=== PATIENT | female | born 1980 | race Caucasian/White ===

== ENCOUNTER 2021-08-31 15:25 | Emergency (ER) | payer OTHER, SELFPAY ==
[2021-08-31 15:31] VITALS: BP 161/98; PULSE 92; RESP 18; TEMP 36.7; O2SAT 99
--- NOTE | 2021-08-31 15:31 | ED.URI ---
HPI - URI/Sore Throat General Chief Complaint: Upper Respiratory Infection Stated Complaint: cough fever Time Seen by Provider: 08/31/21 15:32 Source: patient and RN notes reviewed History of Present Illness HPI Narrative: Patient is a 41-year-old female who presents the urgent care with complaints of chest congestion and harsh coughing. Patient states that started 3 weeks ago and she has been using DayQuil, NyQuil, Mucinex and Benadryl without much relief. Patient denies of any fevers. States that she has had some chills and sweats which is since resolved since Monday. Denies of any chest pain. No other acute complaints. No acute distress noted. Patient aware of the plan of care. Some parts of this dictation were generated by voice recognition software and may contain typographical and/or grammatical inaccuracies. Related Data Allergies Allergy/AdvReac Type Severity Reaction Status Date / Time amoxicillin Allergy Hives Verified 08/31/21 15:38 Review of Systems Review of Systems: CONSTITUTIONAL: Denies fever, chills, or sweats. EYES: Denies visual changes, redness, or discharge. ENT: Denies rhinorrhea, congestion, sore throat, or otalgia. CARDIOVASCULAR: Denies chest pain, palpitations, or edema. RESPIRATORY: Reports of chest congestion and cough GASTROINTESTINAL: Denies abdominal pain, nausea, vomiting, or diarrhea. GENITOURINARY: Denies dysuria or hematuria. SKIN: Denies rash or itching. MUSCULOSKELETAL: Denies back pain, joint pain, or myalgia. NEUROLOGIC: Denies headache, numbness, or weakness. All other systems reviewed are negative, except as documented in HPI. PMFSH Comments At the time of my signature, I reviewed and agree with the nursing past medical, surgical, social, and family history. There is no relevant family history pertinent to the patient complaint. Exam Narrative: GENERAL: This is a well-nourished, well-developed patient, in no apparent distress. HEAD: normocephalic, atraumatic. EYES: PERRL. Sclera clear/white. Vision is grossly intact. EARS: External ears normal, auditory canals clear and without drainage, TMs normal without perforation. Hearing grossly intact. NOSE: External nose normal with no obvious nasal discharge, nares without redness, no rhinorrhea. THROAT: Mucous membranes moist, posterior pharynx clear. Moderate postnasal drainage NECK: Neck supple CARDIOVASCULAR: Regular rate and rhythm without murmurs, gallops, or rubs. RESPIRATORY: Scant bibasilar wheezing, cleared with cough. SKIN: warm, intact with no suspicious lesions or rash, good texture and turgor. NEURO: awake, alert, and oriented to person, place and time. There were no obvious focal neurologic abnormalities. EXTREMITIES: No clubbing, cyanosis, or edema. Course Course Level of Care: Express Care Visit Vital Signs Vital signs: Vital Signs Temperature 98.1 F 08/31/21 15:31 Pulse Rate 92 08/31/21 15:31 Respiratory Rate 18 08/31/21 15:31 Blood Pressure 161/98 H 08/31/21 15:31 Pulse Oximetry 99 08/31/21 15:31 Temperature 98.1 F 08/31/21 15:31 Pulse Rate 92 08/31/21 15:31 Respiratory Rate 18 08/31/21 15:31 Blood Pressure 161/98 H 08/31/21 15:31 Pulse Oximetry 99 08/31/21 15:31 Reviewed-patient is informed that they may have pre-hypertension or hypertension based on a blood pressure reading in the department. I recommend the patient call the primary care provider listed on their discharge instructions or a physician of their choice this week to arrange follow-up for further evaluation of possible pre-hypertension or hypertension. MDM - URI/Sore Throat MDM Narrative Medical decision making narrative: Advised patient to continue Benadryl prior to bedtime. Complete the steroid regimen as prescribed. Use the inhaler as needed for wheezing, coughing fits or shortness of breath. Be sure to eat and drink with your medications. Use a humidifier at night and do not sleep with a fan or the windows open.
== END 2021-08-31 15:49 | disposition home or self-care (01) ==
PROVIDERS: Emergency Provider Nurse Practitioner Family
DX: J40 Bronchitis, not specified as acute or chronic (principal); I10 Essential (primary) hypertension
CPT/HCPCS: 99203; G0463

== ENCOUNTER 2021-10-01 16:04 | Emergency (ER) | payer OTHER, SELFPAY ==
--- NOTE | ~2021-10-01 | XR_ITS ---
EXAMINATION: XR chest 2V DATE: 10/01/2021 17:05 INDICATION: Left sided chest pain. TECHNIQUE: PA and lateral views of the chest were obtained. COMPARISON: None FINDINGS: The lungs are clear with no focal airspace opacities, pulmonary edema, pleural effusion or pneumothor ax. Cardiomegaly. Moderate thoracic spondylosis. IMPRESSION: 1. Cardiomegaly. No other acute cardiopulmonary disease. Reviewed, dictated and finalized at location A.
[2021-10-01 16:31] VITALS: BP 186/99; PULSE 90; RESP 18; TEMP 36.2; O2SAT 100
--- NOTE | 2021-10-01 16:42 | ECG_ITS ---
Measurements Intervals [place] Rate: 74 P: 68 CO: 178 QRS: 44 QRSD: 96 T: 68 QT: 384 QTc: 426 Interpretive Statements SINUS RHYTHM BORDERLINE R WAVE PROGRESSION, ANTERIOR LEADS ABNORMAL ECG CONSIDER INFERIOR INFARCT, AGE INDETERMINATE Electronically Signed On 10-01-2021 21:32:09 CDT by Yossi Boyle D.O.
--- NOTE | 2021-10-01 18:26 | ED.GENADULT ---
HPI - General Adult General Chief complaint: Unspecified Stated complaint: chest pain Time Seen by Provider: 10/01/21 18:16 Source: RN notes reviewed History of Present Illness HPI narrative: Patient presents emergency department from home for chest pain. Patient states she is had pain in her left superior chest that goes into her left shoulder and down her left arm to her elbow that began last night states the patient has been constant and was mild last night and this morning then got worse when she was at work today. 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 States she not taking medication for the pain at home Related Data Allergies Allergy/AdvReac Type Severity Reaction Status Date / Time amoxicillin Allergy Hives Verified 08/31/21 15:38 Review of Systems Review of Systems: Gen.: Denies fevers or chills ENT: Denies congestion Respiratory: Denies shortness of breath or cough CV: See HPI GI: Denies abdominal pain nausea, emesis or diarrhea Musculoskeletal: Denies back pain or muscle pain Neuro: Denies numbness, tingling, weakness or focal weakness Skin: Denies rash Except as documented, all other systems reviewed and negative [facility] Past Medical History Medical History (Updated 10/01/21 @ 21:16 by Rajesh Chu DO) Patient denies significant medical history Social History Social History (Updated 10/01/21 @ 18:27 by Rajesh Chu DO) Smoking status: Never smoker Exam Narrative: APPEARANCE: No acute distress, nontoxic, resting in bed EYES: EOMI HEENT: Normocephalic, atraumatic, OMM RESPIRATORY: No respiratory distress Clear to auscultation bilaterally with no rhonchi wheezing or rales. CARDIOVASCULAR: Regular rate and rhythm without murmurs rubs or gallops. Chest: Tender palpation of left anterior superior chest wall as well as over the anterior shoulder pain increased with flexion abduction of the left shoulder greater than 90 degrees bilaterally her pulse 2+ ABDOMINAL: Soft, nontender, nondistended, no rebound or guarding MUSCULOSKELETAl: Moves all extremities. No clubbing, cyanosis or edema. No tenderness of the left elbow or wrist no overlying erythema NEURO: Awake and alert. Following commands, speech normal, no focal deficits SKIN:: Warm, dry. No rashes lesions or abrasions PSYCHIATRIC: Normal affect/mood, Course Course Emergency Course: Patient states chest pain is improved at this time Discussed with patient results of workup and diagnosis. Discussed need for follow-up with primary care, proper use of medication, and reasons to return to the emergency department. Patient understands and agrees to current treatment plan. Discussed with patient her anemia she states she did have to be on iron tablets when she had been with her son does have a current PCP discussed the need for follow-up with her PCP for further outpatient evaluation Vital Signs Vital signs: Vital Signs Temperature 97.1 F L 10/01/21 16:31 Pulse Rate 90 10/01/21 16:31 Respiratory Rate 18 10/01/21 16:31 Blood Pressure 186/99 H 10/01/21 16:31 Pulse Oximetry 100 10/01/21 16:31 Temperature 97.1 F L 10/01/21 16:31 Pulse Rate 90 10/01/21 16:31 Respiratory Rate 18 10/01/21 16:31 Blood Pressure 186/99 H 10/01/21 16:31 Pulse Oximetry 100 10/01/21 16:31 Medical Decision Making MDM Narrative Medical decision making narrative: Patient's EKGs and labs are without significant high risk changes. Cardiac risk factors reviewed. Patient is felt likely low risk for ACS and reasonable for further risk stratification testing as an outpatient. Pain was not sudden or maximal in onset without tearing or ripping quality.
[2021-10-01 18:45] LABS: Basophils Absolute Auto 0.1 K/mm3 (0.0-0.1); Basophils Percent Auto 0.5 % (0.2-1.2); Eosinophils Absolute Auto 0.5 K/mm3 (0-0.3); Eosinophils Percent Auto 4.3 % (0-4.4); Hematocrit 29.6 % (37.0-47.0); Hemoglobin 8.3 g/dL (12.0-15.0); Immature Granulocyte Absolute 0.05 K/mm3 (0.00-0.031); Immature Granulocyte Percent A 0.4 % (0-0.5); Lymphocytes Absolute Auto 2.57 K/mm3 (0.9-3.2); Lymphocytes Percent Auto 21.6 % (18.3-44.2); Mean Corpuscular Hemoglobin 20.5 pg (26-34); Mean Corpuscular Volume 73.3 fl (80-100); Mean Platelet Volume 9.3 fl (7.4-10.4); Monocytes Absolute Auto 0.7 K/mm3 (0.1-0.6); Monocytes Percent Auto 5.8 % (2.6-8.5); Neutrophils Percent Auto 67.4 % (45.5-73.1); Platelet Count Result 468 k/mm3 (150-375); Red Blood Count 4.04 M/mm3 (4.2-5.4); Red Cell Distribution Width 16.5 % (11.5-14.5); White Blood Count 11.9 K/mm3 (4.5-10.0)
[2021-10-01 18:53] LABS: Alanine Aminotransferase 18 U/L (6-35); Alkaline Phosphatase 88 U/L (38-126); Anion Gap 5 mmol/L (8-16); Aspartate Amino Transferase 32 U/L (14-36); Bilirubin,Total 0.1 mg/dL (0.2-1.3); Blood Urea Nitrogen 15 mg/dL (7-17); Calcium 8.7 mg/dL (8.4-10.2); Carbon Dioxide 28 mmol/L (22-30); Chloride 108 mmol/L (98-107); Estimated CRCL calculation 211 ml/min; Estimated Glomerular Filt Rate > 60; Glucose 98 mg/dL (65-110); Lipase 168 U/L (23-300); Potassium 4.2 mmol/L (3.4-5.0); Sodium 141 mmol/L (137-145)
[2021-10-01 19:00] LABS: INR 1.1; Partial Thromboplastin Time 32.2 SECONDS (22.3-36.8)
[2021-10-01 19:01] LABS: D Dimer 0.48 ug/mL (<0.48)
[2021-10-01 19:04] LABS: Troponin I < 0.012 ng/mL (0.000-0.034)
[2021-10-01] MEDS: KETOROLAC 30 MG/ML VIAL (*BKC) IV PUSH (19:17)
--- NOTE | 2021-10-01 19:24 | PC.NURSE ---
Patient report received by RAY Maldonado, this nurse assumed care of patient at this time.
[2021-10-01 20:56] LABS: Troponin I < 0.012 ng/mL (0.000-0.034)
[2021-10-01 21:37] VITALS: BP 157/75; PULSE 73; RESP 17; O2SAT 99
== END 2021-10-01 21:39 | disposition home or self-care (01) ==
PROVIDERS: Emergency Medicine; Emergency Provider Emergency Medicine
DX: R07.89 Other chest pain (principal); S46.912A Strain of unspecified muscle, fascia and tendon at shoulder and upper arm level, left arm, initial encounter; I51.7 Cardiomegaly; X50.0XXA Overexertion from strenuous movement or load, initial encounter
CPT/HCPCS: 36415; 71046; 80053; 83690; 84484; 85025; 85380; 85610; 85730; 93005; 96374; 99284; J1885

== ENCOUNTER 2022-06-21 10:59 | Emergency (ER) | payer OTHER, SELFPAY ==
[2022-06-21 11:14] VITALS: PULSE 85; RESP 18; TEMP 36.4; O2SAT 98
[2022-06-21 11:18] VITALS: BP 196/92
--- NOTE | 2022-06-21 11:25 | ED.GENADULT ---
HPI - General Adult General Chief complaint: Upper Respiratory Infection Stated complaint: Congestion/Chest Congestion Source: patient Mode of arrival: ambulatory Limitations: no limitations History of Present Illness HPI narrative: Patient presents for evaluation of sick symptoms for last 10 days. Symptoms include sinus congestion, mucopurulent discharge from her nares and chest congestion. She reports some hot flashes but denies any fever, chills, nausea, vomiting, diarrhea, otalgia, sore throat. Her brother's girlfriend currently has similar symptoms. Patient has had COVID in the past. She took a COVID test earlier today which was negative. She has been taking DayQuil and NyQuil for symptoms. She smokes a quarter pack per day. Related Data Allergies Allergy/AdvReac Type Severity Reaction Status Date / Time amoxicillin Allergy Hives Verified 08/31/21 15:38 Review of Systems Review of Systems: CONSTITUTIONAL: Denies fever, chills, or sweats. EYES: Denies visual changes, redness, or discharge. ENT: Reports sinus congestion and green mucopurulent drainage. Denies sore throat, or otalgia. CARDIOVASCULAR: Denies chest pain, palpitations, or edema. RESPIRATORY: Denies cough or dyspnea. GASTROINTESTINAL: Denies abdominal pain, nausea, vomiting, or diarrhea. GENITOURINARY: Denies dysuria or hematuria. SKIN: Denies rash or itching. MUSCULOSKELETAL: Denies back pain, joint pain, or myalgia. NEUROLOGIC: Denies headache, numbness, dizziness, or weakness. PSYCHIATRIC: Denies anxiety or depression. [facility] Past Medical History Medical History (Updated 06/21/22 @ 11:46 by ESTHER Hoffmann, ) Hypertension Surgical History Surgical History No pertinent past surgical history Family History Family History (Updated 06/21/22 @ 11:46 by ESTHER Hoffmann, ) Mother Family history non-contributory Social History Social History Smoking packs per day: 0.25 Smoking cigarettes per day: 5.0 Smoking status: Current every day smoker Substance use: never Living arrangements: with family Gender identity (if verbalized by the patient): Female Sexual Orientation (if Verbalized by the Patient): Straight or Heterosexual Spiritual care concerns: No Exam Narrative: GENERAL: Well-appearing, well-nourished, and in no acute distress. HEAD: Normocephalic, atraumatic. EYES: PERRLA and EOMI. ENT: There is green mucopurulent discharge in nares bilaterally. There is maxillary and frontal sinus tenderness. Mucous membranes moist. Oropharynx without tonsillar hypertrophy exudate or other lesions. Bilateral TMs pearly funk nonbulging NECK: Supple. No adenopathy or masses. No carotid bruits or JVD CHEST: Clear to auscultation. No respiratory distress. No wheezes rales or rhonchi HEART: Regular rate and rhythm. No murmur heard. Normal peripheral pulses. ABDOMEN: Soft, nontender, nondistended, normal active bowel sounds. EXTREMITIES: Normal range of motion. No edema. SKIN: Warm, dry, no rash. NEURO: No focal deficits. Alert and oriented x3. PSYCH: Normal mood and affect. Course Course Emergency Course: This is a 41-year-old female who presented for evaluation of sinus symptoms. She meets criteria for ABRS based on duration of her symptoms and characteristic of her discharge. She has an allergy to amoxicillin. Will treat with doxycycline. Advised not to smoke. In terms of her blood pressure, she was advised to monitor this at home and follow up with her primary provider. She ran out of her BP medication. She should call for appt this week. Denies chest pain or SOB. She should go to ER in the event that she experiences either. Pt in agreement with plan of care. Level of Care: Express Care Visit Vital Signs Vital signs: Vital Signs Temperature 36.4 C L 06/21/22 11:14 Pulse Rate 85
== END 2022-06-21 11:31 | disposition home or self-care (01) ==
PROVIDERS: Emergency Provider Nurse Practitioner; PCP Emergency Medicine
DX: J32.9 Chronic sinusitis, unspecified (principal); F17.210 Nicotine dependence, cigarettes, uncomplicated; I10 Essential (primary) hypertension; Z86.16 Personal history of COVID-19
CPT/HCPCS: 99213; G0463

== ENCOUNTER → 2022-06-28 09:27 | Outpatient (CLI) | payer OTHER, SELFPAY ==
--- NOTE | ~2022-06-28 | XR_ITS ---
Lumbosacral Spine: AP and lateral views Clinical History: Pain Findings: The normal lordotic curve is maintained. No fracture or subluxation seen. There is advanced degenerative disc narrowing at L5-S1. There is facet arthropathy at L4-L5 and L5-S1. The sacroiliac joints are normally outlined. Impression: Mild degenerative spondylosis, as above. Reviewed, dictated and finalized at location . [employer] Impression: Mild degenerative spondylosis, as above.
--- NOTE | ~2022-06-28 | XR_ITS ---
Clinical Indication: Smoking history PA and lateral views of the chest: Comparison: 10/01/2021 Findings: The lungs are clear, without evidence of focal consolidation or pleural effusion. Cardiome diastinal silhouette is within normal limits. Bones and soft tissues are unremarkable. Impression: Normal chest. Reviewed, dictated and finalized at [facility]. SH[facility]ER Impression: Normal chest.
== END ==
PROVIDERS: PCP Emergency Medicine; Visit Provider Emergency Medicine
DX: F17.210 Nicotine dependence, cigarettes, uncomplicated (principal); M47.896 Other spondylosis, lumbar region
CPT/HCPCS: 71046; 72100

== ENCOUNTER 2023-04-07 10:27 | Emergency (ER) | payer OTHER, SELFPAY ==
--- NOTE | 2023-04-07 10:29 | ED.SKABFB ---
HPI - Skin/Abscess/Foreign Bdy General Stated complaint: blisters from heating pad on back Time Seen by Provider: 04/07/23 10:28 Source: patient Mode of arrival: ambulatory Limitations: no limitations History of Present Illness HPI narrative: Dilia is a 42-year-old female patient presenting to the clinic today with complaints of a burn to her left buttocks. She reports that 3 days ago she applied a heating pad to her back to help alleviate pain. She reports that she did not put a barrier between her and the heating pad and this caused a burn to her buttocks. Related Data Home Medications Medication Instructions Recorded Confirmed carvedilol 04/07/23 Allergies Allergy/AdvReac Type Severity Reaction Status Date / Time amoxicillin Allergy Hives Verified 04/07/23 10:42 Review of Systems Review of Systems: Pertinent positives per HPI. Patient denies any fever, chills, rash, headache, visual changes, dizziness, cough, runny nose, sore throat, shortness of breath, chest pain, palpitations, nausea, vomiting, diarrhea, constipation, abdominal pain, or any urinary issues. [facility] Past Medical History Medical History (Updated 04/07/23 @ 10:43 by Kwabena Lowe APRN) Hypertension Surgical History Surgical History No pertinent past surgical history Family History Family History Mother Family history non-contributory Social History Social History Smoking packs per day: 0.25 Smoking cigarettes per day: 5.0 Smoking status: Current every day smoker Substance use: never Living arrangements: with family Gender identity (if verbalized by the patient): Female Sexual Orientation (if Verbalized by the Patient): Straight or Heterosexual Spiritual care concerns: No Comments At the time of my signature, I reviewed and agree with the nursing past medical, surgical, social, and family history. There is no relevant family history pertinent to the patient complaint. Exam Narrative: General: Well-developed, morbidly obese, in no apparent distress Head: Normocephalic, atraumatic. Cardio: Regular rate and rhythm, s1 and s2 normal, no murmur appreciated. Resp: Clear to auscultation bilaterally, no rhonchi, rales, wheezing or rubs. Integumentary: [place], warm, and dry, intact without lesion, 3 open blistered areas to the left buttocks that appear to be from a 2nd degree burn. Mild redness without erythema, drainage, or induration Course Course Emergency Course: Portions of this record may have been created with voice recognition software. Level of Care: Express Care Visit Vital Signs Vital signs: Vital signs reviewed MDM - Skin/Abscess/Foreign Bdy MDM Narrative Medical decision making narrative: At the time of visit patient is resting comfortably on the exam table. Blisters were cleansed and Silvadene dressing was applied in the clinic today. Recommend Silvadene dressing changes daily x7 days. Watch for signs and symptoms of infection. Discharge Plan Discharge Clinical Impression: Burn of second degree of buttock, initial encounter Patient Disposition: Home, Self-Care Condition: Stable Instructions: Antibiotic Form, Second-Degree Burn (ED) Additional Instructions: Tetanus shot was given in the clinic today Keep wound clean and dry Apply Silvadene dressing to the wound daily-if the dressing becomes soiled recommend removing the dressing and cleaning the area and applying a new dressing. May take Tylenol/Motrin as needed for pain Watch for signs and symptoms of infection-fever not controlled by Tylenol or Motrin, increase redness, purulent drainage, increase in pain, increase in swelling, increase in warmth, or or streaking. Follow-up with your PCP in 1 week if symptoms persist or sooner if they wo
[2023-04-07 10:31] VITALS: BP 155/70; PULSE 85; RESP 18; TEMP 36.2; O2SAT 100
[2023-04-07] MEDS: TETANUS,DIPHTHERIA,AC PERTUSSIS ADULT (0.5 ML) BOOSTRIX IM (10:54)
== END 2023-04-07 11:26 | disposition home or self-care (01) ==
PROVIDERS: Emergency Provider Nurse Practitioner Family; PCP Emergency Medicine
DX: T21.25XA Burn of second degree of buttock, initial encounter (principal); X15.8XXA Contact with other hot household appliances, initial encounter; Z23 Encounter for immunization; F17.210 Nicotine dependence, cigarettes, uncomplicated; I10 Essential (primary) hypertension
CPT/HCPCS: 16020; 90471; 90715; 99213; A9270; G0463

== ENCOUNTER 2023-12-31 16:16 | Emergency (ER) | payer SELFPAY ==
[2023-12-31 16:17] VITALS: BP 153/83; PULSE 112; RESP 18; TEMP 36.6; O2SAT 100
--- NOTE | 2023-12-31 17:52 | PC.NURSE ---
Called pt's name 3 times in triage so that I could get updated vitals on her, but no responses from any patients to my call for Dilia.
== END 2023-12-31 21:46 | disposition left against medical advice (07) ==
LOC: ANHED 21:38
PROVIDERS: PCP Emergency Medicine
DX: R06.02 Shortness of breath (principal)
CPT/HCPCS: 99199

== ENCOUNTER 2024-01-01 15:49 | Emergency (ER) | payer MEDICAID, SELFPAY ==
[2024-01-01 15:54] VITALS: BP 146/72; PULSE 96; RESP 20; TEMP 36.7; O2SAT 100
--- NOTE | 2024-01-01 15:58 | ED.GENADULT ---
HPI - General Adult General Chief complaint: Dizziness Stated complaint: Dizziness/Nausea/Numbness in Hands Source: patient, RN notes reviewed and old records reviewed Mode of arrival: ambulatory Limitations: no limitations History of Present Illness HPI narrative: 43-year-old female to Express Care for complaint of dizziness and near syncopal episodes that has been ongoing for last several weeks. Patient reports losing approximately 100 lb over the past year with 60 lb weight loss for the past 3 months without known cause. Patient states that she lost her insurance in June and has not had her hypertension medications since August. Patient states that she tracks her blood pressure at and typically runs 160s over 90s. Yesterday during a dizzy spell patient reports her blood pressure being 95/65. Patient endorses cramping discomfort to generalized abdomen. Patient reports that she has not had contraceptives for over 1 month due to insurance. Patient denies possibly , reports LMP within last week. Patient endorsing urinary frequency, burning with urination, malodorous, thick vaginal discharge that is white to brown in color. Patient states she believes that she has a urinary tract infection and has been attempting to treat at home with topical creams. Patient states that she went to [facility] yesterday and sat in the waiting for 4 hours then decided to leave. Patient tolerating fluids by mouth. Patient appears fatigued, acute on chronically ill, pale. Respirations even and nonlabored. Patient in no acute distress. Related Data Home Medications Medication Instructions Recorded Confirmed No Home Medications 01/02/24 01/02/24 Allergies Allergy/AdvReac Type Severity Reaction Status Date / Time amoxicillin Allergy Hives Verified 01/01/24 17:00 Review of Systems Review of Systems: All systems reviewed & are unremarkable except as noted in HPI and below Constitutional: Constitutional: Reports as per HPI and Reports poor appetite Eyes: Eyes: Reports no additional eye complaints ENT: Reports system reviewed and no additional complaints, except as documented Cardiovascular: Cardiovascular: Reports no additional cardiovascular complaints, Denies chest pain, Reports lightheadedness and Denies dyspnea Respiratory: Respiratory: Reports no additional respiratory complaints, Denies cough and Denies dyspnea Gastrointestinal: Gastrointestinal: Reports as per HPI and Reports GI cramping Musculoskeletal: Musculoskeletal: Reports no additional musculoskeletal complaints Neurologic: Reports as per HPI, Reports dizziness and Reports other ( near syncopal episodes) Psychiatric: Psychiatric: Reports no additional psychiatric complaints PMFSH Past Medical History Medical History Hypertension Surgical History Surgical History No pertinent past surgical history Family History Family History Mother Family history non-contributory Social History Social History Smoking packs per day: 0.25 Smoking cigarettes per day: 5.0 Smoking status: Former smoker Alcohol intake: never Substance use: never Do You Feel Safe in your Home?: Yes Lack of Transportation: No Lack of Food: Never True Current Housing: I Have Housing Concerned About Future Housing: No Difficulty Paying Gas/Electric Bills: No Difficulty Paying for Meds: No Currently Unemployed: No Education: High School Diploma/GED Difficulty w/ Childcare or Family Care: No Living arrangements: with family Gender identity (if verbalized by the patient): Female Sexual Orientation (if Verbalized by the Patient): Straight or Heterosexual Spiritual care concerns: No Comments
== END 2024-01-01 16:30 | disposition short-term general hospital (02) ==
LOC: EXPBETH 15:52
PROVIDERS: Emergency Provider Nurse Practitioner Family; PCP Emergency Medicine
DX: R63.4 Abnormal weight loss (principal); R42 Dizziness and giddiness; Z87.891 Personal history of nicotine dependence; I10 Essential (primary) hypertension
CPT/HCPCS: 99213; G0463

== ENCOUNTER 2024-01-01 16:59 | Inpatient (IN) | payer MEDICAID, SELFPAY ==
[2024-01-01] VITALS (12 sets, daily range): BP systolic 119–172; BP diastolic 68–100; PULSE 90–102; RESP 9–22; TEMP 36.3–36.5; O2SAT 98–100
--- NOTE | ~2024-01-01 | CT_ITS ---
EXAMINATION: CT abdomen pelvis w con DATE: 01/02/2024 03:02 INDICATION: Gastrointestinal hemorrhage. TECHNIQUE: Computed tomography (CT) of the abdomen and pelvis was performed with 100 mL Omnipaque 350 intravenous contrast. Automated exposure control and iterative reconstruction technique were employe d. The dose-length product was 1619.88 mGy-cm. COMPARISON: None. FINDINGS: The visualized portions of the lung bases demonstrate minimal atelectasis. No pleural effus ion. The heart size is normal. No pericardial effusion. There is a small sliding hiatal hernia. The l iver and spleen are normal. There are changes of cholecystectomy. The pancreas, adrenal glands, and r ight kidney are normal. There is an 8 mm cyst in left kidney. There is wall thickening of the sigmoid colon. The appendix is normal. There are no pathologically enlarged lymph nodes. There is no free in traperitoneal fluid. There is mild thoracic spondylosis and severe lower lumbar spondylosis. IMPRESSION: 1. Wall thickening of the sigmoid colon, consistent with colitis versus malignancy. 2. Small sliding hiatal hernia. Reviewed, dictated and finalized at location A. IMPRESSION: 1. Wall thickening of the sigmoid colon, consistent with colitis versus maligna ncy. 2. Small sliding hiatal hernia.
--- NOTE | ~2024-01-01 | XR_ITS ---
EXAMINATION: XR chest 2V Exam Date/Time: 01/01/2024 19:28 CDT HISTORY: near syncope Comparison: 06/28/2022. RESULT: Lines, tubes, and devices: Cholecystectomy clips. Lungs and pleura: Clear. Cardiomediastinal silhouette: Stable. Other: No acute osseous or upper abdominal finding. IMPRESSION: No acute cardiopulmonary process. Reviewed, dictated and finalized at location K.
--- NOTE | ~2024-01-01 | CT_ITS ---
EXAMINATION: CT chest abdomen pelvis w con DATE: 01/05/2024 09:09 INDICATION: Colon cancer. TECHNIQUE: Computed tomography (CT) of the chest, abdomen, and pelvis was performed with 100 mL Omnip aque 350 intravenous contrast. Automated exposure control and iterative reconstruction technique were employed. The dose-length product was 1885.71 mGy-cm. COMPARISON: CT abdomen and pelvis 01/02/2024 FINDINGS: CHEST CT: There is no pneumonia or pleural effusion. The heart size is normal. No pericardial effusion. There i s an 11 x 17 mm right paratracheal lymph node. There is a small sliding hiatal hernia. There is mild chronic anterior wedging of T6-T8 vertebral bodies. There is moderate thoracic spondylosis. ABDOMEN/PELVIS CT: The liver is normal. There are changes of cholecystectomy. The spleen, pancreas, adrenal glands, and kidneys are normal. There is focal wall thickening of the rectum. There is focal wall thickening of t he sigmoid colon. The appendix is normal. There are no dilated loops of bowel. There are no pathologi philip enlarged lymph nodes. There is a 10 x 12 mm left common iliac node. There is severe lower lumba r spondylosis. IMPRESSION: 1. Focal wall thickening of the sigmoid colon, consistent with primary malignancy. 2. Focal wall thickening of the rectum, consistent with primary malignancy. 3. Mildly enlarged left common iliac lymph node suspicious for metastatic disease. 4. Mildly enlarged right paratracheal lymph node, probably benign. Reviewed, dictated and finalized at location A. IMPRESSION: 1. Focal wall thickening of the sigmoid colon, consistent with primary malignan cy. 2. Focal wall thickening of the rectum, consistent with primary malignancy. 3. Mildly enlarged left common iliac lymph node suspicious for metastatic disea se. 4. Mildly enlarged right paratracheal lymph node, probably benign.
--- NOTE | 2024-01-01 19:24 | ECG_ITS ---
Test Date: 2024-01-01 20:26:20 Measurements Intervals [place] Rate: 91 P: 45 NV: 132 QRS: 27 QRSD: 102 T: 49 QT: 354 QTc: 437 Interpretive Statements SINUS RHYTHM WITH OCCASIONAL VENTRICULAR PREMATURE COMPLEXES NONSPECIFIC ST & T-WAVE ABNORMALITY No previous ECG available for comparison Electronically Signed On 01-02-2024 08:53:26 CDT by Servando Henson M.D.
[2024-01-01 20:44] LABS: Basophils Absolute Auto 0.1 K/mm3 (0.0-0.1); Basophils Percent Auto 0.7 % (0.2-1.2); Eosinophils Absolute Auto 0.2 K/mm3 (0-0.3); Eosinophils Percent Auto 1.8 % (0-4.4); Hematocrit 22.8 % (37.0-47.0); Immature Granulocyte Absolute 0.04 K/mm3 (0.00-0.031); Immature Granulocyte Percent A 0.4 % (0-0.5); Lymphocytes Absolute Auto 1.94 K/mm3 (0.9-3.2); Lymphocytes Percent Auto 19.5 % (18.3-44.2); Mean Corpuscular HGB Conc 25.9 g/dl (32-36); Mean Corpuscular Hemoglobin 17.2 pg (26-34); Mean Corpuscular Volume 66.3 fl (80-100); Mean Platelet Volume 8.8 fl (7.4-10.4); Monocytes Absolute Auto 0.6 K/mm3 (0.1-0.6); Neutrophils Absolute Auto 7.1 K/mm3 (1.3-6.7); Neutrophils Percent Auto 71.6 % (45.5-73.1); Nucleated Red Blood Cells Perc 0.4 % (0.0-0.2); Platelet Count Result 620 k/mm3 (150-375); Red Blood Count 3.44 M/mm3 (4.2-5.4); Red Cell Distribution Width 17.6 % (11.5-14.5)
[2024-01-01 20:55] LABS: Alanine Aminotransferase 14 U/L (6-35); Albumin Level 3.9 g/dL (3.5-5.1); Alkaline Phosphatase 70 U/L (38-126); Anion Gap 11 mmol/L (4-12); Aspartate Amino Transferase 29 U/L (14-36); Bilirubin,Total 0.4 mg/dL (0.2-1.3); Blood Urea Nitrogen 8 mg/dL (7-17); Calcium 9.1 mg/dL (8.4-10.2); Carbon Dioxide 24 mmol/L (22-30); Chloride 104 mmol/L (98-107); Estimated CRCL calculation 182 ml/min; Estimated Glomerular Filt Rate > 60; Glucose 94 mg/dL (65-110); Potassium 4.1 mmol/L (3.4-5.0); Sodium 139 mmol/L (137-145)
[2024-01-01 21:01] LABS: Hemoglobin 5.9 g/dL (12.0-15.0)
[2024-01-01 21:02] LABS: Platelet Estimate Increased (Adequate)
[2024-01-01 21:03] LABS: Anisocytosis 2+; Hypochromasia 1+; Schistocytes None Seen
[2024-01-01 21:04] LABS: Microcytosis 1+ (NORMAL)
--- NOTE | 2024-01-01 21:27 | ED.DIZZY ---
HPI - Dizziness General Chief Complaint: Dizziness <DAYANA Zhu Last Filed: 01/02/24 18:40> Stated Complaint: dizziness <DAYANA Zhu Last Filed: 01/02/24 18:40> Time Seen by Provider: 01/01/24 21:12 <DAYANA Zhu Last Filed: 01/02/24 18:40> Source: patient <DAYANA Zhu Last Filed: 01/02/24 18:40> Mode of arrival: wheelchair <DAYANA Zhu Last Filed: 01/02/24 18:40> Limitations: no limitations <DAYANA Zhu Last Filed: 01/02/24 18:40> History of Present Illness HPI Narrative: This is a 43-year-old female that presents to the emergency department for lightheadedness. Reporting presyncopal episodes. Reports this is been ongoing for several weeks. Worsening over the last couple of days. Reports she usually does not have menstrual cycles. She ran out of her control. She has had 2 menstrual cycles recently. She did experience pretty heavy bleeding yesterday, but is not bleeding currently. She also reports history of trouble with polyps in her colon for which she has had to have removed. Does have known history of anemia. She did not tolerate Iron pills. Denies chest pain, shortness of breath. <DAYANA Zhu Last Filed: 01/02/24 18:40> Related Data Home Medications: Home Medications Medication Instructions Recorded Confirmed No Home Medications 01/02/24 01/02/24 <DAYANA Zhu Last Filed: 01/02/24 18:40> Allergies/Adverse Reactions: Allergies Allergy/AdvReac Type Severity Reaction Status Date / Time amoxicillin Allergy Hives Verified 01/01/24 17:00 <DAYANA Zhu Last Filed: 01/02/24 18:40> Review of Systems Review of Systems: CONSTITUTIONAL: Denies fever CARDIOVASCULAR: Denies chest pain, or edema. RESPIRATORY: Denies dyspnea. NEUROLOGIC: Reports generalized weakness. <DAYANA Zhu Last Filed: 01/02/24 18:40> All systems reviewed & are unremarkable except as noted in HPI and below <Amalia Bower PA-C - Last Filed: 01/02/24 18:40> PMFSH Past Medical History Medical History: Medical History Hypertension <Amalia Bower PA-C - Last Filed: 01/02/24 18:40> Surgical History Surgical History: Surgical History No pertinent past surgical history <Amalia Bower PA-C - Last Filed: 01/02/24 18:40> Family History Family History: Family History Mother Family history non-contributory <Amalia Bower PA-C - Last Filed: 01/02/24 18:40> Social History Social History: Social History Smoking packs per day: 0.25 Smoking cigarettes per day: 5.0 Smoking status: Former smoker Alcohol intake: never Substance use: never Do You Feel Safe in your Home?: Yes Lack of Transportation: No Lack of Food: Never True Current Housing: I Have Housing Concerned About Future Housing: No Difficulty Paying Gas/Electric Bills: No Difficulty Paying for Meds: No Currently Unemployed: No Education: High School Diploma/GED Difficulty w/ Childcare or Family Care: No Living arrangements: with family Gender identity (if verbalized by the patient): Female Sexual Orientation (if Verbalized by the Patient): Straight or Heterosexual Spiritual care concerns: No <Amalia Bower PA-C - Last Filed: 01/02/24 18:40> Exam Narrative: GENERAL: Pale, well-nourished, and in no acute distress. HEAD: Normocephalic, atraumatic. EYES: EOMI. ENT: Nares clear, no rhinorrhea or epistaxis. Mucous membranes moist. CHEST: Clear to auscultation. No respiratory distress. No wheezes rales or rhonchi HEART: Regular rate and rhythm. No murmur heard. Normal peripheral pulses. EXTREMITIES
[2024-01-01 22:31] LABS: Iron 19 ug/dL (37-170)
[2024-01-01 22:40] LABS: Percent Iron Saturation 4 % (20-50)
[2024-01-01] MEDS: SODIUM CHLORIDE 0.9% IV 250 ML 30 ML IV CONT (22:52)
[2024-01-01] MEDS: TUBING, BLOOD PLUM PUMP TUBING 1 EACH XX (23:06)
--- NOTE | 2024-01-01 23:29 | PC.NURSE ---
care and report given to RAY Killian. all questions answered.
[2024-01-02] VITALS (23 sets, daily range): BP systolic 125–191; BP diastolic 63–105; PULSE 89–113; RESP 12–26; TEMP 36.3–36.7; O2SAT 98–100; BMI 50.4
[2024-01-02 01:23] LABS: Add Urine Microscopic? YES; Appearance Urine Turbid (Clear); Bacteria Urine 4+ /hpf; Bilirubin Urine Negative (Negative); Blood Urine 3+ (Negative); Color Urine Dark Yellow (Yellow); Glucose Urine UA Negative (Negative); Ketones Urine 3+ mg/dL (Negative); Leukocyte Esterase Ur 3+ LEU/UL (Negative); Need Manual Microscopic Reviewed; Nitrate Urine Negative (Negative); Protein Urine 1+ mg/dL (Negative); RBC Urine 21-50 /hpf (0-2); Specific Grav Ur 1.027 (1.001-1.035); Squamous Epithelial Cell Urine Many /hpf (Few); WBC Urine 51-100 /hpf (0-3)
[2024-01-02] MEDS: SODIUM CHLORIDE 0.9% IV 250 ML 30 ML (01:32)
[2024-01-02] MEDS: TUBING, BLOOD PLUM PUMP TUBING 1 EACH XX (01:33)
[2024-01-02 02:04] LABS: Pregnancy On Board Control Positive; Urine Pregnancy Test Negative
--- NOTE | 2024-01-02 05:37 | ADMGEN ---
This patient, Dilia Loomis, was admitted to Medical Room 348-01. Patient/family oriented to hospital policies and general routines including ID bracelet, bed and alarms, visiting hours, pain management, procedures, bathroom and other care routines, personal items, smoking policy, room service/diet, and visiting hours. Information on how to activate the Rapid Response Team has been discussed. Patient/Family are encouraged to report perceived risks to care and to ask questions if they do not understand what they are told or what they should do.
[2024-01-02 06:14] LABS: Basophils Absolute Auto 0.1 K/mm3 (0.0-0.1); Basophils Percent Auto 1.1 % (0.2-1.2); Eosinophils Absolute Auto 0.2 K/mm3 (0-0.3); Eosinophils Percent Auto 2.1 % (0-4.4); Hematocrit 27.5 % (37.0-47.0); Hemoglobin 7.9 g/dL (12.0-15.0); Immature Granulocyte Absolute 0.02 K/mm3 (0.00-0.031); Immature Granulocyte Percent A 0.3 % (0-0.5); Lymphocytes Absolute Auto 1.48 K/mm3 (0.9-3.2); Lymphocytes Percent Auto 18.6 % (18.3-44.2); Mean Corpuscular HGB Conc 28.7 g/dl (32-36); Mean Corpuscular Hemoglobin 20.6 pg (26-34); Mean Corpuscular Volume 71.8 fl (80-100); Mean Platelet Volume 8.7 fl (7.4-10.4); Monocytes Absolute Auto 0.7 K/mm3 (0.1-0.6); Monocytes Percent Auto 8.9 % (2.6-8.5); Neutrophils Absolute Auto 5.5 K/mm3 (1.3-6.7); Nucleated Red Blood Cells Perc 0.4 % (0.0-0.2); Platelet Count Result 539 k/mm3 (150-375); Red Blood Count 3.83 M/mm3 (4.2-5.4); Red Cell Distribution Width 23.5 % (11.5-14.5)
[2024-01-02 06:24] LABS: Alanine Aminotransferase 12 U/L (6-35); Albumin Level 3.6 g/dL (3.5-5.1); Alkaline Phosphatase 64 U/L (38-126); Anion Gap 10 mmol/L (4-12); Aspartate Amino Transferase 21 U/L (14-36); Bilirubin,Total 0.4 mg/dL (0.2-1.3); Blood Urea Nitrogen 7 mg/dL (7-17); Calcium 8.4 mg/dL (8.4-10.2); Carbon Dioxide 24 mmol/L (22-30); Chloride 105 mmol/L (98-107); Estimated CRCL calculation 158 ml/min; Estimated Glomerular Filt Rate > 60; Glucose 88 mg/dL (65-110); Potassium 3.7 mmol/L (3.4-5.0); Sodium 139 mmol/L (137-145)
[2024-01-02 06:41] LABS: Anisocytosis 2+; Hypochromasia 1+; Platelet Estimate Slightly Increased (Adequate)
[2024-01-02 06:42] LABS: Polychromasia 1+; Schistocytes None Seen
--- NOTE | 2024-01-02 08:33 | P.CONGI_ITS ---
I, Marquis Sanford MD, have provided a substantive portion of the care of this patient and discussed the patient with my Nurse Practitioner. I have reviewed any new relevant radiographic and laboratory results including medications. I agree with her documentation as noted below.?I personally performed the medical decision making and much of the history and exam for this encounter. briefly, she is here with near syncope and fatigue, hgb 6 (09/2023 8.5), denies overt gib, also dysphagia. Blood work consistent with RA, better after blood transfusion. CT scan showed small hiatal hernia and possible thickening of sigmoid (last colonoscopy about 8 years ago after large polyp removed). Plan is EGD and colonoscopy tomorrow, if no major findings then will need to see hematology +/- rn gyn Assessment and Plan Assessment and plan (1) Proctocolitis: Code(s): K52.9 - Noninfective gastroenteritis and colitis, unspecified Status: Acute (2) Anemia: Qualifiers: Anemia type: iron deficiency Iron deficiency anemia type: other iron deficiency Qualified Code(s): D50.8 - Other iron deficiency anemias Code(s): D64.9 - Anemia, unspecified Status: Acute (3) Nausea and vomiting: Qualifiers: Vomiting type: bilious vomiting Qualified Code(s): R11.14 - Bilious vomiting Code(s): R11.2 - Nausea with vomiting, unspecified Status: Acute (4) Dysphagia: Qualifiers: Dysphagia type: esophageal phase Qualified Code(s): R13.19 - Other dysphagia Code(s): R13.10 - Dysphagia, unspecified Status: Acute (5) Iron deficiency: Code(s): E61.1 - Iron deficiency Status: Acute (6) Weight loss: Code(s): R63.4 - Abnormal weight loss Status: Acute Plan 1) Abnormal imaging digestive-proctocolitis /personal history of colon polyps: Per patient's last colonoscopy performed in [place] 8 years ago at which time she had polyps removed, endoscopy reports and pathology not available. Family history negative for CRC or IBD. CT on admission showed wall thickening of the sigmoid colon consistent with colitis versus malignancy. Patient states she is having daily bowel movements that are formed and not urgent. She denies any diarrhea, constipation, hematochezia, or melena. * Clear liquid diet * bowel prep to start this evening * NPO after midnight * Colonoscopy tomorrow 2) Nausea/vomiting / dysphagia / weight loss: Patient has never had an EGD. CT showed small sliding hiatal hernia. Admits to intermittent episodes of nausea and vomiting over the past few weeks. Last episode of vomiting 4 days ago. She admits to occasional reflux that responds well to OTC antacids. Patient admits to intermittent dysphagia to solids and liquids but denies any difficulty swallowing pills. The swallowing difficulty has been occurring for a few weeks. Per patient she has lost 60 lb over the past 3 months. Patient uses Midol and Aleve as needed. * EGD with dilation tomorrow * Continue supportive care with antiemetics as needed 3) Acute blood loss anemia / iron deficiency: On admission HGB 6. Patient received 2 units of PRBCs and today HGB 8, HCT 28, platelets 539. B12 and folate normal. Iron 19, TIBC 490, iron saturation 4%. patient denies any signs of active GI bleeding to include hematemesis, hematochezia, or melena since admission. * IV iron already ordered by primary care team * primary care team to continue monitoring H&H and transfuse as needed to keep HGB > 7 * Further recommendations to follow endoscopy
--- NOTE | 2024-01-02 08:33 | WPDGICN ---
Assessment and Plan Assessment and plan (1) Proctocolitis: Code(s): K52.9 - Noninfective gastroenteritis and colitis, unspecified Status: Acute (2) Anemia: Qualifiers: Anemia type: iron deficiency Iron deficiency anemia type: other iron deficiency Qualified Code(s): D50.8 - Other iron deficiency anemias Code(s): D64.9 - Anemia, unspecified Status: Acute (3) Nausea and vomiting: Qualifiers: Vomiting type: bilious vomiting Qualified Code(s): R11.14 - Bilious vomiting Code(s): R11.2 - Nausea with vomiting, unspecified Status: Acute (4) Dysphagia: Qualifiers: Dysphagia type: esophageal phase Qualified Code(s): R13.19 - Other dysphagia Code(s): R13.10 - Dysphagia, unspecified Status: Acute (5) Iron deficiency: Code(s): E61.1 - Iron deficiency Status: Acute (6) Weight loss: Code(s): R63.4 - Abnormal weight loss Status: Acute Plan 1) Abnormal imaging digestive-proctocolitis /personal history of colon polyps: Per patient's last colonoscopy performed in [place] 8 years ago at which time she had polyps removed, endoscopy reports and pathology not available. Family history negative for CRC or IBD. CT on admission showed wall thickening of the sigmoid colon consistent with colitis versus malignancy. Patient states she is having daily bowel movements that are formed and not urgent. She denies any diarrhea, constipation, hematochezia, or melena. Clear liquid diet bowel prep to start this evening NPO after midnight Colonoscopy tomorrow 2) Nausea/vomiting / dysphagia / weight loss: Patient has never had an EGD. CT showed small sliding hiatal hernia. Admits to intermittent episodes of nausea and vomiting over the past few weeks. Last episode of vomiting 4 days ago. She admits to occasional reflux that responds well to OTC antacids. Patient admits to intermittent dysphagia to solids and liquids but denies any difficulty swallowing pills. The swallowing difficulty has been occurring for a few weeks. Per patient she has lost 60 lb over the past 3 months. Patient uses Midol and Aleve as needed. EGD with dilation tomorrow Continue supportive care with antiemetics as needed 3) Acute blood loss anemia / iron deficiency: On admission HGB 6. Patient received 2 units of PRBCs and today HGB 8, HCT 28, platelets 539. B12 and folate normal. Iron 19, TIBC 490, iron saturation 4%. patient denies any signs of active GI bleeding to include hematemesis, hematochezia, or melena since admission. IV iron already ordered by primary care team primary care team to continue monitoring H&H and transfuse as needed to keep HGB > 7 Further recommendations to follow endoscopy Thank you very much for allowing me to share in the care of this very nice patient. This report may have been done utilizing a voice recognition system. Attempts have been made to correct errors. However, there may be uncorrected grammatical, spelling, and recognition errors present. GI Consult Note Consult date/time: 01/02/24 08:33 Reason for consult: PROCTOCOLITIS AND ACUTE BLOOD LOSS ANEMIA HPI: This is a pleasant 43 year old female with a past medical surgical history of hypertension, migraines, personal history of colon polyps and cholecystectomy she presented to the ER room 01/01/2024 with complaints of presyncopal episodes. GI consulted for proctocolitis and acute blood loss anemia. Patient states that she has been having dizzy spells and panic attacks for a couple weeks which got worse on Monday and when she checked her blood pressure which was 95/65. She has also been having nausea and vomiting that comes and goes for a couple weeks, last episode of emesis was 4 days ago. She has been on a bland diet of rice, toast, and chicken noodle soup for a couple weeks. She made homemade potato soup one day and was fine af
--- NOTE | 2024-01-02 09:13 | PM.IMHP ---
H&P: HPI History of Present Illness Date/Time: 01/02/24 09:13 Chief Complaint: Lightheadedness, near syncope Narrative: This very pleasant 43-year-old female patient with past medical history of migraines, hypertension, colon polyps, iron deficiency anemia, and morbid obesity presents to the emergency room last evening with complaints of having lightheadedness and presyncopal episodes for the past few days that had been worsening. Patient denied any acute illnesses that had noted that she had a period that lasted 4 days without heavy bleeding and noted she had been without her OCPs for 1 month secondary to loss of insurance. She denies any abdominal pain, cramping, nausea, vomiting, diarrhea, chest pain or dyspnea. In the emergency room it was found that her hemoglobin was 5.9. She had heme positive occult blood. Iron studies were low with iron of 19, versus saturations of for. Chest x-ray was negative for any acute findings. Urinalysis appeared contaminated the patient did receive a dose of Rocephin in the ER. CT abdomen pelvis demonstrating thick wall of the sigmoid colon consistent with colitis versus malignancy. Patient also had additional small sliding hiatal hernia. Patient has not had any acute diarrhea and she denies any visible mellitus stools or hematochezia. She denies any abdominal pain. She states she does have a history of colon polyps and has had to have them removed previously and all biopsies have been normal. Her last colonoscopy was 8 years ago. Patient has a history of iron deficiency anemia but states she has been unable to tolerate oral iron as it caused a rash. Currently this morning she has a migraine with light sensitivity but no vomiting. Patient is a former smoker. [facility] Past Medical History Medical History Hypertension Surgical History Surgical History No pertinent past surgical history Family History Family History Mother Family history non-contributory Social History Social History Smoking packs per day: 0.25 Smoking cigarettes per day: 5.0 Smoking status: Former smoker Alcohol intake: never Substance use: never Do You Feel Safe in your Home?: Yes Lack of Transportation: No Lack of Food: Never True Current Housing: I Have Housing Concerned About Future Housing: No Difficulty Paying Gas/Electric Bills: No Difficulty Paying for Meds: No Currently Unemployed: No Education: High School Diploma/GED Difficulty w/ Childcare or Family Care: No Living arrangements: with family Gender identity (if verbalized by the patient): Female Sexual Orientation (if Verbalized by the Patient): Straight or Heterosexual Spiritual care concerns: No Meds Home Medications and Allergies Home Medications Medication Instructions Recorded Confirmed Type No Home Medications 01/02/24 01/02/24 History Allergies Allergy/AdvReac Type Severity Reaction Status Date / Time amoxicillin Allergy Hives Verified 01/01/24 17:00 Vital Signs Vital Signs - 24 hr 01/01/24 17:17 01/01/24 21:22 01/01/24 23:01 Temperature 97.4 F L 97.4 F L Pulse Rate 99 102 H 91 Respiratory Rate 15 14 9 L Blood Pressure 144/75 H 119/95 H 155/68 H Pulse Oximetry 100 100 100 Oxygen Delivery Room Air 01/01/24 21:45 01/01/24 22:15 01/01/24 22:31 Temperature Pulse Rate 92 97 93 Respiratory Rate 19 22 H 17 Blood Pressure 138/90 152/74 H 154/69 H Pulse Oximetry 100 100 100 Oxygen Delivery 01/01/24 23:00 01/01/24 23:12 01/01/24 23:17 Temperature 97.7 F 97.6 F Pulse Rate 90 91 92 Respiratory Rate 16 18 15 Blood Pressure 155/68 H 170/100 H 169/78 H Pulse Oximetry 100 100 100 Oxygen Delivery 01/01/24 23:32 01/01/24 23:45 01/01/24 2
[2024-01-02] MEDS: levoFLOXacin 750 MG/D5W 150 ML 750 MG/150 ML BAG 100 MG IVPB (09:45)
[2024-01-02] MEDS: lisinopriL 5 MG TABLET PO (09:45)
[2024-01-02] MEDS: PANTOPRAZOLE SODIUM IV 40 MG VIAL IV PUSH ×2 (09:45→21:20)
[2024-01-02] MEDS: SUMAtriptan SUCCINATE 6 MG/0.5 ML VIAL SUB-Q (09:48)
[2024-01-02] MEDS: IRON SUCROSE COMPLEX 100 MG in SODIUM CHLORIDE 0.9% IV 50 ML 220 MG IVPB (11:29)
[2024-01-02] MEDS: BISACODYL 5 MG TABLET EC 20 MG PO (16:37)
[2024-01-02] MEDS: polyethylene glycoL 3350 238 GM BOTTLE PO (16:37)
[2024-01-02] MEDS: ONDANSETRON INJ 4 MG/2 ML VIAL IV PUSH (17:36)
[2024-01-02] MEDS: traMADol HCL (*CRX) 50 MG TABLET PO (21:20)
[2024-01-03] VITALS (7 sets, daily range): BP systolic 124–146; BP diastolic 53–69; PULSE 79–98; RESP 18–22; TEMP 35.8–36.4; O2SAT 99–100
[2024-01-03] MEDS: MAGNESIUM CITRATE 300 ML BTL PO (02:40)
[2024-01-03 05:53] LABS: Basophils Absolute Auto 0.1 K/mm3 (0.0-0.1); Basophils Percent Auto 1.1 % (0.2-1.2); Eosinophils Absolute Auto 0.2 K/mm3 (0-0.3); Eosinophils Percent Auto 2.5 % (0-4.4); Hematocrit 28.2 % (37.0-47.0); Immature Granulocyte Absolute 0.03 K/mm3 (0.00-0.031); Immature Granulocyte Percent A 0.4 % (0-0.5); Lymphocytes Absolute Auto 1.81 K/mm3 (0.9-3.2); Lymphocytes Percent Auto 21.4 % (18.3-44.2); Mean Corpuscular HGB Conc 28.4 g/dl (32-36); Mean Corpuscular Hemoglobin 20.7 pg (26-34); Mean Corpuscular Volume 72.9 fl (80-100); Mean Platelet Volume 8.7 fl (7.4-10.4); Monocytes Absolute Auto 0.8 K/mm3 (0.1-0.6); Monocytes Percent Auto 9.2 % (2.6-8.5); Neutrophils Absolute Auto 5.5 K/mm3 (1.3-6.7); Neutrophils Percent Auto 65.4 % (45.5-73.1); Nucleated Red Blood Cells Perc 0.4 % (0.0-0.2); Platelet Count Result 508 k/mm3 (150-375); Red Blood Count 3.87 M/mm3 (4.2-5.4); Red Cell Distribution Width 23.5 % (11.5-14.5); White Blood Count 8.4 K/mm3 (4.5-10.0)
[2024-01-03 06:05] LABS: Alanine Aminotransferase 13 U/L (6-35); Albumin Level 3.7 g/dL (3.5-5.1); Alkaline Phosphatase 63 U/L (38-126); Anion Gap 10 mmol/L (4-12); Aspartate Amino Transferase 26 U/L (14-36); Bilirubin,Total 0.4 mg/dL (0.2-1.3); Blood Urea Nitrogen 3 mg/dL (7-17); Calcium 9.1 mg/dL (8.4-10.2); Carbon Dioxide 25 mmol/L (22-30); Chloride 102 mmol/L (98-107); Estimated CRCL calculation 158 ml/min; Estimated Glomerular Filt Rate > 60; Glucose 103 mg/dL (65-110); Potassium 3.3 mmol/L (3.4-5.0); Sodium 137 mmol/L (137-145)
[2024-01-03 07:36] LABS: Anisocytosis 2+; Hypochromasia 2+; Macrocytosis 1+ (NORMAL); Platelet Estimate Increased (Adequate); Polychromasia 1+; Schistocytes None Seen; Target Cells 1+
[2024-01-03] MEDS: levoFLOXacin 750 MG/D5W 150 ML 750 MG/150 ML BAG 100 MG IVPB (09:11)
[2024-01-03] MEDS: PANTOPRAZOLE SODIUM IV 40 MG VIAL IV PUSH (09:12)
[2024-01-03 09:28] LABS: BEDSIDEPREGUCG Negative
[2024-01-03] MEDS: LACTATED RINGERS 1,000 ML 150 ML IV CONT (14:00)
--- NOTE | 2024-01-03 14:37 | WPDANESEPPF ---
Anes - Initial Pre Proc Eval Procedure: Operation Date: 01/03/24 16:30 Proposed Procedures p Esophagogastroduodenoscopy & Colonoscopy - Marquis Sanford MD Date/Time: 01/03/24 14:37 Surgeon: JENNIE Manrique Pre Op Diagnosis: Anemia; Proctocolitis Patient Data Age: 43 Gender: F Height: 1.7 m Weight: 146.1 kg Last Vital Signs Temp 96.5 F L 01/03/24 13:47 Pulse 84 01/03/24 13:47 Resp 18 01/03/24 13:47 BP 146/69 H 01/03/24 13:47 Pulse Ox 99 01/03/24 13:47 O2 Del Method Room Air 01/03/24 13:47 Allergies Allergy/AdvReac Type Severity Reaction Status Date / Time amoxicillin Allergy Hives Verified 01/01/24 17:00 Home Medications Medication Instructions Recorded Confirmed Type No Home Medications 01/02/24 01/02/24 History Laboratory Tests 01/03/24 01/03/24 05:35 09:26 WBC 8.4 K/mm3 (4.5-10.0) RBC 3.87 L M/mm3 (4.2-5.4) Hgb 8.0 L g/dL (12.0-15.0) Hct 28.2 L % (37.0-47.0) MCV 72.9 L fl (80-100) MCH 20.7 L pg (26-34) MCHC 28.4 L g/dl (32-36) RDW 23.5 H % (11.5-14.5) Plt Count 508 H k/mm3 (150-375) MPV 8.7 fl (7.4-10.4) Immature Gran % (Auto) 0.4 % (0-0.5) Neut % (Auto) 65.4 % (45.5-73.1) Lymph % (Auto) 21.4 % (18.3-44.2) [place] % (Auto) 9.2 H % (2.6-8.5) Eos % (Auto) 2.5 % (0-4.4) Baso % (Auto) 1.1 % (0.2-1.2) Lymph # (Auto) 1.81 K/mm3 (0.9-3.2) [place] # (Auto) 0.8 H K/mm3 (0.1-0.6) Eos # (Auto) 0.2 K/mm3 (0-0.3) Baso # (Auto) 0.1 K/mm3 (0.0-0.1) Abs Immat Gran (auto) 0.03 K/mm3 (0.00-0.031) Absolute Neuts (auto) 5.5 K/mm3 (1.3-6.7) Absolute Nucleated RBC 0.030 H K/mm3 (0.0-0.012) Nucleated RBC % 0.4 H % (0.0-0.2) Platelet Estimate Increased (Adequate) Polychromasia 1+ Hypochromasia 2+ Anisocytosis 2+ Macrocytosis 1+ (NORMAL) Target Cells 1+ Schistocytes None seen Sodium 137 mmol/L (137-145) Potassium 3.3 L mmol/L (3.4-5.0) Chloride 102 mmol/L (98-107) Carbon Dioxide 25 mmol/L (22-30) Anion Gap 10 mmol/L (4-12) BUN 3 L mg/dL (7-17) Creatinine 0.60 L mg/dL (0.7-1.0) Estim Creat Clear Calc 158 ml/min Estimated GFR > 60 (59 - ) Glucose 103 mg/dL (65-110) Calcium 9.1 mg/dL (8.4-10.2) Total Bilirubin 0.4 mg/dL (0.2-1.3) AST 26 U/L (14-36) ALT 13 U/L (6-35) Alkaline Phosphatase 63 U/L (38-126) Total Protein 7.0 g/dL (6.3-8.2) Albumin 3.7 g/dL (3.5-5.1) POC Urine HCG, Qual Negative POC Ur Preg QC Yes Patient hx anesthesia problems: none Family hx anesthesia problems: none Results Review: All pre-operative results and documents have been reviewed as part of the pre-operative evaluation. [facility] Past Medical History Medical History Hypertension Surgical History Surgical History No pertinent past surgical history Family History Family History Mother Family history non-contributory Social History Social History Smoking packs per day: 0.25 Smoking cigarettes per day: 5.0 Smoking status: Former smoker Alcohol intake: never Substance use: never Do You Feel Safe in your Home?: Yes Lack of Transportation: No Lack of Food: Never True Current Housing: I Have Housing Concerned About Future Housing: No Difficulty Paying Gas/Electric Bills: No Difficulty Paying for Meds: No Currently Unemployed: No Education: High School Diploma/GED Difficulty w/ C
[2024-01-03] MEDS: BENZOCAINE (*SP) 60 ML SPRAY CAN (HURRICAINE) 1 SPRAY MUCOUS MEM (14:40)
--- NOTE | 2024-01-03 14:48 | SUR.OPER ---
EGD start time 1441, EGD end time 1447. Colonoscopy start time 1453.
--- NOTE | 2024-01-03 15:13 | SUR.OPER ---
Report given to RAY Nuñez on ed at 1514.
--- NOTE | 2024-01-03 18:40 | WPDCN ---
Assessment and Plan Assessment and plan (1) Colonic mass: Code(s): K63.89 - Other specified diseases of intestine Status: Acute Assessment and Plan: Patient has anemia and colonoscopy today showed a large friable non obstructing sigmoid colon mass which clinically looks like a malignancy. Biopsies were taken and pathology is pending. (2) Rectal mass: Code(s): K62.89 - Other specified diseases of anus and rectum Status: Acute Assessment and Plan: Large friable distal rectal mass on colonoscopy today suggestive of malignancy. Pathology readings on biopsy of the mass is pending. The patient has multiple other polyps throughout the colon. She is only 43 years old and actually had a polyp removed 8 years ago. She certainly has findings suggestive of possible familial adenomatous polyposis ( FAP) I would benefit from being evaluated and managed by a colorectal surgeon. Since she also has component of rectal cancer her management could include upfront chemoradiation therapy before any surgery. She would likely need to have a total colectomy with placement of an end ileostomy or a possible creation of a J-pouch and the rectal anastomosis. Colorectal specialist is not available here at [facility]. She will need to have evaluation either in [place] or somewhere else in the [facility] at a facility that has a colorectal specialist. She currently does not have medical coverage which will be a barrier for easy referral to a colorectal specialist in [place] as an outpatient. Will need to try to coordinate with case management to see if she can qualify for medical coverage under 1 of the [facility] managed Medicaid plans . She undoubtedly needs to be evaluated and managed by a colorectal surgeon as well as needs to have genetic testing and counseling for FAP. HPI Data of Consult Date/Time: 01/03/24 18:40 Requesting Physician: JENNIE Manrique Primary Care Provider: Olman Schofield MD Consult Narrative Reason for consult: Sigmoid colon mass and rectal mass Narrative: Dilia Loomis is a 43 year old female who was admitted to [facility] due to profound anemia. Her hemoglobin was about 5.8. She had a prior history of having polyps removed with a colonoscopy in [place] about 8 years ago. She states that the pathology was benign at that time. She states that she was never given any recommendations again for a follow-up colonoscopy. she was found to be in in about 3 years ago and was started on iron supplementation. It is unclear to me whether it was recommended that she should get a colonoscopy performed at that time but indication did not. She was seen and a colonoscopy and EGD was performed by Dr. Chakraborty today. She has multiple polyps throughout the ascending and descending and sigmoid colon as well as the rectum. Unfortunate she has and large malignant-appearing mass in the sigmoid colon as well as a large malignant mass appearing in the distal rectum. Biopsies of these masses were both obtained and pathology is pending. She states in the past when she had the 1st polyp removed that surgery was not considered at that time due to her weight which was in excess of 400lb. She states she started losing weight after stopping soda and exercising. showed up losing about 50lb during that time but over the past 3 months she has lost a significant amount of lb weight rapidly. CT scan done in emergency room last evening showed thickening of the sigmoid colon suggestive of possible mass effect but no obvious evidence of distant metastatic disease. Review of Systems Review of Systems: The remainder of the review of systems to include constitutional, HEENT, cardiovascular, respiratory, GI, , integumentary, musculoskeletal, endocrine, immunologic, hematologic, psychiatric, and neurologic are all negative except for which is mentioned abo
--- NOTE | 2024-01-03 20:43 | P.PNIM_ITS ---
Progress Note: A&P Assessment and Plan (1) Anemia: Qualifiers: Anemia type: iron deficiency Iron deficiency anemia type: other iron deficiency Qualified Code(s): D50.8 - Other iron deficiency anemias Code(s): D64.9 - Anemia, unspecified Status: Acute Assessment and Plan: * Acute on chronic as there is no history of iron deficiency anemia. * No jamel blood loss * Stool occult positive * 100 mg iron sucrose ordered IV * Iron level of 19,% saturation of 4, TIBC of 490 * Patient is status post receiving 2 units of PRBCs. Post transfusion hemoglobin is 7.9 * Continue to monitor and trend hemoglobin, transfuse if less than 7. * Suspect patient's overall lightheadedness and near-syncope is due to patient's anemia. * GI consulted and we appreciate their recommendations and input. * Protonix 40 mg IV push b.i.d. * Scheduled for colonoscopy later today. (2) Lightheadedness: Code(s): R42 - Dizziness and giddiness Status: Acute Assessment and Plan: * Likely secondary to problem 1. * Continue all treatment and plan for problem 1. (3) Proctocolitis: Code(s): K52.9 - Noninfective gastroenteritis and colitis, unspecified Status: Acute Assessment and Plan: * Levaquin 750 mg IV piggyback daily * P.r.n. antiemetics * GI following, we appreciate their recommendations. * Monitor labs and vitals. * Transfuse as needed for hemoglobin less than 7. (4) Hypertension: Code(s): I10 - Essential (primary) hypertension Status: Chronic Assessment and Plan: * Patient is not currently receiving any medications for her hypertension as she lost her insurance. * Fairly well controlled. * Continue lisinopril. (5) Migraine: Code(s): G43.909 - Migraine, unspecified, not intractable, without status migrainosus Status: Acute Assessment and Plan: * Appears resolved. Subjective Date/time seen: 01/03/24 10:43 Interval history: Patient calm on bedrest, states awaiting colonoscopy and EGD, denying any distressful symptoms. Review of Systems Review of Systems: All systems reviewed & are unremarkable except as noted in HPI and below Exam Narrative: Constitutional: Very pleasant, morbidly obese, female calm on bedrest. HEENT: Head is atraumatic and normocephalic. Moist mucous membranes are present. The posterior oropharynx is patent without any erythema, edema or exudate. Eyes: PERRLA, no conjunctivitis or drainage Neck: Moves neck fully in all directions in a simple manner, no lymphadenopathy Chest: Nontender Respiratory: Clear to auscultation bilaterally in all almeida posteriorly. No adventitious breath sounds. Cardiac: Regular rate rhythm, S1 and S2 present. GI: Soft, nontender, bowel sounds present x4 quadrants without any rebound or guarding. : Deferred Back/spine/pelvis: No acute complaints and no visible abnormalities on exam. Skin: Clear without lesions, bruising or other abnormalities Neuro: No focal deficits. Psych: Alert and oriented x4. Normal affect Objective Data Vital Signs Vital Signs: Vital Signs - 24 hr 01/02/24 22:00 01/03/24 06:12 01/03/24 13:47 Temperature 97.5 F L 97.5 F L 96.5 F L Pulse Rate 89 79 84 Respiratory Rate 20 20 18 Blood Pressure 135/65 134/67 146/69 H Pulse Oximetry 100 99 99 Oxygen Delivery Room Air 01/03/24 15:13 01/03/24
--- NOTE | 2024-01-03 20:43 | PM.IMPN ---
Progress Note: A&P Assessment and Plan (1) Anemia: Qualifiers: Anemia type: iron deficiency Iron deficiency anemia type: other iron deficiency Qualified Code(s): D50.8 - Other iron deficiency anemias Code(s): D64.9 - Anemia, unspecified Status: Acute Assessment and Plan: Acute on chronic as there is no history of iron deficiency anemia. No jamel blood loss Stool occult positive 100 mg iron sucrose ordered IV Iron level of 19,% saturation of 4, TIBC of 490 Patient is status post receiving 2 units of PRBCs. Post transfusion hemoglobin is 7.9 Continue to monitor and trend hemoglobin, transfuse if less than 7. Suspect patient's overall lightheadedness and near-syncope is due to patient's anemia. GI consulted and we appreciate their recommendations and input. Protonix 40 mg IV push b.i.d. Scheduled for colonoscopy later today. (2) Lightheadedness: Code(s): R42 - Dizziness and giddiness Status: Acute Assessment and Plan: Likely secondary to problem 1. Continue all treatment and plan for problem 1. (3) Proctocolitis: Code(s): K52.9 - Noninfective gastroenteritis and colitis, unspecified Status: Acute Assessment and Plan: Levaquin 750 mg IV piggyback daily P.r.n. antiemetics GI following, we appreciate their recommendations. Monitor labs and vitals. Transfuse as needed for hemoglobin less than 7. (4) Hypertension: Code(s): I10 - Essential (primary) hypertension Status: Chronic Assessment and Plan: Patient is not currently receiving any medications for her hypertension as she lost her insurance. Fairly well controlled. Continue lisinopril. (5) Migraine: Code(s): G43.909 - Migraine, unspecified, not intractable, without status migrainosus Status: Acute Assessment and Plan: Appears resolved. Subjective Date/time seen: 01/03/24 10:43 Interval history: Patient calm on bedrest, states awaiting colonoscopy and EGD, denying any distressful symptoms. Review of Systems Review of Systems: All systems reviewed & are unremarkable except as noted in HPI and below Exam Narrative: Constitutional: Very pleasant, morbidly obese, female calm on bedrest. HEENT: Head is atraumatic and normocephalic. Moist mucous membranes are present. The posterior oropharynx is patent without any erythema, edema or exudate. Eyes: PERRLA, no conjunctivitis or drainage Neck: Moves neck fully in all directions in a simple manner, no lymphadenopathy Chest: Nontender Respiratory: Clear to auscultation bilaterally in all almeida posteriorly. No adventitious breath sounds. Cardiac: Regular rate rhythm, S1 and S2 present. GI: Soft, nontender, bowel sounds present x4 quadrants without any rebound or guarding. : Deferred Back/spine/pelvis: No acute complaints and no visible abnormalities on exam. Skin: Clear without lesions, bruising or other abnormalities Neuro: No focal deficits. Psych: Alert and oriented x4. Normal affect Objective Data Vital Signs Vital Signs: Vital Signs - 24 hr 01/02/24 22:00 01/03/24 06:12 01/03/24 13:47 Temperature 97.5 F L 97.5 F L 96.5 F L Pulse Rate 89 79 84 Respiratory Rate 20 20 18 Blood Pressure 135/65 134/67 146/69 H Pulse Oximetry 100 99 99 Oxygen Delivery Room Air 01/03/24 15:13 01/03/24 15:23 01/03/24 15:33 Temperature Pulse Rate 88 90 87 Respiratory Rate 22 H 18 18 Blood Pressure 130/53 L 132/57 L 130/66 Pulse Oximetry 100 100 100 Oxygen Delivery Room Air Room Air Room Air 01/03/24 09:10 Temperature Pulse Rate Respiratory Rate Blood Pressure Pulse Oximetry 100 Oxygen Delivery Room Air Intake/Output Intake/Output: Intake & Output 12/31/23 01/01/24 01/02/24 01/03/24 23:59 23:59 23:59 23:59 Intake Total 0 3233 440 Balance 0 3233 440 Meds/Results Medications: Active Medications Generic Name Dose Route Start Last Admin
[2024-01-03] MEDS: POTASSIUM CHLORIDE 20 MEQ PACKET (FOR LIQUID) 40 MEQ PO (22:26)
[2024-01-04] MEDS: ACETAMINOPHEN 500 MG TABLET 1000 MG PO ×2 (01:12→21:29)
[2024-01-04 05:47] LABS: Hematocrit 27.2 % (37.0-47.0); Hemoglobin 7.3 g/dL (12.0-15.0); Mean Corpuscular HGB Conc 26.8 g/dl (32-36); Mean Corpuscular Volume 78.2 fl (80-100); Red Blood Count 3.48 M/mm3 (4.2-5.4); Red Cell Distribution Width 24.4 % (11.5-14.5); White Blood Count 8.1 K/mm3 (4.5-10.0)
[2024-01-04 05:48] LABS: Basophils Absolute Auto 0.1 K/mm3 (0.0-0.1); Basophils Percent Auto 1.1 % (0.2-1.2); Eosinophils Absolute Auto 0.4 K/mm3 (0-0.3); Eosinophils Percent Auto 5.1 % (0-4.4); Immature Granulocyte Absolute 0.03 K/mm3 (0.00-0.031); Immature Granulocyte Percent A 0.4 % (0-0.5); Lymphocytes Absolute Auto 2.25 K/mm3 (0.9-3.2); Lymphocytes Percent Auto 27.9 % (18.3-44.2); Mean Platelet Volume 9.6 fl (7.4-10.4); Monocytes Absolute Auto 0.8 K/mm3 (0.1-0.6); Monocytes Percent Auto 9.3 % (2.6-8.5); Neutrophils Absolute Auto 4.5 K/mm3 (1.3-6.7); Neutrophils Percent Auto 56.2 % (45.5-73.1); Platelet Count Result 390 k/mm3 (150-375)
[2024-01-04 06:00] VITALS: BP 129/56; PULSE 83; RESP 20; TEMP 36.9; O2SAT 98
[2024-01-04 06:07] LABS: Alanine Aminotransferase 14 U/L (6-35); Alkaline Phosphatase 51 U/L (38-126); Anion Gap 8 mmol/L (4-12); Aspartate Amino Transferase 33 U/L (14-36); Bilirubin,Total 0.4 mg/dL (0.2-1.3); Blood Urea Nitrogen 5 mg/dL (7-17); Calcium 8.8 mg/dL (8.4-10.2); Carbon Dioxide 23 mmol/L (22-30); Chloride 106 mmol/L (98-107); Estimated CRCL calculation 158 ml/min; Estimated Glomerular Filt Rate > 60; Glucose 80 mg/dL (65-110); Potassium 4.1 mmol/L (3.4-5.0); Sodium 137 mmol/L (137-145)
[2024-01-04 07:10] LABS: Anisocytosis 2+; Microcytosis 2+ (NORMAL); Platelet Estimate Slightly Increased (Adequate)
[2024-01-04 07:11] LABS: Hypochromasia 2+; Schistocytes None Seen
[2024-01-04] MEDS: levoFLOXacin 750 MG/D5W 150 ML 750 MG/150 ML BAG 100 MG IVPB (08:23)
[2024-01-04] MEDS: PANTOPRAZOLE 40 MG TABLET PO (08:23)
[2024-01-04] MEDS: lisinopriL 5 MG TABLET PO (08:23)
[2024-01-04] MEDS: FLUCONAZOLE 50 MG TABLET PO (12:18)
[2024-01-04 14:00] VITALS: BP 106/54; PULSE 84; RESP 18; TEMP 36.9; O2SAT 97
--- NOTE | 2024-01-04 14:15 | WPDGIPROGNO ---
Progress Note: A&P Assessment and Plan (1) Colonic mass: Code(s): K63.89 - Other specified diseases of intestine Status: Acute Assessment and Plan: highly suspicious of malignancy- two different sites in sigmoid and rectum, also noted several polyps - ? AFP, will need genetic evaluation given findings and possible AFP she will also need colorectal surgery pending final path report (2) Weight loss: Code(s): R63.4 - Abnormal weight loss Status: Acute (3) Lightheadedness: Code(s): R42 - Dizziness and giddiness Status: Acute (4) Acute blood loss anemia: Code(s): D62 - Acute posthemorrhagic anemia Status: Acute Assessment and Plan: this can be explained by colonoscopy findings monitor Subjective Date/time seen: 01/04/24 14:15 Interval history: colonoscopy yesterday with 2 large lesions in rectum and sigmoid c/w malignancy, also several polyps in colon no new events today. Review of Systems Review of Systems: All systems reviewed & are unremarkable except as noted in HPI and below Exam Const: General: comfortable and no acute distress Other: obese HENMT: Ears: TM's normal bilaterally Face/Nose/Sinus: Normal nares present Mouth: Yes moist mucous membranes Eyes: General: appearance normal, both eyes and all related structures Sclera: sclerae normal Neck: Neck: supple Resp: Effort & Inspection: normal respiratory effort Auscultation: clear to auscultation bilaterally Cardio: Rate: regular rate Rhythm: regular rhythm GI: GI Palp: Yes Soft to palpation and No Tenderness to palpation present (GI) Auscultation: normal bowel sounds Skin: General skin exam: normal color and no rashes or lesions noted Neuro: Speech: normal speech Motor exam (neuro): 5/5 motor strength present throughout Extrem: General: normal to inspection Psych: Mental Status: mental status grossly normal Affect: normal affect Objective Data Vital Signs Vital Signs: Vital Signs - 24 hr 01/03/24 15:13 01/03/24 15:23 01/03/24 15:33 Temperature Pulse Rate 88 90 87 Respiratory Rate 22 H 18 18 Blood Pressure 130/53 L 132/57 L 130/66 Pulse Oximetry 100 100 100 Oxygen Delivery Room Air Room Air Room Air 01/03/24 22:00 01/04/24 06:00 01/04/24 08:10 Temperature 97.5 F L 98.5 F Pulse Rate 98 83 Respiratory Rate 20 20 Blood Pressure 124/64 129/56 L Pulse Oximetry 100 98 Oxygen Delivery Room Air Intake/Output Intake/Output: Intake & Output 01/01/24 01/02/24 01/03/24 01/04/24 23:59 23:59 23:59 23:59 Intake Total 0 3233 590 868 Balance 0 3233 590 868 Meds/Results Medications: Active Medications Generic Name Dose Route Start Last Admin Trade Name Freq PRN Reason Stop Dose Admin Acetaminophen 1,000 mg 01/02/24 09:11 01/04/24 01:12 Acetaminophen 500 Mg Tablet PO 1,000 mg Q6H PRN Administration Mild Pain (1-3) or Fever Hydrocodone Bitart/Acetaminophen 1 tab 01/02/24 09:11 Hydrocodone/Acetaminophen (*Crx) 5-325 Mg Tablet PO Q6H PRN Pain Rated 7-10 Lisinopril 5 mg 01/02/24 09:00 01/04/24 08:23 Lisinopril 5 Mg Tablet PO 5 mg QAM NIKOLE Administration Ondansetron HCl 4 mg 01/02/24 09:11 01/02/24 17:36 Ondansetron Inj 4 Mg/2 Ml Vial IV PUSH 4 mg Q6H PRN Administration Nausea And Vomiting Pantoprazole Sodium 40 mg 01/04/24 09:00 01/04/24 08:23 Pantoprazole 40 Mg Tablet PO 40 mg QAM NIKOLE Administration Sumatriptan Succinate 6 mg 01/02/24 09:11 01/02/24 09:48 Sumatriptan Succinate 6 Mg/0.5 Ml Vial SUB-Q 6 mg ONCE PRN Administration Headache Tramadol HCl 50 mg 01/02/24 09:11 01/02/24 21:20 Tramadol Hcl (*Crx) 50 Mg Tablet PO 50 mg Q6H PRN Administration Pain Rated 4-6 Radiology Results: ITS Impressions Chest X-Ray 01/01/24 19:45 IMPRESSION: No acute cardiopulmonary process. Abdomen/Pelvis CT 01/02/24 06:28 IMPRESSION:
--- NOTE | 2024-01-04 14:36 | WPDANESPN ---
Anes - Prog Note Post-Op Date/Time: 01/04/24 14:36 Cardiovascular status: normal Respiratory status: normal Airway patency: baseline Mental status: baseline Post-Op hydration status: normal Vital Signs: Last Vital Signs Temp 36.9 C 01/04/24 06:00 Pulse 83 01/04/24 06:00 Resp 20 01/04/24 06:00 BP 129/56 L 01/04/24 06:00 Pulse Ox 98 01/04/24 06:00 O2 Del Method Room Air 01/04/24 08:10 Pain Score (VAS): 05/31 I/O: Intake & Output 01/03/24 01/04/24 01/04/24 23:59 07:59 15:59 Intake Total 240 550 318 Balance 240 550 318 Laboratory Tests 01/04/24 05:25 01/04/24 05:25 01/04/24 05:25 WBC 8.1 RBC 3.48 L Hgb 7.3 L Hct 27.2 L MCV 78.2 L D MCH 21.0 L MCHC 26.8 L RDW 24.4 H Plt Count 390 H MPV 9.6 Immature Gran % (Auto) 0.4 Neut % (Auto) 56.2 Lymph % (Auto) 27.9 [place] % (Auto) 9.3 H Eos % (Auto) 5.1 H Baso % (Auto) 1.1 Lymph # (Auto) 2.25 [place] # (Auto) 0.8 H Eos # (Auto) 0.4 H Baso # (Auto) 0.1 Abs Immat Gran (auto) 0.03 Absolute Neuts (auto) 4.5 Absolute Nucleated RBC 0.000 Nucleated RBC % 0.0 Platelet Estimate Slightly increased Hypochromasia 2+ Anisocytosis 2+ Microcytosis 2+ Schistocytes None seen Sodium 137 Potassium 4.1 Chloride 106 Carbon Dioxide 23 Anion Gap 8 BUN 5 L Creatinine 0.60 L Estim Creat Clear Calc 158 Estimated GFR > 60 Glucose 80 Calcium 8.8 Total Bilirubin 0.4 AST 33 ALT 14 Alkaline Phosphatase 51 Total Protein 6.0 L Albumin 3.0 L Microbiology 01/02/24 00:39 Unspecified Urine Culture - Final Post-procedural complaints: none Patient Feedback: Patient satisfied with anesthetic care.
[2024-01-04 15:28] LABS: Hematocrit 27.6 % (37.0-47.0); Hemoglobin 7.7 g/dL (12.0-15.0)
--- NOTE | 2024-01-04 16:17 | P.PNIM_ITS ---
Progress Note: A&P Assessment and Plan (1) Anemia: Qualifiers: Anemia type: iron deficiency Iron deficiency anemia type: other iron deficiency Qualified Code(s): D50.8 - Other iron deficiency anemias Code(s): D64.9 - Anemia, unspecified Status: Acute Assessment and Plan: * Patient is status post receiving 2 units of PRBCs. Post transfusion hemoglobin is 7.9 * Acute on chronic as there is no history of iron deficiency anemia. * No jamel blood loss * Stool occult positive * 100 mg iron sucrose ordered IV * Iron level of 19,% saturation of 4, TIBC of 490 * Continue to monitor and trend hemoglobin, transfuse if less than 7. * Suspect patient's overall lightheadedness and near-syncope is due to patient's anemia. * GI consulted and we appreciate their recommendations and input. * Protonix 40 mg IV push b.i.d. (2) Lightheadedness: Code(s): R42 - Dizziness and giddiness Status: Acute Assessment and Plan: * Likely secondary to # 1. * Mgt per 1. * Symptoms currently resolved. (3) Proctocolitis: Code(s): K52.9 - Noninfective gastroenteritis and colitis, unspecified Status: Acute Assessment and Plan: * Symptoms possibly related to malignancy. * WBC's wnl and no fevers or clinical signs of infection noted. * Hold Levaquin for now per pharmacy recommendations. * P.r.n. antiemetics * GI following, we appreciate their recommendations. * Continue to monitor labs and vitals. * Transfuse as needed for hemoglobin less than 7. (4) Hypertension: Code(s): I10 - Essential (primary) hypertension Status: Chronic Assessment and Plan: * Patient is not currently receiving any medications for her hypertension as she lost her insurance. * Fairly well controlled. * Continue lisinopril. (5) Migraine: Code(s): G43.909 - Migraine, unspecified, not intractable, without status migrainosus Status: Acute Assessment and Plan: * Appears resolved. Subjective Date/time seen: 01/04/24 10:17 Interval history: Patient had colonoscopy yesterday with 2 large lesions in rectum and sigmoid c/w malignancy, also several polyps in colon. Patient advised to f/u with colorectal surgeon for further interventions. Review of Systems Review of Systems: All systems reviewed & are unremarkable except as noted in HPI and below Exam Narrative: Constitutional: Very pleasant, morbidly obese, female calm on bedrest. HEENT: Head is atraumatic and normocephalic. Moist mucous membranes are present. The posterior oropharynx is patent without any erythema, edema or exudate. Eyes: PERRLA, no conjunctivitis or drainage Neck: Moves neck fully in all directions in a simple manner, no lymphadenopathy Chest: Nontender Respiratory: Clear to auscultation bilaterally in all almeida posteriorly. No adventitious breath sounds. Cardiac: Regular rate rhythm, S1 and S2 present. GI: Soft, nontender, bowel sounds present x4 quadrants without any rebound or guarding. : Deferred Back/spine/pelvis: No acute complaints and no visible abnormalities on exam. Skin: Clear without lesions, bruising or other abnormalities Neuro: No focal deficits. Psych: Alert and oriented x4. Normal affect Objective Data Vital Signs Vital Signs: Vital Signs - 24 hr 01/03/24 22:00 01/04/24 06:00 01/04/24 08:10 Temperature 97.5 F L 98.5 F Pulse Rate 98 83 Respiratory Rate 2
--- NOTE | 2024-01-04 16:17 | PM.IMPN ---
Progress Note: A&P Assessment and Plan (1) Anemia: Qualifiers: Anemia type: iron deficiency Iron deficiency anemia type: other iron deficiency Qualified Code(s): D50.8 - Other iron deficiency anemias Code(s): D64.9 - Anemia, unspecified Status: Acute Assessment and Plan: Patient is status post receiving 2 units of PRBCs. Post transfusion hemoglobin is 7.9 Acute on chronic as there is no history of iron deficiency anemia. No jamel blood loss Stool occult positive 100 mg iron sucrose ordered IV Iron level of 19,% saturation of 4, TIBC of 490 Continue to monitor and trend hemoglobin, transfuse if less than 7. Suspect patient's overall lightheadedness and near-syncope is due to patient's anemia. GI consulted and we appreciate their recommendations and input. Protonix 40 mg IV push b.i.d. (2) Lightheadedness: Code(s): R42 - Dizziness and giddiness Status: Acute Assessment and Plan: Likely secondary to # 1. Mgt per 1. Symptoms currently resolved. (3) Proctocolitis: Code(s): K52.9 - Noninfective gastroenteritis and colitis, unspecified Status: Acute Assessment and Plan: Symptoms possibly related to malignancy. WBC's wnl and no fevers or clinical signs of infection noted. Hold Levaquin for now per pharmacy recommendations. P.r.n. antiemetics GI following, we appreciate their recommendations. Continue to monitor labs and vitals. Transfuse as needed for hemoglobin less than 7. (4) Hypertension: Code(s): I10 - Essential (primary) hypertension Status: Chronic Assessment and Plan: Patient is not currently receiving any medications for her hypertension as she lost her insurance. Fairly well controlled. Continue lisinopril. (5) Migraine: Code(s): G43.909 - Migraine, unspecified, not intractable, without status migrainosus Status: Acute Assessment and Plan: Appears resolved. Subjective Date/time seen: 01/04/24 10:17 Interval history: Patient had colonoscopy yesterday with 2 large lesions in rectum and sigmoid c/w malignancy, also several polyps in colon. Patient advised to f/u with colorectal surgeon for further interventions. Review of Systems Review of Systems: All systems reviewed & are unremarkable except as noted in HPI and below Exam Narrative: Constitutional: Very pleasant, morbidly obese, female calm on bedrest. HEENT: Head is atraumatic and normocephalic. Moist mucous membranes are present. The posterior oropharynx is patent without any erythema, edema or exudate. Eyes: PERRLA, no conjunctivitis or drainage Neck: Moves neck fully in all directions in a simple manner, no lymphadenopathy Chest: Nontender Respiratory: Clear to auscultation bilaterally in all almeida posteriorly. No adventitious breath sounds. Cardiac: Regular rate rhythm, S1 and S2 present. GI: Soft, nontender, bowel sounds present x4 quadrants without any rebound or guarding. : Deferred Back/spine/pelvis: No acute complaints and no visible abnormalities on exam. Skin: Clear without lesions, bruising or other abnormalities Neuro: No focal deficits. Psych: Alert and oriented x4. Normal affect Objective Data Vital Signs Vital Signs: Vital Signs - 24 hr 01/03/24 22:00 01/04/24 06:00 01/04/24 08:10 Temperature 97.5 F L 98.5 F Pulse Rate 98 83 Respiratory Rate 20 20 Blood Pressure 124/64 129/56 L Pulse Oximetry 100 98 Oxygen Delivery Room Air 01/04/24 14:00 Temperature 98.4 F Pulse Rate 84 Respiratory Rate 18 Blood Pressure 106/54 L Pulse Oximetry 97 Oxygen Delivery Intake/Output Intake/Output: Intake & Output 01/01/24 01/02/24 01/03/24 01/04/24 23:59 23:59 23:59 23:59 Intake Total 0 3233 590 1088 Balance 0 3233 590 1088 Meds/Results Medications: Active Medications Generic Name Dose Route Start Last Admin Trade Name Freq PRN Reason Stop Dose Admin Ac
[2024-01-04] MEDS: IRON SUCROSE COMPLEX 400 MG, IRON SUCROSE COMPLEX 100 MG in SODIUM CHLORIDE 0.9% IV 250 ML 78.57 MG IVPB (16:29)
--- NOTE | 2024-01-04 17:33 | WPDPN ---
Progress Note: A&P Assessment and Plan (1) Rectal mass: Code(s): K62.89 - Other specified diseases of anus and rectum Status: Acute Assessment and Plan: The masses in the sigmoid colon and rectum most likely malignant. Awaiting pathology confirmation from the biopsies. The patient will need further evaluation from a colorectal surgeon. I have been in contact with colorectal surgeon at [facility] and she is willing to see and evaluate the patient as an outpatient when she is discharged. She has recommended that we get a staging CT scan of the chest, abdomen, and pelvis with IV contrast. We will order that to be done tomorrow. We will see make sure we have a CEA level done. (2) Colonic mass: Code(s): K63.89 - Other specified diseases of intestine Status: Acute Assessment and Plan: See above. Subjective Date/time seen: 01/04/24 17:33 Interval history: Patient without any acute clinical changes. She is not having any abdominal pain or any pelvic pain. She is continent of her stools. Tolerating regular diet. She is to getting iron infusions. Exam GI: Other: Abdomen is obese but soft. Is benign. No masses or hernias are palpable. Digital rectal exam was performed. On initial inspection there is no protruding mass coming out of the anal opening. She does have good sphincter tone. She does have a mass anteriorly about 2cm proximal to the anal verge extending from approximately the 3 o'clock to the 9 o'clock position with the patient prone. The tumor extends at least 4 to 5 cm proximal. Objective Data Vital Signs Vital Signs: Vital Signs - 24 hr 01/03/24 22:00 01/04/24 06:00 01/04/24 08:10 Temperature 36.4 C L 36.9 C Pulse Rate 98 83 Respiratory Rate 20 20 Blood Pressure 124/64 129/56 L Pulse Oximetry 100 98 Oxygen Delivery Room Air 01/04/24 14:00 Temperature 36.9 C Pulse Rate 84 Respiratory Rate 18 Blood Pressure 106/54 L Pulse Oximetry 97 Oxygen Delivery Intake/Output Intake/Output: Intake & Output 01/01/24 01/02/24 01/03/24 01/04/24 23:59 23:59 23:59 23:59 Intake Total 0 3233 590 1088 Balance 0 3233 590 1088 Meds/Results Medications: Active Medications Generic Name Dose Route Start Last Admin Trade Name Freq PRN Reason Stop Dose Admin Acetaminophen 1,000 mg 01/02/24 09:11 01/04/24 01:12 Acetaminophen 500 Mg Tablet PO 1,000 mg Q6H PRN Administration Mild Pain (1-3) or Fever Hydrocodone Bitart/Acetaminophen 1 tab 01/02/24 09:11 Hydrocodone/Acetaminophen (*Crx) 5-325 Mg Tablet PO Q6H PRN Pain Rated 7-10 Iron Sucrose 400 mg/ Iron 275 mls @ 78.571 mls/hr 01/04/24 16:00 01/04/24 16:29 Sucrose 100 mg/ Sodium IVPB 01/04/24 19:29 78.57 mls/hr Chloride ONCE ONE Administration Lisinopril 5 mg 01/02/24 09:00 01/04/24 08:23 Lisinopril 5 Mg Tablet PO 5 mg QAM NIKOLE Administration Ondansetron HCl 4 mg 01/02/24 09:11 01/02/24 17:36 Ondansetron Inj 4 Mg/2 Ml Vial IV PUSH 4 mg Q6H PRN Administration Nausea And Vomiting Pantoprazole Sodium 40 mg 01/04/24 09:00 01/04/24 08:23 Pantoprazole 40 Mg Tablet PO 40 mg QAM NIKOLE Administration Sumatriptan Succinate 6 mg 01/02/24 09:11 01/02/24 09:48 Sumatriptan Succinate 6 Mg/0.5 Ml Vial SUB-Q 6 mg ONCE PRN Administration Headache Tramadol HCl 50 mg 01/02/24 09:11 01/02/24 21:20 Tramadol Hcl (*Crx) 50 Mg Tablet PO 50 mg Q6H PRN Administration Pain Rated 4-6 Radiology Results: ITS Impressions Chest X-Ray 01/01/24 19:45 IMPRESSION: No acute cardiopulmonary process. Abdomen/Pelvis CT 01/02/24 06:28 IMPRESSION: 1. Wall thickening of the sigmoid colon, consistent with colitis versus malignancy. 2. Small sliding hiatal hernia. Labs Labs: Laboratory Results - last 24 hr 01/04/24 01/04/24 05:25 15:01 WBC 8.1 RBC 3.48 L Hgb 7.3 L 7.7 L Hct 27.2 L 27.
[2024-01-04 20:00] VITALS: PULSE 84; RESP 18; O2SAT 97
[2024-01-04 22:00] VITALS: BP 137/54; PULSE 83; RESP 16; TEMP 36.3; O2SAT 97
[2024-01-05 05:33] LABS: Basophils Absolute Auto 0.1 K/mm3 (0.0-0.1); Eosinophils Absolute Auto 0.4 K/mm3 (0-0.3); Eosinophils Percent Auto 5.4 % (0-4.4); Hematocrit 27.6 % (37.0-47.0); Hemoglobin 7.5 g/dL (12.0-15.0); Immature Granulocyte Absolute 0.04 K/mm3 (0.00-0.031); Immature Granulocyte Percent A 0.5 % (0-0.5); Lymphocytes Absolute Auto 1.84 K/mm3 (0.9-3.2); Lymphocytes Percent Auto 23.5 % (18.3-44.2); Mean Corpuscular HGB Conc 27.2 g/dl (32-36); Mean Corpuscular Hemoglobin 20.2 pg (26-34); Mean Corpuscular Volume 74.4 fl (80-100); Mean Platelet Volume 8.5 fl (7.4-10.4); Monocytes Absolute Auto 0.8 K/mm3 (0.1-0.6); Monocytes Percent Auto 10.4 % (2.6-8.5); Neutrophils Absolute Auto 4.6 K/mm3 (1.3-6.7); Neutrophils Percent Auto 59.2 % (45.5-73.1); Platelet Count Result 427 k/mm3 (150-375); Red Blood Count 3.71 M/mm3 (4.2-5.4); White Blood Count 7.8 K/mm3 (4.5-10.0)
[2024-01-05 05:43] LABS: Alanine Aminotransferase 14 U/L (6-35); Albumin Level 3.4 g/dL (3.5-5.1); Alkaline Phosphatase 58 U/L (38-126); Anion Gap 7 mmol/L (4-12); Aspartate Amino Transferase 23 U/L (14-36); Bilirubin,Total 0.2 mg/dL (0.2-1.3); Blood Urea Nitrogen 6 mg/dL (7-17); Calcium 8.6 mg/dL (8.4-10.2); Carbon Dioxide 28 mmol/L (22-30); Chloride 104 mmol/L (98-107); Estimated CRCL calculation 158 ml/min; Estimated Glomerular Filt Rate > 60; Glucose 88 mg/dL (65-110); Potassium 4.2 mmol/L (3.4-5.0); Sodium 139 mmol/L (137-145)
[2024-01-05 06:00] VITALS: BP 123/53; PULSE 70; RESP 18; TEMP 36.6; O2SAT 97
[2024-01-05 06:13] LABS: Carcinoembryonic Antigen 46.9 ng/mL (0.0-3.0)
[2024-01-05 07:25] LABS: Anisocytosis 2+; Hypochromasia 2+; Platelet Estimate Increased (Adequate)
[2024-01-05 07:26] LABS: Microcytosis 2+ (NORMAL); Schistocytes None Seen
[2024-01-05] MEDS: lisinopriL 5 MG TABLET PO (08:36)
[2024-01-05] MEDS: PANTOPRAZOLE 40 MG TABLET PO (08:36)
[2024-01-05] MEDS: traMADol HCL (*CRX) 50 MG TABLET PO (08:38)
[2024-01-05] MEDS: IRON SUCROSE COMPLEX 400 MG, IRON SUCROSE COMPLEX 100 MG in SODIUM CHLORIDE 0.9% IV 250 ML 78.57 MG IVPB (09:18)
--- NOTE | 2024-01-05 11:58 | WPDGIPROGNO ---
Progress Note: A&P Assessment and Plan (1) Colonic mass: Code(s): K63.89 - Other specified diseases of intestine Status: Acute Assessment and Plan: bx + malignancy in two different sites in sigmoid and rectum, also noted several polyps - ? AFP, will need genetic evaluation given findings and possible AFP plan is for the patient to see colorectal surgery at [facility] (Dr Olivarez helping out with referral) will also consult oncology (2) Weight loss: Code(s): R63.4 - Abnormal weight loss Status: Acute Assessment and Plan: from malignancy (3) Lightheadedness: Code(s): R42 - Dizziness and giddiness Status: Acute Assessment and Plan: resolved (4) Acute blood loss anemia: Code(s): D62 - Acute posthemorrhagic anemia Status: Acute Assessment and Plan: this can be explained by colonoscopy findings on iv iron Subjective Date/time seen: 01/05/24 11:58 Interval history: no changes she is eating getting iv iron Review of Systems Review of Systems: All systems reviewed & are unremarkable except as noted in HPI and below Exam Const: General: comfortable and no acute distress Other: obese HENMT: Ears: TM's normal bilaterally Face/Nose/Sinus: Normal nares present Mouth: Yes moist mucous membranes Eyes: General: appearance normal, both eyes and all related structures Sclera: sclerae normal Neck: Neck: supple Resp: Effort & Inspection: normal respiratory effort Auscultation: clear to auscultation bilaterally Cardio: Rate: regular rate Rhythm: regular rhythm GI: GI Palp: Yes Soft to palpation and No Tenderness to palpation present (GI) Auscultation: normal bowel sounds Skin: General skin exam: normal color and no rashes or lesions noted Neuro: Speech: normal speech Motor exam (neuro): 5/5 motor strength present throughout Extrem: General: normal to inspection Psych: Mental Status: mental status grossly normal Affect: normal affect Objective Data Vital Signs Vital Signs: Vital Signs - 24 hr 01/04/24 14:00 01/04/24 20:00 01/04/24 22:00 Temperature 98.4 F 97.3 F L Pulse Rate 84 84 83 Respiratory Rate 18 18 16 Blood Pressure 106/54 L 137/54 L Pulse Oximetry 97 97 97 Oxygen Delivery Room Air 01/05/24 06:00 01/05/24 08:00 Temperature 97.8 F Pulse Rate 70 Respiratory Rate 18 Blood Pressure 123/53 L Pulse Oximetry 97 Oxygen Delivery Room Air Intake/Output Intake/Output: Intake & Output 01/02/24 01/03/24 01/04/24 01/05/24 23:59 23:59 23:59 23:59 Intake Total 3233 590 1858 1280 Balance 3233 590 1858 1280 Meds/Results Medications: Active Medications Generic Name Dose Route Start Last Admin Trade Name Freq PRN Reason Stop Dose Admin Acetaminophen 1,000 mg 01/02/24 09:11 01/04/24 21:29 Acetaminophen 500 Mg Tablet PO 1,000 mg Q6H PRN Administration Mild Pain (1-3) or Fever Hydrocodone Bitart/Acetaminophen 1 tab 01/02/24 09:11 Hydrocodone/Acetaminophen (*Crx) 5-325 Mg Tablet PO Q6H PRN Pain Rated 7-10 Iron Sucrose 400 mg/ Iron 275 mls @ 78.571 mls/hr 01/05/24 09:00 01/05/24 09:18 Sucrose 100 mg/ Sodium IVPB 01/05/24 12:29 78.57 mls/hr Chloride ONCE ONE Administration Lisinopril 5 mg 01/02/24 09:00 01/05/24 08:36 Lisinopril 5 Mg Tablet PO 5 mg QAM NIKOLE Administration Ondansetron HCl 4 mg 01/02/24 09:11 01/02/24 17:36 Ondansetron Inj 4 Mg/2 Ml Vial IV PUSH 4 mg Q6H PRN Administration Nausea And Vomiting Pantoprazole Sodium 40 mg 01/04/24 09:00 01/05/24 08:36 Pantoprazole 40 Mg Tablet PO 40 mg QAM NIKOLE Administration Sumatriptan Succinate 6 mg 01/02/24 09:11 01/02/24 09:48 Sumatriptan Succinate 6 Mg/0.5 Ml Vial SUB-Q 6 mg ONCE PRN Administration Headache Tramadol HCl 50 mg 01/02/24 09:11 01/05/24 08:38 Tramadol Hcl (*Crx) 50 Mg Tablet PO 50 mg Q6H PRN Administration Pain Rated 4-6 R
[2024-01-05 14:00] VITALS: BP 146/53; PULSE 87; RESP 16; TEMP 36.4; O2SAT 100
--- NOTE | 2024-01-05 14:21 | PDONCCN ---
HPI - Date of Consult Date/Time: 01/05/24 14:21 Requesting Physician: JENNIE Manrique Primary Care Provider: Olman Schofield MD - Consult Narrative Reason for consult: Sigmoid colon mass and rectal mass Narrative: Dilia Loomis is a 43 year old obese female with history of migraines, hypertension and colon polyps along with iron deficiency got admitted to the hospital with lightheadedness and dizziness for the past few days duration. She denies any diarrhea and constipation. Denies any melena hematochezia. She has no previous history of malignancy. On arrival to the hospital her hemoglobin was found to be 5.9. Hemoccult stool was positive. Iron studies were consistent for iron deficiency anemia. CT scan abdomen and pelvis was performed that showed thickening of the sigmoid colon consistent with malignancy versus colitis. Colonoscopy done on January 02 showed malignant appearing sigmoid colon and rectal mass. There were multiple polyps of the in the left colon and the right colon. This was highly suspicious for familial adenomatous polyposis syndrome. EGD came back unremarkable. CEA came back elevated at 46.9. CT chest abdomen and pelvis was performed that showed focal wall thickening of sigmoid colon and rectum consistent with primary malignancy along with mildly enlarged left common iliac lymph node suspicious for metastatic disease and mildly enlarged right paratracheal lymph node probably benign. With a family history of colon cancer in the father. Review of Systems - Review of Systems All systems reviewed & are unremarkable except as noted in [facility] and [facility] Medical History: Medical History (Last Updated 01/04/24 @ 14:17 by Marquis Sanford MD) Acute blood loss anemia Hypertension Surgical History: Surgical History (Last Reviewed 01/03/24 @ 18:45 by Abelardo Olivarez MD) No pertinent past surgical history Family History: Family History (Last Reviewed 01/03/24 @ 18:45 by Abelardo Olivarez MD) Mother Family history non-contributory - Social History Social History: Social History (Last Reviewed 01/03/24 @ 18:45 by Abelardo Olivarez MD) Gender Identity: Gender identity (if verbalized by the patient): Female Sexual Orientation: Sexual Orientation (if Verbalized by the Patient): Straight or Heterosexual Alcohol Use: Alcohol intake: never Substance Use: Substance use: never Others: Spiritual care concerns: No Living Arrangements: Living arrangements: with family Smoking Status: Smoking status: Former smoker Approximate Smoking End Date: 2018 Smoking Pack-years: Smoking packs per day: 0.25 Smoking cigarettes per day: 5.0 Social Determinants of Health: Do You Feel Safe in your Home?: Yes Has the Lack of Transportation Kept You From Medical Appointments or From Getting Medications?: No Within the Past 12 Months, Were You Worried Whether Your Food Would Run Out Before You Got Money to Buy More?: Never True What is Your Housing Situation Today?: I Have Housing Are You Worried That in the Next 2 Months, You May Not Have Your Own Housing to Live In?: No Do You Have Trouble Paying Your Heating Or Electricity Bill?: No Do You Have Trouble Paying For Medicines?: No Are You Currently Unemployed and Looking for Work?: No Highest Level of Education Completed: High School Diploma/GED Do You Have Trouble With Childcare or the Care of a Family Member?: No Exam - Vital Signs Vital Signs - 24 hr 01/04/24 20:00 01/04/24 22:00 01/05/24 06:00 Temperature 36.3 C L 36.6 C Pulse Rate 84 83 70 Respiratory Rate 18 16 18 Blood Pressure 137/54 L 123/53 L Pulse Oximetry 97 97 97 Oxygen Delivery Room Air 01/05/24 08:00 Temperature Pulse Rate Respiratory Rate Blood Pressure Pulse Oximetry Oxygen Delivery Room Air - Exam HEENT: EOMI, PERRLA, mucous membranes moist
--- NOTE | 2024-01-05 16:08 | PM.DS ---
DS: Admitting Diagnosis Discharge Date 01/05/24 Admitting Diagnosis Dizziness DS: Discharge Diagnosis Discharge Diagnosis (1) Adenocarcinoma, colon: Code(s): C18.9 - Malignant neoplasm of colon, unspecified Status: Acute (2) Acute blood loss anemia: Code(s): D62 - Acute posthemorrhagic anemia Status: Acute (3) Colonic mass: Code(s): K63.89 - Other specified diseases of intestine Status: Acute (4) Rectal mass: Code(s): K62.89 - Other specified diseases of anus and rectum Status: Acute (5) Weight loss: Code(s): R63.4 - Abnormal weight loss Status: Acute (6) Iron deficiency: Code(s): E61.1 - Iron deficiency Status: Acute (7) Lightheadedness: Code(s): R42 - Dizziness and giddiness Status: Acute (8) Hypertension: Code(s): I10 - Essential (primary) hypertension Status: Chronic (9) Migraine: Code(s): G43.909 - Migraine, unspecified, not intractable, without status migrainosus Status: Acute DS: Summary Hospital Course Reason for hospitalization: 43yo female with HTN, iron deficiency anemia and colon polyps here for weakness. Please see H&P for details. Hospital Course: In the emergency room patient was found that her hemoglobin was 5.9. She had heme positive occult blood. Iron studies were consistent with iron deficiency with TSat 4%. CXR was clear. UA appeared contaminated and UCx negative. She did receive a dose of Rocephin in the ER. CT abdomen pelvis demonstrating wall thickening of the sigmoid colon consistent with colitis versus malignancy. Patient also had additional small sliding hiatal hernia. Patient has not had any acute diarrhea and she denies any visible melanotic stools or hematochezia. Patient has a history of iron deficiency anemia but states she has been unable to tolerate oral iron as it causes a rash. Patient was typed and crossed and transfused 2 units of packed red blood cells. She was seen by GI and had EGD which appeared normal. Biopsies taken. Colonoscopy showing multiple polyps observed in the left colon and in the right colon. Multiple cold snare polypectomies were performed of did least 5 polyps. The polyps were completely excised. This is highly consistent with familial adenomatous polyposis. She also had a protruding large circumferential, fungating, friable, infiltrative malignant-appearing ulcerated mass in the sigmoid colon. There was a similar appearing mass in the rectum. Multiple biopsies obtained. General surgery was consulted. GI recommended total colectomy with ileal rectal anastomosis. CT of the chest, abdomen and pelvis again showed the focal wall thickening of the sigmoid colon, focal wall thickening of the rectum, mildly enlarged left common iliac lymph node suspicious for metastatic disease and mildly enlarged right paratracheal lymph nodes probably benign. Patient's hemoglobin climbed the 7 range and there it remained stable. She was treated with IV iron which she tolerated this well. She declines to take oral iron at this time. CEA was 47. B12 and folate levels normal. LFTs normal. Electrolytes remained normal. General surgery felt patient needed to see a colorectal surgeon. They helped arrange for patient to be seen by colorectal surgeon at [facility] who was willing to see the patient and evaluate patient as an outpatient. Pathology showing the gastric mucosa with mild reactive changes but negative for H pylori. Duodenal mucosa was negative for celiac sprue. Ascending colon polyps with dysplasia. See report for details. Sigmoid and rectal mass biopsies both showed invasive adenocarcinoma with ulceration. See report for details. Patient was seen by Oncology here. Patient overall did well was able be discharged home with close follow-up. Status at Discharge Cognitive/behavioral status at discharge: stable Time Spent with Patient Time attestation: To
== END 2024-01-05 17:29 | disposition home or self-care (01) | DRG 240 ==
LOC: ANHED 01-02 04:35 → ANH3MED 01-02 04:55
PROVIDERS: Anesthesiology; Internal Medicine Gastroenterology; Nurse Practitioner Adult Health; Physician Assistant; Surgery; Admitting Provider Internal Medicine; Emergency Provider Emergency Medicine; PCP Emergency Medicine; Visit Provider Internal Medicine
PROC: 0DJ08ZZ Inspection of Upper Intestinal Tract, Via Natural or Artificial Opening Endoscopic (ICD-10-PCS; CPT 43235; principal; 2024-01-03 16:30)
DX: C18.7 Malignant neoplasm of sigmoid colon (principal); C20 Malignant neoplasm of rectum; D62 Acute posthemorrhagic anemia; I10 Essential (primary) hypertension; Z68.43 Body mass index [BMI] 50.0-59.9, adult; E66.01 Morbid (severe) obesity due to excess calories; D13.91 Familial adenomatous polyposis; K63.5 Polyp of colon; R63.4 Abnormal weight loss; G43.909 Migraine, unspecified, not intractable, without status migrainosus; Z87.891 Personal history of nicotine dependence; Z86.010 Personal history of colon polyps
CPT/HCPCS: 36415; 36430; 71046; 71260; 74177; 80053; 81001; 81025; 82378; 82607; 82746; 83540; 83550; 85014; 85018; 85025; 86850; 86900; 86901; 86923; 87086; 87088; 88305; 88342; 93005; 96360; 96361; 96374; 99285; A9270; J0696; J1756; J1956; J2001; J2405; J2470; J2704; J3030; J7050; J7120; P9016; Q9967

== ENCOUNTER 2024-01-08 11:23 | Emergency (ER) | payer MEDICAID, SELFPAY ==
[2024-01-08 11:28] VITALS: BP 123/64; PULSE 88; RESP 20; TEMP 36.2; O2SAT 100
--- NOTE | 2024-01-08 11:37 | ED.SKABFB ---
HPI - Skin/Abscess/Foreign Bdy General Chief complaint: Skin/Abscess/Foreign Body Stated complaint: Skin Sore/Right Arm Time Seen by Provider: 01/08/24 11:37 Source: patient Mode of arrival: ambulatory Limitations: no limitations History of Present Illness HPI narrative: 43 yo F presents with c/o tenderness, warmth and redness to R forearm. Pt seen in ER approx. 1 wk ago and have IV placed to R forearm by ultrasound guidance. Bruising immediately after IV removed. Redness and pain started sevearl days later. Warmth since yesterday. Afebrile. Pt recently diagnosed with colon CA. All systems reviewed and negative except as noted above. Related Data Allergies Allergy/AdvReac Type Severity Reaction Status Date / Time amoxicillin Allergy Hives Verified 01/01/24 17:00 iron AdvReac Rash Verified 01/05/24 16:57 Review of Systems Review of Systems: CONSTITUTIONAL: Denies fever, chills, or sweats. EYES: Denies visual changes, redness, or discharge. ENT: Denies rhinorrhea, congestion, sore throat, or otalgia. CARDIOVASCULAR: Denies chest pain, palpitations, or edema. RESPIRATORY: Denies cough or dyspnea. GASTROINTESTINAL: Denies abdominal pain, nausea, vomiting, or diarrhea. GENITOURINARY: Denies dysuria or hematuria. SKIN: Denies rash or itching. Reports tenderness, redness and warmth to right forearm. MUSCULOSKELETAL: Denies back pain, joint pain, or myalgia. NEUROLOGIC: Denies headache, numbness, or weakness. PSYCHIATRIC: Denies anxiety or depression. All other systems reviewed are negative, except as documented in HPI. [facility] Past Medical History Medical History (Updated 01/08/24 @ 11:44 by Heidy Cedeño NP) Acute blood loss anemia Hypertension Surgical History Surgical History (Updated 01/05/24 @ 14:26 by Bhavik Rios MD) No pertinent past surgical history Family History Family History Mother Family history non-contributory Social History Social History Smoking packs per day: 0.25 Smoking cigarettes per day: 5.0 Smoking status: Former smoker Alcohol intake: never Substance use: never Do You Feel Safe in your Home?: Yes Lack of Transportation: No Lack of Food: Never True Current Housing: I Have Housing Concerned About Future Housing: No Difficulty Paying Gas/Electric Bills: No Difficulty Paying for Meds: No Currently Unemployed: No Education: High School Diploma/GED Difficulty w/ Childcare or Family Care: No Living arrangements: with family Gender identity (if verbalized by the patient): Female Sexual Orientation (if Verbalized by the Patient): Straight or Heterosexual Spiritual care concerns: No Comments At time of signature, agree with nursing past medical, surgical, social and family history. There is no relevant family history pertinent to the presenting complaint. GENERAL: This is a well-nourished, well-developed patient, in no apparent distress. Exam Narrative: GENERAL: This is a well-nourished, well-developed patient, in no apparent distress. HEAD: normocephalic, atraumatic. EYES: PERRL. Sclera clear/white. Vision is grossly intact. EARS: External ears normal NOSE: External nose normal NECK: Neck supple, non-tender without lymphadenopathy, masses or thyromegaly. CARDIOVASCULAR: Regular rate and rhythm without murmurs, gallops, or rubs. RESPIRATORY: Clear to auscultation. Breath sounds equal bilaterally. No wheezes, rales, or rhonchi. SKIN: warm, Dry, intact with no suspicious lesions or rash, good texture and turgor. Mild erythema with warmth and swelling to anterior aspect of right forearm surrounding IV placement site. No fluctuance concerning for abscess. NEURO: awake, alert, and oriented to person, place and time. There were no obvious focal neurologic abnormalities. EXTREMITIES: No joint tenderness, effusion, or edema noted.
== END 2024-01-08 11:53 | disposition home or self-care (01) ==
PROVIDERS: Emergency Provider Nurse Practitioner Family
DX: I80.8 Phlebitis and thrombophlebitis of other sites (principal); C18.9 Malignant neoplasm of colon, unspecified; I10 Essential (primary) hypertension; Z87.891 Personal history of nicotine dependence
CPT/HCPCS: 99213; G0463

== ENCOUNTER 2024-01-11 15:27 | Outpatient (CLI) | payer MEDICAID, SELFPAY ==
[2024-01-11 15:38] LABS: Kit Draw Collected
== END 2024-01-11 15:28 | disposition home or self-care (01) ==
LOC: ANHLAB 15:28
PROVIDERS: Visit Provider Internal Medicine Hematology & Oncology
DX: C18.9 Malignant neoplasm of colon, unspecified (principal)
CPT/HCPCS: 36415

== ENCOUNTER 2024-01-23 08:56 | Outpatient (CLI) | payer MEDICAID, SELFPAY ==
--- NOTE | ~2024-01-23 | PE_ITS ---
EXAMINATION: PET skull to mid thigh DATE: 01/23/2024 11:08 INDICATION: Lung neoplasm of colon. TECHNIQUE: Blood glucose level was 103 mg/dL. 11.822 mCi of 18-fluorodeoxyglucose (18-FDG) was admini stered i.v. Low dose computed tomography (CT) images were acquired from the base of the brain to the proximal thighs for attenuation correction and anatomic localization. Automated exposure control was employed. Dose-length product (DLP) was 1421 mGy-cm. Positron emission tomography (PET) images were a cquired in the same distribution. COMPARISON: CT chest, abdomen, and pelvis 01/05/2024 FINDINGS: Head/neck: There are no pathologically enlarged lymph nodes. Chest: There is no pneumonia or pleural effusion. Cardiomegaly is noted. No pericardial effusion. The re is a small sliding hiatal hernia. There is a borderline enlarged right paratracheal lymph node wit hout increased activity, likely reactive. Abdomen/pelvis/proximal thighs: The liver and spleen are normal. There are changes of cholecystectomy . The pancreas, adrenal glands, and kidneys are normal. There is focal wall thickening of the rectum with maximum SUV of 19.5. There is focal wall thickening of the sigmoid colon with maximum SUV of 27. 2. There is 11 x 14 mm left common iliac node without increased activity, likely reactive. There is n o free intraperitoneal fluid. There is no osseous malignancy. IMPRESSION: 1. Focal wall thickening in the sigmoid colon with increased activity, consistent with primary malign gary. 2. Focal wall thickening of the rectum with increased activity, consistent with primary malignancy. 3. No evidence of metastatic disease. Reviewed, dictated and finalized at location A. IMPRESSION: 1. Focal wall thickening in the sigmoid colon with increased activity, consiste nt with primary malignancy. 2. Focal wall thickening of the rectum with increased activity, consistent with primary malignancy. 3. No evidence of metastatic disease.
[2024-01-23 09:13] LABS: Glucose Point of Care 103 mg/dl (65-105)
== END 2024-01-23 08:57 | disposition home or self-care (01) ==
LOC: ANHIMG 09:01
PROVIDERS: PCP Nurse Practitioner Family; Visit Provider Internal Medicine Hematology & Oncology
DX: C18.9 Malignant neoplasm of colon, unspecified (principal)
CPT/HCPCS: 78815; A9552

== ENCOUNTER 2024-02-06 11:30 | Outpatient (CLI) | payer MEDICAID, SELFPAY ==
[2024-02-06 11:50] LABS: Basophils Absolute Auto 0.1 K/mm3 (0.0-0.1); Basophils Percent Auto 0.5 % (0.2-1.2); Eosinophils Absolute Auto 0.2 K/mm3 (0-0.3); Hematocrit 35.5 % (37.0-47.0); Hemoglobin 11.1 g/dL (12.0-15.0); Immature Granulocyte Absolute 0.04 K/mm3 (0.00-0.031); Immature Granulocyte Percent A 0.4 % (0-0.5); Lymphocytes Absolute Auto 1.35 K/mm3 (0.9-3.2); Lymphocytes Percent Auto 14.1 % (18.3-44.2); Mean Corpuscular HGB Conc 31.3 g/dl (32-36); Mean Corpuscular Hemoglobin 26.1 pg (26-34); Mean Corpuscular Volume 83.5 fl (80-100); Monocytes Absolute Auto 0.4 K/mm3 (0.1-0.6); Monocytes Percent Auto 4.5 % (2.6-8.5); Neutrophils Absolute Auto 7.5 K/mm3 (1.3-6.7); Neutrophils Percent Auto 78.5 % (45.5-73.1); Platelet Count Result 397 k/mm3 (150-375); Red Blood Count 4.25 M/mm3 (4.2-5.4); White Blood Count 9.6 K/mm3 (4.5-10.0)
[2024-02-06 12:35] LABS: Anisocytosis 1+; Microcytosis 1+ (NORMAL); Platelet Estimate Adequate (Adequate); Schistocytes None Seen
[2024-02-06 13:08] LABS: Iron 120 ug/dL (37-170)
[2024-02-06 13:12] LABS: Alanine Aminotransferase 12 U/L (6-35); Albumin Level 4.3 g/dL (3.5-5.1); Alkaline Phosphatase 69 U/L (38-126); Anion Gap 9 mmol/L (4-12); Aspartate Amino Transferase 22 U/L (14-36); Bilirubin,Total 0.4 mg/dL (0.2-1.3); Blood Urea Nitrogen 8 mg/dL (7-17); Calcium 9.4 mg/dL (8.4-10.2); Carbon Dioxide 26 mmol/L (22-30); Chloride 101 mmol/L (98-107); Estimated Glomerular Filt Rate > 60; Glucose 113 mg/dL (65-110); Sodium 136 mmol/L (137-145)
[2024-02-06 13:21] LABS: Percent Iron Saturation 36 % (20-50)
[2024-02-19 13:09] LABS: Soluble Transferrin Receptor 2.22 mg/L (0.76-1.76)
== END 2024-02-06 11:31 | disposition home or self-care (01) ==
LOC: ANHLAB 11:30
PROVIDERS: PCP Nurse Practitioner Family; Visit Provider Internal Medicine Hematology & Oncology
DX: D64.9 Anemia, unspecified (principal)
CPT/HCPCS: 36415; 80053; 82607; 82728; 83540; 83550; 84238; 85025

== ENCOUNTER 2024-02-27 08:47 | Observation (INO) | payer OTHER, SELFPAY ==
--- NOTE | ~2024-02-27 | US_ITS ---
BILATERAL LOWER EXTREMITY VENOUS ULTRASOUND Ordering provider: Karuna Uriostegui APRN History: . chest pain for 3 days . Comparison: None. FINDINGS: RIGHT LOWER EXTREMITY VEINS: --COMMON FEMORAL: Patent and free of thrombus. Normal compressibility, phasic flow and augmentation. --PROXIMAL SUPERFICIAL FEMORAL: Patent and free of thrombus. Normal compressibility, phasic flow and augmentation. --DISTAL SUPERFICIAL FEMORAL: Patent and free of thrombus. Normal compressibility, phasic flow and au gmentation. --POPLITEAL: Patent and free of thrombus. Normal compressibility, phasic flow and augmentation. --POSTERIOR TIBIAL: Patent and free of thrombus. Normal compressibility, phasic flow and augmentation . LEFT LOWER EXTREMITY VEINS: --COMMON FEMORAL: Patent and free of thrombus. Normal compressibility, phasic flow and augmentation. --PROXIMAL SUPERFICIAL FEMORAL: Patent and free of thrombus. Normal compressibility, phasic flow and augmentation. --DISTAL SUPERFICIAL FEMORAL: Patent and free of thrombus. Normal compressibility, phasic flow and au gmentation. --POPLITEAL: Patent and free of thrombus. Normal compressibility, phasic flow and augmentation. --POSTERIOR TIBIAL: Patent and free of thrombus. Normal compressibility, phasic flow and augmentation . IMPRESSION: Negative bilateral lower extremity venous US. No deep vein thrombosis. Reviewed, dictated and finalized at location A.
--- NOTE | ~2024-02-27 | CT_ITS ---
CT of the Abdomen and Pelvis: Indication: Abdominal pain Technique: 2.5 mm axial scans were obtained through the abdomen and pelvis following intravenous adm inistration of 100 cc of Omnipaque 350. Dose reduction technique was used on this scan by utilizing a utomated exposure control and iterative reconstruction technique. The dose-length product (DLP) was 1 683.79 mGy-cm. COMPARISON: 01/05/2024 Findings: Scans through the lung bases are unremarkable. The liver, spleen, pancreas, adrenals and kidneys are within normal limits. Cholecystectomy clips are present. No evidence of aortic aneurysm. No lymphadenopathy. There is wall thickening of the distal sigmoid colon (axial image 140 for example), compatible with h istory of colonic adenocarcinoma. There is suspected perirectal/perianal abscess versus wall thickeni ng (axial image 197), with apparent fluid collection measuring 3 cm in maximum diameter. Images through the pelvis were performed. Urinary bladder unremarkable. No adnexal mass seen. No asci brijesh. Impression: Wall thickening of the distal sigmoid colon is consistent with colonic adenocarcinoma. Possible perirectal/perianal abscess versus additional area of wall thickening at the distal rectum, as detailed above. Reviewed, dictated and finalized at [facility]. Impression: Wall thickening of the distal sigmoid colon is consistent with colonic adenocar cinoma. Possible perirectal/perianal abscess versus additional area of wall thickening at the distal rectum, as detailed above.
[2024-02-27 08:51] VITALS: BP 138/97; PULSE 139; RESP 20; TEMP 36.6; O2SAT 100
[2024-02-27] MEDS: SODIUM CHLORIDE 0.9% IV 1,000 ML 999 ML IV CONT (09:09)
[2024-02-27] MEDS: fentaNYL CITRATE INJ (*CRX) 100 MCG/2 ML VIAL 50 MCG IV PUSH (09:09)
[2024-02-27] MEDS: ONDANSETRON INJ 4 MG/2 ML VIAL IV PUSH ×2 (09:10→20:08)
[2024-02-27] MEDS: FAMOTIDINE 20 MG/2 ML VIAL IV PUSH (09:10)
[2024-02-27 09:22] LABS: Basophils Percent Auto 0.5 % (0.2-1.2); Eosinophils Absolute Auto 0.2 K/mm3 (0-0.3); Eosinophils Percent Auto 2.4 % (0-4.4); Hematocrit 37.2 % (37.0-47.0); Hemoglobin 12.3 g/dL (12.0-15.0); Immature Granulocyte Absolute 0.07 K/mm3 (0.00-0.031); Immature Granulocyte Percent A 0.9 % (0-0.5); Lymphocytes Absolute Auto 0.49 K/mm3 (0.9-3.2); Lymphocytes Percent Auto 6.5 % (18.3-44.2); Mean Corpuscular HGB Conc 33.1 g/dl (32-36); Mean Corpuscular Hemoglobin 28.7 pg (26-34); Mean Corpuscular Volume 86.9 fl (80-100); Mean Platelet Volume 9.1 fl (7.4-10.4); Monocytes Absolute Auto 0.4 K/mm3 (0.1-0.6); Monocytes Percent Auto 4.9 % (2.6-8.5); Neutrophils Absolute Auto 6.4 K/mm3 (1.3-6.7); Neutrophils Percent Auto 84.8 % (45.5-73.1); Platelet Count Result 427 k/mm3 (150-375); Red Blood Count 4.28 M/mm3 (4.2-5.4); Red Cell Distribution Width 17.3 % (11.5-14.5); White Blood Count 7.5 K/mm3 (4.5-10.0)
--- NOTE | 2024-02-27 09:22 | ED.NAVMDI ---
HPI - Nausea/Vomiting/Diarrhea General Chief complaint: Nausea/Vomiting/Diarrhea Stated complaint: nausea, dizziness, shakiness stage 3 colon cancer Time Seen by Provider: 02/27/24 08:54 History of Present Illness HPI Narrative: Pt presents with nausea and vomiting for last couple of days and several episodes of diarrhea. Pt has crampy abdominal pain with diarrhea. Pt also on menses. Pt has Stage 3 colon CA and is getting chemo orally as well. Related Data Home Medications Medication Instructions Recorded Confirmed Tylenol Arthritis 500 mg PO DAILY 02/02/24 02/27/24 [id number] 1 tablet PO Q6H PRN abdominal 02/27/24 02/27/24 500 mg-60 mg-15 mg tablet (Midol cramps Complete) ferrous sulfate 325 mg (65 mg 325 mg PO TID 02/27/24 02/27/24 iron) tablet hydrocodone 5 mg-acetaminophen 325 1 tablet PO Q6H PRN Pain 02/27/24 02/27/24 mg tablet Allergies Allergy/AdvReac Type Severity Reaction Status Date / Time amoxicillin Allergy Hives Verified 02/27/24 08:59 iron AdvReac Rash Verified 02/27/24 14:17 Review of Systems Review of Systems: All systems reviewed & are unremarkable except as noted in HPI and below PMFSH Past Medical History Medical History Acute blood loss anemia Colorectal cancer Hypertension Surgical History Surgical History S/P cholecystectomy Family History Family History Mother Heart disease Social History Social History Smoking packs per day: 0.25 Smoking cigarettes per day: 5.0 Years smoked: 17 Smoking pack-years: 4.25 Smoking status: Former smoker Second hand tobacco smoke exposure: Yes Alcohol intake: never Substance use: never Do You Feel Safe in your Home?: Yes Lack of Transportation: No Lack of Food: Never True Current Housing: I Have Housing Concerned About Future Housing: No Difficulty Paying Gas/Electric Bills: No Difficulty Paying for Meds: No Currently Unemployed: No Education: High School Diploma/GED Difficulty w/ Childcare or Family Care: No Living arrangements: with family Gender identity (if verbalized by the patient): Female Sexual Orientation (if Verbalized by the Patient): Straight or Heterosexual Spiritual care concerns: No Exam Const: General: healthy appearing and no acute distress Nutritional Appearance: well nourished Orientation/consciousness: patient oriented x3 Limitations: no limitations HENMT: Head: normal to inspection Mouth: Yes Normal oral and palatal mucosa present Eyes: Conjunctivae: conjunctivae normal EOM: EOMs intact bilaterally Resp: Effort & Inspection: normal respiratory effort Auscultation: clear to auscultation bilaterally Cardio: Rate: regular rate Rhythm: regular rhythm GI: GI Palp: Yes Soft to palpation and No Tenderness to palpation present (GI) Auscultation: Hyperactive bowel sounds present Skin: General skin exam: normal color Rashes: no rashes Wounds: no wounds Neuro: General: patient oriented x3, moves all extremities, no meningeal signs, no focal motor deficits and CN's II-XI intact bilaterally Speech: normal speech Extrem: General: normal to inspection and no clubbing, cyanosis or edema Psych: Mental Status: mental status grossly normal Affect: normal affect Attitude: cooperative Course Vital Signs Vital signs: Vital Signs Temperature 97.9 F 02/27/24 08:51 Pulse Rate 139 H 02/27/24 08:51 Respiratory Rate 20 02/27/24 08:51 Blood Pressure 138/97 H 02/27/24 08:51 Pulse Oximetry 100 02/27/24 08:51 Oxygen Delivery Room Air 02/27/24 08:51 Temperature 97.9 F 02/27/24 08:51 Pulse Rate 100 02/27/24 16:16 Respiratory Rate 14 02/27/24 16:16 Blood Pressure 122/60 02/27/24 16:16 Pulse Oxime
[2024-02-27 09:31] LABS: Alanine Aminotransferase 12 U/L (6-35); Albumin Level 4.1 g/dL (3.5-5.1); Alkaline Phosphatase 81 U/L (38-126); Anion Gap 13 mmol/L (4-12); Aspartate Amino Transferase 17 U/L (14-36); Bilirubin,Total 0.3 mg/dL (0.2-1.3); Blood Urea Nitrogen 10 mg/dL (7-17); Calcium 9.3 mg/dL (8.4-10.2); Carbon Dioxide 19 mmol/L (22-30); Chloride 105 mmol/L (98-107); Estimated Glomerular Filt Rate > 60; Glucose 126 mg/dL (65-110); Lipase 73 U/L (23-300); Potassium 3.6 mmol/L (3.4-5.0); Sodium 137 mmol/L (137-145)
[2024-02-27 09:35] LABS: Partial Thromboplastin Time 30.9 Seconds (22.3-36.8); Prothrombin Time 14.1 Seconds (11.1-14.7)
[2024-02-27 09:52] LABS: BEDSIDEPREGUCG Negative (Negative)
[2024-02-27 10:26] LABS: Add Urine Microscopic? YES; Appearance Urine Turbid (Clear); Bacteria Urine 1+ /hpf; Bilirubin Urine 1+ (Negative); Blood Urine 3+ (Negative); Color Urine Red (Yellow); Glucose Urine UA Negative (Negative); Ketones Urine Negative (Negative); Leukocyte Esterase Ur 3+ LEU/UL (Negative); Need Manual Microscopic Reviewed; Nitrate Urine Negative (Negative); Protein Urine 3+ mg/dL (Negative); RBC Urine >100 /hpf (0-2); Squamous Epithelial Cell Urine Few /hpf (Few); Urobilinogen Urine 0.2 mg/dL (<2.0); WBC Urine 51-100 /hpf (0-3); pH Urine 6.5 (5.0-9.0)
[2024-02-27 11:33] VITALS: BP 115/51; PULSE 87; RESP 14; O2SAT 100
[2024-02-27] MEDS: MORPHINE SULFATE (*CRX) 4 MG/ML INJ IV PUSH (12:11)
[2024-02-27 12:25] VITALS: BP 115/62; PULSE 87; RESP 19; O2SAT 100
--- NOTE | 2024-02-27 13:32 | PM.IMHP ---
H&P: HPI History of Present Illness Date/Time: 02/27/24 13:32 Chief Complaint: Nausea, vomiting and acute abdominal pain Narrative: 43-year-old female with stage III colon cancer currently on chemotherapy and radiation at [facility] presents with nausea vomiting and diarrhea. Patient states the last 3 days or so she was unable to get out of bed due to not feeling well, she complained of Menstrual like cramps and calf pain. she states that this morning she started having nausea, vomiting unable to keep down food or her medications and also diarrhea. 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 She has started radiation therapy and reports having 4 treatments. Since radiation, she has noticed more rectal pain with bowel movements. She states that she vomited several times and is dizzy with movement. Patient also endorses chills and hot flashes. Patient denies drainage, rectal bleeding or bloody bowel. Patient states she thinks she has a UTI. Review of Systems Constitutional: Constitutional: Reports chills, Reports fatigue, Reports lethargy and Reports weakness Eyes: Eyes: Reports no additional eye complaints ENT: Reports system reviewed and no additional complaints, except as documented Cardiovascular: Cardiovascular: Reports lightheadedness Respiratory: Respiratory: Reports no additional respiratory complaints Gastrointestinal: Gastrointestinal: Reports abdominal pain, Reports bloating, Reports diarrhea and Reports vomiting Genitourinary: Genitourinary: Reports dysuria Musculoskeletal: Musculoskeletal: Reports no additional musculoskeletal complaints Integumentary/Breasts: Skin/Breast: Reports system reviewed and no additional complaints, except as docu Neurologic: Reports system reviewed and no additional complaints, except as documented Psychiatric: Psychiatric: Reports no additional psychiatric complaints [facility] Past Medical History Medical History Acute blood loss anemia Colorectal cancer Hypertension Surgical History Surgical History S/P cholecystectomy Family History Family History Mother Heart disease Social History Social History Smoking packs per day: 0.25 Smoking cigarettes per day: 5.0 Years smoked: 17 Smoking pack-years: 4.25 Smoking status: Former smoker Tobacco type: cigarettes Second hand tobacco smoke exposure: Yes Smoking end date: 03/22/21 Alcohol intake: never Substance use: never Do You Feel Safe in your Home?: Yes Lack of Transportation: No Lack of Food: Never True Current Housing: I Have Housing Concerned About Future Housing: No Difficulty Paying Gas/Electric Bills: No Difficulty Paying for Meds: No Currently Unemployed: No Education: High School Diploma/GED Difficulty w/ Childcare or Family Care: No Living arrangements: with family Gender identity (if verbalized by the patient): Female Sexual Orientation (if Verbalized by the Patient): Straight or Heterosexual Spiritual care concerns: No Meds Home Medications and Allergies Home Medications Medication Instructions Recorded Confirmed Type lisinopril 5 mg tablet 5 mg PO QAM #30 tabs 01/05/24 Rx Tylenol Arthritis 02/02/24 History ferrous fumarate-iron ps cmplx 02/02/24 History Allergies Allergy/AdvReac Type Severity Reaction Status Date / Time amoxicillin Allergy Hives Verified 02/27/24 08:59 iron AdvReac Rash Verified 02/27/24 14:17 Vital Signs Vital Signs - 24 hr 02/27/24 08:51 02/27/24 11:33 02/27/24 12:25 Temperature 97.9 F Pulse Rate 139 H 87
--- NOTE | 2024-02-27 14:33 | PM.CNGS ---
Assessment and Plan Assessment and plan (1) Gastroenteritis: Code(s): K52.9 - Noninfective gastroenteritis and colitis, unspecified Status: Acute Assessment and Plan: This is the reason for her admission. No acute findings on her CT scan of the abdomen and pelvis. Continue IV fluid hydration and supportive care. (2) Abscess: Code(s): L02.91 - Cutaneous abscess, unspecified Status: Acute Assessment and Plan: This is the reason for our consultation. 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 She recently started neoadjuvant therapy in preparation for eventual surgical resection. The CT scan on admission shows possible distal rectal wall thickening versus a perirectal/perianal abscess. No clinical findings to suggest a perirectal abscess on my exam. The findings on CT could be related to her known rectal cancer, especially while undergoing radiation treatment. There is no obvious evidence of an abscess at this time. Okay from a surgical standpoint to discharge the patient when medically stable to follow-up with her colorectal surgeon. (3) Rectal mass: Code(s): K62.89 - Other specified diseases of anus and rectum Status: Acute (4) Adenocarcinoma, colon: Code(s): C18.9 - Malignant neoplasm of colon, unspecified Status: Acute Plan I have discussed the patient's case and plan of care with Dr. Strickland. 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 She has started radiation therapy and reports having 4 treatments. Since radiation, she has noticed more rectal pain with bowel movements. She also reports having cramping pelvic pain and rectal pain around the time of menstruation, which started this week. Over the past few days, she has developed nausea, vomiting, and diarrhea. She reports lower abdominal and pelvic cramping pain, but was initially a contributing this to her menstrual cycle. She is also reportedly taking oral chemotherapy. Due to her persistent vomiting and diarrhea, she presented to the ED today for evaluation. Labs showed a normal white blood cell count. CT scan of the abdomen and pelvis was ordered showing wall thickening of the distal sigmoid colon, consistent with colonic adenocarcinoma, and possible perirectal/perianal abscess versus additional area of wall thickening at the distal rectum. Our service was consulted for the possible perirectal abscess. She will be admitted to the hospitalist for nausea and vomiting. She is now seen in the ED. She reports some mild rectal pain that is cramping in nature. She reports dealing with rectal pain over the past few months when diagnosed with anorectal cancer. She does not feel the pain has been exacerbated. She reports there is a palpable mass anterior to the anus that has actually come down in size recently. Denies any recent purulence drainage. She does report having a draining perirectal abscess around the time of her diagnosis in December. No recent fevers or chills. Review of Systems Review of Systems: All systems reviewed & are unremarkable except as noted in HPI and below PMFSH Past Medical History Medical History Acute blood loss anemia Colorectal cancer Hypertension Surgica
[2024-02-27 14:37] VITALS: BP 106/61; PULSE 93; RESP 20; O2SAT 98
[2024-02-27] MEDS: MORPHINE SULFATE (*CRX) 2 MG/ML INJ IV PUSH (16:12)
[2024-02-27] MEDS: SODIUM CHLORIDE 0.9% IV 1,000 ML 100 ML IV CONT (16:15)
[2024-02-27 16:16] VITALS: BP 122/60; PULSE 100; RESP 14; O2SAT 98
[2024-02-27 16:38] VITALS: BMI 47.2
--- NOTE | 2024-02-27 16:38 | ADMGEN ---
This patient, Dilia Loomis, was admitted to Medical Room 342-01. Patient/family oriented to hospital policies and general routines including ID bracelet, bed and alarms, visiting hours, pain management, procedures, bathroom and other care routines, personal items, smoking policy, room service/diet, and visiting hours. Information on how to activate the Rapid Response Team has been discussed. Patient/Family are encouraged to report perceived risks to care and to ask questions if they do not understand what they are told or what they should do.
--- NOTE | 2024-02-27 18:08 | PHAR ---
PT'S HOME MED MIDOL COMPLETE VERIFIED BY PHARMACY
[2024-02-27] MEDS: ACETAMINOPHEN PO (18:20)
[2024-02-27] MEDS: CAFFEINE PO (18:20)
[2024-02-27] MEDS: [UNRECOGNIZED DRUG - OTHER] PO (18:20)
[2024-02-27 19:39] LABS: Toxigenic C. Diff POSITIVE (NEGATIVE)
[2024-02-27 20:00] VITALS: BP 109/76; PULSE 111; RESP 20; TEMP 36.9; O2SAT 100
[2024-02-27] MEDS: traZODone HCL 50 MG TABLET PO (20:08)
[2024-02-27] MEDS: VANCOMYCIN HCL 125 MG ORAL CAPSULE PO (23:21)
[2024-02-28] VITALS (7 sets, daily range): BP systolic 128–140; BP diastolic 63–72; PULSE 74–92; RESP 16–22; TEMP 36.5–37; O2SAT 97–100; BMI 47.2
[2024-02-28] MEDS: SODIUM CHLORIDE 0.9% IV 1,000 ML 100 ML IV CONT ×2 (05:50→12:41)
[2024-02-28] MEDS: VANCOMYCIN HCL 125 MG ORAL CAPSULE PO ×4 (05:50→23:33)
[2024-02-28] MEDS: ONDANSETRON INJ 4 MG/2 ML VIAL IV PUSH ×3 (05:50→20:31)
[2024-02-28] MEDS: CAFFEINE PO ×2 (05:51→12:00)
[2024-02-28] MEDS: [UNRECOGNIZED DRUG - OTHER] PO (05:51)
[2024-02-28] MEDS: ACETAMINOPHEN PO ×2 (05:51→12:00)
[2024-02-28 05:57] LABS: Basophils Absolute Auto 0.1 K/mm3 (0.0-0.1); Basophils Percent Auto 1.1 % (0.2-1.2); Eosinophils Absolute Auto 0.3 K/mm3 (0-0.3); Eosinophils Percent Auto 5.9 % (0-4.4); Hematocrit 36.2 % (37.0-47.0); Hemoglobin 11.5 g/dL (12.0-15.0); Immature Granulocyte Absolute 0.02 K/mm3 (0.00-0.031); Immature Granulocyte Percent A 0.4 % (0-0.5); Lymphocytes Absolute Auto 0.84 K/mm3 (0.9-3.2); Mean Corpuscular HGB Conc 31.8 g/dl (32-36); Mean Corpuscular Hemoglobin 28.3 pg (26-34); Mean Corpuscular Volume 88.9 fl (80-100); Monocytes Absolute Auto 0.4 K/mm3 (0.1-0.6); Monocytes Percent Auto 7.7 % (2.6-8.5); Neutrophils Absolute Auto 3.9 K/mm3 (1.3-6.7); Neutrophils Percent Auto 69.9 % (45.5-73.1); Platelet Count Result 409 k/mm3 (150-375); Red Blood Count 4.07 M/mm3 (4.2-5.4); Red Cell Distribution Width 17.3 % (11.5-14.5); White Blood Count 5.6 K/mm3 (4.5-10.0)
[2024-02-28 06:08] LABS: Anion Gap 9 mmol/L (4-12); Blood Urea Nitrogen 7 mg/dL (7-17); Calcium 9.1 mg/dL (8.4-10.2); Carbon Dioxide 22 mmol/L (22-30); Chloride 105 mmol/L (98-107); Estimated CRCL calculation 132 ml/min; Estimated Glomerular Filt Rate > 60; Glucose 104 mg/dL (65-110); Potassium 3.5 mmol/L (3.4-5.0); Sodium 136 mmol/L (137-145)
[2024-02-28] MEDS: FERROUS SULFATE 325 MG TABLET DR PO ×3 (08:55→16:24)
[2024-02-28] MEDS: ENOXAPARIN 40 MG/0.4 ML SYRINGE SUB-Q (08:55)
--- NOTE | 2024-02-28 11:02 | PM.IMPN ---
Progress Note: A&P Assessment and Plan (1) C. difficile diarrhea: Code(s): A04.72 - Enterocolitis due to Clostridium difficile, not specified as recurrent Status: Acute Assessment and Plan: IV fluids for hydration oral vancomycin times 10 days (2) Hematuria: Qualifiers: Hematuria type: gross Qualified Code(s): R31.0 - Gross hematuria Code(s): R31.9 - Hematuria, unspecified Status: Acute Assessment and Plan: UTI IV Rocephin IV fluids for hydration patient states that she is on a menstrual cycle with heavy bleeding, likely does not have hematuria (3) Nausea and vomiting: Qualifiers: Vomiting type: bilious vomiting Qualified Code(s): R11.14 - Bilious vomiting Code(s): R11.2 - Nausea with vomiting, unspecified Status: Acute Assessment and Plan: IV Zofran IVF for hydration (4) Rectal mass: Code(s): K62.89 - Other specified diseases of anus and rectum Status: Acute Assessment and Plan: abscess versus new mass general surgeon consulted no leukocytosis no need for antibiotics surgery standpoint no surgical intervention at this time due to likely being a mass instead of abscess follow-up with Colorectal surgery at [facility] after discharge (5) Adenocarcinoma, colon: Code(s): C18.9 - Malignant neoplasm of colon, unspecified Status: Acute Assessment and Plan: colorectal surgery follow up with after discharge on chemotherapy and radiation (6) Hypertension: Code(s): I10 - Essential (primary) hypertension Status: Chronic Assessment and Plan: hold home lisinopril for now due to hypotension, restart tomorrow morning (7) Iron deficiency: Code(s): E61.1 - Iron deficiency Status: Acute Assessment and Plan: continue oral iron replacement (8) Bilateral calf pain: Code(s): M79.661 - Pain in right lower leg; M79.662 - Pain in left lower leg Status: Acute Assessment and Plan: bilateral lower extremity venous Dopplers normal Plan 43-year-old female with stage III colon cancer presents with nausea vomiting and diarrhea being treated for dehydration. With abdominal CT showing Possible perirectal/perianal abscess versus additional area of wall thickening at the distal rectum. No clinical findings to suggest a perirectal abscess per general surgery. Recommendations for follow up with colorectal surgery at [facility]. Patient is positive for C diff started on oral vancomycin. Time Spent With Patient Time with patient: Greater than 35 minutes Subjective Date/time seen: 02/28/24 11:02 Interval history: no acute events overnight, patient still complaining of severe abdominal cramping and some nausea some advanced itis tolerate okay to stop fluids tonight Patient recommended to fill out POA paperwork and a Living will, case management consulted Review of Systems Constitutional: Constitutional: Reports chills, Reports fatigue, Reports lethargy and Reports weakness Eyes: Eyes: Reports no additional eye complaints ENT: Reports system reviewed and no additional complaints, except as documented Cardiovascular: Cardiovascular: Reports lightheadedness Respiratory: Respiratory: Reports no additional respiratory complaints Gastrointestinal: Gastrointestinal: Reports abdominal pain, Reports bloating, Reports diarrhea and Reports vomiting Genitourinary: Genitourinary: Reports dysuria Musculoskeletal: Musculoskeletal: Reports no additional musculoskeletal complaints Integumentary/Breasts: Skin/Breast: Reports system reviewed and no additional complaints, except as docu Neurologic: Reports system reviewed and no additional complaints, except as documented and Reports weakness Psychiatric: Psychiatric: Reports no additional psychiatric complaints Endocrine: Endocrine: Reports fatigue Exam
[2024-02-28] MEDS: [UNRECOGNIZED DRUG - OTHER] PO (12:00)
[2024-02-28] MEDS: HYDROcodone/acetaminophen (*CRX) 5-325 MG TABLET 1 TAB PO ×2 (15:00→20:37)
[2024-02-28] MEDS: CYCLOBENZAPRINE HCL 5 MG TABLET PO (16:23)
[2024-02-28] MEDS: OXYMETAZOLINE HCL 0.05% NAS 15 ML BTL (*BKC) 1 SPRAY NASAL (18:05)
[2024-02-28 18:55] LABS: Influenza A QL RT-PCR Negative (Negative); Influenza B QL RT-PCR Negative (Negative); RSV RNA, RT-PCR Negative (Negative); SARS-CoV-2 RNA PCR Negative (Negative)
[2024-02-28] MEDS: traZODone HCL 50 MG TABLET PO (20:31)
[2024-02-28] MEDS: guaiFENesin 12 HR 600 MG TABCR 1200 MG PO (20:31)
[2024-02-29] VITALS (7 sets, daily range): BP systolic 122–149; BP diastolic 53–77; PULSE 72–92; RESP 20–22; TEMP 36.6–37.1; O2SAT 96–100
[2024-02-29] MEDS: HYDROcodone/acetaminophen (*CRX) 5-325 MG TABLET 1 TAB PO ×3 (05:54→20:50)
[2024-02-29] MEDS: VANCOMYCIN HCL 125 MG ORAL CAPSULE PO ×4 (05:54→23:38)
[2024-02-29 09:21] LABS: Basophils Percent Auto 0.8 % (0.2-1.2); Eosinophils Absolute Auto 0.3 K/mm3 (0-0.3); Eosinophils Percent Auto 8.6 % (0-4.4); Hematocrit 31.4 % (37.0-47.0); Hemoglobin 10.3 g/dL (12.0-15.0); Immature Granulocyte Absolute 0.02 K/mm3 (0.00-0.031); Immature Granulocyte Percent A 0.5 % (0-0.5); Lymphocytes Absolute Auto 0.58 K/mm3 (0.9-3.2); Lymphocytes Percent Auto 14.7 % (18.3-44.2); Mean Corpuscular HGB Conc 32.8 g/dl (32-36); Mean Corpuscular Volume 88.5 fl (80-100); Mean Platelet Volume 8.7 fl (7.4-10.4); Monocytes Absolute Auto 0.4 K/mm3 (0.1-0.6); Monocytes Percent Auto 9.9 % (2.6-8.5); Neutrophils Absolute Auto 2.6 K/mm3 (1.3-6.7); Neutrophils Percent Auto 65.5 % (45.5-73.1); Platelet Count Result 298 k/mm3 (150-375); Red Blood Count 3.55 M/mm3 (4.2-5.4); Red Cell Distribution Width 17.2 % (11.5-14.5)
[2024-02-29 09:33] LABS: Anion Gap 6 mmol/L (4-12); Blood Urea Nitrogen 5 mg/dL (7-17); Calcium 8.7 mg/dL (8.4-10.2); Carbon Dioxide 24 mmol/L (22-30); Chloride 106 mmol/L (98-107); Estimated CRCL calculation 132 ml/min; Estimated Glomerular Filt Rate > 60; Glucose 89 mg/dL (65-110); Potassium 3.4 mmol/L (3.4-5.0); Sodium 136 mmol/L (137-145)
[2024-02-29] MEDS: guaiFENesin 12 HR 600 MG TABCR 1200 MG PO ×2 (09:35→20:49)
[2024-02-29] MEDS: lisinopriL 5 MG TABLET PO (09:35)
[2024-02-29] MEDS: ENOXAPARIN 40 MG/0.4 ML SYRINGE SUB-Q (09:35)
[2024-02-29] MEDS: FERROUS SULFATE 325 MG TABLET DR PO ×3 (09:36→17:29)
[2024-02-29] MEDS: CAFFEINE PO ×2 (11:08→18:49)
[2024-02-29] MEDS: [UNRECOGNIZED DRUG - OTHER] PO ×2 (11:08→18:49)
[2024-02-29] MEDS: ACETAMINOPHEN PO ×2 (11:08→18:49)
--- NOTE | 2024-02-29 17:41 | PM.IMPN ---
Progress Note: A&P Assessment and Plan (1) C. difficile diarrhea: Code(s): A04.72 - Enterocolitis due to Clostridium difficile, not specified as recurrent Status: Acute Assessment and Plan: IV fluids for hydration oral vancomycin times 10 days (2) Hematuria: Qualifiers: Hematuria type: gross Qualified Code(s): R31.0 - Gross hematuria Code(s): R31.9 - Hematuria, unspecified Status: Acute Assessment and Plan: UTI IV Rocephin IV fluids for hydration patient states that she is on a menstrual cycle with heavy bleeding, likely does not have hematuria (3) Nausea and vomiting: Qualifiers: Vomiting type: bilious vomiting Qualified Code(s): R11.14 - Bilious vomiting Code(s): R11.2 - Nausea with vomiting, unspecified Status: Acute Assessment and Plan: IV Zofran IVF for hydration (4) Rectal mass: Code(s): K62.89 - Other specified diseases of anus and rectum Status: Acute Assessment and Plan: abscess versus new mass general surgeon consulted no leukocytosis no need for antibiotics surgery standpoint no surgical intervention at this time due to likely being a mass instead of abscess follow-up with Colorectal surgery at [facility] after discharge (5) Adenocarcinoma, colon: Code(s): C18.9 - Malignant neoplasm of colon, unspecified Status: Acute Assessment and Plan: colorectal surgery follow up with after discharge on chemotherapy and radiation (6) Hypertension: Code(s): I10 - Essential (primary) hypertension Status: Chronic Assessment and Plan: hold home lisinopril for now due to hypotension, restart tomorrow morning (7) Iron deficiency: Code(s): E61.1 - Iron deficiency Status: Acute Assessment and Plan: continue oral iron replacement (8) Bilateral calf pain: Code(s): M79.661 - Pain in right lower leg; M79.662 - Pain in left lower leg Status: Acute Assessment and Plan: bilateral lower extremity venous Dopplers normal Plan Time Spent With Patient Time with patient: 15 - 25 minutes Subjective Date/time seen: 02/29/24 1200 Review of Systems Review of Systems: All systems reviewed & are unremarkable except as noted in HPI and below Constitutional: Constitutional: Reports as per HPI and Reports no additional constitutional complaints Gastrointestinal: Gastrointestinal: Reports diarrhea (starting to be less watery per patient) and Reports nausea Exam Narrative: Pt is alert and oriented x 4 and appears in no distress. Pleasant and talkative. Const: General: comfortable and no acute distress HENMT: Face/Nose/Sinus: Normal nares present Mouth: Yes moist mucous membranes Eyes: General: appearance normal, both eyes and all related structures Sclera: sclerae normal Pupils: Equal, round and reactive pupils present EOM: EOMs intact bilaterally Neck: Neck: supple and no JVD Resp: Effort & Inspection: normal respiratory effort Auscultation: clear to auscultation bilaterally Cardio: Rate: regular rate Rhythm: regular rhythm GI: Other: Abdomen is soft and has mild generalized tenderness to palpation with hyperactive bowel sounds present x 4 quads. Negative CVA tenderness bilaterally Skin: General skin exam: normal color and no rashes or lesions noted Neuro: Speech: normal speech Motor exam (neuro): Normal motor muscle tone present throughout Sensory Exam: normal sensation Extrem: General: normal to inspection Other: Bilateral pedal and posterior tibial pulses palpated and equal. Negative for calf tenderness to palpation bilaterally Psych: Mental Status: mental status grossly normal Affect: normal affect Objective Data Vital Signs Vital Signs: Vital Signs - 24 hr 02/28/24 20:00 02/28/24 20:00 02/29/24 00:00 Temperature 98.6 F 98.2 F
[2024-03-01 00:35] VITALS: BP 126/52; PULSE 78; RESP 20; TEMP 36.3; O2SAT 100
[2024-03-01 06:00] VITALS: BP 134/55; PULSE 75; RESP 20; TEMP 36.8; O2SAT 98
[2024-03-01] MEDS: VANCOMYCIN HCL 125 MG ORAL CAPSULE PO ×3 (06:06→17:06)
[2024-03-01] MEDS: HYDROcodone/acetaminophen (*CRX) 5-325 MG TABLET 1 TAB PO ×2 (06:08→15:37)
[2024-03-01] MEDS: FERROUS SULFATE 325 MG TABLET DR PO ×3 (07:48→17:06)
[2024-03-01] MEDS: ONDANSETRON INJ 4 MG/2 ML VIAL IV PUSH (07:48)
[2024-03-01] MEDS: lisinopriL 5 MG TABLET PO (07:48)
[2024-03-01] MEDS: guaiFENesin 12 HR 600 MG TABCR 1200 MG PO ×2 (07:48→20:59)
[2024-03-01] MEDS: ENOXAPARIN 40 MG/0.4 ML SYRINGE SUB-Q (07:48)
[2024-03-01 08:00] VITALS: BP 134/68; PULSE 68; RESP 16; TEMP 36.8; O2SAT 97
[2024-03-01 09:19] LABS: Basophils Percent Auto 0.8 % (0.2-1.2); Eosinophils Absolute Auto 0.3 K/mm3 (0-0.3); Eosinophils Percent Auto 8.6 % (0-4.4); Hematocrit 33.5 % (37.0-47.0); Hemoglobin 10.6 g/dL (12.0-15.0); Immature Granulocyte Absolute 0.02 K/mm3 (0.00-0.031); Immature Granulocyte Percent A 0.5 % (0-0.5); Lymphocytes Absolute Auto 0.56 K/mm3 (0.9-3.2); Lymphocytes Percent Auto 14.6 % (18.3-44.2); Mean Corpuscular HGB Conc 31.6 g/dl (32-36); Mean Corpuscular Hemoglobin 28.2 pg (26-34); Mean Corpuscular Volume 89.1 fl (80-100); Mean Platelet Volume 8.8 fl (7.4-10.4); Monocytes Absolute Auto 0.3 K/mm3 (0.1-0.6); Monocytes Percent Auto 8.3 % (2.6-8.5); Neutrophils Absolute Auto 2.6 K/mm3 (1.3-6.7); Neutrophils Percent Auto 67.2 % (45.5-73.1); Platelet Count Result 300 k/mm3 (150-375); Red Blood Count 3.76 M/mm3 (4.2-5.4); Red Cell Distribution Width 17.1 % (11.5-14.5); White Blood Count 3.8 K/mm3 (4.5-10.0)
[2024-03-01 09:29] LABS: Anion Gap 6 mmol/L (4-12); Blood Urea Nitrogen 3 mg/dL (7-17); Calcium 8.9 mg/dL (8.4-10.2); Carbon Dioxide 28 mmol/L (22-30); Chloride 104 mmol/L (98-107); Estimated CRCL calculation 152 ml/min; Estimated Glomerular Filt Rate > 60; Glucose 96 mg/dL (65-110); Potassium 3.7 mmol/L (3.4-5.0); Sodium 138 mmol/L (137-145)
--- NOTE | 2024-03-01 11:02 | PCNFU ---
Nutrition Follow-Up Complete: Moderate protein calorie malnutrition related to chronic colon cancer as evidenced by weight loss 20.5%/1 year; inadequate oral intake <75% needs >1 month. goal: Diet advancement Improvement to diarrhea Patient is progressing towards goal. We will continue current goal. Pt current nutrition is Regular with Banatrol BID. Last recorded weight is 136.7 kg, no new weight to report. Bowel Motility: +Bm reported 10/11-less stools reported. Labs Reviewed: NA 136, BUN 5 Meds Noted:Vancomycin, Zofran, Vancomycin, Rocephin Skin: WNL Additional Notes: Patient remains on a Regular diet with Banatrol BID. Intake has been > 75% of meals. Agree with diet orders. Monitoring diet advancement, output, intakes, weights, labs, plan of care Follow up in 5 days
[2024-03-01 12:00] VITALS: BP 126/70; PULSE 79; RESP 16; TEMP 36.8; O2SAT 95
[2024-03-01 16:00] VITALS: BP 118/72; PULSE 69; RESP 16; TEMP 36.7; O2SAT 98
[2024-03-01] MEDS: ACIDOPHILUS/BULGARICUS CHEWABLE TABLET 1 TABLET PO ×2 (17:06→21:00)
--- NOTE | 2024-03-01 17:26 | PM.IMPN ---
Progress Note: A&P Assessment and Plan (1) C. difficile diarrhea: Code(s): A04.72 - Enterocolitis due to Clostridium difficile, not specified as recurrent Status: Acute Assessment and Plan: IV fluids for hydration oral vancomycin times 10 days Start probiotic (2) Hematuria: Qualifiers: Hematuria type: gross Qualified Code(s): R31.0 - Gross hematuria Code(s): R31.9 - Hematuria, unspecified Status: Acute Assessment and Plan: UTI IV Rocephin IV fluids for hydration patient states that she is on a menstrual cycle with heavy bleeding, likely does not have hematuria urine culture returned negative. Rocephin discontinued. Hopefully this will improve the diarrhea. (3) Nausea and vomiting: Qualifiers: Vomiting type: bilious vomiting Qualified Code(s): R11.14 - Bilious vomiting Code(s): R11.2 - Nausea with vomiting, unspecified Status: Acute Assessment and Plan: IV Zofran IVF for hydration (4) Rectal mass: Code(s): K62.89 - Other specified diseases of anus and rectum Status: Acute Assessment and Plan: abscess versus new mass general surgeon consulted no leukocytosis no need for antibiotics surgery standpoint no surgical intervention at this time due to likely being a mass instead of abscess follow-up with Colorectal surgery at [facility] after discharge (5) Adenocarcinoma, colon: Code(s): C18.9 - Malignant neoplasm of colon, unspecified Status: Acute Assessment and Plan: colorectal surgery follow up with after discharge on chemotherapy and radiation (6) Hypertension: Code(s): I10 - Essential (primary) hypertension Status: Chronic Assessment and Plan: hold home lisinopril for now due to hypotension, restart tomorrow morning (7) Iron deficiency: Code(s): E61.1 - Iron deficiency Status: Acute Assessment and Plan: continue oral iron replacement (8) Bilateral calf pain: Code(s): M79.661 - Pain in right lower leg; M79.662 - Pain in left lower leg Status: Acute Assessment and Plan: bilateral lower extremity venous Dopplers normal Plan Time Spent With Patient Time with patient: 15 - 25 minutes Subjective Date/time seen: 03/01/24 1200 Interval history: Had planned for discharge today, but on rounding patient reports she is not doing well today. Reports her abdominal pain is worse, she has had dizziness with ambulation and nausea today. Pt crying during exam at times. Review of Systems Review of Systems: All systems reviewed & are unremarkable except as noted in HPI and below Constitutional: Constitutional: Reports body ache(s) and Reports difficulty sleeping Eyes: Eyes: Reports no additional eye complaints ENT: Reports system reviewed and no additional complaints, except as documented Cardiovascular: Cardiovascular: Reports lightheadedness Respiratory: Respiratory: Reports no additional respiratory complaints Gastrointestinal: Gastrointestinal: Reports abdominal pain, Reports bloating and Reports nausea Genitourinary: Genitourinary: Reports dysuria Musculoskeletal: Musculoskeletal: Reports no additional musculoskeletal complaints Integumentary/Breasts: Skin/Breast: Reports system reviewed and no additional complaints, except as docu Neurologic: Reports system reviewed and no additional complaints, except as documented and Reports weakness Psychiatric: Psychiatric: Reports no additional psychiatric complaints Endocrine: Endocrine: Reports fatigue Exam Narrative: Pt sitting on the edge of the bed talking on the phone with her boyfriend. Pt appears to feel unwell. Tearful at times during exam. Const: General: no acute distress and uncomfortable HENMT: Face/Nose/Sinus: Normal nares present Mouth: Yes moist mucous membranes Eyes: General: appe
[2024-03-01] MEDS: traZODone HCL 50 MG TABLET PO (21:00)
[2024-03-01 21:02] VITALS: BP 123/53; PULSE 79; RESP 16; TEMP 36.9; O2SAT 100
[2024-03-02 00:14] VITALS: BP 130/45; PULSE 86; RESP 16; TEMP 36.9; O2SAT 100
[2024-03-02] MEDS: VANCOMYCIN HCL 125 MG ORAL CAPSULE PO ×4 (00:16→17:10)
[2024-03-02] MEDS: HYDROcodone/acetaminophen (*CRX) 5-325 MG TABLET 1 TAB PO (03:50)
[2024-03-02 04:00] VITALS: BP 131/74; PULSE 79; RESP 18; TEMP 36.1; O2SAT 99
[2024-03-02 06:04] LABS: Basophils Percent Auto 0.8 % (0.2-1.2); Eosinophils Absolute Auto 0.3 K/mm3 (0-0.3); Eosinophils Percent Auto 5.3 % (0-4.4); Hematocrit 33.5 % (37.0-47.0); Hemoglobin 10.5 g/dL (12.0-15.0); Immature Granulocyte Absolute 0.02 K/mm3 (0.00-0.031); Immature Granulocyte Percent A 0.4 % (0-0.5); Lymphocytes Absolute Auto 0.63 K/mm3 (0.9-3.2); Lymphocytes Percent Auto 13.3 % (18.3-44.2); Mean Corpuscular HGB Conc 31.3 g/dl (32-36); Mean Corpuscular Hemoglobin 28.4 pg (26-34); Mean Corpuscular Volume 90.5 fl (80-100); Mean Platelet Volume 9.2 fl (7.4-10.4); Monocytes Absolute Auto 0.4 K/mm3 (0.1-0.6); Monocytes Percent Auto 7.6 % (2.6-8.5); Neutrophils Absolute Auto 3.4 K/mm3 (1.3-6.7); Neutrophils Percent Auto 72.6 % (45.5-73.1); Platelet Count Result 309 k/mm3 (150-375); White Blood Count 4.7 K/mm3 (4.5-10.0)
[2024-03-02 06:18] LABS: Anion Gap 8 mmol/L (4-12); Blood Urea Nitrogen 4 mg/dL (7-17); Calcium 8.9 mg/dL (8.4-10.2); Carbon Dioxide 28 mmol/L (22-30); Chloride 104 mmol/L (98-107); Estimated CRCL calculation 152 ml/min; Estimated Glomerular Filt Rate > 60; Glucose 99 mg/dL (65-110); Potassium 3.9 mmol/L (3.4-5.0); Sodium 140 mmol/L (137-145)
[2024-03-02] MEDS: lisinopriL 5 MG TABLET PO (08:36)
[2024-03-02] MEDS: ACIDOPHILUS/BULGARICUS CHEWABLE TABLET 1 TABLET PO ×3 (08:36→16:06)
[2024-03-02] MEDS: FERROUS SULFATE 325 MG TABLET DR PO ×3 (08:36→16:06)
[2024-03-02] MEDS: guaiFENesin 12 HR 600 MG TABCR 1200 MG PO (08:36)
[2024-03-02] MEDS: ENOXAPARIN 40 MG/0.4 ML SYRINGE SUB-Q (08:36)
[2024-03-02 08:49] VITALS: BP 122/50; PULSE 74; RESP 18; TEMP 36.7; O2SAT 98
--- NOTE | 2024-03-02 12:39 | PM.IMPN ---
Subjective Date/time seen: 03/02/24 12:39 Objective Data Vital Signs Vital Signs: Vital Signs - 24 hr 03/01/24 16:00 03/01/24 21:02 03/01/24 21:00 Temperature 98.0 F 98.4 F Pulse Rate 69 79 Respiratory Rate 16 16 Blood Pressure 118/72 123/53 L Pulse Oximetry 98 100 Oxygen Delivery Room Air 03/02/24 00:14 03/02/24 04:00 03/02/24 08:49 Temperature 98.4 F 97 F L 98.1 F Pulse Rate 86 79 74 Respiratory Rate 16 18 18 Blood Pressure 130/45 L 131/74 122/50 L Pulse Oximetry 100 99 98 Oxygen Delivery 03/02/24 08:36 Temperature Pulse Rate Respiratory Rate Blood Pressure Pulse Oximetry Oxygen Delivery Room Air Intake/Output Intake/Output: Intake & Output 02/28/24 02/29/24 03/01/24 03/02/24 23:59 23:59 23:59 23:59 Intake Total 4755 1610 1562 490 Balance 4755 1610 1562 490 Meds/Results Medications: Active Medications Generic Name Dose Route Start Last Admin Trade Name Freq PRN Reason Stop Dose Admin Acetaminophen 650 mg 02/27/24 15:53 Acetaminophen 325 Mg Tablet PO Q4H PRN Mild Pain (1-3) or Fever Hydrocodone Bitart/Acetaminophen 1 tab 02/27/24 15:53 03/02/24 03:50 Hydrocodone/Acetaminophen (*Crx) 5-325 Mg Tablet PO 1 tab Q4H PRN Administration Moderate Pain (4-6) Cyclobenzaprine HCl 5 mg 02/28/24 15:19 02/28/24 16:23 Cyclobenzaprine Hcl 5 Mg Tablet PO 5 mg Q8H PRN Administration Muscle pain Enoxaparin Sodium 40 mg 02/29/24 09:00 03/02/24 08:36 Enoxaparin 40 Mg/0.4 Ml Syringe SUB-Q 40 mg DAILY NIKOLE Administration Ferrous Sulfate 325 mg 02/28/24 09:00 03/02/24 12:23 Ferrous Sulfate [address] PO 325 mg TID NIKOLE Administration Guaifenesin 1,200 mg 02/28/24 21:00 03/02/24 08:36 Guaifenesin 12 Hr 600 Mg Tabcr PO 1,200 mg Q12HR NIKOLE Administration Lactobacillus Acidophilus 1 tablet 10/11/24 17:00 03/02/24 12:23 Acidophilus/Bulgaricus Chewable Tablet PO 1 tablet QID NIKOLE Administration Lisinopril 5 mg 02/29/24 09:00 03/02/24 08:36 Lisinopril 5 Mg Tablet PO 5 mg QAM NIKOLE Administration Morphine Sulfate 2 mg 02/27/24 15:53 02/27/24 16:12 Morphine Sulfate (*Crx) 2 Mg/Ml Inj IV PUSH 2 mg Q4H PRN Administration Pain Rated 7-10 Non-Formulary *Midol 2 each 02/28/24 07:21 02/29/24 18:49 * Apap/Pyrilamine PO 03/29/24 07:20 2 each Maleate/Caffeine 500 Q6H PRN Administration Mg-15 Mg-60 Mg Oral ABDOMINAL CRAMPING T...) Ondansetron HCl 4 mg 02/27/24 15:53 03/01/24 07:48 Ondansetron Inj 4 Mg/2 Ml Vial IV PUSH 4 mg Q6H PRN Administration Nausea And Vomiting Oxymetazoline HCl 1 spray 02/28/24 17:52 02/28/24 18:05 Oxymetazoline Hcl 0.05% Felix 15 Ml Btl (*Bkc) NASAL 1 spray Q12HR PRN Administration Congestion Trazodone HCl 50 mg 02/27/24 19:26 03/01/24 21:00 Trazodone Hcl 50 Mg Tablet PO 50 mg HS PRN Administration Insomnia Vancomycin HCl 125 mg 02/28/24 00:00 03/02/24 12:24 Vancomycin Hcl 125 Mg Oral Capsule PO 03/09/24 00:00 125 mg Q6HR NIKOLE Administration Radiology Results: ITS Impressions Abdomen/Pelvis CT 02/27/24 10:31 Impression: Wall thickening of the distal sigmoid colon is consistent with colonic adenocarcinoma. Possible perirectal/perianal abscess versus additional area of wall thickening at the distal rectum, as detailed above. Venous Doppler Study 02/27/24 18:05 IMPRESSION: Negative bilateral lower extremity venous US. No deep vein thrombosis. Labs Labs: Laboratory Results - last 24 hr 03/02/24 05:36 WBC 4.7 RBC 3.70 L Hgb 10.5 L Hct 33.5 L MCV 90.5 MCH 28.4 MCHC 31.3 L RDW 17.0 H Plt Count 309 MPV 9.2 Immature Gran % (Auto) 0.4 Neut % (Auto) 72.6 Lymph % (Auto) 13.3 L [place] % (Auto) 7.6 Eos % (Auto) 5.3 H Baso % (Auto) 0.8 Lymph # (Auto) 0.63 L [place] # (Auto) 0.4 Eos # (Auto) 0.3 Baso # (Auto) 0.0 Abs Immat Gran (auto)
--- NOTE | 2024-03-02 12:48 | PM.DS ---
DS: Admitting Diagnosis Discharge Date 03/02/2024 Admitting Diagnosis C diff colitis DS: Discharge Diagnosis Discharge Diagnosis (1) C. difficile diarrhea: Code(s): A04.72 - Enterocolitis due to Clostridium difficile, not specified as recurrent Status: Acute Assessment and Plan: Continue vancomycin through 02/27-03/09 2023 (2) Nausea and vomiting: Qualifiers: Vomiting type: bilious vomiting Qualified Code(s): R11.14 - Bilious vomiting Code(s): R11.2 - Nausea with vomiting, unspecified Status: Acute Assessment and Plan: Resolved (3) Adenocarcinoma, colon: Code(s): C18.9 - Malignant neoplasm of colon, unspecified Status: Acute Assessment and Plan: Continue outpatient neoadjuvent therapy prior to definitive surgery (4) Hypertension: Code(s): I10 - Essential (primary) hypertension Status: Chronic Assessment and Plan: 10/ blood pressures reviewed and controlled (5) Iron deficiency: Code(s): E61.1 - Iron deficiency Status: Acute Assessment and Plan: Continue oral iron (6) Bilateral calf pain: Code(s): M79.661 - Pain in right lower leg; M79.662 - Pain in left lower leg Status: Acute Assessment and Plan: bilateral lower extremity venous Dopplers normal DS: Summary Hospital Course Hospital Course: Admitted through emergency department February 26 with nausea vomiting diarrhea abdominal pain. C diff positive. Started p.o. vancomycin 125 mg every 6 hours on February 27. To continue through March 09. With IV hydration anti emetics and vancomycin she improved tremendously. Initially received ceftriaxone for possible UTI but that was stopped within the 1st 24 hours. By discharge today she was performing ADLs independently having minimal abdominal cramps and stools were semi formed. She had no nausea or vomiting. Tolerated diet well. No fevers or chills. White count was 4700 hemoglobin 10.5 grams/deciliter platelet count [id number] creatinine 0.6 mg/dL. Results of CT of abdomen pelvis showed thickening of the rectum as previously noted on her prior CTs and PET CT. There was no definitive sign of perforation or abscess. Time Spent with Patient Time attestation: Total time spent providing and/or coordinating discharge services: Exam Narrative: HEENT: PERRL, sclerae nonicteric, pharyngeal mucosa pink and intact NECK: No JVD CHEST: Clear to auscultation. Normal effort. HEART: NL S1/S2, regular, no murmur. ABDOMEN: BS+, soft, mild tenderness to deep palpation over lower abdomen. EXTREMITIES: No cyanosis, edema, or clubbing NEUROLOGIC: CN intact and symmetric to inspection. MUSCULOSKELETAL: Tone and strength symmetric. PSYCH: Alert. Oriented to person, place, and time. DS: Data Data Completed and Pending Labs on day of discharge: Labs from last 24 hours 03/02/24 05:36 WBC 4.7 RBC 3.70 L Hgb 10.5 L Hct 33.5 L MCV 90.5 MCH 28.4 MCHC 31.3 L RDW 17.0 H Plt Count 309 MPV 9.2 Immature Gran % (Auto) 0.4 Neut % (Auto) 72.6 Lymph % (Auto) 13.3 L [place] % (Auto) 7.6 Eos % (Auto) 5.3 H Baso % (Auto) 0.8 Lymph # (Auto) 0.63 L [place] # (Auto) 0.4 Eos # (Auto) 0.3 Baso # (Auto) 0.0 Abs Immat Gran (auto) 0.02 Absolute Neuts (auto) 3.4 Absolute Nucleated RBC 0.000 Nucleated RBC % 0.0 Sodium 140 Potassium 3.9 Chloride 104 Carbon Dioxide 28 Anion Gap 8 BUN 4 L Creatinine 0.60 L Estim Creat Clear Calc 152 Estimated GFR > 60 Glucose 99 Calcium 8.9 Preliminary micro results at discharge 02/27/24 17:22 Blood Culture - Preliminary Blood 02/27/24 17:13 Blood Culture - Preliminary Blood Discharge Plan Discharge Discharging Clinician: Jimmy Beckham Patient Disposition: Home, Self-Care Activity: unlimited Diet: regular Patient Instructions: Antibiotic Form Stand Alone Forms: General Di
[2024-03-02 13:31] VITALS: BP 134/73; PULSE 86; RESP 17; TEMP 36.8; O2SAT 97
== END 2024-03-02 17:22 | disposition home or self-care (01) ==
LOC: ANHED 13:52 → ANH3MED 16:54 → ANH3MEDSUR 03-04 07:21
PROVIDERS: Nurse Practitioner Family; Nurse Practitioner Gerontology; Admitting Provider Internal Medicine; Emergency Provider Emergency Medicine; PCP Nurse Practitioner Family; Visit Provider Internal Medicine
DX: A04.72 Enterocolitis due to Clostridium difficile, not specified as recurrent (principal); R11.14 Bilious vomiting; C18.9 Malignant neoplasm of colon, unspecified; I10 Essential (primary) hypertension; E61.1 Iron deficiency; M79.661 Pain in right lower leg; M79.662 Pain in left lower leg; R31.0 Gross hematuria; K62.89 Other specified diseases of anus and rectum; E86.0 Dehydration; E66.01 Morbid (severe) obesity due to excess calories; Z68.42 Body mass index [BMI] 45.0-49.9, adult; M19.90 Unspecified osteoarthritis, unspecified site; K63.5 Polyp of colon; Z87.891 Personal history of nicotine dependence; Z20.822 Contact with and (suspected) exposure to COVID-19
CPT/HCPCS: 36415; 74177; 80048; 80053; 81001; 81025; 83690; 85025; 85610; 85730; 87040; 87086; 87493; 87637; 93970; 96361; 96365; 96372; 96374; 96375; 96376; 99285; A9270; G0378; G0379; J0696; J1650; J2270; J2405; J3010; J7030; Q9967

== ENCOUNTER 2024-03-20 18:28 | Observation (INO) | payer OTHER, SELFPAY ==
--- NOTE | ~2024-03-20 | CT_ITS ---
EXAMINATION: CT chest abdomen pelvis w con DATE: 03/20/2024 23:06 INDICATION: hx of colorectal ca, new onset ab pain diar, SOB . TECHNIQUE: Computed tomography (CT) of the chest, abdomen, and pelvis was performed with 100 mL Omnip aque-350 intravenous contrast. Automated exposure control and iterative reconstruction technique were employed. The dose-length product was 2100.38 mGy-cm. COMPARISON: CT abdomen pelvis 02/27/2024; PET/CT 01/23/2024; CT chest abdomen pelvis 01/05/2024 FINDINGS: CHEST: Thoracic aorta: No significant dilation. No dissection. Lung parenchyma and airways: Ovoid 2 mm nodule in the posterior right upper lobe, within 1 cm of the pleura, likely intrapulmonary lymph node. 2 mm nodule in the left lower lobe (image 93). Lungs and ai rways are otherwise clear. Thoracic inlet, axillae and chest wall: No thyroid or soft tissue mass. No axillary lymphadenopathy. Mediastinum: 10 x 14 mm paratracheal lymph node. Heart and pericardium: Normal heart size. No pericardial effusion. Coronary artery calcifications: . Pleura: No effusion or mass. Thoracic bones: No acute osseous finding in the chest. ABDOMEN/PELVIS: Liver: Normal. Biliary/Gallbladder: Gallbladder is absent. No bile duct dilation. Pancreas: No mass or duct dilation. Spleen: Normal. Adrenals:No mass. Kidneys: No suspicious mass, obstructing stone, or hydronephrosis. GI tract: No small or large bowel dilation. Eccentric wall thickening in the distal sigmoid colon, wi th adjacent hyperemia of the vasa recta and several subcentimeter lymph nodes. Eccentric wall thicken ing in the rectum. Normal appendix. Mesentery/Peritoneum: No ascites, mass, or free air. Retroperitoneum: 7 x 10 mm left iliac node. Pelvis: 1 cm exophytic fibroid, otherwise normal uterus. The urinary bladder is mostly empty. Normal left ovary. The right ovary is not confidently visualized. Soft Tissues: Soft tissues and body wall unremarkable. Abdominopelvic bones: No acute osseous finding in the abdomen/pelvis. IMPRESSION: 2 mm left lower lobe pulmonary nodule. 14 mm paratracheal node, smaller than in the comparison studies, changes likely reactive in the prior PET/CT. Eccentric wall thickening in the distal sigmoid and rectum, consistent with malignancy, unchanged. 10 mm left iliac node, smaller than in the comparison study, deemed likely reactive in the prior PET/ CT. No acute process detected in the chest, abdomen, or pelvis. Reviewed, dictated and finalized at location K. IMPRESSION: 2 mm left lower lobe pulmonary nodule. 14 mm paratracheal node, smaller than in the comparison studies, changes likely reactive in the prior PET/CT. Eccentric wall thickening in the distal sigmoid and rectum, consistent with mal ignancy, unchanged. 10 mm left iliac node, smaller than in the comparison study, deemed likely reac tive in the prior PET/CT. No acute process detected in the chest, abdomen, or pelvis.
[2024-03-20 19:09] VITALS: BP 148/86; PULSE 97; RESP 20; TEMP 36.7; O2SAT 100
--- NOTE | 2024-03-20 19:24 | ED_ITS ---
HPI - Nausea/Vomiting/Diarrhea General Chief complaint: Nausea/Vomiting/Diarrhea <Alisha Mario APRN - Last Filed: 03/20/24 19:30> Stated complaint: n/v/d <Alisha Mario APRN - Last Filed: 03/20/24 19:30> Time Seen by Provider: 03/20/24 19:15 <Alisha Mario APRN - Last Filed: 03/20/24 19:30> Focused HPI: Patient is a 43-year-old female presents ER nausea, vomiting, and diarrhea. She currently has a diagnosis of colorectal cancer and is receiving chemotherapy and radiation. Patient reports on Monday she called her GI doctor who suggested she start taking Imodium. Patient reports I have been taking approximately 10 Imodium every day and continued to have diarrhea. She reports she has had an intermittent fever. Patient is tearful upon exam and endorses anxiety about the cause of her symptoms. GENERAL: Well-appearing, well-nourished, and in no acute distress. HEAD: Normocephalic, atraumatic. CHEST: Clear to auscultation. ?No respiratory distress. HEART: Regular rate and rhythm.? NEURO: ?Alert and oriented x3. ABDOMEN: Increased pain with palpation in all 4 quadrants. + BS x 4 quadrants. Patient screened in triage and initial orders placed.? ?Additional care and disposition to be based upon?diagnostic testing and treatment. <Alisha Mario APRN - Last Filed: 03/20/24 19:30> History of Present Illness HPI Narrative: HPI as per MSE. Pt completed treatment for c dif recently. Pt has nausea vomiting and diarrhea but no bleeding. Pt says pain is in low abdomen <Jarrell Stanton III, DO - Last Filed: 03/20/24 22:51> Related Data Home medications: Home Medications Medication Instructions Recorded Confirmed Tylenol Arthritis 500 mg PO DAILY 02/02/24 02/27/24 [id number] 1 tablet PO Q6H PRN abdominal 02/27/24 02/27/24 500 mg-60 mg-15 mg tablet (Midol cramps Complete) ferrous sulfate 325 mg (65 mg 325 mg PO TID 02/27/24 02/27/24 iron) tablet hydrocodone 5 mg-acetaminophen 325 1 tablet PO Q6H PRN Pain 02/27/24 02/27/24 mg tablet <Alisha Mario OPERATIONS EXAMINER - Last Filed: 03/20/24 19:30> Allergies/Adverse reactions: Allergies Allergy/AdvReac Type Severity Reaction Status Date / Time amoxicillin Allergy Hives Verified 03/20/24 19:09 iron AdvReac Rash Verified 03/20/24 19:09 <Alisha Mario OPERATIONS EXAMINER - Last Filed: 03/20/24 19:30> Review of Systems Review of Systems: All systems reviewed & are unremarkable except as noted in HPI and below <Jarrell Stanton III, DO - Last Filed: 03/20/24 22:51> PMFSH Past Medical History Medical History: Medical History Acute blood loss anemia Colorectal cancer Hypertension <Alisha Mario, OPERATIONS EXAMINER - Last Filed: 03/20/24 19:30> Surgical History Surgical History: Surgical History S/P cholecystectomy <Alisha Mario, OPERATIONS EXAMINER - Last Filed: 03/20/24 19:30> Family History Family History: Family History Mother Heart disease <Alisha Mario OPERATIONS EXAMINER - Last Filed: 03/20/24 19:30> Social History Social History: Social History Smoking packs per day: 0.25 Smoking cigarettes per day: 5.0 Years smoked: 17 Smoking pack-years: 4.25 Smoking status: Former smoker Second hand tobacco smoke exposure: Yes Alcohol intake: never Substance use: never Do You Feel Safe in your Home?: Yes Lack of Transportation: No Lack of Food: Never True Current Housing: I Have Housing Concerned About Future Housing: No Difficulty Paying Gas/Electric Bills: No Difficulty Paying for Meds: No Currently Unemployed: No Education: High School Diploma/GED Difficulty w/ Childcare or Family Care: No Living arrangements: with family Gender identity (if verbalized by the patient): Female Sexual Orientation (if Verbalized by the Patient): Straight or Heterosexual Spiritual care concerns: No <Alisha Mario, OPERATIONS EXAMINER - Last Filed: 03/20/24 19:30> Exam Const: General: healthy appearing and no acute distress <Jarrell Brandyn Stanton III, DO - Last Filed: 03/20/24 22:51> Nutritional Appearance: well nourished <Jarrell Brandyn Stanton III, DO - Last Filed: 03/20/24 22:51> Orientation/consciousness: patient oriented x3 <Jarrell Brandyn Stanton III, DO - Last Filed: 03/20/24 22:51> Limitations: no limitations <Jarrell Brandyn Stanton III, DO - Last Filed: 03/20/24 22:51> Resp: Effort & Inspection: normal respiratory effort <Jarrell Brandyn Stanton III, DO - Last Filed: 03/20/24 22:51> Auscultation: clear to auscultation bilaterally <Jarrell Brandyn Stanton III, DO - Last Filed: 03/20/24 22:51> Cardio: Rate: regular rate <Jarrell Brandyn Stanton III, DO - Last Filed: 03/20/24 22:51> Rhythm: regular rhythm <Jarrell Brandyn Stanton III, DO - Last Filed: 03/20/24 22:51> GI: GI Palp: Yes Soft to palpation and Yes Tenderness to palpation present (GI) (rlq at mcburneys and below) <Jarrell Brandyn Stanton III, DO - Last Filed: 03/20/24 22:51> Auscultation: normal bowel sounds <Jarrell Brandyn Stanton III, DO - Last Filed: 03/20/24 22:51> Back/Spine/Pelvis: Back: no CVA tenderness <Jarrell Brandyn Stanton III, DO - Last Filed: 03/20/24 22:51> Skin: General skin exam: normal color <Jarrell Brandyn Stanton III, DO - Last Filed: 03/20/24 22:51> Wounds: no wounds <Jarrell Brandyn Stanton III, DO - Last Filed: 03/20/24 22:51> Neuro: General: patient oriented x3, moves all extremities, no focal motor deficits and CN's II-XI intact bilaterally <Jarrell Brandyn Stanton III, DO - Last Filed: 03/20/24 22:51> Speech: normal speech <Jarrell Brandyn Stanton III, DO - Last Filed: 03/20/24 22:51> Extrem: General: normal to inspection and no clubbing, cyanosis or edema <Jarrell Brandyn Stanton III, DO - Last Filed: 03/20/24 22:51> Psych: Mental Status: mental status grossly normal <Jarrell Brandyn Stanton III, DO - Last Filed: 03/20/24 22:51> Affect: normal affect <Jarrell Brandyn Stanton III, DO - Last Filed: 03/20/24 22:51> Attitude: cooperative <Jarrell Brandyn Stanton III, DO - Last Filed: 03/20/24 22:51> Course Vital Signs Vital signs: Vital Signs Temperature 36.7 C 03/20/24 19:09 Pulse Rate 97 03/20/24 19:09 Respiratory Rate 20 03/20/24 19:09 Blood Pressure 148/86 H 03/20/24 19:09 Pulse Oximetry 100 03/20/24 19:09 Oxygen Delivery Room Air 03/20/24 19:09 Temperature 36.7 C 03/20/24 19:09 Pulse Rate 88 03/20/24 23:44 Respiratory Rate 15 03/20/24 23:44 Blood Pressure 136/74 03/20/24 23:44 Pulse Oximetry 99 03/20/24 23:44 Oxygen Delivery Room Air 03/20/24 19:09 <Alisha Mario, OPERATIONS EXAMINER - Last Filed: 03/20/24 19:30> Vital Signs Temperature 36.7 C 03/20/24 19:09 Pulse Rate 97 03/20/24 19:09 Respiratory Rate 20 03/20/24 19:09 Blood Pressure 148/86 H 03/20/24 19:09 Pulse Oximetry 100 03/20/24 19:09 Oxygen Delivery Room Air 03/20/24 19:09 Temperature 36.7 C 03/20/24 19:09 Pulse Rate 88 03/20/24 23:44 Respiratory Rate 15 03/20/24 23:44 Blood Pressure 136/74 03/20/24 23:44 Pulse Oximetry 99 03/20/24 23:44 Oxygen Delivery Room Air 03/20/24 19:09 <Jarrell Brandyn Stanton III, DO - Last Filed: 03/20/24 22:51> Vital Signs Temperature 36.7 C 03/20/24 19:09 Pulse Rate 97 03/20/24 19:09 Respiratory Rate 20 03/20/24 19:09 Blood Pressure 148/86 H 03/20/24 19:09 Pulse Oximetry 100 03/20/24 19:09 Oxygen Delivery Room Air 03/20/24 19:09 Temperature 36.7 C 03/20/24 19:09 Pulse Rate 88 03/20/24 23:44 Respiratory Rate 15 03/20/24 23:44 Blood Pressure 136/74 03/20/24 23:44 Pulse Oximetry 99 03/20/24 23:44 Oxygen Delivery Room Air 03/20/24 19:09 <Andrade Alexander MD - Last Filed: 03/21/24 00:53> MDM - Nausea/Vomiting/Diarrhea MDM Narrative Medical decision making narrative: pt presents with vomiting and diarrhea, has stage 3 colorectal ca. Will need labs and CT to rule out appy but also bowel obstruction or perforation vs c dif again. will turn over to Dr Alexander at 2200. <Jarrell Stanton III, DO - Last Filed: 03/20/24 22:51> pt presents with vomiting and diarrhea, has stage 3 colorectal ca. Will need labs and CT to rule out appy but also bowel obstruction or perforation vs c dif again. will turn over to Dr Alexander at 2200. Laboratory studies showed mild dehydration with hemoglobin of 12.6. Electrolytes were within normal limits CT scan showed no evidence of bowel obstruction or acute intra thoracic or intra-abdominal pathology. <Andrade Alexander MD - Last Filed: 03/21/24 00:53> Lab Data Result diagrams: 03/20/24 21:45 03/20/24 21:45 <Alisha Mario APRN - Last Filed: 03/20/24 19:30> Labs: Lab Results 03/20/24 03/20/24 Range/Units 21:45 22:31 WBC 8.0 (4.5-10.0) K/mm3 RBC 4.20 (4.2-5.4) M/mm3 Hgb 12.6 (12.0-15.0) g/dL Hct 37.6 (37.0-47.0) % MCV 89.5 (80-100) fl MCH 30.0 (26-34) pg MCHC 33.5 (32-36) g/dl RDW 14.5 (11.5-14.5) % Plt Count 398 H (150-375) k/mm3 MPV 8.7 (7.4-10.4) fl Immature Gran % (Auto) 0.4 (0-0.5) % Neut % (Auto) 79.4 H (45.5-73.1) % Lymph % (Auto) 7.2 L (18.3-44.2) % [place] % (Auto) 5.8 (2.6-8.5) % Eos % (Auto) 6.7 H (0-4.4) % Baso % (Auto) 0.5 (0.2-1.2) % Lymph # (Auto) 0.58 L (0.9-3.2) K/mm3 [place] # (Auto) 0.5 (0.1-0.6) K/mm3 Eos # (Auto) 0.5 H (0-0.3) K/mm3 Baso # (Auto) 0.0 (0.0-0.1) K/mm3 Abs Immat Gran (auto) 0.03 (0.00-0.031) K/mm3 Absolute Neuts (auto) 6.4 (1.3-6.7) K/mm3 Absolute Nucleated RBC 0.000 (0.0-0.012) K/mm3 Nucleated RBC % 0.0 (0.0-0.2) % Sodium 141 (137-145) mmol/L Potassium 3.7 (3.4-5.0) mmol/L Chloride 108 H (98-107) mmol/L Carbon Dioxide 24 (22-30) mmol/L Anion Gap 9 (4-12) mmol/L BUN 8 (7-17) mg/dL Creatinine 0.70 (0.7-1.0) mg/dL Estim Creat Clear Calc 132 ml/min Estimated GFR > 60 (59 - ) Glucose 101 (65-110) mg/dL Lactic Acid 1.4 (0.7-2.0) mmol/L Calcium 9.4 (8.4-10.2) mg/dL Total Bilirubin 0.4 (0.2-1.3) mg/dL AST 26 (14-36) U/L ALT 18 (6-35) U/L Alkaline Phosphatase 77 (38-126) U/L Total Protein 8.0 (6.3-8.2) g/dL Albumin 4.3 (3.5-5.1) g/dL Lipase 69 (23-300) U/L Urine Color Yellow (Yellow) Urine Appearance Clear (Clear) Urine pH 6.0 (5.0-9.0) Ur Specific [place] 1.009 (1.001-1.035) Urine Protein Negative (Negative) mg/dL Urine Glucose (UA) Negative (Negative) mg/dL Urine Ketones Negative (Negative) mg/dL Ur Blood (Man) Negative (Negative) Urine Nitrate Negative (Negative) Urine Bilirubin Negative (Negative) Urine Urobilinogen 0.2 (<2.0) mg/dL Leukocyte Esterase Rfl Trace H (Negative) JULES/UL Urine RBC 0-2 (0-2) /hpf Urine WBC 0-5 (0-3) /hpf Ur Squamous Epith Cells None seen (Few) /hpf Urine Bacteria None seen /hpf Urine Casts 0-2 POC Urine HCG, Qual Negative (Negative) Influenza A (RT-PCR) Negative (Negative) Influenza B (RT-PCR) Negative (Negative) RSV (RT-PCR) Negative (Negative) SARS-CoV-2 RNA (RT-PCR) Negative (Negative) <Alisha Mario, OPERATIONS EXAMINER - Last Filed: 03/20/24 19:30> Lab Results 03/20/24 03/20/24 Range/Units 21:45 22:31 WBC 8.0 (4.5-10.0) K/mm3 RBC 4.20 (4.2-5.4) M/mm3 Hgb 12.6 (12.0-15.0) g/dL Hct 37.6 (37.0-47.0) % MCV 89.5 (80-100) fl MCH 30.0 (26-34) pg MCHC 33.5 (32-36) g/dl RDW 14.5 (11.5-14.5) % Plt Count 398 H (150-375) k/mm3 MPV 8.7 (7.4-10.4) fl Immature Gran % (Auto) 0.4 (0-0.5) % Neut % (Auto) 79.4 H (45.5-73.1) % Lymph % (Auto) 7.2 L (18.3-44.2) % [place] % (Auto) 5.8 (2.6-8.5) % Eos % (Auto) 6.7 H (0-4.4) % Baso % (Auto) 0.5 (0.2-1.2) % Lymph # (Auto) 0.58 L (0.9-3.2) K/mm3 [place] # (Auto) 0.5 (0.1-0.6) K/mm3 Eos # (Auto) 0.5 H (0-0.3) K/mm3 Baso # (Auto) 0.0 (0.0-0.1) K/mm3 Abs Immat Gran (auto) 0.03 (0.00-0.031) K/mm3 Absolute Neuts (auto) 6.4 (1.3-6.7) K/mm3 Absolute Nucleated RBC 0.000 (0.0-0.012) K/mm3 Nucleated RBC % 0.0 (0.0-0.2) % Sodium 141 (137-145) mmol/L Potassium 3.7 (3.4-5.0) mmol/L Chloride 108 H (98-107) mmol/L Carbon Dioxide 24 (22-30) mmol/L Anion Gap 9 (4-12) mmol/L BUN 8 (7-17) mg/dL Creatinine 0.70 (0.7-1.0) mg/dL Estim Creat Clear Calc 132 ml/min Estimated GFR > 60 (59 - ) Glucose 101 (65-110) mg/dL Lactic Acid 1.4 (0.7-2.0) mmol/L Calcium 9.4 (8.4-10.2) mg/dL Total Bilirubin 0.4 (0.2-1.3) mg/dL AST 26 (14-36) U/L ALT 18 (6-35) U/L Alkaline Phosphatase 77 (38-126) U/L Total Protein 8.0 (6.3-8.2) g/dL Albumin 4.3 (3.5-5.1) g/dL Lipase 69 (23-300) U/L Urine Color Yellow (Yellow) Urine Appearance Clear (Clear) Urine pH 6.0 (5.0-9.0) Ur Specific [place] 1.009 (1.001-1.035) Urine Protein Negative (Negative) mg/dL Urine Glucose (UA) Negative (Negative) mg/dL Urine Ketones Negative (Negative) mg/dL Ur Blood (Man) Negative (Negative) Urine Nitrate Negative (Negative) Urine Bilirubin Negative (Negative) Urine Urobilinogen 0.2 (<2.0) mg/dL Leukocyte Esterase Rfl Trace H (Negative) JULES/UL Urine RBC 0-2 (0-2) /hpf Urine WBC 0-5 (0-3) /hpf Ur Squamous Epith Cells None seen (Few) /hpf Urine Bacteria None seen /hpf Urine Casts 0-2 POC Urine HCG, Qual Negative (Negative) Influenza A (RT-PCR) Negative (Negative) Influenza B (RT-PCR) Negative (Negative) RSV (RT-PCR) Negative (Negative) SARS-CoV-2 RNA (RT-PCR) Negative (Negative) <Jarrell Stanton III, DO - Last Filed: 03/20/24 22:51> Lab Results 03/20/24 03/20/24 Range/Units 21:45 22:31 WBC 8.0 (4.5-10.0) K/mm3 RBC 4.20 (4.2-5.4) M/mm3 Hgb 12.6 (12.0-15.0) g/dL Hct 37.6 (37.0-47.0) % MCV 89.5 (80-100) fl MCH 30.0 (26-34) pg MCHC 33.5 (32-36) g/dl RDW 14.5 (11.5-14.5) % Plt Count 398 H (150-375) k/mm3 MPV 8.7 (7.4-10.4) fl Immature Gran % (Auto) 0.4 (0-0.5) % Neut % (Auto) 79.4 H (45.5-73.1) % Lymph % (Auto) 7.2 L (18.3-44.2) % [place] % (Auto) 5.8 (2.6-8.5) % Eos % (Auto) 6.7 H (0-4.4) % Baso % (Auto) 0.5 (0.2-1.2) % Lymph # (Auto) 0.58 L (0.9-3.2) K/mm3 [place] # (Auto) 0.5 (0.1-0.6) K/mm3 Eos # (Auto) 0.5 H (0-0.3) K/mm3 Baso # (Auto) 0.0 (0.0-0.1) K/mm3 Abs Immat Gran (auto) 0.03 (0.00-0.031) K/mm3 Absolute Neuts (auto) 6.4 (1.3-6.7) K/mm3 Absolute Nucleated RBC 0.000 (0.0-0.012) K/mm3 Nucleated RBC % 0.0 (0.0-0.2) % Sodium 141 (137-145) mmol/L Potassium 3.7 (3.4-5.0) mmol/L Chloride 108 H (98-107) mmol/L Carbon Dioxide 24 (22-30) mmol/L Anion Gap 9 (4-12) mmol/L BUN 8 (7-17) mg/dL Creatinine 0.70 (0.7-1.0) mg/dL Estim Creat Clear Calc 132 ml/min Estimated GFR > 60 (59 - ) Glucose 101 (65-110) mg/dL Lactic Acid 1.4 (0.7-2.0) mmol/L Calcium 9.4 (8.4-10.2) mg/dL Total Bilirubin 0.4 (0.2-1.3) mg/dL AST 26 (14-36) U/L ALT 18 (6-35) U/L Alkaline Phosphatase 77 (38-126) U/L Total Protein 8.0 (6.3-8.2) g/dL Albumin 4.3 (3.5-5.1) g/dL Lipase 69 (23-300) U/L Urine Color Yellow (Yellow) Urine Appearance Clear (Clear) Urine pH 6.0 (5.0-9.0) Ur Specific [place] 1.009 (1.001-1.035) Urine Protein Negative (Negative) mg/dL Urine Glucose (UA) Negative (Negative) mg/dL Urine Ketones Negative (Negative) mg/dL Ur Blood (Man) Negative (Negative) Urine Nitrate Negative (Negative) Urine Bilirubin Negative (Negative) Urine Urobilinogen 0.2 (<2.0) mg/dL Leukocyte Esterase Rfl Trace H (Negative) JULES/UL Urine RBC 0-2 (0-2) /hpf Urine WBC 0-5 (0-3) /hpf Ur Squamous Epith Cells None seen (Few) /hpf Urine Bacteria None seen /hpf Urine Casts 0-2 POC Urine HCG, Qual Negative (Negative) Influenza A (RT-PCR) Negative (Negative) Influenza B (RT-PCR) Negative (Negative) RSV (RT-PCR) Negative (Negative) SARS-CoV-2 RNA (RT-PCR) Negative (Negative) <Andrade Alexander MD - Last Filed: 03/21/24 00:53> Discharge Plan Discharge Clinical Impression: C. difficile colitis, Diarrhea, Abdominal pain <Alisha Mario APRN - Last Filed: 03/20/24 19:30> Patient Disposition: Still a Patient <Alisha Mario APRN - Last Filed: 03/20/24 19:30> Condition: Stable <Alisha Mario APRN - Last Filed: 03/20/24 19:30> Prescriptions: No Action Tylenol Arthritis 500 mg PO DAILY lisinopril 5 mg Tablet 5 mg PO QAM Qty: 30 0RF Midol Complete 500-60-15 mg Tablet 1 tablet PO Q6H PRN (Reason: abdominal cramps) ferrous sulfate 325 mg (65 mg iron) Tablet 325 mg PO TID hydrocodone-acetaminophen 5-325 mg tablet 1 tablet PO Q6H PRN (Reason: Pain) vancomycin 125 mg Capsule 125 mg PO Q6HR Qty: 26 0RF <Alisha Mario APRN - Last Filed: 03/20/24 19:30> Follow-up/Referrals: Andreina Paez APN-C [Primary Care Provider] - <Alisha Mario APRN - Last Filed: 03/20/24 19:30> Time of Disposition: 00:53 <Alisha Mario APRN - Last Filed: 03/20/24 19:30> 00:53 <Jarrell Stanton III, DO - Last Filed: 03/20/24 22:51> 00:53 <Andrade Alexander MD - Last Filed: 03/21/24 00:53>
[2024-03-20 21:52] LABS: Basophils Percent Auto 0.5 % (0.2-1.2); Eosinophils Absolute Auto 0.5 K/mm3 (0-0.3); Eosinophils Percent Auto 6.7 % (0-4.4); Hematocrit 37.6 % (37.0-47.0); Hemoglobin 12.6 g/dL (12.0-15.0); Immature Granulocyte Absolute 0.03 K/mm3 (0.00-0.031); Immature Granulocyte Percent A 0.4 % (0-0.5); Lymphocytes Absolute Auto 0.58 K/mm3 (0.9-3.2); Lymphocytes Percent Auto 7.2 % (18.3-44.2); Mean Corpuscular HGB Conc 33.5 g/dl (32-36); Mean Corpuscular Volume 89.5 fl (80-100); Mean Platelet Volume 8.7 fl (7.4-10.4); Monocytes Absolute Auto 0.5 K/mm3 (0.1-0.6); Monocytes Percent Auto 5.8 % (2.6-8.5); Neutrophils Absolute Auto 6.4 K/mm3 (1.3-6.7); Neutrophils Percent Auto 79.4 % (45.5-73.1); Platelet Count Result 398 k/mm3 (150-375); Red Cell Distribution Width 14.5 % (11.5-14.5)
[2024-03-20] MEDS: ONDANSETRON INJ 4 MG/2 ML VIAL IV PUSH (21:54)
[2024-03-20] MEDS: HYDROcodone/acetaminophen (*CRX) 5-325 MG TABLET 1 TAB PO (21:54)
[2024-03-20] MEDS: SODIUM CHLORIDE 0.9% IV 1,000 ML 999 ML IV CONT (21:54)
[2024-03-20 21:56] LABS: Add Urine Microscopic? YES; Appearance Urine Clear (Clear); Bacteria Urine None Seen /hpf; Bilirubin Urine Negative (Negative); Blood Urine Negative (Negative); Color Urine Yellow (Yellow); Glucose Urine UA Negative (Negative); Ketones Urine Negative (Negative); Leukocyte Esterase Ur Trace LEU/UL (Negative); Nitrate Urine Negative (Negative); Non Pathogenic Casts 0-2; Protein Urine Negative (Negative); RBC Urine 0-2 /hpf (0-2); Specific Grav Ur 1.009 (1.001-1.035); Squamous Epithelial Cell Urine None Seen /hpf (Few); Urobilinogen Urine 0.2 mg/dL (<2.0); WBC Urine 0-5 /hpf (0-3)
[2024-03-20 22:02] LABS: Alanine Aminotransferase 18 U/L (6-35); Albumin Level 4.3 g/dL (3.5-5.1); Alkaline Phosphatase 77 U/L (38-126); Anion Gap 9 mmol/L (4-12); Aspartate Amino Transferase 26 U/L (14-36); Bilirubin,Total 0.4 mg/dL (0.2-1.3); Blood Urea Nitrogen 8 mg/dL (7-17); Calcium 9.4 mg/dL (8.4-10.2); Carbon Dioxide 24 mmol/L (22-30); Chloride 108 mmol/L (98-107); Estimated CRCL calculation 132 ml/min; Estimated Glomerular Filt Rate > 60; Glucose 101 mg/dL (65-110); Lactic Acid Reflex 1.4 mmol/L (0.7-2.0); Lipase 69 U/L (23-300); Potassium 3.7 mmol/L (3.4-5.0); Sodium 141 mmol/L (137-145)
[2024-03-20 22:07] VITALS: BP 136/98; PULSE 88; RESP 15; O2SAT 100
[2024-03-20 22:33] LABS: BEDSIDEPREGUCG Negative (Negative)
[2024-03-20 22:41] LABS: Influenza A QL RT-PCR Negative (Negative); Influenza B QL RT-PCR Negative (Negative); RSV RNA, RT-PCR Negative (Negative); SARS-CoV-2 RNA PCR Negative (Negative)
[2024-03-20 23:44] VITALS: BP 136/74; PULSE 88; RESP 15; O2SAT 99
[2024-03-21] VITALS (7 sets, daily range): BP systolic 137–150; BP diastolic 60–82; PULSE 74–91; RESP 14–16; TEMP 36.4–36.5; O2SAT 99–100; BMI 43.1
[2024-03-21] MEDS: SODIUM CHLORIDE 0.9% IV 1,000 ML 999 ML IV CONT (00:32)
[2024-03-21] MEDS: HYDROmorphone HCL INJ (*CRX) 1 MG/ML SYR IV PUSH (00:33)
[2024-03-21] MEDS: FIDAXOMICIN 200 MG TABLET PO ×3 (01:22→20:37)
--- NOTE | 2024-03-21 03:45 | ADMGEN ---
This patient, Dilia Loomis, was admitted to [facility] Surg Room 305-02. Patient/family oriented to hospital policies and general routines including ID bracelet, bed and alarms, visiting hours, pain management, procedures, bathroom and other care routines, personal items, smoking policy, room service/diet, and visiting hours. Information on how to activate the Rapid Response Team has been discussed. Patient/Family are encouraged to report perceived risks to care and to ask questions if they do not understand what they are told or what they should do.
[2024-03-21] MEDS: SODIUM CHLORIDE 0.9% IV 1,000 ML 125 ML IV CONT ×3 (04:15→19:38)
[2024-03-21] MEDS: HYDROcodone/acetaminophen (*CRX) 10-325 MG TABLET 1 TAB PO ×4 (08:13→20:39)
--- NOTE | 2024-03-21 09:22 | P.HP_ITS ---
H&P: HPI History of Present Illness Date/Time: 03/21/24 09:22 Chief Complaint: nausea, vomiting, and diarrhea Narrative: 43-year-old female presents ER nausea, vomiting, and diarrhea. She currently has a diagnosis of Stage III colorectal cancer and is receiving chemotherapy and radiation being treated at [facility]. She states that over the last 3 days she has not tolerated food and has had nausea and vomiting. 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 She has started radiation therapy and reports having 4 treatments. Since radiation, she has noticed more rectal pain with bowel movements. Patient was recently admitted on 02/27/2024 for nausea vomiting diarrhea and a possible perirectal abscess. She was seen by General surgery with recommendations to follow-up with Colorectal surgery at [facility] 2 to likely being cancers mass. While patient was here she was found to have c Diff and started on oral vancomycin for 10 days. the diarrhea cleared up after about 2-3 days and then restarted. Patient states that prior to last hospitalization she did have formed bowel movements. Review of Systems Review of Systems: 12 systems were reviewed and are negative except for as per HPI. Constitutional: Comments: General: well appearing, appears stated age. HEENT: normocephalic, atraumatic. Mucous membranes moist. EOMI, PERRLA, bilateral sclera anicteric, no conjunctival injection. Neck supple without JVD, lymphadenopathy, or bruit. Respiratory: clear to auscultation bilaterally. No rales/rhonic/wheezes. Cardiovascular: Regular rate and rhythm, normal S1-S2 upon auscultation. No murmurs, rubs, or clicks. PMI is nondisplaced, capillary refill less than 3 second. Abdomen: Soft, round, no pulsatile masses, nondistended and nontender. No rebound, no guarding. No CVA tenderness, no hepatosplenomegaly. Bowel sounds pr esent to all four quadrants. No high pitch or tinkling sounds, resonant to percussion. Extremities: No cyanosis, clubbing, or edema present. Pulses are palpable 2/2. Active ROM to all four extremities. Neuro: Alert and orientated x 4. PERRLA. Cranial nerves 2-12 intact without focal deficit. Skin: Warm, dry, and intact, without rash, erythema, or lesion. Psych: pleasant, cooperative, normal speech, normal affect, no hallucinations, no dysarthria [facility] Past Medical History Medical History Acute blood loss anemia Colorectal cancer Hypertension Surgical History Surgical History S/P cholecystectomy Family History Family History Mother Heart disease Social History Social History Smoking packs per day: 1 Smoking cigarettes per day: 20.0 Years smoked: 20 Smoking pack-years: 20.00 Smoking status: Former smoker Tobacco type: cigarettes Second hand tobacco smoke exposure: Yes Smoking end date: 10/20/21 Alcohol intake: never Substance use: never Substance use type: does not use Do You Feel Safe in your Home?: Yes Lack of Transportation: No Lack of Food: Never True Current Housing: I Have Housing Concerned About Future Housing: No Difficulty Paying Gas/Electric Bills: No Difficulty Paying for Meds: No Currently Unemployed: No Education: High School Diploma/GED Difficulty w/ Childcare or Family Care: No Living arrangements: with family Gender identity (if verbalized by the patient): Female Sexual Orientation (if Verbalized by the Patient): Straight or Heterosexual Spiritual care concerns: No Meds Home Medications and Allergies Home Medications Medication Instructions Recorded Confirmed Type lisinopril 5 mg tablet 5 mg PO QAM #30 tabs 01/05/24 03/21/24 Rx Tylenol Arthritis 500 mg PO DAILY PRN Pain 02/02/24 03/21/24 History osbklwmklaotq-[id number]-frugnxazgd 1 tablet PO Q6H PRN abdominal 02/27/24 03/21/24 History 500 mg-60 mg-15 mg tablet (Midol cramps Complete) ferrous sulfate 325 mg (65 mg 325 mg PO TID 02/27/24 03/21/24 History iron) tablet hydrocodone 5 mg-acetaminophen 325 1 tablet PO Q6H PRN Pain 02/27/24 03/21/24 History mg tablet capecitabine 500 mg tablet 2,000 mg PO BID 03/21/24 03/21/24 History drospirenone (contraceptive) 4 mg 4 mg PO DAILY 03/21/24 03/21/24 History (28) tablet (Slynd) ondansetron HCl 8 mg tablet 8 mg PO Q8H PRN Nausea And Vomiting 03/21/24 03/21/24 History Allergies Allergy/AdvReac Type Severity Reaction Status Date / Time amoxicillin Allergy Hives Verified 03/20/24 19:09 iron AdvReac Rash Verified 03/20/24 19:09 Vital Signs Vital Signs - 24 hr 03/20/24 19:09 03/20/24 22:07 03/20/24 23:44 Temperature 98.1 F Pulse Rate 97 88 88 Respiratory Rate 20 15 15 Blood Pressure 148/86 H 136/98 H 136/74 Pulse Oximetry 100 100 99 Oxygen Delivery Room Air 03/21/24 01:36 03/21/24 03:16 03/21/24 04:02 Temperature 97.5 F L Pulse Rate 82 82 91 Respiratory Rate 15 15 14 Blood Pressure 150/82 H 144/75 H Pulse Oximetry 100 100 100 Oxygen Delivery 03/21/24 08:17 Temperature Pulse Rate Respiratory Rate 16 Blood Pressure Pulse Oximetry 100 Oxygen Delivery Room Air H&P: Results Labs Labs: Short CBC 03/20/24 Range/Units 21:45 WBC 8.0 (4.5-10.0) K/mm3 Hgb 12.6 (12.0-15.0) g/dL Hct 37.6 (37.0-47.0) % Plt Count 398 H (150-375) k/mm3 BMP 03/20/24 21:45 Sodium 141 Potassium 3.7 Chloride 108 H Carbon Dioxide 24 BUN 8 Creatinine 0.70 Glucose 101 Calcium 9.4 Liver Function 03/20/24 Range/Units 21:45 Total Bilirubin 0.4 (0.2-1.3) mg/dL AST 26 (14-36) U/L ALT 18 (6-35) U/L Alkaline Phosphatase 77 (38-126) U/L Albumin 4.3 (3.5-5.1) g/dL Urine 03/20/24 Range/Units 21:45 Urine Color Yellow (Yellow) Urine Appearance Clear (Clear) Urine pH 6.0 (5.0-9.0) Ur Specific [place] 1.009 (1.001-1.035) Urine Protein Negative (Negative) mg/dL Urine Glucose (UA) Negative (Negative) mg/dL Assessment and Plan Assessment and plan (1) Diarrhea: Code(s): R19.7 - Diarrhea, unspecified Status: Acute Assessment and Plan: patient was hospitalized on 02/27/2024 and found to have C diff was treated with 10 day course of oral antibiotics On dificid (2) Nausea and vomiting: Qualifiers: Vomiting type: bilious vomiting Qualified Code(s): R11.14 - Bilious vomiting Code(s): R11.2 - Nausea with vomiting, unspecified Status: Acute Assessment and Plan: IV fluid Zofran and Compazine full liquid diet advance as tolerate (3) Adenocarcinoma, colon: Code(s): C18.9 - Malignant neoplasm of colon, unspecified Status: Acute Assessment and Plan: her last treatment on 03/19/2024 with neoadjuvant IMRT 45Gy to the pelvic/inguinal LN + 50 Gy to the rectum + involved LN in 25 Fx combined with Xeloda patient of Dr. Cunningham (4) Hypertension: Code(s): I10 - Essential (primary) hypertension Status: Chronic Assessment and Plan: continue home medication (5) Iron deficiency: Code(s): E61.1 - Iron deficiency Status: Acute Assessment and Plan: continue home medication Quality VTE Prophylaxis VTE prophylaxis: mechanical ordered and pharmacologic ordered Hospitalist MIPS Advance Care Plan I have confirmed that the patient's Advanced Care Plan is present, code status is documented, or surrogate decision maker is listed in patient medical record.: Yes Medication Reconciliation I have utilized all available resources to obtain, update and review the patients current medications (includes all prescriptions, OTC, herbals, cannabis, and nutritional supplements).: Yes
[2024-03-21] MEDS: ONDANSETRON INJ 4 MG/2 ML VIAL IV PUSH (17:52)
--- NOTE | 2024-03-21 21:20 | PHAR ---
PT'S HOME MED SLYND (DROSPERINONE) 4 MG TABS VERIFIED BY PHARMACY
[2024-03-21] MEDS: CALCIUM CARBONATE (TUMS) 500 MG (200 MG ELEMENTAL) PO (22:33)
[2024-03-22] MEDS: HYDROcodone/acetaminophen (*CRX) 10-325 MG TABLET 1 TAB PO ×5 (00:55→20:41)
[2024-03-22] MEDS: SODIUM CHLORIDE 0.9% IV 1,000 ML 125 ML IV CONT ×2 (03:39→10:19)
[2024-03-22 04:00] VITALS: BP 133/70; PULSE 72; RESP 18; TEMP 36.4; O2SAT 100
[2024-03-22 08:00] VITALS: BP 155/77; PULSE 78; RESP 18; TEMP 36.4; O2SAT 100
--- NOTE | 2024-03-22 08:03 | P.PNIM_ITS ---
Progress Note: A&P Assessment and Plan (1) Diarrhea: Code(s): R19.7 - Diarrhea, unspecified Status: Acute Assessment and Plan: patient was hospitalized on 02/27/2024 and found to have C diff was treated with 10 day course of oral vancomycin On dificid GI consulted for reoccurrence of C diff agree with ABx (2) Nausea and vomiting: Qualifiers: Vomiting type: bilious vomiting Qualified Code(s): R11.14 - Bilious vomiting Code(s): R11.2 - Nausea with vomiting, unspecified Status: Acute Assessment and Plan: IV fluid-improving Zofran and Compazine Regular diet (3) Adenocarcinoma, colon: Code(s): C18.9 - Malignant neoplasm of colon, unspecified Status: Acute Assessment and Plan: her last treatment on 03/19/2024 with neoadjuvant IMRT 45Gy to the pelvic/inguinal LN + 50 Gy to the rectum + involved LN in 25 Fx combined with Xeloda patient of Dr. Cunningham Rectal pain from radiation Site and frequent bowel movements lidocaine jelly ordered (4) Hypertension: Code(s): I10 - Essential (primary) hypertension Status: Chronic Assessment and Plan: continue home medication (5) Iron deficiency: Code(s): E61.1 - Iron deficiency Status: Acute Assessment and Plan: continue home medication Time Spent With Patient Time with patient: Greater than 35 minutes Subjective Date/time seen: 03/22/24 08:03 Interval history: 43-year-old female presents ER nausea, vomiting, and diarrhea. She currently has a diagnosis of Stage III colorectal cancer and is receiving chemotherapy and radiation being treated at [facility]. Patient started on dificid for recurred of C diff,seen by GI this am, and agree with plan. Patient complaining of rectal pain, lido gel ordered Review of Systems Review of Systems: 12 systems were reviewed and are negative except for as per HPI. Exam Narrative: General: well appearing, appears stated age. HEENT: normocephalic, atraumatic. Mucous membranes moist. EOMI, PERRLA, bilater al sclera anicteric, no conjunctival injection. Neck supple without JVD, lymphadenopathy, or bruit. Respiratory: clear to ascultation bilaterally. No rales/rhonic/wheezes. Cardiovascular: Regular rate and rhythm, normal S1-S2 upon ascultation. No murmurs, rubs, or clicks. PMI is nondisplaced, capillary refill less than 3 second. Abdomen: Soft, round, no pulsatile masses, nondistended and nontender. No rebound, no guarding. No CVA tenderness, no hepatosplenomegaly. Bowel sounds present to all four quadrants. No high pitch or tinkling sounds, resonant to percussion. Extremities: No cyanosis, clubbing, or edema present. Pulses are palpable 2/2. Active ROM to all four extremities. Neuro: Alert and orientated x 4. PERRLA. Cranial nerves 2-12 intact without focal deficit. Skin: Warm, dry, and intact, without rash, erythema, or lesion. Psych: pleasant, cooperative, normal speech, normal affect, no hallucinations, no dysarthia Objective Data Vital Signs Vital Signs: Vital Signs - 24 hr 03/21/24 08:17 03/21/24 16:00 03/21/24 20:00 Temperature 97.6 F 97.7 F Pulse Rate 74 79 Respiratory Rate 16 16 16 Blood Pressure 137/80 137/60 Pulse Oximetry 100 100 100 Oxygen Delivery Room Air 03/21/24 20:00 03/21/24 23:41 03/22/24 04:00 Temperature 97.6 F 97.5 F L Pulse Rate 79 79 72 Respiratory Rate 16 16 18 Blood Pressure 143/73 H 133/70 Pulse Oximetry 100 99 100 Oxygen Delivery Room Air Intake/Output Intake/Output: Intake & Output 03/19/24 03/20/24 03/21/24 03/22/24 23:59 23:59 23:59 23:59 Intake Total 1000 4302.9 1600 Balance 1000 4302.9 1600 Meds/Results Medications: Active Medications Generic Name Dose Route Start Last Admin Trade Name Freq PRN Reason Stop Dose Admin Acetaminophen 500 mg 03/21/24 10:53 Acetaminophen 500 Mg Tablet PO Q6H PRN Pain 1-3 Hydrocodone Bitart/Acetaminophen 1 tab 03/21/24 07:45 03/22/24 06:03 Hydrocodone/Acetaminophen (*Crx) 10-325 Mg Tablet PO 1 tab Q4H PRN Administration Pain Rated 7-10 Hydrocodone Bitart/Acetaminophen 1 tab 03/21/24 07:45 Hydrocodone/Acetaminophen (*Crx) 5-325 Mg Tablet PO Q4H PRN Pain Rated 4-6 Calcium Carbonate 200 mg 03/21/24 21:18 03/21/24 22:33 Calcium Carbonate (Tums) 500 Mg (200 Mg Elemental) PO 200 mg Q6H PRN Administration Indigestion Cyclobenzaprine HCl 5 mg 03/21/24 15:53 Cyclobenzaprine Hcl 5 Mg Tablet PO Q8H PRN Muscle Spasm Docusate Sodium 100 mg 03/21/24 09:33 Docusate Sodium 100 Mg Capsule PO BID PRN Constipation Enoxaparin Sodium 40 mg 03/22/24 09:00 Enoxaparin 40 Mg/0.4 Ml Syringe SUB-Q DAILY NIKOLE Fidaxomicin 200 mg 03/21/24 01:05 03/21/24 20:37 Fidaxomicin 200 Mg Tablet PO 03/31/24 01:04 200 mg Q12HR NIKOLE Administration Sodium Chloride 1,000 mls @ 125 mls/hr 03/21/24 00:50 03/22/24 03:39 Normal Saline Iv IV CONT 125 mls/hr .Q8H NIKOLE Administration Lisinopril 5 mg 03/22/24 09:00 Lisinopril 5 Mg Tablet PO QAM [facility] Miscellaneous Information 1 each 03/21/24 00:01 Capecitabine Nonformulary. Can Patient Use From Home? XX 04/20/24 00:00 CLARIFY [facility] Morphine Sulfate 2 mg 03/21/24 07:45 Morphine Sulfate (*Crx) 2 Mg/Ml Inj IV PUSH Q4H PRN BREAKTHROUGH PAIN Non-Formulary Medication 2,000 mg 03/21/24 17:00 Capecitabine PO 04/20/24 16:59 BID [facility] Non-Formulary ( 1 each 03/21/24 21:25 03/22/24 00:50 Drospirenone 4 Mg ( PO 04/20/24 21:24 Not Given 28) Oral Tablet) DAILY@1530 [facility] Ondansetron HCl 4 mg 03/21/24 00:50 03/21/24 17:52 Ondansetron Inj 4 Mg/2 Ml Vial IV PUSH 4 mg Q4H PRN Administration Nausea Prochlorperazine Edisylate 10 mg 03/21/24 10:53 Prochlorperazine Edisylate 10 Mg/2 Ml Vial IV PUSH Q6H PRN Nausea And Vomiting Radiology Results: ITS Impressions Chest/Abdomen/Pelvis CT 03/20/24 23:07 IMPRESSION: 2 mm left lower lobe pulmonary nodule. 14 mm paratracheal node, smaller than in the comparison studies, changes likely reactive in the prior PET/CT. Eccentric wall thickening in the distal sigmoid and rectum, consistent with malignancy, unchanged. 10 mm left iliac node, smaller than in the comparison study, deemed likely reactive in the prior PET/CT. No acute process detected in the chest, abdomen, or pelvis. Quality VTE Prophylaxis VTE prophylaxis: mechanical ordered and pharmacologic ordered Hospitalist MIPS Advance Care Plan I have confirmed that the patient's Advanced Care Plan is present, code status is documented, or surrogate decision maker is listed in patient medical record.: Yes Medication Reconciliation I have utilized all available resources to obtain, update and review the patients current medications (includes all prescriptions, OTC, herbals, cannabis, and nutritional supplements).: Yes
[2024-03-22] MEDS: FIDAXOMICIN 200 MG TABLET PO ×2 (08:06→20:42)
[2024-03-22] MEDS: lisinopriL 5 MG TABLET PO (08:06)
--- NOTE | 2024-03-22 10:48 | P.CONGI_ITS ---
I, Marquis Sanford MD, have provided a substantive portion of the care of this patient and discussed the patient with my Nurse Practitioner. I have reviewed any new relevant radiographic and laboratory results including medications. I agree with her documentation as noted below.?I personally performed the medical decision making and much of the history and exam for this encounter. briefly, diagnosed with colon cancer and FAP 12/2023, currently she is seeing in [facility] and colorectal surgery planning to do complete colectomy. She is post XRT and taking xeloda. Few weeks ago had C diff and treated with vancomycin, she is back with second episode. Now started on dificid, continue with same treatment. Then will need follow-up with her oncologist and CRS Assessment and Plan Assessment and plan (1) C. difficile colitis: Code(s): A04.72 - Enterocolitis due to Clostridium difficile, not specified as recurrent Status: Acute (2) Abdominal pain: Qualifiers: Abdominal location: generalized Qualified Code(s): R10.84 - Generalized abdominal pain Code(s): R10.9 - Unspecified abdominal pain Status: Acute (3) Adenocarcinoma, colon: Code(s): C18.9 - Malignant neoplasm of colon, unspecified Status: Acute Plan 1. C-Diff diarrhea / abdominal pain / rectal pain/Stage III colorectal cancer: Labs on admission showed WBCs 8, HGB 13, HCT 38, platelets 298. Colonoscopy 01/03/2024 showed a protruding large circumferential, fungating, friable, infiltrative, malignant appearing, ulcerated mass in the sigmoid colon approximately 4 cm size and a protruding circumferential, fungating, friable, infiltrative, malignant-appearing, ulcerative mass in the rectum approximately 5 cm in size in near anal verge, biopsy showed invasive adenocarcinoma with ulceration. She has been evaluated by Colorectal surgery at [facility], who recommended neoadjuvant therapy with plans to eventually proceed with total proctocolectomy and abdominal perineal resection with permanent end ileostomy given her FAP. She has started radiation therapy and reports having 4 treatments. She was recently admitted on 02/27/2024 for nausea vomiting diarrhea and a possible perirectal abscess and was found to have C. Diff and started on oral vancomycin for 10 days. The diarrhea improved 2-3 days and then restarted. Her diarrhea is now pretty much nonstop. She is having lower and upper abdominal crampy pain that got worse when the diarrhea got worse too. Her stool is like a dark green. She has noticed little traces of blood that's not from inside but from the area around her rectum is raw from the diarrhea and they gave her ointment to start putting on it . DDX: C. Diff vs radiation proctitis * Continue Dificid * Continue supportive care with pain management and IV hydration * Will try to get patient approved for [facility] so that she can start after antibiotics are completed Thank you very much for allowing me to share in the care of this very nice patient. This report may have been done utilizing a voice recognition system. Attempts have been made to correct errors. However, there may be uncorrected grammatical, spelling, and recognition errors present. GI Consult Note Consult date/time: 03/22/24 10:48 Reason for consult: Recurrent Cdiff HPI: This is a pleasant female with a past medical surgical history of cholecystectomy, FAP and recent colon cancer diagnosis who presented to the ER yesterday for complaints of nausea and diarrhea. GI was consulted for recurrent C diff. Patient recently diagnosed with stage III colorectal cancer in December. She has been receiving chemotherapy and radiation treatment at [facility]. She has been evaluated by Colorectal surgery at [facility], who recommended neoadjuvant therapy with plans to eventually proceed with total proctocolectomy and abdominal perineal resection with permanent end ileostomy given her FAP. She has started radiation therapy and reports having 4 treatments. Since radiation, she has noticed more rectal pain with bowel movements. She is supposed to go see surgery at [facility] on the considering if she has gotten done with all her treatments by then. Per patient the plan is to do an MRI to see if the mass has shrunken enough before surgery. She was recently admitted on 02/27/2024 for nausea vomiting diarrhea and a possible perirectal abscess and was found to have C. Diff and started on oral vancomycin for 10 days. The diarrhea cleared up after about 2-3 days and then restarted. Patient states that she was never having formed bowel movements but states that they were very loose but not liquid. Diarrhea has since gotten worse recently and now it's pretty much nonstop and urgent. She is having lower and upper abdominal crampy pain, the pain got worse when the diarrhea got worse too. Patient was seen by her oncologist on the who recommended she use Imodium. Patient states that she was taking Imodium regularly but this made no change in her bowel frequency. she is having occasional nausea and vomiting with the last episode occurring last night but resolved with Zofran. She denies any odynophagia, dysphagia, bloating, frequent reflux, regurgitation, early satiety, unexplained weight loss, constipation, hematochezia, or melena. She complains of some rectal irritation and trace rectal bleeding secondary to cancer treatment and frequent bowel movements. She denies any NSAID use. Family history negative for CRC or IBD. ENDOSCOPY HISTORY: EGD: 01/03/2024 (Dr. Chakraborty) For anemia Findings: The esophagus was examined mucosa was normal with a normal Z-line and no ulcers or masses. No esophagitis or varices. The stomach at the body, cardia and fundus was examined and was normal with no ulcers or masses. No obvious gastritis. Multiple biopsies were taken. The bulb and 2nd portion of the duodenum was normal with no ulcers or masses, no AVM. Multiple biopsies were taken to rule out celiac sprue Bx results: A. Gastric biopsy: - Gastric mucosa with mild reactive changes, neg ative for histologic features of H pylori-associated gastritis B. Small bowel biopsy: - Duodenal mucosa with generally intact villous architecture, negative for histologic features of sprue COLONOSCOPY: 01/03/2024 (Dr. Chakraborty) For anemia, weight loss, and abnormal CT Findings: There were multiple polyps observed in the left colon and in the right colon. Multiple cold snare polypectomies were performed at least 5 polyps. The polyps were completely excised. This is highly consistent with FAP. A protruding large circumferential, fungating, friable, infiltrative, malignant appearing, ulcerated mass was observed in the sigmoid colon approximately 4 cm size. Multiple biopsies were taken. A protruding circumferential, fungating, friable, infiltrative, malignant-appearing, ulcerative mass observed in the rectum approximately 5 cm in size in near anal verge. Multiple biopsies were taken Bx results: Descending polyps biopsy: - Fragments of serrated polyp with dysp lasia, see comment Sigmoid mass biopsy: - Invasive adenocarcinoma with ulceration see comment LABS AND STOOL STUDIES: BMP: sodium 141, potassium 3.7, BUN 8, creatinine 0.70, GFR > 60 CBC: WBC 8, HGB 13, HCT 38, MCV 90, platelets 398 LFT's: total bilirubin 0.4, AST 26, ALT 18, alkaline phosphatase 77, albumin 4.3, calcium 9.4, lipase 69 03/20/2024 Stool studies: Patient tested positive for C diff 02/27/2024 IMAGING: CT chest/abd/pelvis w/contrast 03/20/2024 IMPRESSION: 2 mm left lower lobe pulmonary nodule. 14 mm paratracheal node, smaller than in the comparison studies, changes likely reactive in the prior PET/CT. Eccentric wall thickening in the distal sigmoid and rectum, consistent with malignancy, unchanged. 10 mm left iliac node, smaller than in the comparison study, deemed likely reactive in the prior PET/CT. No acute process detected in the chest, abdomen, or pelvis. CT abd/pelvis w/contrast 02/27/2024 Impression: Wall thickening of the distal sigmoid colon is consistent with colon ic adenocarcinoma. Possible perirectal/perianal abscess versus additional area of wall thickening at the distal rectum, as detailed above. PET scan 01/23/2024 IMPRESSION: 1. Focal wall thickening in the sigmoid colon with increased activity, consistent with primary malignancy. 2. Focal wall thickening of the rectum with increased activity, consistent with primary malignancy. 3. No evidence of metastatic disease. CT chest/abd/pelvis w/contrast 01/05/2024 IMPRESSION: 1. Focal wall thickening of the sigmoid colon, consistent with primary malignancy. 2. Focal wall thickening of the rectum, consistent with primary malignancy. 3. Mildly enlarged left common iliac lymph node suspicious for metastatic disease. 4. Mildly enlarged right paratracheal lymph node, probably benign. Review of Systems Constitutional: Constitutional: Reports as per HPI ENT: Reports as per HPI Cardiovascular: Cardiovascular: Reports as per HPI, Denies chest pain and Denies dyspnea Respiratory: Respiratory: Denies cough and Denies dyspnea Gastrointestinal: Gastrointestinal: Reports as per HPI Musculoskeletal: Musculoskeletal: Reports as per HPI Integumentary/Breasts: Skin/Breast: Reports as per HPI Psychiatric: Psychiatric: Reports as per HPI Endocrine: Endocrine: Reports no additional endocrine complaints Hematologic/Lymphatic: Hematologic/Lymphatic: Reports no additional hematologic/lymphatic complaints [facility] Past Medical History Medical History Acute blood loss anemia Colorectal cancer Hypertension Surgical History Surgical History S/P cholecystectomy Family History Family History Mother Heart disease Social History Social History Smoking packs per day: 1 Smoking cigarettes per day: 20.0 Years smoked: 20 Smoking pack-years: 20.00 Smoking status: Former smoker Tobacco type: cigarettes Second hand tobacco smoke exposure: Yes Smoking end date: 10/20/21 Alcohol intake: never Substance use: never Substance use type: does not use Do You Feel Safe in your Home?: Yes Lack of Transportation: No Lack of Food: Never True Current Housing: I Have Housing Concerned About Future Housing: No Difficulty Paying Gas/Electric Bills: No Difficulty Paying for Meds: No Currently Unemployed: No Education: High School Diploma/GED Difficulty w/ Childcare or Family Care: No Living arrangements: with family Gender identity (if verbalized by the patient): Female Sexual Orientation (if Verbalized by the Patient): Straight or Heterosexual Spiritual care concerns: No Meds Home Medications and Allergies Home Medications Medication Instructions Recorded Confirmed Type lisinopril 5 mg tablet 5 mg PO QAM #30 tabs 01/05/24 03/21/24 Rx Tylenol Arthritis 500 mg PO DAILY PRN Pain 02/02/24 03/21/24 History [id number]-[id number] 1 tablet PO Q6H PRN abdominal 02/27/24 03/21/24 History 500 mg-60 mg-15 mg tablet (Midol cramps Complete) ferrous sulfate 325 mg (65 mg 325 mg PO TID 02/27/24 03/21/24 History iron) tablet hydrocodone 5 mg-acetaminophen 325 1 tablet PO Q6H PRN Pain 02/27/24 03/21/24 History mg tablet capecitabine 500 mg tablet 2,000 mg PO BID 03/21/24 03/21/24 History drospirenone (contraceptive) 4 mg 4 mg PO DAILY 03/21/24 03/21/24 History (28) tablet (Slynd) ondansetron HCl 8 mg tablet 8 mg PO Q8H PRN Nausea And Vomiting 03/21/24 03/21/24 History Allergies Allergy/AdvReac Type Severity Reaction Status Date / Time amoxicillin Allergy Hives Verified 03/20/24 19:09 iron AdvReac Rash Verified 03/20/24 19:09 Vital Signs Vital Signs - 24 hr 03/21/24 16:00 03/21/24 20:00 03/21/24 20:00 Temperature 97.6 F 97.7 F Pulse Rate 74 79 79 Respiratory Rate 16 16 16 Blood Pressure 137/80 137/60 Pulse Oximetry 100 100 100 Oxygen Delivery Room Air 03/21/24 23:41 03/22/24 04:00 03/22/24 08:00 Temperature 97.6 F 97.5 F L Pulse Rate 79 72 Respiratory Rate 16 18 Blood Pressure 143/73 H 133/70 Pulse Oximetry 99 100 100 Oxygen Delivery Room Air 03/22/24 08:00 Temperature 97.5 F L Pulse Rate 78 Respiratory Rate 18 Blood Pressure 155/77 H Pulse Oximetry 100 Oxygen Delivery Exam Const: General: cooperative, healthy appearing, comfortable, no acute distress and well developed Orientation/consciousness: oriented to person, oriented to place, oriented to time and patient oriented x3 HENMT: Head: normal to inspection, normocephalic and atraumatic Mouth: Yes Normal oral and palatal mucosa present and Yes moist mucous membranes Eyes: General: appearance normal, both eyes and all related structures Conjunctivae: conjunctivae normal Sclera: sclerae normal Pupils: Equal, round and reactive pupils present Neck: Neck: normal visual inspection Chest: Chest palpation & inspection: normal inspection of the chest Resp: Effort & Inspection: normal respiratory effort and able to speak in complete sentences Auscultation: clear to auscultation bilaterally Cardio: Jugular venous distension: no JVD Rate: regular rate Rhythm: regular rhythm Heart sounds: S1 normal heart sound present and S2 normal heart sound present GI: Inspection: normal to inspection GI Palp: Yes Soft to palpation and Yes No hepatosplenomegaly present Auscultation: normal bowel sounds Rectal E xam: deferred Skin: General skin exam: normal color and no rashes or lesions noted Neuro: General: oriented to person, oriented to place, oriented to time and patient oriented x3 Cranial nerves: Yes Equal, round and reactive pupils present Speech: normal speech Extrem: General: normal to inspection and no clubbing, cyanosis or edema Psych: Appearance: grossly normal and well kempt Affect: normal affect Results Labs 03/20/24 21:45 03/20/24 21:45
[2024-03-22] MEDS: LIDOCAINE HCL 2% GEL UROJET 10 ML PKG MUCOUS MEM (12:36)
[2024-03-22] MEDS: DROSPIRENONE 4 MG 1 EACH PO (15:16)
[2024-03-22 16:00] VITALS: BP 137/79; PULSE 80; RESP 18; TEMP 36.4; O2SAT 100
[2024-03-22 20:00] VITALS: BP 125/75; PULSE 85; RESP 16; TEMP 36.4; O2SAT 100
[2024-03-22] MEDS: MORPHINE SULFATE (*CRX) 2 MG/ML INJ IV PUSH (23:46)
[2024-03-22] MEDS: MELATONIN 5 MG TABLET PO (23:46)
[2024-03-23] VITALS: BP 147/75; PULSE 70; RESP 16; TEMP 36.8; O2SAT 100
[2024-03-23 04:00] VITALS: BP 119/63; PULSE 74; RESP 16; TEMP 37.1; O2SAT 100
[2024-03-23] MEDS: HYDROcodone/acetaminophen (*CRX) 10-325 MG TABLET 1 TAB PO ×4 (06:06→21:19)
--- NOTE | 2024-03-23 08:17 | PM.IMPN ---
Progress Note: A&P Assessment and Plan (1) Diarrhea: Code(s): R19.7 - Diarrhea, unspecified Status: Acute Assessment and Plan: patient was hospitalized on 02/27/2024 and found to have C diff was treated with 10 day course of oral vancomycin p.o.dificid GI consulted for reoccurrence of C diff agree with ABx (2) Nausea and vomiting: Qualifiers: Vomiting type: bilious vomiting Qualified Code(s): R11.14 - Bilious vomiting Code(s): R11.2 - Nausea with vomiting, unspecified Status: Acute Assessment and Plan: -improving Zofran and Compazine Regular diet (3) Adenocarcinoma, colon: Code(s): C18.9 - Malignant neoplasm of colon, unspecified Status: Acute Assessment and Plan: her last treatment on 03/19/2024 with neoadjuvant IMRT 45Gy to the pelvic/inguinal LN + 50 Gy to the rectum + involved LN in 25 Fx combined with Xeloda patient of Dr. Cunningham Rectal pain from radiation Site and frequent bowel movements lidocaine jelly ordered (4) Hypertension: Code(s): I10 - Essential (primary) hypertension Status: Chronic Assessment and Plan: continue home medication (5) Iron deficiency: Code(s): E61.1 - Iron deficiency Status: Acute Assessment and Plan: continue home medication Time Spent With Patient Time with patient: Greater than 35 minutes Subjective Date/time seen: 03/23/24 08:17 Interval history: 43-year-old female presents ER nausea, vomiting, and diarrhea. She currently has a diagnosis of Stage III colorectal cancer and is receiving chemotherapy and radiation being treated at [facility]. Patient started on dificid for recurred of C diff,seen by GI this am, and agree with plan. Patient complaining of rectal pain, lido gel ordered . Patient is still nauseated, will hopefully discharge tomorrow Review of Systems Review of Systems: 12 systems were reviewed and are negative except for as per HPI. Exam Narrative: General: well appearing, appears stated age. HEENT: normocephalic, atraumatic. Mucous membranes moist. EOMI, PERRLA, bilateral sclera anicteric, no conjunctival injection. Neck supple without JVD, lymphadenopathy, or bruit. Respiratory: clear to ascultation bilaterally. No rales/rhonic/wheezes. Cardiovascular: Regular rate and rhythm, normal S1-S2 upon ascultation. No murmurs, rubs, or clicks. PMI is nondisplaced, capillary refill less than 3 second. Abdomen: Soft, round, no pulsatile masses, nondistended and nontender. No rebound, no guarding. No CVA tenderness, no hepatosplenomegaly. Bowel sounds present to all four quadrants. No high pitch or tinkling sounds, resonant to percussion. Extremities: No cyanosis, clubbing, or edema present. Pulses are palpable 2/2. Active ROM to all four extremities. Neuro: Alert and orientated x 4. PERRLA. Cranial nerves 2-12 intact without focal deficit. Skin: Warm, dry, and intact, without rash, erythema, or lesion. Psych: pleasant, cooperative, normal speech, normal affect, no hallucinations, no dysarthia Objective Data Vital Signs Vital Signs: Vital Signs - 24 hr 03/22/24 16:00 03/22/24 20:00 03/23/24 00:00 Temperature 97.6 F 97.5 F L 98.2 F Pulse Rate 80 85 70 Respiratory Rate 18 16 16 Blood Pressure 137/79 125/75 147/75 H Pulse Oximetry 100 100 100 Oxygen Delivery 03/22/24 20:00 03/23/24 04:00 Temperature 98.8 F Pulse Rate 74 Respiratory Rate 16 Blood Pressure 119/63 Pulse Oximetry 100 Oxygen Delivery Room Air Intake/Output Intake/Output: Intake & Output 03/20/24 03/21/24 03/22/24 03/23/24 23:59 23:59 23:59 23:59 Intake Total 1000 4302.9 3873.3 600 Balance 1000 4302.9 3873.3 600 Meds/Results Medications: Active Medications Generic Name Dose Route Start Last Admin Trade Name Freq PRN Reason Stop Dose Admin Acetaminophen 500 mg 03/21/24 10:53 Acetaminophen 500 Mg Tablet PO Q6H PRN Pain 1-3 Hydrocodone Bitart/Acetaminophen 1 tab 03/21/24 07:45 03/23/24 06:06 Hydrocodone/Acetaminophen (*Crx) 10-325 Mg Tablet PO 1 tab Q4H PRN Administration Pain Rated 7-10 Hydrocodone Bitart/Acetaminophen 1 tab 03/21/24 07:45 Hydrocodone/Acetaminophen (*Crx) 5-325 Mg Tablet PO Q4H PRN Pain Rated 4-6 Calcium Carbonate 200 mg 03/21/24 21:18 03/21/24 22:33 Calcium Carbonate (Tums) 500 Mg (200 Mg Elemental) PO 200 mg Q6H PRN Administration Indigestion Cyclobenzaprine HCl 5 mg 03/21/24 15:53 Cyclobenzaprine Hcl 5 Mg Tablet PO Q8H PRN Muscle Spasm Docusate Sodium 100 mg 03/21/24 09:33 Docusate Sodium 100 Mg Capsule PO BID PRN Constipation Enoxaparin Sodium 40 mg 03/22/24 09:00 03/22/24 08:07 Enoxaparin 40 Mg/0.4 Ml Syringe SUB-Q Not Given DAILY NIKOLE Fidaxomicin 200 mg 03/21/24 01:05 03/22/24 20:42 Fidaxomicin 200 Mg Tablet PO 03/31/24 01:04 200 mg Q12HR NIKOLE Administration Lisinopril 5 mg 03/22/24 09:00 03/22/24 08:06 Lisinopril 5 Mg Tablet PO 5 mg QAM NIKOLE Administration Melatonin 5 mg 03/22/24 23:28 03/22/24 23:46 Melatonin 5 Mg Tablet PO 5 mg HS PRN Administration Insomnia Miscellaneous Information 1 each 03/21/24 00:01 Capecitabine Nonformulary. Can Patient Use From Home? XX 04/20/24 00:00 CLARIFY NIKOLE Morphine Sulfate 2 mg 03/21/24 07:45 03/22/24 23:46 Morphine Sulfate (*Crx) 2 Mg/Ml Inj IV PUSH 2 mg Q4H PRN Administration BREAKTHROUGH PAIN Non-Formulary Medication 2,000 mg 03/21/24 17:00 Capecitabine PO 04/20/24 16:59 BID NIKOLE Non-Formulary ( 1 each 03/21/24 21:25 03/22/24 15:16 Drospirenone 4 Mg ( PO 04/20/24 21:24 1 each ) Oral Tablet) DAILY@1530 NIKOLE Administration Ondansetron HCl 4 mg 03/21/24 00:50 03/21/24 17:52 Ondansetron Inj 4 Mg/2 Ml Vial IV PUSH 4 mg Q4H PRN Administration Nausea Prochlorperazine Edisylate 10 mg 03/21/24 10:53 Prochlorperazine Edisylate 10 Mg/2 Ml Vial IV PUSH Q6H PRN Nausea And Vomiting Radiology Results: ITS Impressions Chest/Abdomen/Pelvis CT 03/20/24 23:07 IMPRESSION: 2 mm left lower lobe pulmonary nodule. 14 mm paratracheal node, smaller than in the comparison studies, changes likely reactive in the prior PET/CT. Eccentric wall thickening in the distal sigmoid and rectum, consistent with malignancy, unchanged. 10 mm left iliac node, smaller than in the comparison study, deemed likely reactive in the prior PET/CT. No acute process detected in the chest, abdomen, or pelvis. Quality VTE Prophylaxis VTE prophylaxis: mechanical ordered and pharmacologic ordered
[2024-03-23] MEDS: lisinopriL 5 MG TABLET PO (08:30)
[2024-03-23] MEDS: ENOXAPARIN 40 MG/0.4 ML SYRINGE SUB-Q (08:30)
[2024-03-23] MEDS: FIDAXOMICIN 200 MG TABLET PO ×2 (08:30→21:19)
--- NOTE | 2024-03-23 09:41 | P.PNGI_ITS ---
Progress Note: A&P Assessment and Plan (1) C. difficile diarrhea: Code(s): A04.72 - Enterocolitis due to Clostridium difficile, not specified as recurrent Status: Acute Assessment and Plan: better with dificid, this is second episode she is immunocompromised (currently undergoing treatment for colon cancer and had XRT) home soon with dificid (2) Adenocarcinoma, colon: Code(s): C18.9 - Malignant neoplasm of colon, unspecified Status: Acute Assessment and Plan: will follow-up with her oncologist (3) Familial adenomatous polyposis: Code(s): D13.91 - Familial adenomatous polyposis Status: Acute Assessment and Plan: plan is total proctocolectomy and abdominal perineal resection with permanent end ileostomy- will follow-up with CRS in [facility] (4) Abdominal pain: Qualifiers: Abdominal location: generalized Qualified Code(s): R10.84 - Generalized abdominal pain Code(s): R10.9 - Unspecified abdominal pain Status: Acute Assessment and Plan: almost gone (5) Chronic kidney disease, stage 3: Code(s): N18.30 - Chronic kidney disease, stage 3 unspecified Status: Acute Subjective Date/time seen: 03/23/24 09:41 Interval history: less pain and diarrhea, feeling better Review of Systems Review of Systems: All systems reviewed & are unremarkable except as noted in HPI and below Exam Const: General: comfortable and no acute distress HENMT: Face/Nose/Sinus: Normal nares present Eyes: General: appearance normal, both eyes and all related structures Neck: Neck: supple Resp: Auscultation: clear to auscultation bilaterally Cardio: Rate: regular rate Rhythm: regular rhythm GI: Inspection: non-distended GI Palp: Yes Soft to palpation and No Tenderness to palpation present (GI) Auscultation: normal bowel sounds Skin: General skin exam: normal color Neuro: Speech: normal speech Extrem: General: normal to inspection Psych: Mental Status: mental status grossly normal Objective Data Vital Signs Vital Signs: Vital Signs - 24 hr 03/22/24 16:00 03/22/24 20:00 03/23/24 00:00 Temperature 97.6 F 97.5 F L 98.2 F Pulse Rate 80 85 70 Respiratory Rate 18 16 16 Blood Pressure 137/79 125/75 147/75 H Pulse Oximetry 100 100 100 Oxygen Delivery 03/22/24 20:00 03/23/24 04:00 03/23/24 08:00 Temperature 98.8 F Pulse Rate 74 Respiratory Rate 16 Blood Pressure 119/63 Pulse Oximetry 100 Oxygen Delivery Room Air Room Air Intake/Output Intake/Output: Intake & Output 03/20/24 03/21/24 03/22/24 03/23/24 23:59 23:59 23:59 23:59 Intake Total 1000 4302.9 3873.3 600 Balance 1000 4302.9 3873.3 600 Meds/Results Medications: Active Medications Generic Name Dose Route Start Last Admin Trade Name Freq PRN Reason Stop Dose Admin Acetaminophen 500 mg 03/21/24 10:53 Acetaminophen 500 Mg Tablet PO Q6H PRN Pain 1-3 Hydrocodone Bitart/Acetaminophen 1 tab 03/21/24 07:45 03/23/24 06:06 Hydrocodone/Acetaminophen (*Crx) 10-325 Mg Tablet PO 1 tab Q4H PRN Administration Pain Rated 7-10 Hydrocodone Bitart/Acetaminophen 1 tab 03/21/24 07:45 Hydrocodone/Acetaminophen (*Crx) 5-325 Mg Tablet PO Q4H PRN Pain Rated 4-6 Calcium Carbonate 200 mg 03/21/24 21:18 03/21/24 22:33 Calcium Carbonate (Tums) 500 Mg (200 Mg Elemental) PO 200 mg Q6H PRN Administration Indigestion Cyclobenzaprine HCl 5 mg 03/21/24 15:53 Cyclobenzaprine Hcl 5 Mg Tablet PO Q8H PRN Muscle Spasm Docusate Sodium 100 mg 03/21/24 09:33 Docusate Sodium 100 Mg Capsule PO BID PRN Constipation Enoxaparin Sodium 40 mg 03/22/24 09:00 03/23/24 08:30 Enoxaparin 40 Mg/0.4 Ml Syringe SUB-Q 40 mg DAILY NIKOLE Administration Fidaxomicin 200 mg 03/21/24 01:05 03/23/24 08:30 Fidaxomicin 200 Mg Tablet PO 03/31/24 01:04 200 mg Q12HR NIKOLE Administration Lisinopril 5 mg 03/22/24 09:00 03/23/24 08:30 Lisinopril 5 Mg Tablet PO 5 mg QAM NIKOLE Administration Melatonin 5 mg 03/22/24 23:28 03/22/24 23:46 Melatonin 5 Mg Tablet PO 5 mg HS PRN Administration Insomnia Morphine Sulfate 2 mg 03/21/24 07:45 03/22/24 23:46 Morphine Sulfate (*Crx) 2 Mg/Ml Inj IV PUSH 2 mg Q4H PRN Administration BREAKTHROUGH PAIN Non-Formulary ( 1 each 03/21/24 21:25 03/22/24 15:16 Drospirenone 4 Mg ( PO 04/20/24 21:24 1 each ) Oral Tablet) DAILY@1530 NIKOLE Administration Ondansetron HCl 4 mg 03/21/24 00:50 03/21/24 17:52 Ondansetron Inj 4 Mg/2 Ml Vial IV PUSH 4 mg Q4H PRN Administration Nausea Prochlorperazine Edisylate 10 mg 03/21/24 10:53 Prochlorperazine Edisylate 10 Mg/2 Ml Vial IV PUSH Q6H PRN Nausea And Vomiting Radiology Results: ITS Impressions Chest/Abdomen/Pelvis CT 03/20/24 23:07 IMPRESSION: 2 mm left lower lobe pulmonary nodule. 14 mm paratracheal node, smaller than in the comparison studies, changes likely reactive in the prior PET/CT. Eccentric wall thickening in the distal sigmoid and rectum, consistent with malignancy, unchanged. 10 mm left iliac node, smaller than in the comparison study, deemed likely reactive in the prior PET/CT. No acute process detected in the chest, abdomen, or pelvis.
[2024-03-23 14:41] VITALS: BP 159/62; PULSE 79; RESP 18; TEMP 36.8; O2SAT 100
[2024-03-23] MEDS: DROSPIRENONE 4 MG 1 EACH PO (15:35)
[2024-03-23 20:00] VITALS: BP 143/66; PULSE 77; RESP 16; TEMP 36.3; O2SAT 100
[2024-03-23] MEDS: MELATONIN 5 MG TABLET PO (21:20)
[2024-03-24] VITALS: BP 123/57; PULSE 75; RESP 18; TEMP 36.6; O2SAT 100
--- NOTE | 2024-03-24 01:27 | PC.NURSE ---
Daylight Savings Time For Daylight Savings Time Ending in the Fall - Clocks are moved back. For Daylight Savings Time Beginning in the Spring - Clocks are moved ahead. For [facility], the time of change occurs at 0200 hrs. Time is taken from the breakfast server. This entry on the patient's chart recognizes the change in time reflected during documentation. Example: 2 entries for vital signs may be charted for 0200 hrs.
[2024-03-24] MEDS: HYDROcodone/acetaminophen (*CRX) 10-325 MG TABLET 1 TAB PO ×4 (02:53→20:34)
[2024-03-24 04:00] VITALS: BP 142/72; PULSE 64; RESP 14; TEMP 36.6; O2SAT 99
[2024-03-24 08:00] VITALS: BP 150/57; PULSE 80; RESP 20; TEMP 36.4; O2SAT 99
[2024-03-24] MEDS: ENOXAPARIN 40 MG/0.4 ML SYRINGE SUB-Q (08:35)
[2024-03-24] MEDS: lisinopriL 5 MG TABLET PO (08:35)
[2024-03-24] MEDS: FIDAXOMICIN 200 MG TABLET PO ×2 (08:35→20:33)
[2024-03-24 12:00] VITALS: BP 122/68; PULSE 69; RESP 18; TEMP 36.4; O2SAT 94
--- NOTE | 2024-03-24 13:52 | P.PNIM_ITS ---
Progress Note: A&P Assessment and Plan (1) Diarrhea: Code(s): R19.7 - Diarrhea, unspecified Status: Acute Assessment and Plan: patient was hospitalized on 02/27/2024 and found to have C diff was treated with 10 day course of oral vancomycin p.o.dificid GI eval noted continue Dificid GI following Monitor one more night and possible discharge tomorrow if diarrhea improves (2) Nausea and vomiting: Qualifiers: Vomiting type: bilious vomiting Qualified Code(s): R11.14 - Bilious vomiting Code(s): R11.2 - Nausea with vomiting, unspecified Status: Acute Assessment and Plan: -resolved Zofran and Compazine Regular diet (3) Adenocarcinoma, colon: Code(s): C18.9 - Malignant neoplasm of colon, unspecified Status: Acute Assessment and Plan: her last treatment on 03/19/2024 with neoadjuvant IMRT 45Gy to the pelvic/inguinal LN + 50 Gy to the rectum + involved LN in 25 Fx combined with Xeloda patient of Dr. Cunningham Rectal pain from radiation Site and frequent bowel movements lidocaine jelly ordered Continue outpaient follow up with oncology (4) Hypertension: Code(s): I10 - Essential (primary) hypertension Status: Chronic Assessment and Plan: continue home medication (5) Iron deficiency: Code(s): E61.1 - Iron deficiency Status: Acute Assessment and Plan: continue home medication Plan DVT prophylaxis on Sq lovenox Subjective Date/time seen: 03/24/24 13:52 Interval history: Patient comfortable at bedside but complained that she is still having diarrhea and no improvement yet. Review of Systems Review of Systems: 12 systems were reviewed and are negative except for as per HPI. Exam Narrative: General: well appearing, appears stated age. HEENT: normocephalic, atraumatic. Mucous membranes moist. EOMI, PERRLA, bilateral sclera anicteric, no conjunctival injection. Neck supple without JVD, lymphadenopathy, or bruit. Respiratory: clear to ascultation bilaterally. No rales/rhonic/wheezes. Cardiovascular: Regular rate and rhythm, normal S1-S2 upon ascultation. No murmurs, rubs, or clicks. PMI is nondisplaced, capillary refill less than 3 second. Abdomen: Soft, round, no pulsatile masses, nondistended and nontender. No rebound, no guarding. No CVA tenderness, no hepatosplenomegaly. Bowel sounds present to all four quadrants. No high pitch or tinkling sounds, resonant to percussion. Extremities: No cyanosis, clubbing, or edema present. Pulses are palpable 2/2. Active ROM to all four extremities. Neuro: Alert and orientated x 4. PERRLA. Cranial nerves 2-12 intact without f ocal deficit. Skin: Warm, dry, and intact, without rash, erythema, or lesion. Psych: pleasant, cooperative, normal speech, normal affect, no hallucinations, no dysarthia Objective Data Vital Signs Vital Signs: Vital Signs - 24 hr 03/23/24 20:00 03/24/24 00:00 03/23/24 20:00 Temperature 97.4 F L 98 F Pulse Rate 77 75 Respiratory Rate 16 18 Blood Pressure 143/66 H 123/57 L Pulse Oximetry 100 100 Oxygen Delivery Room Air 03/24/24 04:00 03/24/24 08:00 Temperature 98 F Pulse Rate 64 Respiratory Rate 14 Blood Pressure 142/72 H Pulse Oximetry 99 Oxygen Delivery Room Air Intake/Output Intake/Output: Intake & Output 03/21/24 03/22/24 03/23/24 03/24/24 23:59 23:59 23:59 22:59 Intake Total 4302.9 3873.3 2660 947 Balance 4302.9 3873.3 2660 947 Meds/Results Medications: Active Medications Generic Name Dose Route Start Last Admin Trade Name Freq PRN Reason Stop Dose Admin Acetaminophen 500 mg 03/21/24 10:53 Acetaminophen 500 Mg Tablet PO Q6H PRN Pain 1-3 Hydrocodone Bitart/Acetaminophen 1 tab 03/21/24 07:45 03/24/24 12:36 Hydrocodone/Acetaminophen (*Crx) 10-325 Mg Tablet PO 1 tab Q4H PRN Administration Pain Rated 7-10 Hydrocodone Bitart/Acetaminophen 1 tab 03/21/24 07:45 Hydrocodone/Acetaminophen (*Crx) 5-325 Mg Tablet PO Q4H PRN Pain Rated 4-6 Calcium Carbonate 200 mg 03/21/24 21:18 03/21/24 22:33 Calcium Carbonate (Tums) 500 Mg (200 Mg Elemental) PO 200 mg Q6H PRN Administration Indigestion Cyclobenzaprine HCl 5 mg 10/31/24 15:53 Cyclobenzaprine Hcl 5 Mg Tablet PO Q8H PRN Muscle Spasm Docusate Sodium 100 mg 03/21/24 09:33 Docusate Sodium 100 Mg Capsule PO BID PRN Constipation Enoxaparin Sodium 40 mg 03/22/24 09:00 03/24/24 08:35 Enoxaparin 40 Mg/0.4 Ml Syringe SUB-Q 40 mg DAILY NIKOLE Administration Fidaxomicin 200 mg 03/21/24 01:05 03/24/24 08:35 Fidaxomicin 200 Mg Tablet PO 03/31/24 01:04 200 mg Q12HR NIKOLE Administration Lisinopril 5 mg 03/22/24 09:00 03/24/24 08:35 Lisinopril 5 Mg Tablet PO 5 mg QAM NIKOLE Administration Melatonin 5 mg 03/22/24 23:28 03/23/24 21:20 Melatonin 5 Mg Tablet PO 5 mg HS PRN Administration Insomnia Morphine Sulfate 2 mg 03/21/24 07:45 03/22/24 23:46 Morphine Sulfate (*Crx) 2 Mg/Ml Inj IV PUSH 2 mg Q4H PRN Administration BREAKTHROUGH PAIN Non-Formulary ( 1 each 03/21/24 21:25 03/23/24 15:35 Drospirenone 4 Mg ( PO 04/20/24 21:24 1 each ) Oral Tablet) DAILY@1530 NIKOLE Administration Ondansetron HCl 4 mg 03/21/24 00:50 03/21/24 17:52 Ondansetron Inj 4 Mg/2 Ml Vial IV PUSH 4 mg Q4H PRN Administration Nausea Prochlorperazine Edisylate 10 mg 03/21/24 10:53 Prochlorperazine Edisylate 10 Mg/2 Ml Vial IV PUSH Q6H PRN Nausea And Vomiting Radiology Results: ITS Impressions Chest/Abdomen/Pelvis CT 03/20/24 23:07 IMPRESSION: 2 mm left lower lobe pulmonary nodule. 14 mm paratracheal node, smaller than in the comparison studies, changes likely reactive in the prior PET/CT. Eccentric wall thickening in the distal sigmoid and rectum, consistent with malignancy, unchanged. 10 mm left iliac node, smaller than in the comparison study, deemed likely reactive in the prior PET/CT. No acute process detected in the chest, abdomen, or pelvis. Quality VTE Prophylaxis VTE prophylaxis: mechanical ordered and pharmacologic ordered
--- NOTE | 2024-03-24 14:37 | P.PNGI_ITS ---
Progress Note: A&P Assessment and Plan (1) C. difficile diarrhea: Code(s): A04.72 - Enterocolitis due to Clostridium difficile, not specified as recurrent Status: Acute Assessment and Plan: better with dificid, this is second episode she is immunocompromised (currently undergoing treatment for colon cancer and had XRT) probably she can go home tomorrow and complete treatment at home if continues to improve (2) Adenocarcinoma, colon: Code(s): C18.9 - Malignant neoplasm of colon, unspecified Status: Acute Assessment and Plan: will follow-up with her oncologist (3) Familial adenomatous polyposis: Code(s): D13.91 - Familial adenomatous polyposis Status: Acute Assessment and Plan: plan is total proctocolectomy and abdominal perineal resection with permanent end ileostomy- will follow-up with [facility] in [facility] (4) Abdominal pain: Qualifiers: Abdominal location: generalized Qualified Code(s): R10.84 - Generalized abdominal pain Code(s): R10.9 - Unspecified abdominal pain Status: Acute Assessment and Plan: almost gone Subjective Date/time seen: 03/24/24 14:37 Interval history: slowly better, still with BM after eating but less frequent Review of Systems Review of Systems: All systems reviewed & are unremarkable except as noted in HPI and below Exam Const: General: comfortable and no acute distress HENMT: Face/Nose/Sinus: Normal nares present Eyes: General: appearance normal, both eyes and all related structures Neck: Neck: supple Resp: Auscultation: clear to auscultation bilaterally Cardio: Rate: regular rate Rhythm: regular rhythm GI: Inspection: non-distended GI Palp: Yes Soft to palpation and No Tenderness to palpation present (GI) Auscultation: normal bowel sounds Skin: General skin exam: normal color Neuro: Speech: normal speech Extrem: General: normal to inspection Psych: Mental Status: mental status grossly normal Objective Data Vital Signs Vital Signs: Vital Signs - 24 hr 03/23/24 20:00 03/24/24 00:00 03/23/24 20:00 Temperature 97.4 F L 98 F Pulse Rate 77 75 Respiratory Rate 16 18 Blood Pressure 143/66 H 123/57 L Pulse Oximetry 100 100 Oxygen Delivery Room Air 03/24/24 04:00 03/24/24 08:00 Temperature 98 F Pulse Rate 64 Respiratory Rate 14 Blood Pressure 142/72 H Pulse Oximetry 99 Oxygen Delivery Room Air Intake/Output Intake/Output: Intake & Output 03/21/24 03/22/24 03/23/24 03/24/24 23:59 23:59 23:59 22:59 Intake Total 4302.9 3873.3 2660 947 Balance 4302.9 3873.3 2660 947 Meds/Results Medications: Active Medications Generic Name Dose Route Start Last Admin Trade Name Freq PRN Reason Stop Dose Admin Acetaminophen 500 mg 03/21/24 10:53 Acetaminophen 500 Mg Tablet PO Q6H PRN Pain 1-3 Hydrocodone Bitart/Acetaminophen 1 tab 03/21/24 07:45 03/24/24 12:36 Hydrocodone/Acetaminophen (*Crx) 10-325 Mg Tablet PO 1 tab Q4H PRN Administration Pain Rated 7-10 Hydrocodone Bitart/Acetaminophen 1 tab 03/21/24 07:45 Hydrocodone/Acetaminophen (*Crx) 5-325 Mg Tablet PO Q4H PRN Pain Rated 4-6 Calcium Carbonate 200 mg 03/21/24 21:18 03/21/24 22:33 Calcium Carbonate (Tums) 500 Mg (200 Mg Elemental) PO 200 mg Q6H PRN Administration Indigestion Cyclobenzaprine HCl 5 mg 03/21/24 15:53 Cyclobenzaprine Hcl 5 Mg Tablet PO Q8H PRN Muscle Spasm Docusate Sodium 100 mg 03/21/24 09:33 Docusate Sodium 100 Mg Capsule PO BID PRN Constipation Enoxaparin Sodium 40 mg 03/22/24 09:00 03/24/24 08:35 Enoxaparin 40 Mg/0.4 Ml Syringe SUB-Q 40 mg DAILY NIKOLE Administration Fidaxomicin 200 mg 03/21/24 01:05 03/24/24 08:35 Fidaxomicin 200 Mg Tablet PO 03/31/24 01:04 200 mg Q12HR NIKOLE Administration Lisinopril 5 mg 03/22/24 09:00 03/24/24 08:35 Lisinopril 5 Mg Tablet PO 5 mg QAM NIKOLE Administration Melatonin 5 mg 03/22/24 23:28 03/23/24 21:20 Melatonin 5 Mg Tablet PO 5 mg HS PRN Administration Insomnia Morphine Sulfate 2 mg 03/21/24 07:45 03/22/24 23:46 Morphine Sulfate (*Crx) 2 Mg/Ml Inj IV PUSH 2 mg Q4H PRN Administration BREAKTHROUGH PAIN Non-Formulary ( 1 each 03/21/24 21:25 03/23/24 15:35 Drospirenone 4 Mg ( PO 04/20/24 21:24 1 each 28) Oral Tablet) DAILY@1530 NIKOLE Administration Ondansetron HCl 4 mg 03/21/24 00:50 03/21/24 17:52 Ondansetron Inj 4 Mg/2 Ml Vial IV PUSH 4 mg Q4H PRN Administration Nausea Prochlorperazine Edisylate 10 mg 03/21/24 10:53 Prochlorperazine Edisylate 10 Mg/2 Ml Vial IV PUSH Q6H PRN Nausea And Vomiting Radiology Results: ITS Impressions Chest/Abdomen/Pelvis CT 03/20/24 23:07 IMPRESSION: 2 mm left lower lobe pulmonary nodule. 14 mm paratracheal node, smaller than in the comparison studies, changes likely reactive in the prior PET/CT. Eccentric wall thickening in the distal sigmoid and rectum, consistent with malignancy, unchanged. 10 mm left iliac node, smaller than in the comparison study, deemed likely reactive in the prior PET/CT. No acute process detected in the chest, abdomen, or pelvis.
[2024-03-24 16:00] VITALS: BP 120/51; PULSE 97; RESP 18; TEMP 36.9; O2SAT 98
[2024-03-24] MEDS: DROSPIRENONE 4 MG 1 EACH PO (17:19)
[2024-03-24 20:00] VITALS: BP 136/62; PULSE 76; RESP 20; TEMP 36.9; O2SAT 99
[2024-03-24] MEDS: MELATONIN 5 MG TABLET PO (20:34)
[2024-03-25 04:00] VITALS: BP 139/66; PULSE 79; RESP 16; TEMP 36.7; O2SAT 100
[2024-03-25 06:53] LABS: Eosinophils Absolute Auto 0.4 K/mm3 (0-0.3); Eosinophils Percent Auto 8.8 % (0-4.4); Hematocrit 32.3 % (37.0-47.0); Hemoglobin 10.6 g/dL (12.0-15.0); Immature Granulocyte Absolute 0.02 K/mm3 (0.00-0.031); Immature Granulocyte Percent A 0.5 % (0-0.5); Lymphocytes Absolute Auto 0.51 K/mm3 (0.9-3.2); Lymphocytes Percent Auto 12.5 % (18.3-44.2); Mean Corpuscular HGB Conc 32.8 g/dl (32-36); Mean Corpuscular Hemoglobin 29.9 pg (26-34); Mean Platelet Volume 9.1 fl (7.4-10.4); Monocytes Absolute Auto 0.5 K/mm3 (0.1-0.6); Monocytes Percent Auto 11.2 % (2.6-8.5); Neutrophils Absolute Auto 2.7 K/mm3 (1.3-6.7); Platelet Count Result 271 k/mm3 (150-375); Red Blood Count 3.55 M/mm3 (4.2-5.4); Red Cell Distribution Width 14.5 % (11.5-14.5); White Blood Count 4.1 K/mm3 (4.5-10.0)
[2024-03-25 06:55] LABS: Schistocytes None Seen
[2024-03-25 06:56] LABS: Platelet Estimate Adequate (Adequate)
[2024-03-25 06:59] VITALS: BP 135/72; O2SAT 100
[2024-03-25 07:02] LABS: Alanine Aminotransferase 17 U/L (6-35); Albumin Level 3.2 g/dL (3.5-5.1); Alkaline Phosphatase 65 U/L (38-126); Anion Gap 5 mmol/L (4-12); Aspartate Amino Transferase 26 U/L (14-36); Bilirubin,Total 0.2 mg/dL (0.2-1.3); Blood Urea Nitrogen 4 mg/dL (7-17); Calcium 8.5 mg/dL (8.4-10.2); Carbon Dioxide 28 mmol/L (22-30); Chloride 106 mmol/L (98-107); Estimated CRCL calculation 144 ml/min; Estimated Glomerular Filt Rate > 60; Glucose 90 mg/dL (65-110); Potassium 3.5 mmol/L (3.4-5.0); Sodium 139 mmol/L (137-145)
[2024-03-25] MEDS: HYDROcodone/acetaminophen (*CRX) 10-325 MG TABLET 1 TAB PO (07:55)
[2024-03-25 08:00] VITALS: BP 153/91; PULSE 78; RESP 18; TEMP 36.7; O2SAT 100
[2024-03-25] MEDS: lisinopriL 5 MG TABLET PO (08:09)
[2024-03-25] MEDS: FIDAXOMICIN 200 MG TABLET PO (08:09)
--- NOTE | 2024-03-25 10:15 | PCNFU ---
Nutrition Follow-Up Complete: Unintentional weight loss related to disease state as evidenced by new diagnosis of colorectal cancer Goal:Diet advanced Pt meeting goal. Pt current nutrition is Regular, Ensure compact BID, Banatrol BID. Nutrition recommendation: continue with current plan of care Last recorded weight is 125 kg. Bowel Motility: +BM 03/24 Labs Reviewed: Hgb:10.6, HCT:32.3, Alb:3.2, BUN:4, Cr:0.6 Meds Noted: zofran, lovenox Skin: WNL Additional Notes: pt diet advanced to regular, Ensure compact BID, banatrol BID. Intake good at 100%. Noted pt has diarrhea, banatrol in place. Agree with orders. Monitor diet orders, intake, tolerance, wt, labs. Follow up in 5 days.
--- NOTE | 2024-03-25 10:53 | P.DS_ITS ---
DS: Admitting Diagnosis Discharge Date 03/25/24 Admitting Diagnosis nausea, vomiting, and diarrhea DS: Discharge Diagnosis Discharge Diagnosis (1) Familial adenomatous polyposis: Code(s): D13.91 - Familial adenomatous polyposis Status: Acute (2) C. difficile colitis: Code(s): A04.72 - Enterocolitis due to Clostridium difficile, not specified as recurrent Status: Acute (3) Diarrhea: Code(s): R19.7 - Diarrhea, unspecified Status: Acute DS: Summary Hospital Course Hospital Course: 43-year-old female presents ER nausea, vomiting, and diarrhea. She currently has a diagnosis of Stage III colorectal cancer and is receiving chemotherapy and radiation being treated at [facility]. She states that over the last 3 days she has not tolerated food and has had nausea and vomiting. She has been evaluated by Colorectal surgery at [facility], who recommended neoadjuvant therapy with plans to eventually proceed with total proctocolectomy and abdominal perineal resection with permanent end ileostomy given her FAP. She has started radiation therapy and reports having 4 treatments. Since radiation, she has noticed more rectal pain with bowel movements. Patient was recently admitted on 02/27/2024 for nausea vomiting diarrhea and a possible perirectal abscess. She was seen by General surgery with recommendations to follow-up with Colorectal surgery at [facility] 2 to likely being cancers mass. While patient was here she was found to have c Diff and started on oral vancomycin for 10 days. the diarrhea cleared up after about 2-3 days and then restarted. Patient states that prior to last hospitalization she did have formed bowel movements. patient was started on fidoxamicin, and vomiting and diarrhea resolved. Patient also received IVF. Gi was consutled and was part of her care. Today vomiting and diarrhea has resolved and patient discharged on 6 more days of fidoxamicin. Continue Follow up with oncology and Gi. F/u with PCP in 3-5 days topical management Assessment and Plan (1) Diarrhea: Code(s): R19.7 - Diarrhea, unspecified Status: Acute Assessment and Plan: patient was hospitalized on 02/27/2024 and found to have C diff was treated with 10 day course of oral vancomycin p.o.dificid GI eval noted continue Dificid GI following Monitor one more night and possible discharge tomorrow if diarrhea improves (2) Nausea and vomiting: Qualifiers: Vomiting type: bilious vomiting Qualified Code(s): R11.14 - Bilious vomiting Code(s): R11.2 - Nausea with vomiting, unspecified Status: Acute Assessment and Plan: -resolved Zofran and Compazine Regular diet (3) Adenocarcinoma, colon: Code(s): C18.9 - Malignant neoplasm of colon, unspecified Status: Acute Assessment and Plan: her last treatment on 03/19/2024 with neoadjuvant IMRT 45Gy to the pelvic/inguinal LN + 50 Gy to the rectum + involved LN in 25 Fx combined with Xeloda patient of Dr. Cunningham Rectal pain from radiation Site and frequent bowel movements lidocaine jelly ordered Continue outpaient follow up with oncology (4) Hypertension: Code(s): I10 - Essential (primary) hypertension Status: Chronic Assessment and Plan: continue home medication (5) Iron deficiency: Code(s): E61.1 - Iron deficiency Status: Acute Assessment and Plan: continue home medication Time Spent with Patient Time attestation: Total time spent providing and/or coordinating discharge services: DS: Data Data Completed and Pending Labs on day of discharge: Labs from last 24 hours 03/25/24 03/25/24 03/25/24 06:23 06:23 06:23 WBC 4.1 L RBC 3.55 L Hgb 10.6 L Hct 32.3 L MCV 91.0 MCH 29.9 MCHC 32.8 RDW 14.5 Plt Count 271 MPV 9.1 Immature Gran % (Auto) 0.5 Neut % (Auto) 66.0 Lymph % (Auto) 12.5 L [place] % (Auto) 11.2 H Eos % (Auto) 8.8 H Baso % (Auto) 1.0 Lymph # (Auto) 0.51 L [place] # (Auto) 0.5 Eos # (Auto) 0.4 H Baso # (Auto) 0.0 Abs Immat Gran (auto) 0.02 Absolute Neuts (auto) 2.7 Absolute Nucleated RBC 0.000 Total Counted Cancelled Neutrophils % (Manual) Cancelled Band Neutrophils % Cancelled Lymphocytes % (Manual) Cancelled Monocytes % (Manual) Cancelled Eosinophils % (Manual) Cancelled Basophils % (Manual) Cancelled Metamyelocytes % Cancelled Myelocytes % Cancelled Promyelocytes % (Man) Cancelled Nucleated RBC % 0.0 Abs Neuts (Manual) Cancelled Abs Lymphs (Manual) Cancelled Abs Monocytes (Manual) Cancelled Absolute Eos (Manual) Cancelled Abs Basophils (Manual) Cancelled Nucleated RBCs Cancelled Hypersegmented Neuts Cancelled Atypical Lymphocytes Cancelled Blast Cells Cancelled Plasma Cells Cancelled Smudge Cells Cancelled Other Cell Type Cancelled Toxic Granulation Cancelled Dohle Bodies Cancelled Jasmine Rods Cancelled Platelet Estimate Cancelled Adequate Clumped Platelets Cancelled Large Platelets Cancelled Giant Platelets Cancelled Polychromasia Cancelled Hypochromasia Cancelled Hyperchromasia Cancelled Poikilocytosis Cancelled Basophilic Stippling Cancelled Anisocytosis Cancelled Microcytosis Cancelled Macrocytosis Cancelled Spherocytes Cancelled Pappenheimer Bodies Cancelled Sickle Cells Cancelled Target Cells Cancelled Tear Drop Cells Cancelled Ovalocytes Cancelled Stomatocytes Cancelled Helmet Cells Cancelled Hernandez-Wall Bodies Cancelled [place] Rings Cancelled Tamia Cells Cancelled Crenated Cell Cancelled Acanthocytes (Spur) Cancelled Rouleaux Cancelled Schistocytes Cancelled None seen Sodium 139 Potassium 3.5 Chloride 106 Carbon Dioxide 28 Anion Gap 5 BUN 4 L Creatinine 0.60 L Estim Creat Clear Calc 144 Estimated GFR > 60 Glucose 90 Calcium 8.5 Magnesium 2.0 Total Bilirubin 0.2 AST 26 ALT 17 Alkaline Phosphatase 65 Total Protein 6.0 L Albumin 3.2 L Preliminary micro results at discharge 03/20/24 21:45 Blood Culture - Preliminary Blood 03/20/24 21:45 Blood Culture - Preliminary Blood Discharge Plan Discharge Attending physician on discharge: Mckenna Chambers Consulting providers: Marquis Sanford Discharging Clinician: Mckenna Chambers Anticipated Discharge Date/Time: 03/25/24 10:50 Patient Disposition: Home, Self-Care Activity: as tolerated Diet: as tolerated Patient Instructions: Antibiotic Form, Pain Management (DC) Stand Alone Forms: General Discharge Information Follow-up/Referrals: Andreina Paez APN-C [Primary Care Provider] - (F/u with PCP in 3-5 days) Marquis Sanford MD [Physician] - (F/u with GI as instructed ) Discharge Medications: New Dificid 200 mg Tablet 200 mg PO Q12HR Qty: 13 0RF Continued Tylenol Arthritis 500 mg PO DAILY PRN (Reason: Pain) lisinopril 5 mg Tablet 5 mg PO QAM Qty: 30 0RF Midol Complete 500-60-15 mg Tablet 1 tablet PO Q6H PRN (Reason: abdominal cramps) ferrous sulfate 325 mg (65 mg iron) Tablet 325 mg PO TID hydrocodone-acetaminophen 5-325 mg tablet 1 tablet PO Q6H PRN (Reason: Pain) ondansetron HCl [Zofran] 8 mg Tablet 8 mg PO Q8H PRN (Reason: Nausea And Vomiting) capecitabine 500 mg Tablet 2,000 mg PO BID Rx Instructions: Monday thru Fridays, BID Slynd 4 mg (28) tablet 4 mg PO DAILY Date of admission: 03/21/24 00:50 Primary Care Provider: Andreina Paez Admitting Provider: Josie Chan Attending physician on admission: Josie Chan Condition: Stable
[2024-03-25 12:00] VITALS: BP 136/76; PULSE 83; RESP 20; TEMP 36.7; O2SAT 98
== END 2024-03-25 13:52 | disposition home or self-care (01) ==
LOC: ANHED 03-21 00:53 → ANH3MEDSUR 03-21 13:56
PROVIDERS: Registered Nurse; Admitting Provider Internal Medicine; Emergency Provider Emergency Medicine; PCP Nurse Practitioner Family; Visit Provider Internal Medicine
DX: A04.71 Enterocolitis due to Clostridium difficile, recurrent (principal); D13.91 Familial adenomatous polyposis; C18.9 Malignant neoplasm of colon, unspecified; I12.9 Hypertensive chronic kidney disease with stage 1 through stage 4 chronic kidney disease, or unspecified chronic kidney disease; N18.30 Chronic kidney disease, stage 3 unspecified; R11.14 Bilious vomiting; E61.1 Iron deficiency; R10.84 Generalized abdominal pain; K62.89 Other specified diseases of anus and rectum; Z20.822 Contact with and (suspected) exposure to COVID-19; Z79.899 Other long term (current) drug therapy; Z87.891 Personal history of nicotine dependence; Z90.49 Acquired absence of other specified parts of digestive tract
CPT/HCPCS: 36415; 71260; 74177; 80053; 81001; 81025; 83605; 83690; 83735; 85025; 87040; 87637; 96361; 96372; 96374; 99285; A9270; G0378; G0379; J1171; J1650; J2270; J2405; J7030; Q9967

== ENCOUNTER 2024-04-15 11:41 | Outpatient (CLI) | payer OTHER, SELFPAY ==
[2024-04-15 13:11] LABS: Toxigenic C. Diff NEGATIVE (NEGATIVE)
== END 2024-04-15 11:42 | disposition home or self-care (01) ==
LOC: ANHLAB 11:42
PROVIDERS: PCP Nurse Practitioner Family; Visit Provider Internal Medicine Hematology & Oncology
DX: R19.7 Diarrhea, unspecified (principal)
CPT/HCPCS: 87493

== ENCOUNTER 2024-04-17 11:38 | Outpatient (CLI) | payer OTHER, SELFPAY ==
[2024-04-17 11:55] LABS: Basophils Percent Auto 0.3 % (0.2-1.2); Eosinophils Absolute Auto 0.6 K/mm3 (0-0.3); Eosinophils Percent Auto 9.9 % (0-4.4); Hematocrit 37.7 % (37.0-47.0); Hemoglobin 12.2 g/dL (12.0-15.0); Immature Granulocyte Absolute 0.02 K/mm3 (0.00-0.031); Immature Granulocyte Percent A 0.3 % (0-0.5); Lymphocytes Absolute Auto 0.26 K/mm3 (0.9-3.2); Lymphocytes Percent Auto 4.3 % (18.3-44.2); Mean Corpuscular HGB Conc 32.4 g/dl (32-36); Mean Corpuscular Hemoglobin 29.8 pg (26-34); Mean Corpuscular Volume 92.2 fl (80-100); Mean Platelet Volume 8.3 fl (7.4-10.4); Monocytes Absolute Auto 0.6 K/mm3 (0.1-0.6); Monocytes Percent Auto 9.3 % (2.6-8.5); Neutrophils Absolute Auto 4.6 K/mm3 (1.3-6.7); Neutrophils Percent Auto 75.9 % (45.5-73.1); Platelet Count Result 308 k/mm3 (150-375); Red Blood Count 4.09 M/mm3 (4.2-5.4); Red Cell Distribution Width 14.4 % (11.5-14.5)
[2024-04-17 11:59] LABS: Blood Urea Nitrogen 4 mg/dL (8-26); Carbon Dioxide 27 mmol/L (22-30); Chloride 102 mmol/L (98-109); Estimated Glomerular Filt Rate > 60; Glucose 95 mg/dL (70-105); Potassium 3.9 mmol/L (3.5-4.9); Sodium 141 mmol/L (138-146)
== END 2024-04-17 11:39 | disposition home or self-care (01) ==
LOC: ANHLAB 11:39
PROVIDERS: PCP Nurse Practitioner Family; Visit Provider Internal Medicine Hematology & Oncology
DX: C18.9 Malignant neoplasm of colon, unspecified (principal)
CPT/HCPCS: 36415; 80047; 85025

== ENCOUNTER 2024-05-13 14:27 | Emergency (ER) | payer OTHER, SELFPAY ==
[2024-05-13 14:30] VITALS: BP 146/68; PULSE 88; RESP 20; TEMP 36.7; O2SAT 100
--- NOTE | 2024-05-13 15:44 | ED.URI ---
HPI - URI/Sore Throat General Chief Complaint: Upper Respiratory Infection Stated Complaint: severe cold Time Seen by Provider: 05/13/24 15:37 Source: patient and RN notes reviewed Mode of arrival: ambulatory Limitations: no limitations History of Present Illness HPI Narrative: Patient presents today with 2 week history of productive cough, nasal congestion, shortness of breath with exertion, with subjective fever for the past 2 days. She has tried [place] Plus, DayQuil, NyQuil, and Mucinex without relief. No history of asthma or COPD. She stopped smoking approximately 3 years ago. Related Data Home Medications ?Medication ?Instructions ?Recorded ?Confirmed ?Last Taken ?Type drospirenone (contraceptive) 4 mg 4 mg PO DAILY 03/21/24 03/21/24 03/20/24 09:00 History (28) tablet (Slynd) Allergies Allergy/AdvReac Type Severity Reaction Status Date / Time amoxicillin Allergy Hives Verified 03/20/24 19:09 iron AdvReac Rash Verified 03/20/24 19:09 Review of Systems Review of Systems: CONSTITUTIONAL: Denies body aches, chills, or sweats.+ subjective fever EYES: Denies visual changes, redness, or discharge. ENT: Denies rhinorrhea, sore throat, or otalgia.+ congestion CARDIOVASCULAR: Denies chest pain, palpitations, or edema. RESPIRATORY: + cough, shortness of breath GASTROINTESTINAL: Denies abdominal pain, nausea, vomiting, or diarrhea. GENITOURINARY: Denies dysuria or hematuria. SKIN: Denies rash, itching, or wounds. MUSCULOSKELETAL: Denies back pain, joint pain, or myalgia. NEUROLOGIC: Denies headache, numbness, tingling, or weakness. PSYCH: Denies depression or anxiety. [facility] Past Medical History Medical History Chronic kidney disease, stage 3 Familial adenomatous polyposis Colorectal cancer Acute blood loss anemia Hypertension Surgical History Surgical History S/P cholecystectomy Family History Family History Mother Heart disease Social History Social History Smoking packs per day: 1 Smoking cigarettes per day: 20.0 Years smoked: 20 Smoking pack-years: 20.00 Smoking status: Former smoker Tobacco type: cigarettes Second hand tobacco smoke exposure: Yes Smoking end date: 10/20/21 Alcohol intake: never Substance use: never Substance use type: does not use Do You Feel Safe in your Home?: Yes Lack of Transportation: No Lack of Food: Never True Current Housing: I Have Housing Concerned About Future Housing: No Difficulty Paying Gas/Electric Bills: No Difficulty Paying for Meds: No Currently Unemployed: No Education: High School Diploma/GED Difficulty w/ Childcare or Family Care: No Living arrangements: with family Gender identity (if verbalized by the patient): Female Sexual Orientation (if Verbalized by the Patient): Straight or Heterosexual Spiritual care concerns: No Comments At time of signature, I have reviewed and agree with nursing past medical, surgical, social and family history unless otherwise noted. Please see nursing chart for further information. There is no relevant family history pertinent to the presenting complaint Exam Narrative: GENERAL: Mildly ill-appearing, well-nourished, and in no acute distress. HEAD: Normocephalic, atraumatic. EYES: EOMI. No redness or drainage. Conjunctivae normal. ENT: Mucous membranes pink and moist. Nares congested. No rhinorrhea. TMs normal bilaterally. Throat normal. Uvula midline. NECK: Normal AROM. Supple. No lymphadenopathy. CHEST: No respiratory distress. Clear to auscultation. HEART: Regular rate and rhythm. No murmur appreciated. EXTREMITIES: Normal range of motion. No edema. SKIN: Warm, dry, no rash. Capillary refill normal. Normal skin turgor. NEURO: No focal deficits. Alert and oriented x3. Gait steady. PSYCH: Normal affect. No signs of depression or anxiety. Course Course Level of Care: Express Care Visit Vital Signs Vital signs: Vital Signs Temperature 98.0 F 05/13/24 14:30 Pulse Rate 88 05/13/24 14:30 Respiratory Rate 20 05/13/24 14:30 Blood Pressure 146/68 H 05/13/24 14:30 Pulse Oximetry 100 05/13/24 14:30 Oxygen Delivery Room Air 05/13/24 14:30 Temperature 98.0 F 05/13/24 14:30 Pulse Rate 88 05/13/24 14:30 Respiratory Rate 20 05/13/24 14:30 Blood Pressure 146/68 H 05/13/24 14:30 Pulse Oximetry 100 05/13/24 14:30 Oxygen Delivery Room Air 05/13/24 14:30 Reviewed MDM - URI/Sore Throat MDM Narrative Medical decision making narrative: Patient will be treated with doxycycline, Tessalon Perles, and albuterol inhaler for her symptoms. Your unable to complete a chest x-ray at this facility today due to equipment failure. Anticipatory guidance given. Differential Diagnosis Differential diagnosis: Likely upper respiratory infection, sinusitis, viral infection, bronchitis and other (Pneumonia) Critical Care Time Critical Care Time Critical Care Time: No Discharge Plan Discharge Clinical Impression: Bronchitis Sinusitis Qualifiers: Sinusitis location: unspecified location Chronicity: acute Recurrence: non-recurrent Qualified Code(s): J01.90 - Acute sinusitis, unspecified Patient Disposition: Home, Self-Care Condition: Stable Instructions: Antibiotic Form, Sinusitis (ED), Acute Bronchitis (ED) Additional Instructions: Please take all medications as prescribed. Follow-up with your PCP towards the end of the week if symptoms are not improving. Go To the ER immediately if symptoms worsen. Your blood pressure was elevated above 120/80 today at Urgent Care. This puts you above the threshold for follow up. Please schedule a followup visit with your personal physician as soon as possible, for further evaluation and treatment. Even blood pressure exceeding 120/80 may indicate pre-hypertension. Patient Language: Swedish Prescriptions: New benzonatate 200 mg capsule 200 mg PO TID PRN (Reason: cough) Qty: 20 0RF albuterol sulfate 90 mcg/actuation HFA aerosol inhaler 2 inh inhalation Q4-6H PRN (Reason: shortness of breath or wheezing) Qty: 8.5 0RF doxycycline hyclate 100 mg tablet 100 mg PO BID 7 Days Qty: 14 0RF (DME) BreatheRite MDI Spacer Spacer See Rx Instructions .ROUTE .MEDSUPPLY Qty: 1 0RF Rx Instructions: As directed No Action lisinopril 5 mg Tablet 5 mg PO QAM Qty: 30 0RF Slynd 4 mg (28) tablet 4 mg PO DAILY Follow-up/Referrals: Andreina Paez, JENNIE [Primary Care Provider] - Time of Disposition: 15:49
== END 2024-05-13 15:52 | disposition home or self-care (01) ==
PROVIDERS: Emergency Provider Nurse Practitioner; PCP Nurse Practitioner Family
DX: J40 Bronchitis, not specified as acute or chronic (principal); J01.90 Acute sinusitis, unspecified; I12.9 Hypertensive chronic kidney disease with stage 1 through stage 4 chronic kidney disease, or unspecified chronic kidney disease; N18.30 Chronic kidney disease, stage 3 unspecified; Z87.891 Personal history of nicotine dependence
CPT/HCPCS: 99213; G0463

== ENCOUNTER 2024-05-29 11:01 | Outpatient (CLI) | payer OTHER, SELFPAY ==
[2024-05-29 12:14] LABS: Partial Thromboplastin Time 25.8 Seconds (22.3-36.8); Prothrombin Time 13.8 Seconds (11.1-14.7)
== END 2024-05-29 11:02 | disposition home or self-care (01) ==
LOC: ANHSURGERY 11:06
PROVIDERS: PCP Nurse Practitioner Family; Visit Provider Surgery
DX: C18.9 Malignant neoplasm of colon, unspecified (principal)
CPT/HCPCS: 36415; 85610; 85730

== ENCOUNTER 2024-06-03 00:24 | Day surgery (SDC) | payer OTHER, SELFPAY ==
[2024-05-27 13:06] VITALS: BMI 46.6
--- NOTE | 2024-05-27 13:17 | PC.NURSE ---
Report to the Outpatient Waiting Room, entrance under the green pavilion located off [facility], at time 1000__ on date _06/03/24_. Planned Procedure Time: _1200__.? Time changes happen often and if your time is changed the preop area will call you the afternoon before. - You and your visitor will be asked to self-screen and do not enter if you have any COVID symptoms. Please call surgeon if you need to reschedule. - A mask is optional within the hospital at this time. Patients may have clear liquids (water, carbonated beverages, clear teas, apple juice) until 3 hours prior to surgery with a maximum of 20 ounces. - No food from midnight until time of surgery and no smoking. This includes no chewing gum, candy or mints. - Infants may have breast milk until 4 hours before surgery, infant formula 6 hours prior to surgery. - Children will be allowed to drink immediately following surgery.? If applicable, please bring a bottle or sippy cup to assist with drinking. Juice, water, soda, and popsicles are readily available.? For infants on formula, please bring formula the day of surgery.? Pacifiers are allowed. Take only the following medications with a SIP of water on the morning of surgery: __PAIN PILL IF NEEDED DO NOT STOP ANY OF YOUR OTHER PRESCRIPTION MEDICATIONS PRIOR TO SURGERY EXCEPT THE FOLLOWING Medications to discontinue per physician NONE Date to take last dose Please no make-up, nail ugandan, hairspray, perfume, deodorant, or body powder the day of surgery.? No jewelry (including any body piercings) or valuables the day of surgery, leave them at home.? Please take a shower or bath the night before, or the morning of, surgery with an HIBICLENS antibacterial soap.? Wear comfortable, loose fitting clothing.? Children are encouraged to wear pajamas. - Jewelry must be removed prior to entering the operating room.? Rings and piercings that are not removed may be cut off. - The hospital will not accept responsibility for valuables.? - Please leave all valuables, including medications, at home the day of surgery. If you are going home after surgery, a licensed compressed air pile driver operator must drive you home.? - NO public transportation without another adult if you receive anesthesia. - We recommend that an adult stay with you for 24 hours following discharge. - We also recommend that you do not drive, make important decision, drink alcoholic beverages, or take any drugs that were not prescribed by your health care provider for at least 24 hours after your discharge time. For Pediatric surgeries, we recommend two adults accompany the child home. Follow any additional instructions given to you from your surgeon. Telephone instructions given to __PATIENT __and asked if any additional questions and then verbalized understanding. Patient advised to call surgeon office or pre surgery nurse liaison [phone] if any additional questions.
--- NOTE | ~2024-06-03 | XR_ITS ---
EXAMINATION: XR fl guide central line place DATE: 06/03/2024 12:55 INDICATION: Port placement. TECHNIQUE: 2 intraoperative fluoroscopic views of the chest were obtained. I was not present. Fluoros copy exposure time was 1 minute 38 seconds. COMPARISON: Chest CT 03/20/2024 FINDINGS: There is a left internal jugular port with tip at superior cavoatrial junction. IMPRESSION: 1. Port tip at superior cavoatrial junction. Reviewed, dictated and finalized at location A. UNTING AUDITOR
--- NOTE | ~2024-06-03 | XR_ITS ---
EXAMINATION: XR chest port-a-cath/central DATE: 06/03/2024 13:18 INDICATION: Port placement. TECHNIQUE: A single frontal view of the chest was obtained. COMPARISON: Chest 2 views 01/01/2024 FINDINGS: There is no pneumonia, pleural effusion, or pneumothorax. The heart size is normal. There i s a left internal jugular port with tip in superior vena cava. IMPRESSION: 1. Port tip in superior vena cava. Reviewed, dictated and finalized at location A. [employer]
[2024-06-03 10:30] VITALS: BP 141/75; PULSE 78; RESP 16; TEMP 36.7; O2SAT 100
[2024-06-03] MEDS: LACTATED RINGERS 1,000 ML 30 ML IV CONT (10:30)
[2024-06-03] MEDS: [UNRECOGNIZED DRUG - REMARK] 1 EACH XX (10:46)
[2024-06-03] MEDS: KETOROLAC 15 MG/ML VIAL (*BKC) IV PUSH (10:46)
[2024-06-03 10:47] LABS: BEDSIDEPREGUCG Negative (Negative)
--- NOTE | 2024-06-03 11:22 | WPDANESEPPF ---
Anes - Initial Pre Proc Eval Procedure: Operation Date: 06/03/24 12:00 Proposed Procedures p Insertion Heather Cath - Alexandra Magdaleno MD Date/Time: 06/03/24 11:22 Surgeon: Alexandra Magdaleno MD Pre Op Diagnosis: malignant neoplasm of colon Patient Data Age: 43 Gender: F Height: 1.7 m Weight: 135 kg Last Vital Signs Temp 98.0 F 06/03/24 10:30 Pulse 78 06/03/24 10:30 Resp 16 06/03/24 10:30 BP 141/75 H 06/03/24 10:30 Pulse Ox 100 06/03/24 10:30 O2 Del Method Room Air 06/03/24 10:30 Allergies Allergy/AdvReac Type Severity Reaction Status Date / Time amoxicillin Allergy Hives Verified 05/27/24 13:03 Home Medications ?Medication ?Instructions ?Recorded ?Confirmed ?Type lisinopril 5 mg tablet 5 mg PO QAM #30 tabs 01/05/24 05/27/24 Rx drospirenone (contraceptive) 4 mg 4 mg PO DAILY 03/21/24 05/27/24 History (28) tablet (Slynd) inhalational spacing device #1 ea 05/13/24 Rx (BreatheRite MDI Spacer) ferrous sulfate 325 mg (65 mg 325 mg PO DAILY 05/27/24 05/27/24 History iron) tablet (iron) hydrocodone 5 mg-acetaminophen 325 1 tablet PO Q4-6H PRN pain 05/27/24 05/27/24 History mg tablet Laboratory Tests 06/03/24 10:30 POC Urine HCG, Qual Negative (Negative) Patient hx anesthesia problems: none Family hx anesthesia problems: none Results Review: All pre-operative results and documents have been reviewed as part of the pre-operative evaluation. [facility] Past Medical History Medical History Chronic kidney disease, stage 3 Familial adenomatous polyposis Colorectal cancer Acute blood loss anemia Hypertension Surgical History Surgical History S/P cholecystectomy Family History Family History Mother Heart disease Social History Social History Smoking packs per day: 0.5 Smoking cigarettes per day: 10.0 Years smoked: 17 Smoking pack-years: 8.50 Smoking status: Former smoker Tobacco type: cigarettes and e-cigarettes/vaping Second hand tobacco smoke exposure: Yes Smoking end date: 10/20/21 Additional smoking assessment comments: 2020 STOP DATE Alcohol intake: former Substance use: never Substance use type: does not use Do You Feel Safe in your Home?: Yes Lack of Transportation: No Lack of Food: Never True Current Housing: I Have Housing Concerned About Future Housing: No Difficulty Paying Gas/Electric Bills: No Difficulty Paying for Meds: No Currently Unemployed: No Education: High School Diploma/GED Difficulty w/ Childcare or Family Care: No Living arrangements: with family Gender identity (if verbalized by the patient): Female Sexual Orientation (if Verbalized by the Patient): Straight or Heterosexual Spiritual care concerns: No Anes - Eval Final PreProcedure Day of Procedure 06/03/24 11:22 Patient weight: morbidly obese Heart: regular rate and rhythm Lungs: clear to auscultation Airway: Mallampati scale class II and special considerations (Missing several teeth on lower aspect. ) Neurological: alert and oriented Last oral intake: >/= 8 hours ASA classification: III Emergent: no Anesthetic plan: proceed Anesthesia type and monitoring: general LMA and standard monitoring Results Review: All pre-operative results and documents have been reviewed as part of the pre-operative evaluation. MO, Ex smoker, quit 2020. MELISSA symptoms much better since 100 plus pound wt loss. Pt for portacath for initiation of chemo and surgery in several months at [facility]. Pt can walk 1-2 fos, no cp, mildy dyspnea. Informed Consent: The patient's anesthetic plan and its attendant risks and benefits were discussed with the patient/family/POA. Questions were solicited and answers provided to the satisfaction of the patient/family/POA.
--- NOTE | 2024-06-03 11:49 | P.HP_ITS ---
H&P: HPI History of Present Illness Date/Time: 06/03/24 11:49 Chief Complaint: Colon cancer Narrative: The patient is a 43-year-old female presenting to the hospital for placement of Port-A-Cath. The patient is going to undergo neoadjuvant chemotherapy for synchronous colon cancer. The patient most likely has familial adenomatous polyposis and will need further treatment status post chemo radiation. The pat ient denies previous central venous catheterization. The patient is right- handed. Review of Systems Review of Systems: All systems reviewed & are unremarkable except as noted in HPI and below PMFSH Past Medical History Medical History Chronic kidney disease, stage 3 Familial adenomatous polyposis Colorectal cancer Acute blood loss anemia Hypertension Surgical History Surgical History S/P cholecystectomy Family History Family History Mother Heart disease Social History Social History Smoking packs per day: 0.5 Smoking cigarettes per day: 10.0 Years smoked: 17 Smoking pack-years: 8.50 Smoking status: Former smoker Tobacco type: cigarettes and e-cigarettes/vaping Second hand tobacco smoke exposure: Yes Smoking end date: 10/20/21 Additional smoking assessment comments: 2020 STOP DATE Alcohol intake: former Substance use: never Substance use type: does not use Do You Feel Safe in your Home?: Yes Lack of Transportation: No Lack of Food: Never True Current Housing: I Have Housing Concerned About Future Housing: No Difficulty Paying Gas/Electric Bills: No Difficulty Paying for Meds: No Currently Unemployed: No Education: High School Diploma/GED Difficulty w/ Childcare or Family Care: No Living arrangements: with family Gender identity (if verbalized by the patient): Female Sexual Orientation (if Verbalized by the Patient): Straight or Heterosexual Spiritual care concerns: No Meds Home Medications and Allergies Home Medications ?Medication ?Instructions ?Recorded ?Confirmed ?Type lisinopril 5 mg tablet 5 mg PO QAM #30 tabs 01/05/24 05/27/24 Rx drospirenone (contraceptive) 4 mg 4 mg PO DAILY 03/21/24 05/27/24 History (28) tablet (Slynd) inhalational spacing device #1 ea 05/13/24 Rx (BreatheRite MDI Spacer) ferrous sulfate 325 mg (65 mg 325 mg PO DAILY 05/27/24 05/27/24 History iron) tablet (iron) hydrocodone 5 mg-acetaminophen 325 1 tablet PO Q4-6H PRN pain 05/27/24 05/27/24 History mg tablet Allergies Allergy/AdvReac Type Severity Reaction Status Date / Time amoxicillin Allergy Hives Verified 05/27/24 13:03 Vital Signs Vital Signs - 24 hr 06/03/24 10:30 Temperature 36.7 C Pulse Rate 78 Respiratory Rate 16 Blood Pressure 141/75 H Pulse Oximetry 100 Oxygen Delivery Room Air Exam Const: General: cooperative, comfortable, no acute distress and obese Neck: Neck: normal visual inspection, full ROM and no lymphadenopathy Chest: Chest palpation & inspection: normal inspection of the chest Resp: Auscultation: clear to auscultation bilaterally Cardio: Rate: regular rate Rhythm: regular rhythm GI: Inspection: normal to inspection and obesity GI Palp: No abdominal tenderness, Yes Soft to palpation, No Tenderness to palpation present (GI), No Guarding due to palpation present (GI) and No Rigid due to palpation Assessment and Plan Assessment and plan (1) Adenocarcinoma, colon: Code(s): C18.9 - Malignant neoplasm of colon, unspecified Status: Acute Assessment and Plan: Will set up port placement in the operating room
--- NOTE | 2024-06-03 11:52 | WPDHPUPDATE1 ---
History and Physical Update Update Date/Time: 06/03/24 11:52 History and Physical has been reviewed, including an updated exam of the patient. There are NO changes in the patient's condition. Risks, benefits, and alternatives have been discussed and questions answered. Patient agrees to proceed with procedure.
[2024-06-03] MEDS: ceFAZolin 3 GM/D5W 100 ML 100 ML IVPB (11:57)
[2024-06-03] MEDS: BUPIVACAINE/EPINEPHRINE 0.5% 30 ML VIAL INFILTRATE (12:20)
[2024-06-03] MEDS: HEPARIN SODIUM, PORCINE 10,000 UNITS/10 ML VIAL 10000 UNITS IRRIGATION (12:21)
[2024-06-03] MEDS: HEPARIN SODIUM 5,000 UNITS/ML VIAL 5000 UNITS IRRIGATION (12:24)
--- NOTE | 2024-06-03 12:54 | P.OP_ITS ---
Procedure Note - Detailed Date of Procedure 06/03/24 Pre-op Diagnosis malignant neoplasm of colon Post-op Diagnosis Same Procedure Performed Placement of left internal jugular venous access device under both ultrasound and fluoroscopic guidance Surgeon Alexandra Magdaleno MD Anesthesia MAC and Local Indications 43-year-old female with rectal cancer needing access for adjuvant chemotherapy Findings 1st stick left IJ Description of Procedure Patient was brought into the operating room and placed in the supine position. After adequate induction of mac anesthesia, the patient was prepped and draped in normal sterile fashion. Time-out was then done to verify the patient's identity, as well as the procedure being performed. I began by making a small incision in the left chest. I then used the ultrasound to gain access into the left internal jugular vein. Once access was gained, I placed the guidewire in the vein and confirmed proper positioning. I then locally anesthetized the area in the left chest. I then enlarged the incision including making a subcutaneous pocket inferiorly to allow placement of the port itself. I proceeded to tunnel the catheter from the chest to the left neck insertion site. I then placed a dilating sheath over the guidewire into the left internal jugular vein via sterile Seldinger technique. This was once again done and confirmed via fluoroscopic guidance. There was some difficulty with the dilating sheath and a 2nd dilating sheath had to be used. I then removed the dilator and the guidewire, now just leaving the sheath in the vein. I then fed the previously f lushed catheter into the left internal jugular vein under fluoroscopic guidance. At approximately 27 cm, the catheter was noted to be near the atrial caval junction. I then peeled away the sheath, now just leaving the catheter in the vein. I then was able to easily draw and flush from the catheter. The catheter was cut to fit and attached to the port itself. The port was placed into the previously made subcutaneous pocket and sutured in with 0 Ethibond suture. Final fluoroscopic view showed the termination of the catheter at the atrial caval junction with a nice smooth curvature back to the port itself. I was able to gain access to the port with a Bardales needle and was able to easily draw and flush from the port. I then flushed 4 cc of a final heparin flush into the port. The incision was closed with 3 0 Vicryl suture in the subcutaneous tissue and the skin was closed with 4 O Monocryl subcuticular suture. Dermabond was then placed on wound. The patient tolerated the procedure well and will be sent to the recovery room in stable condition. Implants left internal jugular venous access device Estimated Blood Loss 5 Pathology None sent Complications No immediate complications Condition Stable Disposition PACU [facility] Billing Surgery - Charge Forward: Surgery Billing
[2024-06-03 13:02] VITALS: BP 134/103; PULSE 108; RESP 16; O2SAT 100
[2024-06-03 13:30] VITALS: BP 116/64; PULSE 80; RESP 16
[2024-06-03 14:00] VITALS: BP 120/64; PULSE 69; RESP 16
== END 2024-06-03 14:20 | disposition home or self-care (01) ==
PROVIDERS: PCP Nurse Practitioner Family; Visit Provider Surgery
PROC: (CPT 36561; principal; 2024-06-03 12:00)
DX: C18.9 Malignant neoplasm of colon, unspecified (principal); I12.9 Hypertensive chronic kidney disease with stage 1 through stage 4 chronic kidney disease, or unspecified chronic kidney disease; N18.30 Chronic kidney disease, stage 3 unspecified; D62 Acute posthemorrhagic anemia; E66.01 Morbid (severe) obesity due to excess calories; Z68.42 Body mass index [BMI] 45.0-49.9, adult; Z79.51 Long term (current) use of inhaled steroids; Z79.891 Long term (current) use of opiate analgesic; Z98.890 Other specified postprocedural states; Z90.49 Acquired absence of other specified parts of digestive tract; Z87.891 Personal history of nicotine dependence; Z86.0101 Personal history of adenomatous and serrated colon polyps; Z82.49 Family history of ischemic heart disease and other diseases of the circulatory system
CPT/HCPCS: 36561; 77001; A9270; C1788; J0690; J1644; J1885; J2003; J2250; J2405; J2704; J3010; J7030; J7120

== ENCOUNTER 2025-03-24 15:25 | Outpatient (CLI) | payer OTHER, SELFPAY ==
--- NOTE | ~2025-03-24 | CT_ITS ---
EXAMINATION: CT abdomen pelvis w con DATE: 03/24/2025 16:04 INDICATION: Colon cancer TECHNIQUE: Computed tomography (CT) of the abdomen and pelvis was performed with 100 mL Omnipaque-350 intravenous contrast. Automated exposure control and iterative reconstruction technique were employed. The dose-length product was 1305.71 mGy-cm. COMPARISON: CT dated 03/20/2024 FINDINGS: Lung bases are clear. Heart size is normal. No pericardial or pleural effusion. There are 4 ill-defined hypoenhancing masses in the liver, the 2 largest in the right hepatic lobe measuring 7.5 cm and 7 cm in maximal diameters consistent with metastatic disease. Cholecystectomy clips at the gallbladder fossa. Spleen, pancreas, bilateral adrenal glands and right kidney are normal. 9 mm left renal cyst. Postoperative change of interval left hemicolectomy with total proctocolectomy and right abdominal and ileostomy. Parastomal herniation of an length of the distal ileum immediately proximal to the ostomy. There is focal dilation of a small portion of small bowel in the left hemipelvis which does not extend sufficiently length to suggest obstruction but could represent the site of a bowel anastomosis. There are multiple surrounding surgical clips which are likely related to an interval hysterectomy. Thoracic soft tissue density in the presacral space is likely scarring related to proctocolectomy although residual/locally recurrent disease could not be excluded. No free intraperitoneal gas or fluid. No pathologically enlarged abdominal or pelvic lymphadenopathy. Mild to moderate lumbar and lower thoracic spondylosis. Moderate bilateral sacroiliitis. No suspicious lytic or blastic bone lesions to elevate suspicion for osseous metastatic disease. IMPRESSION: 1. 4 ill-defined hypoenhancing hepatic masses measuring up to 7.5 similar consistent with metastatic disease. 2. 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 3. Increased soft tissue density at the presacral space which could represent residual postoperative scarring but also raises concern for residual/locally recurrent disease. Reviewed, dictated and finalized at location A. IC WELFARE WORKER IMPRESSION: 1. 4 ill-defined hypoenhancing hepatic masses measuring up to 7.5 similar consi stent with metastatic disease. 2. 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 3. Increased soft tissue density at the presacral space which could represent r esidual postoperative scarring but also raises concern for residual/locally rec urrent disease.
--- OUTSIDE RECORDS SUMMARY | 2025-03-24 14:15 | XMS_ITS | Encounter Summary ---
Author Organization [facility] LIZBET Santacruz [facility] Address [address] [place] [address] Care Team Providers Care Health Club Manager Name Role Phone Olman Schofield MD Primary Care Provider [phone] Reason for Referral * CT Scan (Urgent) - Closed Specialty Diagnoses / Procedures Referred By Jaime t Referred To Contact Diagnoses Malignant neoplasm of colon, unspecified part of colon (CMS/HCC) Procedures CT ABDOMEN PELVIS W CONTRAST Bhavik Rios MD [address] [place] [phone] Phone: tel: fax: [place] [phone] Referral ID Status Reason Start Date Expiration Date V isits Requested Visits Authorized [id number] Closed [facility] CTS 03/24/2025 04/24/2026 1 1 CTIONAL BORE OPERATOR Reason for Visit * Reason Comments Cancer Follow Up Encounter Details Date Type Department Care Team (Late st Contact Info) Description 03/24/2025 2:15 PM DIRECTIONAL BORE OPERATOR Office Visit [facility] Oncology and Hemat[facility] [address] [place] [address] Bhavik Rios MD [address] [place] [address] Malignant neoplasm of colon, unspecified part of colon (CMS/HCC) Social History Tobacco Use Types Packs/Day Years Used Date Smoking Tobacco: Former Cigarettes 0.3 15 Q uit: 01/10/2021 Smokeless Tobacco: Never Tobacco Cessation:Counseling Given: Not Answered Alcohol Use Standard Drinks/Week Comments Never 0 (1 standard drink = 0.6 oz pur e alcohol) Comments Unknown Sex and Gender Information Value Date Recorded Sex Assigned at Not on file Legal Sex Female 11:34 AM DIRECTIONAL BORE OPERATOR Gender Identity Not on file Sexual Orientation Not on file documented as of this encounter Last Filed Vital Signs Vital Sign Reading Time Taken Comments Blood Pressure 123/81 03/24/2025 2:04 PM DIRECTIONAL BORE OPERATOR Pulse 108 03/24/2025 2:04 PM DIRECTIONAL BORE OPERATOR Temperature 36.4 C (97.6 F) 03/24/2025 2:04 PM DIRECTIONAL BORE OPERATOR Respiratory Rate 16 03/24/2025 2:04 PM DIRECTIONAL BORE OPERATOR Oxygen Saturation 97% 03/24/2025 2:04 PM DIRECTIONAL BORE OPERATOR Inhaled Oxygen Concentration - - Weight 110.6 kg (243 lb 12.8 oz) 03/24/2025 2:04 PM DIRECTIONAL BORE OPERATOR Height - - Body Mass Index 38.18 01/11/2024 2:49 PM CDT documented in this encounter Progress Notes * Bhavik Rios MD - 03/24/2025 2:16 PM CST HEMATOLOGY / ONCOLOGY PROGRESS NOTE Patient Identification: Name: Dilia Loomis Age: 44 y.o. 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 Neoadjuvant chemotherapy with FOLFOX started June 19, 2024. Completed cycle 8/8 of chemotherapy on September 25, 2024. Patient had exploratory laparotomy, total abdominal colectomy with proctectomy, abdominal perineal resection en bloc with posterior vaginal wall and creation of ileostomy with total abdominal hysterectomy and BSO done on October 30, 2024. SUBJECTIVE Patient came to the office for follow-up visit after the surgery. She was admitted to the hospital many times after the surgery and just went home last week. She is quite tired and fatigue and has been dealing with some abdominal discomfort on intermittent basis. She just darted eating better. No other new complaints. Review of system Constitutional: Patient did not mention fevers, sweats,, complain of tiredness and fatigue with weight loss HEENT: Patient did not mention sinus congestion, hearing or vision problems Respiratory: Patient did not mention cough, dyspnea, wheeze Cardiovascular: Patient did not mention chest pain, exertional chest pressure/discomfort, nausea, syncope, denies any shortness of breath GI: Patient did not mention constipation, dsyphagia, reflux symptoms, vomiting, melena, diarrhea resolved : Patient did not mention dysuria, frequency, incontinence, urgency Integumentary system: no lymphadenopathy, sweats, flushing Musculoskeletal: Patient not mention: myalgia, arthralgia Neurological: Patient did not mention blurry or disturbed vision, denies any neuropathy Skin: No lumps, bumps or rashes. 12 point review of system was reviewed Objective: Vital signs in last 24 hours: As per nursing note Exam: General appearance: alert, cooperative, no distress, appears stated age Head: normocephalic, without obvious abnormality, atraumatic Eyes: conjunctivae/corneas clear, EOM's intact Ears: normal external ear canals AU Nose: Nares normal. Septum midline. Mucosa normal. No drainage or sinus tenderness Throat: Lips, mucosa, and tongue normal. Teeth and gums normal Neck: supple, symmetrical, trachea midline. Lungs: clear to auscultation bilaterally Heart: regular rate and rhythm, S1, S2 normal, no murmur, click, rub or gallop Abdomen: soft, non-tender. Bowel sounds normal. No masses, No organomegaly Extremities: extremities normal, atraumatic, no cyanosis or edema Skin: Skin color, texture, turgor normal. No rashes or lesions Lymph nodes: No lymphadenopathy Neuro: No obvious focal deficit Exam as above PATH LABS Labs from April 17 showed WBC 6.0 hemoglobin 12.2 platelet 308,000 creatinine 0.8 Labs from July 17 showed WBC 3.9 hemoglobin 10.7 platelet 211,000 creatinine 0.7 Labs from July 31 showed WBC 4.9 hemoglobin 11.4 platelet 211,000 creatinine 0.8 Labs from August 14 showed WBC 4.1 hemoglobin 11.4 platelet 159,000 creatinine 0.7 Labs from August 28 showed creatinine 0.8 WBC 3.7 hemoglobin 12.1 platelet 169,000 ANC 2400 Labs from September 25 showed creatinine 0.6 WBC 3.9 hemoglobin 12.3 platelet 1 55,000 Assessment: Plan: There are no active problems to display for this patient. 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 CEA was 46. PET scan done on January 22 showed focal wall thickening in thesigmoid colon and rectum with no evidence of metastatic disease. Microsatellite stable tumor. K-rasmutation detected. APC mutation positive. This is consistent with autosomal dominant familial adenomatous polyposis syndrome. Patient completed concurrent chemoradiation therapy with Xeloda on April 15, 2024. Patient started chemotherapy with FOLFOX on June 19, 2024. MRI pelvis done on July 29 showed decrease in size of the low rectal mass and resolution of enlarged lymph nodes with decrease size of synchronous sigmoid colon mass. Neoadjuvant chemotherapy with FOLFOX started June 19, 2024. Completed cycle 8/8 of chemotherapy on September 25, 2024. Patient had exploratory laparotomy, total abdominal colectomy with proctectomy, abdominal perineal resection en bloc with posterior vaginal wall and creation of ileostomy with total abdominal hysterectomy and BSO done on October 30, 2024. Events noted. Patient is still slowly recovering from the surgery and the wound is slowly closing. I will order labs including CBC, CMP and CEA today. I will order CT abdomen and pelvis now and phonevisit in 1 week. Anemia. Patient is on iron. Will check CBC today. Rectal and abdominal pain. I will give him a refill of [place]. Further pain treatment will be provided by the surgeon. Chemotherapy-induced neuropathy. Resolved. Follow-up phone visit in 1 week and then follow-up in 3 months with labs. 03/24/2025 Bhavik Rios MD CTIONAL BORE OPERATOR documented in this encounter Plan of Treatment Upcoming Encounters Date Type Department Care Team (Late st Contact Info) Description 03/28/2025 2:00 PM DIRECTIONAL BORE OPERATOR Telephone Check Up [facility] Oncology and Hematology - [place] [address] [facility] [address] [place] [address] Bhavik Rios MD [address] [facility] [address] [place] [address] Scheduled Orders Name Type Priority Associated Diagnoses Orde r Schedule CEA Lab Routine Malignant neoplasm of colon, unspecified part of colon (CMS/HCC) Expected: 03/24/2025, Expires: 03/24/2026 CBC WITH DIFFERENTIAL Lab Stat Malignant neoplasm of colon, unspecified part of colon (CMS/HCC) Expected: 03/24/2025, Expires: 03/24/2026 COMPREHENSIVE METABOLIC PANEL Lab Stat Malignant neoplasm of colon, unspecified part of colon (CMS/HCC) Expected: 03/24/2025, Expires: 03/24/2026 CT ABDOMEN PELVIS W CONTRAST Imaging Stat Malignant neoplasm of colon, unspecified part of colon (CMS/HCC) Expected: 03/25/2025, Expires: 03/24/2026 documented as of this encounter Visit Diagnoses Diagnosis Malignant neoplasm of colon, unspecified part of colon (CMS/HCC) documented in this encounter Additional Health Concerns Infection Onset Date Last Indicated Resolved Time 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
--- OUTSIDE RECORDS SUMMARY | 2025-03-24 15:44 | XMS_ITS ---
Author Organization 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 [facility] 06/2016 Problem Noted Date Diagnosed Date Wound of abdomen 12/19/2024 Assessment & Plan (12/30/2024 2:52 PM CDT): Sigmoid adeno iso FAP; s/p chemoradiation, chemotherapy, extensive surgery. Please see PRS c/s note for treatment history 12/20 s/p I&D with Plastic surgery Plan - Plastic surgery consulted: Wound VAC changes MWF per plastic sx - 12/20 OR cultures w pseudomonas and enterococcus. Pt remains HDS - ID consulted, appreciate assistance - Cipro and vanc - > Imipenem on 12/25 due to ESBL klebsiella, added Cipro on 12/26 due to pseudomonas susceptibilities - EOT 01/08 - Follow blood culture from 12/26 - NGTD - Continue PPI, zinc - OSH Yang removed, we had difficulty placing new Yang so purewick is in. We will try to replace Yang at some point to prevent urinary incontinence prolonging wound healing - working well currently Assessment & Plan (12/29/2024 12:05 PM CDT): Sigmoid adeno iso FAP; s/p chemoradiation, chemotherapy, extensive surgery. Please see PRS c/s note for treatment history 12/20 s/p I&D with Plastic surgery Plan - Plastic surgery consulted: Wound VAC changes MWF per plastic sx - 12/20 OR cultures w pseudomonas and enterococcus. Pt remains HDS - ID consulted, appreciate assistance - Cipro and vanc - > Imipenem on 12/25 due to ESBL klebsiella, added Cipro on 12/26 due to pseudomonas susceptibilities - Follow blood culture from 12/26 - NGTD - Continue PPI, zinc - OSH Yang removed, we had difficulty placing new Yang so purewick is in. We will try to replace Yang at some point to prevent urinary incontinence prolonging wound healing - working well currently but will consider replacing Assessment & Plan (12/28/2024 1:50 PM CDT): Sigmoid adeno iso FAP; s/p chemoradiation, chemotherapy, extensive surgery. Please see PRS c/s note for treatment history 12/20 s/p I&D with Plastic surgery Plan - Plastic surgery consulted: Wound VAC changes MWF per plastic sx 12/20 OR cultures w pseudomonas and enterococcus. Pt remains HDS - ID consulted, appreciate assistance - Cipro and vanc - > Imipenem on 12/25 due to ESBL klebsiella, added Cipro on 12/26 due to pseudomonas susceptibilities - Continue PPI, zinc - OSH Yang removed, we had difficulty placing new Yang so purewick is in. We will try to replace Yang at some point to prevent urinary incontinence prolonging wound healing - working well currently but will consider replacing Assessment & Plan (12/27/2024 10:04 AM CDT): Sigmoid adeno iso FAP; s/p chemoradiation, chemotherapy, extensive surgery. Please see PRS c/s note for treatment history 12/20 s/p I&D with Plastic surgery Plan - Plastic surgery consulted: Wound VAC changes MWF per plastic sx - 12/20 OR cultures w pseudomonas and enterococcus. Pt remains HDS - ID consulted, appreciate assistance - Cipro and vanc - > Imipenem on 12/25 due to ESBL klebsiella, added Cipro on 12/26 due to pseudomonas susceptibilities - Continue PPI, zinc - OSH Yang removed, we had difficulty placing new Yang so purewick is in. We will try to replace Yang at some point to prevent urinary incontinence prolonging wound healing Assessment & Plan (12/26/2024 2:00 PM CDT): Sigmoid adeno iso FAP; s/p chemoradiation, chemotherapy, extensive surgery. Please see PRS c/s note for treatment history 12/20 s/p I&D with Plastic surgery Plan - Plastic surgery consulted: Wound VAC changes MWF per plastic sx - 8 OR cultures w pseudomonas and enterococcus. Pt remains HDS - ID consulted, appreciate assistance - Cipro and vanc x5 days - > Imipenem on 12/25 due to ESBL klebsiella, added Cipro on 12/26 due to pseudomonas susceptibilities - Continue PPI, zinc - OSH Yang removed, we had difficulty placing new Yang so purewick is in. We will try to replace Yang at some point to prevent urinary incontinence prolonging wound healing Assessment & Plan (12/25/2024 3:25 PM CDT): Sigmoid adeno iso FAP; s/p chemoradiation, chemotherapy, extensive surgery. Please see PRS c/s note for treatment history 12/20 s/p I&D with Plastic surgery Plan - Plastic surgery consulted: Wound VAC changes MWF per plastic sx - 8 OR cultures w pseudomonas and enterococcus. Pt remains HDS - ID consulted - Cipro and vanc x5 days - > Imipenem on 12/25 due to ESBL klebsiella - Continue PPI, zinc - OSH Yang removed, we had difficulty placing new Yang so purewick is in. We will try to replace Yang at some point to prevent urinary incontinence prolonging wound healing Assessment & Plan (12/24/2024 4:25 PM CDT): Sigmoid adeno iso FAP; s/p chemoradiation, chemotherapy, extensive surgery. Please see PRS c/s note for treatment history 12/20 s/p I&D with Plastic surgery Plan - Plastic surgery consulted: Wound VAC changes MWF per plastic sx - 8 OR cultures w pseudomonas and enterococcus. Pt remains HDS - Cipro and vanc x5 days - Continue PPI, zinc - OSH Yang removed, we had difficulty placing new Yang so purewick is in. We will try to replace Yang at some point to prevent urinary incontinence prolonging wound healing Assessment & Plan (12/23/2024 1:20 PM CDT): Sigmoid adeno iso FAP; s/p chemoradiation, chemotherapy, extensive surgery. Please see PRS c/s note for treatment history 12/20 s/p I&D with Plastic surgery Plan Plastic surgery consulted: Wound VAC changes MWF per plastic sx 12/20 OR cultures w pseudomonas and enterococcus. Pt remains HDS Cipro and vanc x5 days Continue PPI, zinc OSH Yang removed, we had difficulty placing new Yang so purewick is in. We will try to replace Yang at some point to prevent urinary incontinence prolonging wound healing Assessment & Plan (12/22/2024 8:55 PM CDT): Sigmoid adeno iso FAP; s/p chemoradiation, chemotherapy, extensive surgery. Please see PRS c/s note for treatment history 12/20 s/p I&D with Plastic surgery Plan Plastic surgery consulted: Wound VAC in place Follow up OR cultures; prelim Gram neg bacilli + gram pos cocci. HDS w/o leukocytosis Keflex EOT 12/27 Continue PPI, zinc Exchange outside facility yang Assessment & Plan (12/21/2024 12:56 PM CDT): Sigmoid adeno iso FAP; s/p chemoradiation, chemotherapy, extensive surgery. Please see PRS c/s note for treatment history s/p I&D with Plastic surgery Plan Plastic surgery consulted: Wound VAC in place Follow up OR cultures; prelim Gram neg bacilli + gram pos cocci. HDS w/o leukocytosis Continue PPI, zinc Assessment & Plan (12/20/2024 12:05 PM CDT): Sigmoid adeno iso FAP; s/p chemoradiation, chemotherapy, extensive surgery. Please see PRS c/s note for treatment history Plan Plastic surgery consulted: Plan for OR today Holding antibiotics per plastic requests Continue PPI, zinc Assessment & Plan (12/19/2024 8:44 PM CDT): - Sigmoid adeno iso FAP; s/p chemoradiation, chemotherapy. Please see PRS c/s note for treatment history - Related to prior complex surgical history (see HC for summary) - Plan for OR on 12/20 with PRS - Appreciate PRS recs: Consults by Mao Gregory MD (12/19/2024 17:47) > Cont PPI, Zinc > Hold antibiotics > Wound Care per PRS (ordered) > Consult CRS in AM for assistance with ostomy Adenocarcinoma 12/19/2024 Assessment & Plan (12/30/2024 2:52 PM CDT): Sigmoid adeno iso FAP; s/p chemoradiation, chemotherapy, extensive surgery. Please see PRS c/s note for treatment history 12/20 s/p I&D with Plastic surgery Plan - Plastic surgery consulted: Wound VAC changes MWF per plastic sx - 12/20 OR cultures w pseudomonas and enterococcus. Pt remains HDS - ID consulted, appreciate assistance - Cipro and vanc - > Imipenem on 12/25 due to ESBL klebsiella, added Cipro on 12/26 due to pseudomonas susceptibilities - EOT 01/08 - Follow blood culture from 12/26 - NGTD - Continue PPI, zinc - OSH Yang removed, we had difficulty placing new Yang so purewick is in. We will try to replace Yang at some point to prevent urinary incontinence prolonging wound healing - working well currently Assessment & Plan (12/29/2024 12:05 PM CDT): Sigmoid adeno iso FAP; s/p chemoradiation, chemotherapy, extensive surgery. Please see PRS c/s note for treatment history 12/20 s/p I&D with Plastic surgery Plan - Plastic surgery consulted: Wound VAC changes MWF per plastic sx - 12/20 OR cultures w pseudomonas and enterococcus. Pt remains HDS - ID consulted, appreciate assistance - Cipro and vanc - > Imipenem on 12/25 due to ESBL klebsiella, added Cipro on 12/26 due to pseudomonas susceptibilities - Follow blood culture from 12/26 - NGTD - Continue PPI, zinc - OSH Yang removed, we had difficulty placing new Yang so purewick is in. We will try to replace Yang at some point to prevent urinary incontinence prolonging wound healing - working well currently but will consider replacing Assessment & Plan (12/28/2024 1:50 PM CDT): Sigmoid adeno iso FAP; s/p chemoradiation, chemotherapy, extensive surgery. Please see PRS c/s note for treatment history 12/20 s/p I&D with Plastic surgery Plan - Plastic surgery consulted: Wound VAC changes MWF per plastic sx - 12/20 OR cultures w pseudomonas and enterococcus. Pt remains HDS - ID consulted, appreciate assistance - Cipro and vanc - > Imipenem on 12/25 due to ESBL klebsiella, added Cipro on 12/26 due to pseudomonas susceptibilities - Continue PPI, zinc - OSH Yang removed, we had difficulty placing new Yang so purewick is in. We will try to replace Yang at some point to prevent urinary incontinence prolonging wound healing - working well currently but will consider replacing Assessment & Plan (12/27/2024 10:04 AM CDT): Sigmoid adeno iso FAP; s/p chemoradiation, chemotherapy, extensive surgery. Please see PRS c/s note for treatment history 12/20 s/p I&D with Plastic surgery Plan - Plastic surgery consulted: Wound VAC changes MWF per plastic sx - 12/20 OR cultures w pseudomonas and enterococcus. Pt remains HDS - ID consulted, appreciate assistance - Cipro and vanc - > Imipenem on 12/25 due to ESBL klebsiella, added Cipro on 12/26 due to pseudomonas susceptibilities - Continue PPI, zinc - OSH Yang removed, we had difficulty placing new Yang so purewick is in. We will try to replace Yang at some point to prevent urinary incontinence prolonging wound healing Assessment & Plan (12/26/2024 2:00 PM CDT): Sigmoid adeno iso FAP; s/p chemoradiation, chemotherapy, extensive surgery. Please see PRS c/s note for treatment history 12/20 s/p I&D with Plastic surgery Plan - Plastic surgery consulted: Wound VAC changes MWF per plastic sx - 12/20 OR cultures w pseudomonas and enterococcus. Pt remains HDS - ID consulted, appreciate assistance - Cipro and vanc x5 days - > Imipenem on 12/25 due to ESBL klebsiella, added Cipro on 12/26 due to pseudomonas susceptibilities - Continue PPI, zinc - OSH Yang removed, we had difficulty placing new Yang so purewick is in. We will try to replace Yang at some point to prevent urinary incontinence prolonging wound healing Assessment & Plan (12/25/2024 3:25 PM CDT): Sigmoid adeno iso FAP; s/p chemoradiation, chemotherapy, extensive surgery. Please see PRS c/s note for treatment history 12/20 s/p I&D with Plastic surgery Plan - Plastic surgery consulted: Wound VAC changes MWF per plastic sx - 12/20 OR cultures w pseudomonas and enterococcus. Pt remains HDS - ID consulted - Cipro and vanc x5 days - > Imipenem on 12/25 due to ESBL klebsiella - Continue PPI, zinc - OSH Yang removed, we had difficulty placing new Yang so purewick is in. We will try to replace Ayng at some point to prevent urinary incontinence prolonging wound healing Assessment & Plan (12/24/2024 4:25 PM CDT): Sigmoid adeno iso FAP; s/p chemoradiation, chemotherapy, extensive surgery. Please see PRS c/s note for treatment history 12/20 s/p I&D with Plastic surgery Plan - Plastic surgery consulted: Wound VAC changes MWF per plastic sx - 12/20 OR cultures w pseudomonas and enterococcus. Pt remains HDS - Cipro and vanc x5 days - Continue PPI, zinc - OSH Yang removed, we had difficulty placing new Yang so purewick is in. We will try to replace Yang at some point to prevent urinary incontinence prolonging wound healing Assessment & Plan (12/23/2024 1:20 PM CDT): Sigmoid adeno iso FAP; s/p chemoradiation, chemotherapy, extensive surgery. Please see PRS c/s note for treatment history 12/20 s/p I&D with Plastic surgery Plan Plastic surgery consulted: Wound VAC changes MWF per plastic sx 12/20 OR cultures w pseudomonas and enterococcus. Pt remains HDS Cipro and vanc x5 days Continue PPI, zinc OSH Yang removed, we had difficulty placing new Yang so purewick is in. We will try to replace Yang at some point to prevent urinary incontinence prolonging wound healing Assessment & Plan (12/22/2024 8:55 PM CDT): Sigmoid adeno iso FAP; s/p chemoradiation, chemotherapy, extensive surgery. Please see PRS c/s note for treatment history 12/20 s/p I&D with Plastic surgery Plan Plastic surgery consulted: Wound VAC in place Follow up OR cultures; prelim Gram neg bacilli + gram pos cocci. HDS w/o leukocytosis Keflex EOT 12/27 Continue PPI, zinc Exchange outside facility yang Assessment & Plan (12/21/2024 12:56 PM CDT): Sigmoid adeno iso FAP; s/p chemoradiation, chemotherapy, extensive surgery. Please see PRS c/s note for treatment history s/p I&D with Plastic surgery Plan Plastic surgery consulted: Wound VAC in place Follow up OR cultures; prelim Gram neg bacilli + gram pos cocci. HDS w/o leukocytosis Continue PPI, zinc Assessment & Plan (12/20/2024 12:05 PM CDT): Sigmoid adeno iso FAP; s/p chemoradiation, chemotherapy, extensive surgery. Please see PRS c/s note for treatment history Plan Plastic surgery consulted: Plan for OR today Holding antibiotics per plastic requests Continue PPI, zinc Assessment & Plan (12/19/2024 8:44 PM CDT): - Sigmoid adeno iso FAP; s/p chemoradiation, chemotherapy. 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 Due to IV instability we will elect to continue with Lovenox instead of continuous heparin infusion. 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 Due to IV instability we will elect to continue with Lovenox instead of continuous heparin infusion. 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 Due to IV instability we will elect to continue with Lovenox instead of continuous heparin infusion. 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 Due to IV instability we will elect to continue with Lovenox instead of continuous heparin infusion. 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 Due to IV instability we will elect to continue with Lovenox instead of continuous heparin infusion. 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 - Three months of Apixaban > Hold Eliquis iso OR 8; resume afterwards Ileus following gastrointestinal surgery 025 Primary hypertension 11/04/2024 Assessment & Plan (12/30/2024 2:52 PM CDT): Home lisinopril 5 mg Assessment & Plan (12/29/2024 7:59 AM CDT): Home lisinopril 5 mg Assessment & Plan (12/28/2024 7:31 AM CDT): Home lisinopril 5 mg Assessment & Plan (12/27/2024 8:03 AM CDT): Home lisinopril 5 mg Assessment & Plan (12/26/2024 7:40 AM CDT): Home lisinopril 5 mg Assessment & Plan (12/25/2024 7:44 AM CDT): Home lisinopril 5 mg Assessment & Plan (12/24/2024 7:58 AM CDT): Home lisinopril 5 mg Assessment & Plan (12/23/2024 7:33 AM CDT): Home lisinopril 5 mg Assessment & Plan (12/22/2024 12:04 PM CDT): Home lisinopril 5 mg Assessment & Plan (12/21/2024 9:19 AM CDT): Home lisinopril 5 mg Assessment & Plan (12/20/2024 12:05 PM CDT): Home lisinopril 5 mg Assessment & Plan (12/19/2024 8:44 PM CDT): - cont low dose zestril Ileostomy in place 11/01/2024 Assessment & Plan (12/30/2024 2:52 PM CDT): After discussing with Colorectal surgery, Ostomy care per Wound Care Assessment & Plan (12/29/2024 7:59 AM CDT): After discussing with Colorectal surgery, Ostomy care per Wound Care Assessment & Plan (12/28/2024 7:31 AM CDT): After discussing with Colorectal surgery, Ostomy care per Wound Care Assessment & Plan (12/27/2024 8:03 AM CDT): After discussing with Colorectal surgery, Ostomy care per Wound Care Assessment & Plan (12/26/2024 7:40 AM CDT): After discussing with Colorectal surgery, Ostomy care per Wound Care Assessment & Plan (12/25/2024 7:44 AM CDT): After discussing with Colorectal surgery, Ostomy care per Wound Care Assessment & Plan (12/24/2024 7:58 AM CDT): After discussing with Colorectal surgery, Ostomy care per Wound Care Assessment & Plan (12/23/2024 7:33 AM CDT): After discussing with Colorectal surgery, Ostomy care per Wound Care Assessment & Plan (12/22/2024 12:04 PM CDT): After discussing with Colorectal surgery, Ostomy care per Wound Care Assessment & Plan (12/21/2024 9:19 AM CDT): After discussing with Colorectal surgery, Ostomy care per Wound Care Assessment & Plan (12/20/2024 12:05 PM CDT): After discussing with Colorectal surgery, Ostomy care per Wound Care S/P total colectomy 11/01/2024 FAP (familial adenomatous polyposis) 10/21/2024 Rectal cancer 10/21/2024 occurring while us ing intrauterine contraceptive device (IUD) 06/30/2016 Overview (06/30/2016): IUD had migrated to level of endocervix - Removed 06/24/16 without difficulty Supervision of high-risk of young asad igravida 06/30/2016 Overview (06/30/2016): PNL: Ab: GCT: HIV: GBS: Dating: H/H/Plt: Hgb Elec: UDS: QS: CF: Pap: Gc/Chl: UCx: Breast/Bottle: Family Planning: Flu: declined 06/24/16 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 Past Treatment and Therapy Plans No past plan information found. Lifetime Dose Tracking * Chemical Lifetime Dose Automatic Entry Manual Entr y Dose Length Product 1,558 mGy-cm 1,558 mGy-cm 0 mGy-cm
--- OUTSIDE RECORDS SUMMARY | 2025-03-24 15:44 | XMS_ITS | Encounter Summary ---
Author Organization [facility] Address [address] [place] [address] Care Team Providers Care Qa Software Test Engineer Name Role Phone Olman Schofield MD Primary Care Provider [phone] Encounter Details Date Type Department Care Team (Late Contact Info) Description 01/09/2025 Lab Requisition [facility] Laboratory Services [address] [place] [address] [place] [address] [place] [address] Social History Tobacco Use Types Packs/Day Years Used Date Smoking Tobacco: Former Cigarettes 0.3 15 Q uit: 01/10/2021 Smokeless Tobacco: Never Alcohol Use Standard Drinks/Week Comments Never 0 (1 standard drink = 0.6 oz pur e alcohol) Comments Unknown Sex and Gender Information Value Date Recorded Sex Assigned at Not on file 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 Gender Identity Not on file Sexual Orientation Not on file documented as of this encounter Plan of Treatment Upcoming Encounters Date Type Department Care Team (Late Contact Info) Description 03/28/2025 2:00 PM MACHINE WELDER Telephone Check Up [facility] Oncology and Hematology - Manas [address] [facility] [address] [place] [address] Bhavik Rios MD [address] [facility] [address] [place] [address] documented as of this encounter Procedures Procedure Name Priority Date/Time Associated Diagnosis Comments CBC WITH DIFFERENTIAL Routine 01/09/2025 3:15 AM CDT BASIC METABOLIC PANEL Routine 01/09/2025 3:15 AM CDT documented in this encounter Results * (ABNORMAL) CBC WITH DIFFERENTIAL (01/09/2025 3:15 AM CDT) [facility] WBC 5.8 4.0 - 9.8 K/uL 01/09/2025 7:51 AM CDT [facility] RBC 3.73(L) 3.90 - 4.90 M/uL 01/09/2025 7:51 AM CDT [facility] HEMOGLOBIN 10.2(L) 11.8 - 14.8 g/dL 01/09/2025 7:51 AM CDT [facility] HEMATOCRIT 32.4(L) 35.5 - 44.0 % 01/09/2025 7:51 AM CDT [facility] MCV 86.9 82.0 - 99.0 fL 01/09/2025 7:51 AM CDT [facility] MCH 27.3 27.2 - 32.6 pg 01/09/2025 7:51 AM CDT [facility] MCHC 31.5 31.5 - 35.5 g/dL 01/09/2025 7:51 AM CDT [facility] RDW 14.0 11.5 - 14.5 % 01/09/2025 7:51 AM CDT [facility] RDW-STDEV 44.6 37.1 - 48.7 fL 01/09/2025 7:51 AM CDT [facility] PLATELETS 293 140 - 350 K/uL 01/09/2025 7:51 AM CDT [facility] MPV 10.1 9.3 - 12.4 fL 01/09/2025 7:51 AM CDT [facility] NEUTROPHILS 73 % 01/09/2025 7:51 AM CDT [facility] LYMPHOCYTES 12 % 01/09/2025 7:51 AM CDT [facility] MONOCYTES 8 % 01/09/2025 7:51 AM CDT [facility] EOSINOPHILS 6 % 01/09/2025 7:51 AM CDT [facility] BASOPHILS 1 % 01/09/2025 7:51 AM CDT [facility] IMMATURE GRANULOCYTES 0 % 01/09/2025 7:51 AM CDT [facility] NEUTROPHIL ABSOLUTE 4.26 1.90 - 7.00 K/uL 01/09/2025 7:51 AM CDT [facility] LYMPHOCYTE ABSOLUTE 0.69(L) 0.70 - 4.50 K/uL 01/09/2025 7:51 AM CDT [facility] MONOCYTE ABSOLUTE 0.46 0.10 - 1.30 K/uL 01/09/2025 7:51 AM CDT [facility] EOSINOPHIL ABSOLUTE 0.35 0.00 - 0.70 K/uL 01/09/2025 7:51 AM CDT [facility] BASOPHILS ABSOLUTE 0.04 0.00 - 0.20 K/uL 01/09/2025 7:51 AM CDT [facility] IMMATURE GRANULOCYTES ABSOLUTE 0.02 0.00 - 0.03 K/uL 01/09/2025 7:51 AM CDT [facility] Blood Collection / Unknown 01/09/2025 3:15 AM CDT 01/09/2025 7:42 AM CDT us Valerie Mercedes MD HEMATOLOGY ORDERABLES Final Resu lt [facility] CLIA# [id number] [place] [address] * (ABNORMAL) BASIC METABOLIC PANEL (01/09/2025 3:15 AM CDT) SODIUM 139 136 - 145 mmol/L 01/09/2025 8:15 AM CDT [facility] POTASSIUM 3.8 3.4 - 5.1 mmol/L 01/09/2025 8:15 AM CDT [facility] CHLORIDE 97(L) 98 - 107 mmol/L 01/09/2025 8:15 AM T [facility] CO2 26 22 - 29 mmol/L 01/09/2025 8:15 AM T [facility] CALCIUM 9.3 8.6 - 10.4 mg/dL 01/09/2025 8:15 AM CDT [facility] BUN 13 6 - 20 mg/dL 01/09/2025 8:15 AM T [facility] CREATININE 0.46(L) 0.51 - 0.95 mg/dL 01/09/2025 8:15 AM T [facility] GLUCOSE 70(L) 74 - 99 mg/dL 01/09/2025 8:15 AM T [facility] GFR >60 >=60 mL/min/1.7 3 sq meter 01/09/2025 8:15 AM T [facility] Comment:eGFR calculated with 2020 CKD-EPI equation. Vegetarian diet, extremely high or low muscle mass, and may affect results. Cystatin C with Glomerular Filtration Rate is a suitable alternative for these patients. 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 auris. High risk facility. Will need to remain on Enhanced isolation (while hospitalized). Patient is required to be tested at every ED visit/ admission for the following 6 months, and once thereafter ([id number], Rosi auris surveillance screening). If negative screen 6 months, R/O C. auris status can be removed. 12/30/2024 12/30/2024 01/13/2025 8:58 AM C DT Rosi auris Comment:01/09/2025 axilla/groin 01/09/2025 01/09/2025 documented as of this encounter Care Teams Qa Software Test Engineer Relationship Specialty Start Date End Date Olman Schofield MD [address] [place] [phone] PCP - General Family Practice 04/09/24 documented as of this encounter
--- OUTSIDE RECORDS SUMMARY | 2025-03-24 15:44 | XMS_ITS | Encounter Summary ---
Author Organization [facility] Address [address] [place] [address] Care Team Providers Care Hairspring Adjuster Name Role Phone Olman Schofield MD Primary Care Provider [phone] Encounter Details Date Type Department Care Team (Late Contact Info) Description 12/05/2024 Lab Requisition [facility] Laboratory Services [address] [place] [address] [place] [address] [place] [address] Social History Tobacco Use Types Packs/Day Years Used Date Smoking Tobacco: Former Cigarettes 0.3 15 Q uit: 01/10/2021 Smokeless Tobacco: Never Alcohol Use Standard Drinks/Week Comments Never 0 (1 standard drink = 0.6 oz pur e alcohol) Comments Unknown Sex and Gender Information Value Date Recorded Sex Assigned at Not on file 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 Gender Identity Not on file Sexual Orientation Not on file documented as of this encounter Plan of Treatment Upcoming Encounters Date Type Department Care Team (Late Contact Info) Description 03/28/2025 2:00 PM KEG VARNISHER Telephone Check Up [facility] Oncology and Hematology - Manas [address] [facility] [address] [place] [address] Bhavik Rios MD [address] [facility] [address] [place] [address] documented as of this encounter Procedures Procedure Name Priority Date/Time Associated Diagnosis Comments CBC WITH DIFFERENTIAL Routine 12/05/2024 4:00 AM CDT PTT Routine 12/05/2024 4:00 AM CDT PROTIME-INR Routine 12/05/2024 4:00 AM CDT PREALBUMIN Routine 12/05/2024 4:00 AM CDT COMPREHENSIVE METABOLIC PANEL Routine 12/05/2024 4:00 AM CDT documented in this encounter Results * (ABNORMAL) PTT (12/05/2024 4:00 AM CDT) PTT 42.2(H) 23.1 - 37.1 seconds 12/05/2024 8:33 AM CDT [facility] Blood Collection / Unknown 12/05/2024 4:00 AM CDT 12/05/2024 8:06 AM CDT Valerie Mercedes MD HEMATOLOGY ORDERABLES Final Resu lt Performing Organization Address City/[facility]/ZIP Co de Phone Number [facility] CLIA# [id number] [place] [address] * PROTIME-INR (12/05/2024 4:00 AM CDT) PROTIME 14.4 11.5 - 14.7 Seconds 12/05/2024 8:33 AM CDT [facility] INR 1.1 0.9 - 1.1 12/05/2024 8:33 AM CDT [facility] Blood Collection / Unknown 12/05/2024 4:00 AM CDT 12/05/2024 8:06 AM CDT Valerie Mercedes MD HEMATOLOGY ORDERABLES Final Resu lt [facility] CLIA# [id number] [place] [address] * PREALBUMIN (12/05/2024 4:00 AM CDT) PREALBUMIN 21 20 - 40 mg/dL 12/05/2024 3:17 PM CDT [facility] Blood Collection / Unknown 12/05/2024 4:00 AM CDT 12/05/2024 8:06 AM CDT Valerie Mercedes MD CHEMISTRY ORDERABLES Final Resul t [facility] CLIA# [id number] [address] [place] [address] * (ABNORMAL) CBC WITH DIFFERENTIAL (12/05/2024 4:00 AM CDT) Pathologist [facility] WBC 5.7 4.0 - 9.8 K/uL 12/05/2024 8:17 AM CDT [facility] RBC 3.04(L) 3.90 - 4.90 M/uL 12/05/2024 8:17 AM CDT [facility] HEMOGLOBIN 9.1(L) 11.8 - 14.8 g/dL 12/05/2024 8:17 AM CDT [facility] HEMATOCRIT 29.3(L) 35.5 - 44.0 % 12/05/2024 8:17 AM CDT [facility] MCV 96.4 82.0 - 99.0 fL 12/05/2024 8:17 AM CDT [facility] MCH 29.9 27.2 - 32.6 pg 12/05/2024 8:17 AM CDT [facility] MCHC 31.1(L) 31.5 - 35.5 g/dL 12/05/2024 8:17 AM CDT [facility] RDW 15.2(H) 11.5 - 14.5 % 12/05/2024 8:17 AM CDT [facility] RDW-STDEV 53.1(H) 37.1 - 48.7 fL 12/05/2024 8:17 AM CDT [facility] PLATELETS 307 140 - 350 K/uL 12/05/2024 8:17 AM CDT [facility] MPV 9.7 9.3 - 12.4 fL 12/05/2024 8:17 AM CDT [facility] NEUTROPHILS 65 % 12/05/2024 8:17 AM CDT [facility] LYMPHOCYTES 12 % 12/05/2024 8:17 AM CDT [facility] MONOCYTES 13 % 12/05/2024 8:17 AM CDT [facility] EOSINOPHILS 9 % 12/05/2024 8:17 AM CDT [facility] BASOPHILS 1 % 12/05/2024 8:17 AM CDT [facility] IMMATURE GRANULOCYTES 1 % 12/05/2024 8:17 AM CDT [facility] Comment:IG (Immature Granulo cyte) count includes Metamyelocytes, Myelocytes, and Promyelocytes NEUTROPHIL ABSOLUTE 3.68 1.90 - 7.00 K/uL 12/05/2024 8:17 AM CDT [facility] LYMPHOCYTE ABSOLUTE 0.66(L) 0.70 - 4.50 K/uL 12/05/2024 8:17 AM CDT [facility] MONOCYTE ABSOLUTE 0.74 0.10 - 1.30 K/uL 12/05/2024 8:17 AM CDT [facility] EOSINOPHIL ABSOLUTE 0.50 0.00 - 0.70 K/uL 12/05/2024 8:17 AM CDT [facility] BASOPHILS ABSOLUTE 0.06 0.00 - 0.20 K/uL 12/05/2024 8:17 AM CDT [facility] IMMATURE GRANULOCYTES ABSOLUTE 0.03 0.00 - 0.03 K/uL 12/05/2024 8:17 AM T [facility] Blood Collection / Unknown 12/05/2024 4:00 AM CDT 12/05/2024 8:06 AM CDT us Vlaerie Mercedes MD HEMATOLOGY ORDERABLES Final Resu lt [facility] CLIA# [id number] [place] [address] * (ABNORMAL) COMPREHENSIVE METABOLIC PANEL (12/05/2024 4:00 AM CDT) Pathologist [facility] SODIUM 138 136 - 145 mmol/L 12/05/2024 8:37 AM CDT [facility] POTASSIUM 3.7 3.4 - 5.1 mmol/L 12/05/2024 8:37 AM CDT [facility] CHLORIDE 100 98 - 107 mmol/L 12/05/2024 8:37 AM CDT [facility] CO2 27 22 - 29 mmol/L 12/05/2024 8:37 AM CDT [facility] CALCIUM 9.5 8.6 - 10.4 mg/dL 12/05/2024 8:37 AM CDT [facility] BUN 9 6 - 20 mg/dL 12/05/2024 8:37 AM CDT [facility] CREATININE 0.42(L) 0.51 - 0.95 mg/dL 12/05/2024 8:37 AM T [facility] GLUCOSE 84 74 - 99 mg/dL 12/05/2024 8:37 AM CDT [facility] TOTAL PROTEIN 7.0 6.3 - 8.7 g/dL 12/05/2024 8:37 AM CDT [facility] ALBUMIN 3.3(L) 3.5 - 5.2 g/dL 12/05/2024 8:37 AM CDT [facility] BILIRUBIN TOTAL 0.3 0.0 - 1.2 mg/dL 12/05/2024 8:37 AM CDT [facility] ALKALINE PHOSPHATASE 202(H) 40 - 150 U/L 12/05/2024 8:37 AM CDT [facility] AST 49(H) 0 - 33 U/L 12/05/2024 8:37 AM CDT [facility] ALT 62(H) 0 - 33 U/L 12/05/2024 8:37 AM CDT [facility] GFR >60 >=60 mL/min/1.7 3 sq meter 12/05/2024 8:37 AM T [facility] Comment:eGFR calculated with 2020 CKD-EPI equation. Vegetarian diet, extremely high or low muscle mass, and may affect results. Cystatin C with Glomerular Filtration Rate is a suitable alternative for these patients. 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 auris. High risk facility. Will need to remain on Enhanced isolation (while hospitalized). Patient is required to be tested at every ED visit/ admission for the following 6 months, and once thereafter ([id number], Rosi auris surveillance screening). If negative screen 6 months, R/O C. auris status can be removed. 12/30/2024 12/30/2024 01/13/2025 8:58 AM C DT Rosi auris Comment:01/09/2025 axilla/groin 01/09/2025 01/09/2025 documented as of this encounter Care Teams Hairspring Adjuster Relationship Specialty Start Date End Date Olman Shcofield MD [address] [place] [phone] PCP - General Family Practice 04/09/24 documented as of this encounter
--- OUTSIDE RECORDS SUMMARY | 2025-03-24 15:44 | XMS_ITS | Encounter Summary ---
Author Organization [facility] Address [address] [place] [address] Care Team Providers Care Color Blender Name Role Phone Olman Schofield MD Primary Care Provider [phone] Encounter Details Date Type Department Care Team (Late Contact Info) Description 12/31/2024 Lab Requisition [facility] Laboratory Services [address] [place] [address] [place] [address] [place] [address] Social History Tobacco Use Types Packs/Day Years Used Date Smoking Tobacco: Former Cigarettes 0.3 15 Q uit: 01/10/2021 Smokeless Tobacco: Never Alcohol Use Standard Drinks/Week Comments Never 0 (1 standard drink = 0.6 oz pur e alcohol) Comments Unknown Sex and Gender Information Value Date Recorded Sex Assigned at Not on file 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 Gender Identity Not on file Sexual Orientation Not on file documented as of this encounter Plan of Treatment Upcoming Encounters Date Type Department Care Team (Late Contact Info) Description 03/28/2025 2:00 PM METAL TILE SETTER Telephone Check Up [facility] Oncology and Hematology - Manas [address] [facility] [address] [place] [address] Bhavik Rios MD [address] [facility] [address] [place] [address] documented as of this encounter Procedures Procedure Name Priority Date/Time Associated Diagnosis Comments CBC WITH DIFFERENTIAL Routine 12/31/2024 4:00 AM CDT PTT Routine 12/31/2024 4:00 AM CDT PROTIME-INR Routine 12/31/2024 4:00 AM CDT PREALBUMIN Routine 12/31/2024 4:00 AM CDT COMPREHENSIVE METABOLIC PANEL Routine 12/31/2024 4:00 AM CDT documented in this encounter Results * (ABNORMAL) PREALBUMIN (12/31/2024 4:00 AM CDT) PREALBUMIN 17(L) 20 - 40 mg/dL 12/31/2024 11:06 AM CDT [facility]AT[facility] Blood Collection / Unknown 12/31/2024 4:00 AM CDT 12/31/2024 7:45 AM CDT Valerie Mercedes MD CHEMISTRY ORDERABLES Final Resul t Performing Organization Address City/[facility]/ZIP Co de Phone Number [facility] Dataminr [facility] CLIA# [id number] [address] [place] [address] * (ABNORMAL) PTT (12/31/2024 4:00 AM CDT) PTT 38.4(H) 23.1 - 37.1 seconds 12/31/2024 8:13 AM CDT [facility]ORATORY [facility] Blood Collection / Unknown 12/31/2024 4:00 AM CDT 12/31/2024 7:45 AM CDT Valerie Mercedes MD HEMATOLOGY ORDERABLES Final Resu lt [facility]ORATORY [facility] CLIA# [id number] [address] [place] [address] * (ABNORMAL) PROTIME-INR (12/31/2024 4:00 AM CDT) PROTIME 15.2(H) 11.5 - 14.7 Seconds 12/31/2024 8:13 AM CDT [facility] INR 1.2(H) 0.9 - 1.1 12/31/2024 8:13 AM CDT [facility] Blood Collection / Unknown 12/31/2024 4:00 AM CDT 12/31/2024 7:45 AM CDT us Valerie Mercedes MD HEMATOLOGY ORDERABLES Final Resu lt [facility] CLIA# [id number] [place] [address] * (ABNORMAL) CBC WITH DIFFERENTIAL (12/31/2024 4:00 AM CDT) [facility] WBC 6.6 4.0 - 9.8 K/uL 12/31/2024 8:08 AM CDT [facility] Dataminr [facility] RBC 3.46(L) 3.90 - 4.90 M/uL 12/31/2024 8:08 AM CDT [facility] HEMOGLOBIN 9.6(L) 11.8 - 14.8 g/dL 12/31/2024 8:08 AM CDT [facility] HEMATOCRIT 30.6(L) 35.5 - 44.0 % 12/31/2024 8:08 AM CDT [facility] MCV 88.4 82.0 - 99.0 fL 12/31/2024 8:08 AM CDT [facility] Dataminr [facility] MCH 27.7 27.2 - 32.6 pg 12/31/2024 8:08 AM CDT [facility] MCHC 31.4(L) 31.5 - 35.5 g/dL 12/31/2024 8:08 AM CDT [facility] Dataminr [facility] RDW 14.0 11.5 - 14.5 % 12/31/2024 8:08 AM CDT [facility] Dataminr [facility] RDW-STDEV 44.9 37.1 - 48.7 fL 12/31/2024 8:08 AM CDT [facility] LABORATORY [facility] PLATELETS 348 140 - 350 K/uL 12/31/2024 8:08 AM [facility]AT[facility] MPV 9.7 9.3 - 12.4 fL 12/31/2024 8:08 AM T [facility] NEUTROPHILS 79 % 12/31/2024 8:08 AM T [facility] LABORATORY [facility] LYMPHOCYTES 9 % 12/31/2024 8:08 AM T [facility] MONOCYTES 7 % 12/31/2024 8:08 AM T [facility]OR[facility] EOSINOPHILS 4 % 12/31/2024 8:08 AM [facility] BASOPHILS 0 % 12/31/2024 8:[address] [facility] IMMATURE GRANULOCYTES 1 % 12/31/2024 8:08 AM [facility]OR[facility] Comment:IG (Immature Granulo cyte) count includes Metamyelocytes, Myelocytes, and Promyelocytes NEUTROPHIL ABSOLUTE 5.19 1.90 - 7.00 K/uL 12/31/2024 8:[address] [facility] LYMPHOCYTE ABSOLUTE 0.62(L) 0.70 - 4.50 K/uL 12/31/2024 8:[address] [facility] MONOCYTE ABSOLUTE 0.48 0.10 - 1.30 K/uL 12/31/2024 8:08 AM [facility] EOSINOPHIL ABSOLUTE 0.23 0.00 - 0.70 K/uL 12/31/2024 8:08 AM [facility] BASOPHILS ABSOLUTE 0.02 0.00 - 0.20 K/uL 12/31/2024 8:08 AM [facility] IMMATURE GRANULOCYTES ABSOLUTE 0.03 0.00 - 0.03 K/uL 12/31/2024 8:[address] [facility] Blood Collection / Unknown 12/31/2024 4:00 AM CDT 12/31/2024 7:45 AM CDT us Valerie Mercedes MD HEMATOLOGY ORDERABLES Final Resu lt [facility] CLIA# [id number] [place] [address] * (ABNORMAL) COMPREHENSIVE METABOLIC PANEL (12/31/2024 4:00 AM CDT) Pathologist [facility] SODIUM 139 136 - 145 mmol/L 12/31/2024 8:42 AM CDT [facility] POTASSIUM 3.8 3.4 - 5.1 mmol/L 12/31/2024 8:42 AM CDT [facility] LAB[facility] CHLORIDE 102 98 - 107 mmol/L 12/31/2024 8:42 AM CDT [facility] CO2 25 22 - 29 mmol/L 12/31/2024 8:42 AM CDT [facility] CALCIUM 9.6 8.6 - 10.4 mg/dL 12/31/2024 8:42 AM CDT [facility] BUN 11 6 - 20 mg/dL 12/31/2024 8:42 AM CDT [facility] CREATININE 0.50(L) 0.51 - 0.95 mg/dL 12/31/2024 8:42 AM T [facility] GLUCOSE 74 74 - 99 mg/dL 12/31/2024 8:42 AM T [facility] TOTAL PROTEIN 6.6 6.3 - 8.7 g/dL 12/31/2024 8:42 AM CDT [facility] ALBUMIN 3.2(L) 3.5 - 5.2 g/dL 12/31/2024 8:42 AM CDT [facility] BILIRUBIN TOTAL 0.2 0.0 - 1.2 mg/dL 12/31/2024 8:42 AM CDT [facility] ALKALINE PHOSPHATASE 155(H) 40 - 150 U/L 12/31/2024 8:42 AM CDT [facility] AST 36(H) 0 - 33 U/L 12/31/2024 8:42 AM CDT [facility] ALT 35(H) 0 - 33 U/L 12/31/2024 8:42 AM CDT [facility] GFR >60 >=60 mL/min/1.7 3 sq meter 12/31/2024 8:42 AM CDT [facility] Comment:eGFR calculated with 2020 CKD-EPI equation. Vegetarian diet, extremely high or low muscle mass, and may affect results. Cystatin C with Glomerular Filtration Rate is a suitable alternative for these patients. 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 auris. High risk facility. Will need to remain on Enhanced isolation (while hospitalized). Patient is required to be tested at every ED visit/ admission for the following 6 months, and once thereafter ([id number], Rosi auris surveillance screening). If negative screen 6 months, R/O C. auris status can be removed. 12/30/2024 12/30/2024 01/13/2025 8:58 AM C DT Rosi auris Comment:01/09/2025 axilla/groin 01/09/2025 01/09/2025 documented as of this encounter Care Teams Color Blender Relationship Specialty Start Date End Date Olman Schofield MD [address] [place] [phone] PCP - General Family Practice 04/09/24 documented as of this encounter
--- OUTSIDE RECORDS SUMMARY | 2025-03-24 15:44 | XMS_ITS | Encounter Summary ---
Author Organization [facility] Address [address] [place] [address] Care Team Providers Care Take Off Worker Name Role Phone Olman Schofield MD Primary Care Provider [phone] Encounter Details Date Type Department Care Team (Late Contact Info) Description 01/06/2025 Lab Requisition [facility] Laboratory Services [address] [place] [address] [place] [address] [address] Social History Tobacco Use Types Packs/Day Years Used Date Smoking Tobacco: Former Cigarettes 0.3 15 Q uit: 01/10/2021 Smokeless Tobacco: Never Alcohol Use Standard Drinks/Week Comments Never 0 (1 standard drink = 0.6 oz pur e alcohol) Comments Unknown Sex and Gender Information Value Date Recorded Sex Assigned at Not on file Legal Sex Female 11:34 AM FREEZER TUNNEL OPERATOR Gender Identity Not on file Sexual Orientation Not on file documented as of this encounter Plan of Treatment Upcoming Encounters Date Type Department Care Team (Late st Contact Info) Description 03/28/2025 2:00 PM FREEZER TUNNEL OPERATOR Telephone Check Up [facility] Oncology and Hematology - [place] [address] [facility] [address] [place] [address] Bhavik Rios MD [address] [facility] [address] [place] [address] documented as of this encounter Procedures Procedure Name Priority Date/Time Associated Diagnosis Comments CBC WITH DIFFERENTIAL Routine 01/06/2025 4:35 AM CDT BASIC METABOLIC PANEL Routine 01/06/2025 4:35 AM CDT documented in this encounter Results * (ABNORMAL) CBC WITH DIFFERENTIAL (01/06/2025 4:35 AM CDT) [facility] WBC 5.6 4.0 - 9.8 K/uL 01/06/2025 6:07 AM CDT [facility] RBC 3.62(L) 3.90 - 4.90 M/uL 01/06/2025 6:07 AM CDT [facility] [[email or web address]] HEMOGLOBIN 9.9(L) 11.8 - 14.8 g/dL 01/06/2025 6:07 AM CDT [facility] [[email or web address]] HEMATOCRIT 31.6(L) 35.5 - 44.0 % 01/06/2025 6:07 AM CDT [facility] [[email or web address]] MCV 87.3 82.0 - 99.0 fL 01/06/2025 6:07 AM CDT [facility] [[email or web address]] MCH 27.3 27.2 - 32.6 pg 01/06/2025 6:07 AM CDT [facility] [[email or web address]] MCHC 31.3(L) 31.5 - 35.5 g/dL 01/06/2025 6:07 AM CDT [facility] [[email or web address]] RDW 14.0 11.5 - 14.5 % 01/06/2025 6:07 AM CDT [facility] RDW-STDEV 45.2 37.1 - 48.7 fL 01/06/2025 6:07 AM CDT [facility] [[email or web address]] PLATELETS 362(H) 140 - 350 K/uL 01/06/2025 6:07 AM CDT [facility] [[email or web address]] MPV 10.0 9.3 - 12.4 fL 01/06/2025 6:07 AM CDT [facility] NEUTROPHILS 71 % 01/06/2025 6:07 AM CDT [facility] [[email or web address]] LYMPHOCYTES 15 % 01/06/2025 6:07 AM CDT [facility] MONOCYTES 7 % 01/06/2025 6:07 AM CDT [facility] EOSINOPHILS 7 % 01/06/2025 6:07 AM CDT [facility] BASOPHILS 1 % 01/06/2025 6:07 AM CDT [facility] IMMATURE GRANULOCYTES 0 % 01/06/2025 6:07 AM CDT [facility] NEUTROPHIL ABSOLUTE 3.98 1.90 - 7.00 K/uL 01/06/2025 6:07 AM CDT [facility] LYMPHOCYTE ABSOLUTE 0.82 0.70 - 4.50 K/uL 01/06/2025 6:07 AM CDT [facility] MONOCYTE ABSOLUTE 0.37 0.10 - 1.30 K/uL 01/06/2025 6:07 AM CDT [facility] EOSINOPHIL ABSOLUTE 0.41 0.00 - 0.70 K/uL 01/06/2025 6:07 AM CDT [facility] BASOPHILS ABSOLUTE 0.04 0.00 - 0.20 K/uL 01/06/2025 6:07 AM CDT [facility] IMMATURE GRANULOCYTES ABSOLUTE 0.01 0.00 - 0.03 K/uL 01/06/2025 6:07 AM CDT [facility] Blood Collection / Unknown 01/06/2025 4:35 AM CDT 01/06/2025 5:25 AM CDT us Lisa Johns DO HEMATOLOGY ORDERABLES Final Res ult [facility] [[email or web address]] CLIA# [id number] [place] [address] * (ABNORMAL) BASIC METABOLIC PANEL (01/06/2025 4:35 AM CDT) SODIUM 139 136 - 145 mmol/L 01/06/2025 7:13 AM CDT [facility] [[email or web address]] POTASSIUM 4.1 3.4 - 5.1 mmol/L 01/06/2025 7:13 AM T [facility] [[email or web address]] CHLORIDE 104 98 - 107 mmol/L 01/06/2025 7:13 AM T [facility] [[email or web address]] CO2 24 22 - 29 mmol/L 01/06/2025 7:13 AM T [facility] [[email or web address]] CALCIUM 9.8 8.6 - 10.4 mg/dL 01/06/2025 7:13 AM T [facility] [[email or web address]] BUN 14 6 - 20 mg/dL 01/06/2025 7:13 AM T [facility] [[email or web address]] CREATININE 0.47(L) 0.51 - 0.95 mg/dL 01/06/2025 7:13 AM T [facility] [[email or web address]] GLUCOSE 71(L) 74 - 99 mg/dL 01/06/2025 7:13 AM [facility] GFR >60 >=60 mL/min/1.7 3 sq meter 01/06/2025 7:13 AM [facility] Comment:eGFR calculated with 2020 CKD-EPI equation. Vegetarian diet, extremely high or low muscle mass, and may affect results. Cystatin C with Glomerular Filtration Rate is a suitable alternative for these patients. 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 auris. High risk facility. Will need to remain on Enhanced isolation (while hospitalized). Patient is required to be tested at every ED visit/ admission for the following 6 months, and once thereafter ([id number], Rosi auris surveillance screening). If negative screen 6 months, R/O C. auris status can be removed. 12/30/2024 12/30/2024 01/13/2025 8:58 AM C DT Rosi auris Comment:01/09/2025 axilla/groin 01/09/2025 01/09/2025 documented as of this encounter Care Teams Take Off Worker Relationship Specialty Start Date End Date Olman Schofield MD [address] [place] [phone] PCP - General Family Practice 04/09/24 documented as of this encounter
--- OUTSIDE RECORDS SUMMARY | 2025-03-24 15:44 | XMS_ITS | Encounter Summary ---
Author Organization [facility] Address [address] [place] [address] Care Team Providers Care Hand Roller Engraver Name Role Phone Olman Schofield MD Primary Care Provider [phone] Encounter Details Date Type Department Care Team (Late Contact Info) Description 12/17/2024 Lab Requisition [facility] Laboratory Services [address] [place] [address] [place] [address] [address] Social History Tobacco Use Types Packs/Day Years Used Date Smoking Tobacco: Former Cigarettes 0.3 15 Q uit: 01/10/2021 Smokeless Tobacco: Never Alcohol Use Standard Drinks/Week Comments Never 0 (1 standard drink = 0.6 oz pur e alcohol) Comments Unknown Sex and Gender Information Value Date Recorded Sex Assigned at Not on file Legal Sex Female 11:34 AM CRISIS MANAGER Gender Identity Not on file Sexual Orientation Not on file documented as of this encounter Plan of Treatment Upcoming Encounters Date Type Department Care Team (Late st Contact Info) Description 03/28/2025 2:00 PM CRISIS MANAGER Telephone Check Up [facility] Oncology and Hematology - [place] [address] [facility] [address] [place] [address] Bhavik Rios MD [address] [facility] [address] [place] [address] documented as of this encounter Procedures Procedure Name Priority Date/Time Associated Diagnosis Comments CBC WITH DIFFERENTIAL Routine 12/17/2024 3:30 AM CDT BASIC METABOLIC PANEL Routine 12/17/2024 3:30 AM CDT documented in this encounter Results * (ABNORMAL) CBC WITH DIFFERENTIAL (12/17/2024 3:30 AM CDT) [facility] WBC 6.6 4.0 - 9.8 K/uL 12/17/2024 6:09 AM CDT [facility] RBC 3.73(L) 3.90 - 4.90 M/uL 12/17/2024 6:09 AM CDT [facility] HEMOGLOBIN 10.8(L) 11.8 - 14.8 g/dL 12/17/2024 6:09 AM CDT [facility] HEMATOCRIT 34.1(L) 35.5 - 44.0 % 12/17/2024 6:09 AM CDT [facility] MCV 91.4 82.0 - 99.0 fL 12/17/2024 6:09 AM CDT [facility] MCH 29.0 27.2 - 32.6 pg 12/17/2024 6:09 AM CDT [facility] MCHC 31.7 31.5 - 35.5 g/dL 12/17/2024 6:09 AM CDT [facility] Write.my [facility] RDW 13.8 11.5 - 14.5 % 12/17/2024 6:09 AM CDT [facility] RDW-STDEV 46.8 37.1 - 48.7 fL 12/17/2024 6:09 AM CDT [facility] PLATELETS 304 140 - 350 K/uL 12/17/2024 6:09 AM CDT [facility] Write.my [facility] MPV 9.7 9.3 - 12.4 fL 12/17/2024 6:09 AM CDT [facility] NEUTROPHILS 76 % 12/17/2024 6:09 AM CDT [facility] LYMPHOCYTES 9 % 12/17/2024 6:09 AM CDT [facility] MONOCYTES 9 % 12/17/2024 6:09 AM CDT [facility] EOSINOPHILS 4 % 12/17/2024 6:09 AM CDT [facility] BASOPHILS 1 % 12/17/2024 6:09 AM CDT [facility] IMMATURE GRANULOCYTES 0 % 12/17/2024 6:09 AM CDT [facility] NEUTROPHIL ABSOLUTE 5.02 1.90 - 7.00 K/uL 12/17/2024 6:09 AM CDT [facility] LYMPHOCYTE ABSOLUTE 0.62(L) 0.70 - 4.50 K/uL 12/17/2024 6:09 AM CDT [facility] MONOCYTE ABSOLUTE 0.62 0.10 - 1.30 K/uL 12/17/2024 6:09 AM CDT [facility] EOSINOPHIL ABSOLUTE 0.26 0.00 - 0.70 K/uL 12/17/2024 6:09 AM CDT [facility] BASOPHILS ABSOLUTE 0.05 0.00 - 0.20 K/uL 12/17/2024 6:09 AM CDT [facility] IMMATURE GRANULOCYTES ABSOLUTE 0.02 0.00 - 0.03 K/uL 12/17/2024 6:09 AM CDT [facility] Blood Collection / Unknown 12/17/2024 3:30 AM CDT 12/17/2024 5:30 AM CDT us Lisa Johns DO HEMATOLOGY ORDERABLES Final Res ult [facility] CLIA# [id number] [place] [id number] * (ABNORMAL) BASIC METABOLIC PANEL (12/17/2024 3:30 AM CDT) SODIUM 140 136 - 145 mmol/L 12/17/2024 6:23 AM CDT [facility] POTASSIUM 3.6 3.4 - 5.1 mmol/L 12/17/2024 6:23 AM CDT [facility] CHLORIDE 102 98 - 107 mmol/L 12/17/2024 6:23 AM T [facility] CO2 25 22 - 29 mmol/L 12/17/2024 6:23 AM T [facility] CALCIUM 10.3 8.6 - 10.4 mg/dL 12/17/2024 6:23 AM T [facility] BUN 16 6 - 20 mg/dL 12/17/2024 6:23 AM T [facility] CREATININE 0.47(L) 0.51 - 0.95 mg/dL 12/17/2024 6:23 AM T [facility] GLUCOSE 89 74 - 99 mg/dL 12/17/2024 6:23 AM [facility] GFR >60 >=60 mL/min/1.7 3 sq meter 12/17/2024 6:23 AM [facility] Comment:eGFR calculated with 2020 CKD-EPI equation. Vegetarian diet, extremely high or low muscle mass, and may affect results. Cystatin C with Glomerular Filtration Rate is a suitable alternative for these patients. 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 auris. High risk facility. Will need to remain on Enhanced isolation (while hospitalized). Patient is required to be tested at every ED visit/ admission for the following 6 months, and once thereafter ([id number], Rosi auris surveillance screening). If negative screen 6 months, R/O C. auris status can be removed. 12/30/2024 12/30/2024 01/13/2025 8:58 AM C DT Rosi auris Comment:01/09/2025 axilla/groin 01/09/2025 01/09/2025 documented as of this encounter Care Teams Hand Roller Engraver Relationship Specialty Start Date End Date Olman Schofield MD [address] [place] [phone] PCP - General Family Practice 04/09/24 documented as of this encounter
--- OUTSIDE RECORDS SUMMARY | 2025-03-24 15:44 | XMS_ITS | Encounter Summary ---
Author Organization [facility] Address [address] [place] [address] Care Team Providers Care Manager Long Term Care Name Role Phone Olman Schofield MD Primary Care Provider [phone] Andreina Paez Primary Care Provider Reason for Visit * Reason Onset Date Comments Referral 04/30/2024 Establish Care 04/30/2024 Encounter Details Date Type Department Care Team (Late st Contact Info) Description 04/30/2024 Telephone [facility] - Centralized Scheduling [address] [place] [address] Josie Luis MD [address] [phone] Referral; Establish Care Social History Tobacco Use Types Packs/Day Years Used Date Smoking Tobacco: Former Cigarettes Smokeless Tobacco: Never Alcohol Use Standard Drinks/Week Comments Yes 0 (1 standard drink = 0.6 oz pur e alcohol) PHQ-2 Answer Date Recorded Patient Health Questionnaire-2 Score 0 05/02/2024 Comments No Sex and Gender Information Value Date Recorded Sex Assigned at Not on file Legal Sex Female 3:07 PM WIRELINE OPERATOR Gender Identity Not on file Sexual Orientation Not on file documented as of this encounter Functional Status * Over the past 2 weeks, how often have you been bothered by any of the following problems? Question Answer Date of Assessment Author Patient Health Questionnaire-2 Score 0 05/02/2024 10:26 AM WIRELINE OPERATOR Fermint, Proce ss Support User * Little interest or pleasure in doing things Answer Date of Assessment Author Not at all 05/02/2024 10:26 AM WIRELINE OPERATOR Mychart, Process Support User * Feeling down, depressed, or hopeless Answer Date of Assessment Author Not at all 05/02/2024 10:26 AM WIRELINE OPERATOR Mychart, Process Support User documented as of this encounter Miscellaneous Notes * Telephone Encounter - Izzy Cox - 05/01/2024 11:18 AM CST New patient scheduled with gynecologic oncology. Patient scheduled with: Dr. Luis Provider referring the patient: Dr. Selby Reason/diagnosis for referral: Surgical consult Spoke with patient on: 05/01/2024 Patient agrees to appointment on: 05/07/2024 Map and appointment info mailed to patient. Patient is aware of location, date and time. LINE OPERATOR * Telephone Encounter - Rekha Chase - 04/30/2024 10:54 AM CST ATTENTION STAFF TAKING THE INITIAL CALL: Please follow the workflow below for all NEW HAND TOOL LAPPER/ONC patient calls. Climax the patient. If they are not in system, it is MANDATORY that you register them completely including insurance. Gather and document all the information listed below from the caller Referring provider: Tracey Esteban MD Diagnosis: Rectal cancer (HCC) Requesting appointment with DrChino: Josie Luis MD personal lines sales executive at referring provider's office: Who should be contacted for scheduling (ie self, family member, guardian, etc.): Best contact number for scheduling: ([phone] ) Ask for records to be faxed to [phone] that same day. If the referring provider is an [facility] provider and their records are already viewable in [facility], do NOT ask for them to be faxed. Inform the caller you are forwarding this information to the HAND TOOL LAPPER/ONC New Patient Intake Coordinatorfor review and someone from the team will be reaching out within one business day of the records being received to help schedule the appointment. If the patient or referring provider asks to speak with someone in the office at the time of the call, first finish gathering and documenting the above required information, tell the caller if no oneanswers they can leave a message and their call should be returned within one business day, and then transfer the call to [phone]. Forward this encounter to the [facility] HAND TOOL LAPPER ONC NEW PATIENTS pool ([id number]). LINE OPERATOR documented in this encounter Plan of Treatment Upcoming Encounters Date Type Department Care Team (Late st Contact Info) Description 03/26/2025 12:15 PM WIRELINE OPERATOR Office Visit [facility] - Plastic Surgery [address] [place] [address], [place] [phone] Mario Rodríguez MD [address] [place] [address] [address] [place] [address] 04/01/2025 2:30 PM WIRELINE OPERATOR Clinical Support [facility] - ROLLER SHOP SUPERVISOR [address] [facility] [address] [place] [address] Josie Luis MD [address] [facility] [address] [place] [address] documented as of this encounter Visit Diagnoses Not on filedocumented in this encounter Additional Health Concerns Infection Onset Date Last Indicated Resolved 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
--- OUTSIDE RECORDS SUMMARY | 2025-03-24 15:44 | XMS_ITS | Encounter Summary ---
Author Organization [facility] Address [address] [place] [address] Care Team Providers Care Chute Greaser Name Role Phone Olman Schofield MD Primary Care Provider [phone] Encounter Details Date Type Department Care Team (Late Contact Info) Description 12/08/2024 Lab Requisition [facility] Laboratory Services [id number] [place] [address] [place] [address] [place] [address] Social History Tobacco Use Types Packs/Day Years Used Date Smoking Tobacco: Former Cigarettes 0.3 15 Q uit: 01/10/2021 Smokeless Tobacco: Never Alcohol Use Standard Drinks/Week Comments Never 0 (1 standard drink = 0.6 oz pur e alcohol) Comments Unknown Sex and Gender Information Value Date Recorded Sex Assigned at Not on file Legal Sex Female 11:34 AM PHOTOVOLTAIC FABRICATION TECHNICIAN Gender Identity Not on file Sexual Orientation Not on file documented as of this encounter Plan of Treatment Upcoming Encounters Date Type Department Care Team (Late Contact Info) Description 03/28/2025 2:00 PM PHOTOVOLTAIC FABRICATION TECHNICIAN Telephone Check Up [facility] Oncology and Hematology - [place] [address] [facility] [address] [place] [address] Bhavik Rios MD [address] [facility] [address] [place] [address] documented as of this encounter Procedures Procedure Name Priority Date/Time Associated Diagnosis Comments CBC WITH DIFFERENTIAL Routine 12/08/2024 4:00 AM CDT BASIC METABOLIC PANEL Routine 12/08/2024 4:00 AM CDT documented in this encounter Results * (ABNORMAL) CBC WITH DIFFERENTIAL (12/08/2024 4:00 AM CDT) [facility] WBC 5.8 4.0 - 9.8 K/uL 12/08/2024 7:29 AM CDT [facility] RBC 3.34(L) 3.90 - 4.90 M/uL 12/08/2024 7:29 AM CDT [facility] HEMOGLOBIN 9.8(L) 11.8 - 14.8 g/dL 12/08/2024 7:29 AM CDT [facility] HEMATOCRIT 31.2(L) 35.5 - 44.0 % 12/08/2024 7:29 AM CDT [facility] MCV 93.4 82.0 - 99.0 fL 12/08/2024 7:29 AM CDT [facility] MCH 29.3 27.2 - 32.6 pg 12/08/2024 7:29 AM CDT [facility] MCHC 31.4(L) 31.5 - 35.5 g/dL 12/08/2024 7:29 AM CDT [facility] RDW 14.6(H) 11.5 - 14.5 % 12/08/2024 7:29 AM CDT [facility] RDW-STDEV 50.0(H) 37.1 - 48.7 fL 12/08/2024 7:29 AM CDT [facility] PLATELETS 347 140 - 350 K/uL 12/08/2024 7:29 AM CDT [facility] MPV 9.6 9.3 - 12.4 fL 12/08/2024 7:29 AM CDT [facility] NEUTROPHILS 70 % 12/08/2024 7:29 AM CDT [facility] LYMPHOCYTES 11 % 12/08/2024 7:29 AM CDT [facility] MONOCYTES 10 % 12/08/2024 7:29 AM CDT [facility] EOSINOPHILS 8 % 12/08/2024 7:29 AM CDT [facility] BASOPHILS 1 % 12/08/2024 7:29 AM CDT [facility] IMMATURE GRANULOCYTES 0 % 12/08/2024 7:29 AM CDT [facility] NEUTROPHIL ABSOLUTE 4.10 1.90 - 7.00 K/uL 12/08/2024 7:29 AM CDT [facility] LYMPHOCYTE ABSOLUTE 0.62(L) 0.70 - 4.50 K/uL 12/08/2024 7:29 AM CDT [facility] MONOCYTE ABSOLUTE 0.58 0.10 - 1.30 K/uL 12/08/2024 7:29 AM CDT [facility] EOSINOPHIL ABSOLUTE 0.45 0.00 - 0.70 K/uL 12/08/2024 7:29 AM CDT [facility] BASOPHILS ABSOLUTE 0.05 0.00 - 0.20 K/uL 12/08/2024 7:29 AM CDT [facility] IMMATURE GRANULOCYTES ABSOLUTE 0.02 0.00 - 0.03 K/uL 12/08/2024 7:29 AM CDT [facility] Blood Collection / Unknown 12/08/2024 4:00 AM CDT 12/08/2024 7:06 AM CDT us Valerie Mercedes MD HEMATOLOGY ORDERABLES Final Resu lt [facility] CLIA# [id number] [place] [address] * (ABNORMAL) BASIC METABOLIC PANEL (12/08/2024 4:00 AM CDT) SODIUM 138 136 - 145 mmol/L 12/08/2024 7:53 AM CDT [facility] POTASSIUM 3.7 3.4 - 5.1 mmol/L 12/08/2024 7:53 AM T [facility] CHLORIDE 101 98 - 107 mmol/L 12/08/2024 7:53 AM [facility] CO2 24 22 - 29 mmol/L 12/08/2024 7:53 AM T [facility] CALCIUM 9.2 8.6 - 10.4 mg/dL 12/08/2024 7:53 AM [facility] BUN 16 6 - 20 mg/dL 12/08/2024 7:53 AM [facility] CREATININE 0.39(L) 0.51 - 0.95 mg/dL 12/08/2024 7:53 AM [facility] GLUCOSE 107(H) 74 - 99 mg/dL 12/08/2024 7:53 AM [facility] GFR >60 >=60 mL/min/1.7 3 sq meter 12/08/2024 7:53 AM [facility] Comment:eGFR calculated with 2020 CKD-EPI equation. Vegetarian diet, extremely high or low muscle mass, and may affect results. Cystatin C with Glomerular Filtration Rate is a suitable alternative for these patients. 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 auris. High risk facility. Will need to remain on Enhanced isolation (while hospitalized). Patient is required to be tested at every ED visit/ admission for the following 6 months, and once thereafter ([id number], Rosi auris surveillance screening). If negative screen 6 months, R/O C. auris status can be removed. 12/30/2024 12/30/2024 01/13/2025 8:58 AM C DT Rosi auris Comment:01/09/2025 axilla/groin 01/09/2025 01/09/2025 documented as of this encounter Care Teams Chute Greaser Relationship Specialty Start Date End Date Olman Schofield MD [address] [place] [id number] PCP - General Family Practice 04/09/24 documented as of this encounter
--- OUTSIDE RECORDS SUMMARY | 2025-03-24 15:44 | XMS_ITS | Clinical Summary ---
Author Organization [facility] Address [address] [place] [address] Care Team Providers Care Baggage Screener Name Role Phone Andreina Paez HEALTH AND SOCIAL CARE TEACHER-FITNESS STUDIES TEACHER Primary Care Provider Source Comments [facility]iliates and Associated Physician Practices is amultiple site organization consisting of ambulatory clinics and hospital sitesin [place], [place], [place] and [place]. This disclosure is being madepursuant to the Care Everywhere program and may not contain all information available regarding this patient. Last updated 18.[facility] Allergies Active Allergy Reactions Criticality Noted Date Comments Amoxicillin Rash Medium 07/15/2022 Barley Grass Other Medium 07/15/2022 Iron Rash Medium 03/20/2024 iron sulfate with oral iron only Medications * Be aware that medications may not be up to date on this document. Alwaysverify current medications with the patient. lisinopril (Prinivil; Zestril) 5 MG tablet Take 1 (one) tablet by mouth once daily 4 Active methocarbamol (Robaxin) 750 MG tablet Take 1 (one) tablet by mouth every 6 hours as needed for Muscle Spasms 15 tablet 5 Active apixaban (Eliquis) 5 MG tabletIndicatio ns:Deep Vein Thrombosis Take 1 (one) tablet by mouth 2 times daily for 90 days Reasons: Blood Clot in a Deep Vein 180 tablet 5 Active simethicone (Mylicon) 80 MG chew tablet Take 1 (one) tablet by mouth 4 times daily as needed for Gas Pain (chew and swallow) Active zinc sulfate (Zincate) 220 (50 ZN) MG capsule Take 1 (one) capsule by mouth once daily Active pantoprazole EC (Protonix) 40 MG tablet Take 1 (one) tablet by mouth once daily Active melatonin 5 MG tablet Take 1 (one) tablet by mouth at bedtime Active HYDROmorphone (Dilaudid) 1 MG/ML injectionIndica tions:Wound of abdomen 0.5 mL by Intravenous route every 4 hours as needed 5 Active oxyCODONE, immediate release, (Roxicodone) 10 MG tabletIndicatio ns:Wound of abdomen Take 1 (one) tablet by mouth every 4 hours as needed 5 Active diazePAM (Valium) 5 MG tablet Take 1 (one) tablet by mouth 4 times daily as needed for Anxiety or Spasms 5 Active Additional Information Patient not taking.Reported on 02/19/2025 ondansetron, disintegrating, (Zofran ODT) 4 MG tablet Take 1 (one) tablet by mouth every 6 hours as needed for Nausea/Vomiting Allow tablet to dissolve on the tongue 5 Active bacitracin ointment Apply to affected area 3 times daily 5 Active ferrous sulfate 325 (65 FE) MG tablet Take 1 (one) tablet by mouth daily with breakfast 5 Active polyethylene glycol 3350 (Miralax) 17 g packet Take 17 (seventeen) g by mouth once daily as needed for Constipation 5 Active HYDROmorphone (Dilaudid) 1 MG/ML injectionIndica tions:Wound of abdomen 0.5 mL by Intravenous route once as needed 5 Active Active Problems Patient Care Coordination No te Formatting of this note migh t be different from the original. [facility] 06/2016 Problem Noted Date Diagnosed Date Wound [...] see PRS c/s note for treatment history / s/p I&D with Plastic surgery Plan Plastic [...] for summary) - Plan for OR on 8/1 with PRS - Appreciate PRS recs: Consults [...] of Apixaban > Hold Eliquis iso OR 12/20; resume afterwards Assessment & Plan (12/19/2024 8:44 [...] without difficulty Supervision of high-risk of young mullissa igravida 06/30/2016 Overview (06/30/2016): PNL: Ab: GCT: [...] Depression screen 06/30/2016 Overview (06/30/2016): EPDS score: Encounters Date Type Department Care Team Description 03/20/2025 Orders Only [facility] - Plastic Surgery [address] [place] [phone] Mario Rodríguez MD Open wound of anterior abdominal wall, subsequent encounter 02/28/2025 Telephone [facility] - TOUCH UP PAINTER [address] [place] [address] Josie Luis MD Follow-up 02/19/2025 9:45 AM CDT Office Visit [facility] - Plastic Surgery [address] [place] [phone] Mario Rodríguez MD Open wound of anterior abdominal wall, subsequent encounter (Primary Dx); Rectal cancer (HCC) 01/21/2025 Travel 01/08/2025 10:00 AM CDT [facility] [address] [place] [phone] Mario Rodríguez MD Open wound of anterior abdominal wall, subsequent encounter (Primary Dx) 12/19/2024 4:57 PM CDT - 12/30/2024 6:43 PM CDT Hospital Encounter [facility] [address] [place] [address] Nish Cazares MD Chinnery, Akrin, MD Schrader, Jimmy Atkins MD Internal Medicine Discharge Disposition: Senior Living Acute Care from Last 3 Months Immunizations Immunization Administration Dates Next Due Covid Moderna primary monovalent 12+ yr 0.5mL ,11/19/2020 TDAP, HISTORIC VACCINE 04/07/2023 Family History Medical History Relation Name Comments Alcohol abuse Mother Asthma Mother Heart Disease Mother Hypercholesterolemia Mother Hypertension Mother Relation Name Status Comments Mother Social History Tobacco Use Types Packs/Day Years Used Date Smoking Tobacco: Former Cigarettes Smokeless Tobacco: Never Tobacco Cessation:Counseling Given: Not Answered Alcohol Use Standard Drinks/Week Comments Yes 0 (1 standard drink = 0.6 oz pur e alcohol) AUDIT-C Answer Date Recorded Q1: How often do you have a drink containing alcohol? Never 12/19/2024 Q2: How many drinks containi ng alcohol do you have on a typical day when you are drinking? Patient does not drink Q3: How often do you have si x or more drinks on one occasion? Never 12/19/2024 Overall Financial Resource Strain (CARDIA) Answe r Date Recorded How hard is it for you to pa y for the very basics like food, housing, medical care, and heating? Patient declined 12/19/2024 PHQ-2 Answer Date Recorded Patient Health Questionnaire-2 Score 0 12/12/2024 [facility] - Occupational Stress Questionnaire Answer Date Recorded Do you feel stress - tense, restless, nervous, or anxious, or unable to sleep at night because your mind is troubled all the time - these days? Patient declined 12/19/2024 Hunger Vital Sign Answer Date Recorded Within the past 12 months, y ou worried that your food would run out before you got the money to buy more. Patient declined Within the past 12 months, t he food you bought just didn't last and you didn't have money to get more. Patient declined PRAPARE - Transportation Answer Date Re corded In the past 12 months, has l ack of transportation kept you from medical appointments or from getting medications? Patient declined 12/19/2024 In the past 12 months, has l ack of transportation kept you from meetings, work, or from getting things needed for daily living? Patient declined 12/19/2024 Housing Stability Vital Sign Answer Jesus e Recorded In the last 12 months, was t here a time when you were not able to pay the mortgage or rent on time? Patient declined 12/20/19 25 In the past 12 months, how m any times have you moved where you were living? 2 12/19/2024 At any time in the past 12 m [facility], were you homeless or living in a halfway (including now)? Patient declined 12/19/2024 Comments No Sex and Gender Information Value Date Recorded Sex Assigned at Not on file Legal Sex Female 3:07 PM DYE TANK TENDER Gender Identity Not on file Sexual Orientation Not on file Last Filed Vital Signs Vital Sign Reading Time Taken Comments Blood Pressure 104/74 02/19/2025 9:50 AM CDT Pulse 91 02/19/2025 9:50 AM CDT Temperature 36.6 C (97.8 F) 12/30/2024 8:31 AM CDT Respiratory Rate 20 12/30/2024 8:31 AM CDT Oxygen Saturation 95% 02/19/2025 9:50 AM CDT Inhaled Oxygen Concentration - - Weight 117.9 kg (260 lb) 02/19/2025 9:50 AM CDT Height 170.2 cm (5' 7) 02/19/2025 9:50 AM CDT Body Mass Index 40.72 02/19/2025 9:50 AM CDT Plan of Treatment Upcoming Encounters Date Type Department Care Team (Late st Contact Info) Description 03/26/2025 12:15 PM DYE TANK TENDER Office Visit [facility] - Plastic Surgery [address] [place] [address], [place] [phone] Mario Rodríguez MD [address] [place] [address] [place] [address] 04/01/2025 2:30 PM DYE TANK TENDER Clinical Support [facility] - TOUCH UP PAINTER [address] [facility] [address] [facility] [address] [place] [address] Josie Luis MD [address] [facility] [address] [place] [address] Health Maintenance Due Date Last Done Comments LIPID TESTING 1982 MAMMOGRAM 1982 HEPATITIS B VACCINE (1 of 3 - 19+ 3-dose series) 2001 PNEUMOCOCCAL VACCINE (1 of 2 - PCV) 2001 ZOSTER VACCINE (1 of 2) 2001 HPV VACCINE (1 - 3-dose SCDM series) 2009 COVID-19 VACCINE (3 - Moderna risk series) 01/14/2021 12/17/2020, 11/19/2020 INFLUENZA VACCINE (#1) 2025 SCREENING FOR DIABETES 12/31/2027 , 12/29/2024, 12/28/2024, Additional history exists PAP with HPV 05/07/2029 05/07/2024 DTAP/TDAP/TD VACCINES (2 - Td or Tdap) 04/07/2033 04/07/2023 HEPATITIS C SCREENING Completed 11/20/2024 HIV SCREENING Completed 11/20/2024, 07/04/2016 DEPRESSION SCREENING Completed 12/17/2024, 05/07/20 24 HIB VACCINE Aged Out No longer eligi ble based on patient's age to complete this topic MENINGOCOCCAL (Group B) VACCINE SHARED DECISION-MAKING Aged Out No longer eligible based on patient's age to complete this topic MENINGOCOCCAL GROUPS A/C/Y/W VACCINE Aged Out No longer eligible based on patient's age to complete this topic Procedures Procedure Name Priority Date/Time Associated Diagnosis Comments CBC W/O DIFFERENTIAL AM Draw 12/30/2024 6:31 AM CDT MAGNESIUM BLOOD Routine 12/30/2024 6:31 AM CDT RENAL FUNCTION PANEL AM Draw 12/30/2024 6:31 AM CDT CBC W/O DIFFERENTIAL AM Draw 12/29/2024 5:26 AM CDT MAGNESIUM BLOOD Routine 12/29/2024 5:26 AM CDT RENAL FUNCTION PANEL AM Draw 12/29/2024 5:26 AM CDT CBC W/O DIFFERENTIAL AM Draw 12/28/2024 5:07 AM CDT MAGNESIUM BLOOD Routine 12/28/2024 5:07 AM CDT RENAL FUNCTION PANEL AM Draw 12/28/2024 5:07 AM CDT CBC W/O DIFFERENTIAL AM Draw 12/27/2024 6:05 AM CDT MAGNESIUM BLOOD Routine 12/27/2024 6:05 AM CDT RENAL FUNCTION PANEL AM Draw 12/27/2024 6:05 AM CDT CULTURE BLOOD Timed 12/26/2024 7:17 AM CDT Wound of abdomen Wound infection after surgery CBC W/O DIFFERENTIAL AM Draw 12/26/2024 12:10 AM CDT MAGNESIUM BLOOD Routine 12/26/2024 12:10 AM CDT RENAL FUNCTION PANEL AM Draw 12/26/2024 12:10 AM CDT CULTURE BLOOD Timed 12/26/2024 12:10 AM CDT Wound of abdomen Wound infection after surgery VANCOMYCIN LEVEL TROUGH Timed 12/25/2024 11:55 AM CDT CBC W/O DIFFERENTIAL AM Draw 12/25/2024 6:36 AM CDT PTT Routine 12/25/2024 6:36 AM CDT MAGNESIUM BLOOD Routine 12/25/2024 6:35 AM CDT RENAL FUNCTION PANEL AM Draw 12/25/2024 6:35 AM CDT BASIC METABOLIC PANEL (CALCIUM TOTAL) AM Draw 12/24/2024 6:10 AM CDT CBC W/O DIFFERENTIAL AM Draw 12/24/2024 6:10 AM CDT PTT Routine 12/24/2024 6:10 AM CDT VANCOMYCIN LEVEL TROUGH Timed 12/23/2024 7:28 PM CDT VANCOMYCIN LEVEL PEAK Timed 12/23/2024 1:04 PM CDT PTT Timed 12/23/2024 12:38 AM CDT PTT Timed 12/22/2024 8:40 AM CDT CBC W/O DIFFERENTIAL AM Draw 12/22/2024 8:40 AM CDT COMPREHENSIVE METABOLIC PANEL AM Draw 12/22/2024 8:40 AM CDT HEPATITIS C AB SCREEN RFLX NAAT QUANT Routine 11/20/2024 4:39 AM CDT HIV-1 HIV-2 ANTIBODY + HIV P24 AG PANEL Routine 11/20/2024 4:39 AM CDT HPV DETECTION HIGH RISK ALICIA Routine 05/07/2024 11:55 AM DYE TANK TENDER Cervical cancer screening from Last 3 Months or Most Recently Relevant to Health Maintenance Results * (ABNORMAL) CBC W/O DIFFERENTIAL (12/30/2024 6:31 AM CDT) Only the most recent of8 resultswithin the time period is included. WBC 4.7 4.0 - 10.7 x10E9/L 12/30/2024 7:01 AM CDT [facility] RBC Count 3.70(L) 3.90 - 5.20 x10E12/L 12/30/2024 7:01 AM [facility] Hemoglobin 10.2(L) 11.9 - 15.8 g/dL 12/30/2024 7:01 AM [facility] Hematocrit 31.9(L) 34.8 - 46.1 % 12/30/2024 7:01 AM [facility] MCV 86.2 80.0 - 98.0 fL 12/30/2024 7:01 AM [facility] MCH 27.6 26.7 - 33.6 pg 12/30/2024 7:01 AM [facility] MCHC 32.0 31.7 - 36.3 g/dL 12/30/2024 7:01 AM [facility] RDW-CV 13.6 11.3 - 14.8 % 12/30/2024 7:01 AM [facility] Platelet Count 297 150 - 420 x10E9/L 12/30/2024 7:01 AM [facility] MPV 9.5 7.8 - 11.4 fL 12/30/2024 7:01 AM [facility] Blood BLOOD SPECIMEN / Unknown Lab Venipuncture / Unknown 12/30/2024 6:31 AM CDT 12/30/2024 6:47 AM CDT us Jimmy Bobo MD LAB - HEMATOLOGY ORDER HAYDER Final Result [facility] [address] [place] [phone], [facility] [phone] * (ABNORMAL) RENAL FUNCTION PANEL (12/30/2024 6:31 AM CDT) Only the most recent of6 resultswithin the time period is included. BUN 10 7 - 26 mg/dL 12/30/2024 7:15 AM [facility] Creatinine 0.46(L) 0.56 - 0.96 mg/dL 12/30/2024 7:15 AM [facility] Sodium 141 136 - 145 mmol/L 12/30/2024 7:15 AM [facility] Potassium 3.9 3.5 - 4.5 mmol/L 12/30/2024 7:15 AM [facility] Chloride 106 98 - 107 mmol/L 12/30/2024 7:15 AM [facility] CO2 30(H) 22 - 29 mmol/L 12/30/2024 7:15 AM [facility] Glucose 88 70 - 99 mg/dL 12/30/2024 7:15 AM [facility] Albumin 2.6(L) 3.4 - 5.0 g/dL 12/30/2024 7:15 AM [facility] Calcium 9.2 8.4 - 10.2 mg/dL 12/30/2024 7:15 AM [facility] Phosphorus 3.4 2.9 - 5.1 mg/dL 12/30/2024 7:15 AM [facility] Anion Gap 5(L) 6 - 16 12/30/2024 7:15 AM [facility] BUN/Creatinine Ratio 22 7 - 23 12/30/2024 7:15 AM [facility] Osmolality Calculated 290 275 - 295 mOsm/kg 12/30/2024 7:15 AM [facility] eGFR by CKD-EPI >90 >=90 mL/min/1.7 3 m2 12/30/2024 7:15 AM [facility] Comment:Estimated Glomerular Filtration Rate (eGFR) calculated using the CKD-EPI Creatinine Equation (2020), per the National Kidney Foundation and [place] [employer] Neph[employer] recommendations. Blood BLOOD SPECIMEN / Unknown Lab Venipuncture / Unknown 12/30/2024 6:31 AM CDT 12/30/2024 6:47 AM CDT us Jimmy Bobo MD LAB - CHEMISTRY ORDERA BLES Final Result [facility] [address] [place] [address], [facility] [phone] * MAGNESIUM BLOOD (12/30/2024 6:31 AM CDT) Only the most recent of6 resultswithin the time period is included. Magnesium 1.9 1.6 - 2.6 mg/dL 12/30/2024 7:15 AM CDT [facility] Blood BLOOD SPECIMEN / Unknown Lab Venipuncture / Unknown 12/30/2024 6:31 AM CDT 12/30/2024 6:47 AM CDT Jimmy Bobo MD LAB - CHEMISTRY ORDERA BLES Final Result Performing Organization Address City/[facility]/ZIP Co de Phone Number [address] [address], [facility] [phone] * CULTURE BLOOD (12/26/2024 7:17 AM CDT) Only the most recent of2 resultswithin the time period is included. Pathologist [facility] Culture No growth day 5 ALDA 12/31/2024 11:31 AM CDT [facility] Blood PERIPHERAL BLOOD / Unknown Lab Venipuncture / Unknown 12/26/2024 7:17 AM CDT 12/26/2024 7:40 AM CDT Jimmy Bobo MD LAB - MICROBIOLOGY ORD ERABLES Final Result Performing Organization Address City/[facility]/ZIP Co de Phone Number [facility] MICROBIOLOGY [address] [place] [address], [facility] [phone] * (ABNORMAL) VANCOMYCIN LEVEL TROUGH (12/25/2024 11:55 AM CDT) Only the most recent of2 resultswithin the time period is included. Vancomycin Trough 22.0(H) 10.0 - 20.0 ug/mL 12/25/2024 12:47 PM CDT [facility] Blood BLOOD SPECIMEN / Unknown Lab Venipuncture / Unknown 12/25/2024 11:55 AM CDT 12/25/2024 12:05 PM CDT Narrative [facility] - 12/25/2024 12:47 PM CDT See institution protocol. Jimmy Bobo MD LAB - CHEMISTRY ORDERA BLES Final Result [address] [place] [address], [facility] [phone] * (ABNORMAL) PTT (12/25/2024 6:36 AM CDT) Only the most recent of4 resultswithin the time period is included. Pathologist [facility] APTT 39.5(H) 23.0 - 38.4 Seconds 12/25/2024 7:14 AM [facility] Comment:Suggested therapeuti c range for full dose I.V. unfractionated heparin therapy for venous thromboembolism is 71 to 109 seconds. Blood BLOOD SPECIMEN / Unknown Lab Venipuncture / Unknown 12/25/2024 6:36 AM CDT 12/25/2024 6:41 AM CDT us Zulay Noble MD LAB - COAGULATION ORDERABLES F inal Result [address] [address], [facility] [place] [phone] * (ABNORMAL) BASIC METABOLIC PANEL (CALCIUM TOTAL) (12/24/2024 6:10 AM CDT) [facility] BUN 11 7 - 26 mg/dL 12/24/2024 8:13 AM [facility] Creatinine 0.45(L) 0.56 - 0.96 mg/dL 12/24/2024 8:13 AM [facility] Sodium 140 136 - 145 mmol/L 12/24/2024 8:13 AM [facility] Potassium 3.7 3.5 - 4.5 mmol/L 12/24/2024 8:13 AM [facility] Chloride 106 98 - 107 mmol/L 12/24/2024 8:13 AM [facility] CO2 25 22 - 29 mmol/L 12/24/2024 8:13 AM [facility] Glucose 88 70 - 99 mg/dL 12/24/2024 8:13 AM [facility] Calcium 9.0 8.4 - 10.2 mg/dL 12/24/2024 8:13 AM [facility] Anion Gap 9 6 - 16 12/24/2024 8:13 AM CDT [facility] BUN/Creatinine Ratio 24(H) 7 - 23 12/24/2024 8:13 AM T [facility] Osmolality Calculated 289 275 - 295 mOsm/kg 12/24/2024 8:13 AM T [facility] eGFR by CKD-EPI >90 >=90 mL/min/1.7 3 m2 12/24/2024 8:13 AM T [facility] Comment:Estimated Glomerular Filtration Rate (eGFR) calculated using the CKD-EPI Creatinine Equation (2020), per the National Kidney Foundation and [place] [employer] Neph[employer] recommendations. Blood BLOOD SPECIMEN / Unknown Lab Venipuncture / Unknown 12/24/2024 6:10 AM CDT 12/24/2024 7:35 AM CDT Zulay Noble MD LAB - CHEMISTRY ORDERABLES Fin al Result Performing Organization Address [facility]/ZIP Co de Phone Number [address] [address], [facility] [place] [phone] * VANCOMYCIN LEVEL PEAK (12/23/2024 1:04 PM CDT) Vancomycin Peak 38.7 25.0 - 40.0 ug/mL 12/23/2024 2:49 PM CDT [facility] Blood BLOOD SPECIMEN / Unknown Lab Venipuncture / Unknown 12/23/2024 1:04 PM CDT 12/23/2024 1:19 PM CDT Narrative [facility] - 12/23/2024 2:49 PM CDT See institution protocol. Data does not support the use of vancomycin peak concentration for efficacy. us Zulay Noble MD LAB - CHEMISTRY ORDERABLES Fin al Result Performing Organization Address [facility]/ZIP Co de Phone Number [address] [address], [facility] [phone] * (ABNORMAL) COMPREHENSIVE METABOLIC PANEL (12/22/2024 8:40 AM CDT) BUN 15 7 - 26 mg/dL 12/22/2024 9:11 AM [facility] Creatinine 0.45(L) 0.56 - 0.96 mg/dL 12/22/2024 9:11 AM [facility] Sodium 137 136 - 145 mmol/L 12/22/2024 9:11 AM [facility] Potassium 3.7 3.5 - 4.5 mmol/L 12/22/2024 9:11 AM [facility] Chloride 105 98 - 107 mmol/L 12/22/2024 9:11 AM [facility] CO2 24 22 - 29 mmol/L 12/22/2024 9:11 AM [facility] Glucose 95 70 - 99 mg/dL 12/22/2024 9:11 AM [facility] Calcium 9.2 8.4 - 10.2 mg/dL 12/22/2024 9:11 AM [facility] Protein Total 6.6 6.0 - 8.3 g/dL 12/22/2024 9:11 AM [facility] Albumin 3.0(L) 3.4 - 5.0 g/dL 12/22/2024 9:11 AM [facility] Bilirubin Total 0.4 0.2 - 1.2 mg/dL 12/22/2024 9:11 AM [facility] Alkaline Phosphatase 155(H) 40 - 150 U/L 12/22/2024 9:11 AM [facility] ALT 55 5 - 55 U/L 12/22/2024 9:11 AM [facility] AST 28 5 - 34 U/L 12/22/2024 9:11 AM [facility] Anion Gap 8 6 - 16 12/22/2024 9:11 AM [facility] BUN/Creatinine Ratio 33(H) 7 - 23 12/22/2024 9:11 AM [facility] Osmolality Calculated 285 275 - 295 mOsm/kg 12/22/2024 9:11 AM [facility] Albumin/Globulin Ratio 0.8(L) 1.1 - 2.3 12/22/2024 9:11 AM [facility] eGFR by CKD-EPI >90 >=90 mL/min/1.7 3 m2 12/22/2024 9:11 AM CDT [facility] Comment:Estimated Glomerular Filtration Rate (eGFR) calculated using the CKD-EPI Creatinine Equation (2020), per the National Kidney Foundation and [place] [employer] Neph[employer] recommendations. Blood BLOOD SPECIMEN / Unknown Lab Venipuncture / Unknown 12/22/2024 8:40 AM CDT 12/22/2024 8:57 AM CDT us Zulay Noble MD LAB - CHEMISTRY ORDERABLES Fin al Result Performing Organization Address [facility] de Phone Number [address] [address], [facility] [phone] * HEPATITIS C AB SCREEN RFLX NAAT QUANT (11/20/2024 4:39 AM CDT) Pathologist [facility] Hepatitis C Antibody Non-react pham Non-reac tive 11/20/2024 5:41 AM CDT [facility] Comment:Hepatitis C Antibody screen indicates no serologic evidence of past or current infection with Hepatitis C Virus. Patients with unexplained liver disease who are immunocompromised or suspected of having acute Hepatitis C infection may benefit from Nucleic Acid Test (SO) for Hepatitis C Viral RNA to confirm Hepatitis C status. Blood BLOOD SPECIMEN / Unknown Line Draw / Unknown 11/20/2024 4:39 AM CDT 11/20/2024 4:44 AM CDT us Amy Rincon PA-C LAB - CHEMISTRY ORDERAB LES Final Result Performing Organization Address [facility] de Phone Number [address] [address], [facility] [phone] * HIV-1 HIV-2 ANTIBODY + HIV P24 AG PANEL (11/20/2024 4:39 AM CDT) HIV Antigen/Antibod y 1 & 2 Non-reacti ve Non-react pham 11/20/2024 5:41 AM CDT [facility] Comment:No Laboratory eviden ce of HIV infection. Blood BLOOD SPECIMEN / Unknown Line Draw / Unknown 11/20/2024 4:39 AM CDT 11/20/2024 4:44 AM CDT Amy Rincon PA-C LAB - CHEMISTRY ORDERAB LES Final Result Performing Organization Address [facility] Co de Phone Number [facility] [address] [place] [address], [facility] [phone] * HPV DETECTION HIGH RISK ALICIA (05/07/2024 11:55 AM DYE TANK TENDER) High Risk Human Papilloma Result Not detected Not detected 05/09/2024 7:31 AM DYE TANK TENDER [facility] High Risk Human Papilloma Interp 05/09/2024 7:31 AM DYE TANK TENDER [facility] Comment:High Risk Human Puneet lloma Virus was Not Detected. Pathology/Cytolo gy VAGINA AND CERVIX, CS / Unknown 05/07/2024 11:55 AM DYE TANK TENDER 05/08/2024 11:16 AM DYE TANK TENDER Narrative [facility] - 05/09/2024 7:31 AM DYE TANK TENDER Nucleic acid isolated from the specimen was analyzed with a nucleic acid amplification test (FDA approved Gen-Probe HPV Assay) to detect high risk human papilloma virus (Types: 16, 18, 31, 33, 35, 39, 45, 51, 52, 56, 58, 59, 66, and 68). The reference range is Not Detected. Comment: These test results should not be used as the sole basis for clinical assessment and treatment of patients. These results should always be correlated with other available data (cytology, histology, and clinical information). us Josie Luis MD LAB - MICROBIOLOGY ORDERAB LES Final Result Performing Organization Address City/[facility] Co de Phone Number [facility] [address] [facility] 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
--- OUTSIDE RECORDS SUMMARY | 2025-03-24 15:44 | XMS_ITS | Encounter Summary ---
Author Organization [facility] Address [address] [place] [address] Care Team Providers Care Gearman Name Role Phone Olman Schofield MD Primary Care Provider [phone] Encounter Details Date Type Department Care Team (Late Contact Info) Description 01/03/2025 Lab Requisition [facility] Laboratory Services [address] [place] [address] [place] [address] [address] Social History Tobacco Use Types Packs/Day Years Used Date Smoking Tobacco: Former Cigarettes 0.3 15 Q uit: 01/10/2021 Smokeless Tobacco: Never Alcohol Use Standard Drinks/Week Comments Never 0 (1 standard drink = 0.6 oz pur e alcohol) Comments Unknown Sex and Gender Information Value Date Recorded Sex Assigned at Not on file Legal Sex Female 11:34 AM BRIMMER BLOCKER Gender Identity Not on file Sexual Orientation Not on file documented as of this encounter Plan of Treatment Upcoming Encounters Date Type Department Care Team (Late st Contact Info) Description 03/28/2025 2:00 PM BRIMMER BLOCKER Telephone Check Up [facility] Oncology and Hematology - [place] [address] [facility] [address] [place] [address] Bhavik Rios MD [address] [facility] [address] [place] [address] documented as of this encounter Procedures Procedure Name Priority Date/Time Associated Diagnosis Comments EXTRA TUBE (URINE AKINS) Routine 01/03/2025 2:45 PM CDT URINALYSIS W/REFLEX MICROSCOPIC Routine 01/03/2025 2:45 PM CDT URINE CULTURE Routine 01/03/2025 2:45 PM CDT documented in this encounter Results * EXTRA TUBE (URINE AKINS) (01/03/2025 2:45 PM CDT) Urine URINE SPECIMEN OBTAINED BY CLEAN CATCH PROCEDURE / Unknown Collection / Unknown 01/03/2025 2:45 PM CDT 01/03/2025 4:48 PM CDT Lisa Johns DO URINE ORDERABLES Final Result [facility] CLIA# [id number] [place] [address] * URINE CULTURE (01/03/2025 2:45 PM CDT) CULTURE No growth at 24 hours 01/05/2025 6:19 AM CDT [facility] Urine Collection / Unknown 01/03/2025 2:45 PM CDT 01/03/2025 4:48 PM CDT Lisa Johns DO MICROBIOLOGY - GENERAL ORDERABL ES Final Result [facility] CLIA# [id number] [address] [place] [address] * (ABNORMAL) URINALYSIS WITH REFLEX MICROSCOPIC (01/03/2025 2:45 PM CDT) COLOR UA Yellow Pale to Dark Yellow 01/03/2025 5:00 PM CDT [facility] CLARITY UA Slightly Cloudy(A) Clear 01/03/2025 5:00 PM CDT [facility] SPECIFIC GRAVITY UA 1.024 1.003 - 1.035 01/03/2025 5:00 PM CDT [facility] PH UA 6.0 5.0 - 8.0 01/03/2025 5:00 PM T [facility] LEUKOCYTE ESTERASE UA 2+(A) Negative 01/03/2025 5:00 PM T [facility] NITRITE UA Negative Negative 01/03/2025 5:00 PM T [facility] PROTEIN UA 1+(A) Negative 01/03/2025 5:00 PM T [facility] GLUCOSE UA Negative Negative 01/03/2025 5:00 PM T [facility] KETONES UA 1+(A) Negative 01/03/2025 5:00 PM T [facility] UROBILINOGEN UA 2.0(A) <2.0 mg/dL 5:00 PM T [facility] BILIRUBIN UA Negative Negative 01/03/2025 5:00 PM T [facility] BLOOD UA Negative Negative 01/03/2025 5:00 PM T [facility] Comment:Ascorbic acid may ca use false negative results for blood. A microscopic review was reflexed to rule out this interference. WBC UA 51-100(A) 0 - 2 /hpf 01/03/2025 5:00 PM [facility] RBC UA 3-5(A) 0 - 2 /hpf 01/03/2025 5:00 PM T [facility] BACTERIA UA Negative Negative /hpf 01/03/2025 5:00 PM T [facility] EPITHELIAL CELLS, URINE 0-5 0 - 5 /hpf 01/03/2025 5:00 PM T [facility] HYALINE CAST 0-2 None Seen, 0-2 /lpf 01/03/2025 5:00 PM [facility] Ascorbic Acid UA Positive(A) Negative 025 5:00 PM [facility] Urine URINE SPECIMEN OBTAINED BY CLEAN CATCH PROCEDURE / Unknown Collection / Unknown 01/03/2025 2:45 PM CDT 01/03/2025 4:48 PM CDT Lisa Johns DO URINE ORDERABLES Final Result [facility] - [facility] CLIA# [id number] [address] [place] [address] documented in this encounter Visit Diagnoses Not on filedocumented in this encounter Additional Health Concerns Infection Onset Date Last Indicated Resolved Time 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 auris. High risk facility. Will need to remain on Enhanced isolation (while hospitalized). Patient is required to be tested at every ED visit/ admission for the following 6 months, and once thereafter ([id number], Rosi auris surveillance screening). If negative screen 6 months, R/O C. auris status can be removed. 12/30/2024 12/30/2024 01/13/2025 8:58 AM C DT Rosi auris Comment:01/09/2025 axilla/groin 01/09/2025 01/09/2025 documented as of this encounter Care Teams Gearman Relationship Specialty Start Date End Date Olman Schofield MD [address] [place] [address] [phone] PCP - General Family Practice 04/09/24 documented as of this encounter
--- OUTSIDE RECORDS SUMMARY | 2025-03-24 15:44 | XMS_ITS | Encounter Summary ---
Author Organization [facility] Address [address] [place] [address] Care Team Providers Care Public Transportation Inspector Name Role Phone Olman Schofield MD Primary Care Provider [phone] Encounter Details Date Type Department Care Team (Late Contact Info) Description 12/11/2024 Lab Requisition [facility] Laboratory Services [address] [place] [address] [place] [address] [place] [address] Social History Tobacco Use Types Packs/Day Years Used Date Smoking Tobacco: Former Cigarettes 0.3 15 Q uit: 01/10/2021 Smokeless Tobacco: Never Alcohol Use Standard Drinks/Week Comments Never 0 (1 standard drink = 0.6 oz pur e alcohol) Comments Unknown Sex and Gender Information Value Date Recorded Sex Assigned at Not on file Legal Sex Female 11:34 AM TOOL SPECIALIST Gender Identity Not on file Sexual Orientation Not on file documented as of this encounter Plan of Treatment Upcoming Encounters Date Type Department Care Team (Late Contact Info) Description 03/28/2025 2:00 PM TOOL SPECIALIST Telephone Check Up [facility] Oncology and Hematology - [place] [address] [facility] [address] [place] [address] Bhavik Rios MD [address] [facility] [address] [place] [address] documented as of this encounter Procedures Procedure Name Priority Date/Time Associated Diagnosis Comments CBC WITH DIFFERENTIAL Routine 12/11/2024 3:45 AM CDT BASIC METABOLIC PANEL Routine 12/11/2024 3:45 AM CDT documented in this encounter Results * (ABNORMAL) CBC WITH DIFFERENTIAL (12/11/2024 3:45 AM CDT) [facility] WBC 6.2 4.0 - 9.8 K/uL 12/11/2024 7:29 AM CDT [facility] RBC 3.52(L) 3.90 - 4.90 M/uL 12/11/2024 7:29 AM CDT [facility] HEMOGLOBIN 10.5(L) 11.8 - 14.8 g/dL 12/11/2024 7:29 AM CDT [facility] HEMATOCRIT 33.0(L) 35.5 - 44.0 % 12/11/2024 7:29 AM CDT [facility] MCV 93.8 82.0 - 99.0 fL 12/11/2024 7:29 AM CDT [facility] MCH 29.8 27.2 - 32.6 pg 12/11/2024 7:29 AM CDT [facility] MCHC 31.8 31.5 - 35.5 g/dL 12/11/2024 7:29 AM CDT [facility] RDW 14.6(H) 11.5 - 14.5 % 12/11/2024 7:29 AM CDT [facility] RDW-STDEV 49.2(H) 37.1 - 48.7 fL 12/11/2024 7:29 AM CDT [facility] PLATELETS 372(H) 140 - 350 K/uL 12/11/2024 7:29 AM CDT [facility] MPV 9.5 9.3 - 12.4 fL 12/11/2024 7:29 AM CDT [facility] NEUTROPHILS 71 % 12/11/2024 7:29 AM CDT [facility] LYMPHOCYTES 11 % 12/11/2024 7:29 AM CDT [facility] MONOCYTES 10 % 12/11/2024 7:29 AM CDT [facility] EOSINOPHILS 7 % 12/11/2024 7:29 AM CDT [facility] BASOPHILS 1 % 12/11/2024 7:29 AM CDT [facility] IMMATURE GRANULOCYTES 1 % 12/11/2024 7:29 AM CDT [facility] Comment:IG (Immature Granulo cyte) count includes Metamyelocytes, Myelocytes, and Promyelocytes NEUTROPHIL ABSOLUTE 4.41 1.90 - 7.00 K/uL 12/11/2024 7:29 AM CDT [facility] LYMPHOCYTE ABSOLUTE 0.66(L) 0.70 - 4.50 K/uL 12/11/2024 7:29 AM CDT [facility] MONOCYTE ABSOLUTE 0.61 0.10 - 1.30 K/uL 12/11/2024 7:29 AM CDT [facility] EOSINOPHIL ABSOLUTE 0.43 0.00 - 0.70 K/uL 12/11/2024 7:29 AM CDT [facility] BASOPHILS ABSOLUTE 0.07 0.00 - 0.20 K/uL 12/11/2024 7:29 AM CDT [facility] IMMATURE GRANULOCYTES ABSOLUTE 0.04(H) 0.00 - 0.03 K/uL 12/11/2024 7:29 AM T [facility] Blood Collection / Unknown 12/11/2024 3:45 AM CDT 12/11/2024 7:11 AM CDT us Valerie Mercedes MD HEMATOLOGY ORDERABLES Final Resu lt [facility] CLIA# [id number] [address] [place] [address] * (ABNORMAL) BASIC METABOLIC PANEL (12/11/2024 3:45 AM CDT) SODIUM 137 136 - 145 mmol/L 12/11/2024 7:53 AM CDT [facility] POTASSIUM 4.0 3.4 - 5.1 mmol/L 12/11/2024 7:53 AM T [facility] CHLORIDE 99 98 - 107 mmol/L 12/11/2024 7:53 AM T [facility] CO2 24 22 - 29 mmol/L 12/11/2024 7:53 AM T [facility] CALCIUM 9.7 8.6 - 10.4 mg/dL 12/11/2024 7:53 AM T [facility] BUN 15 6 - 20 mg/dL 12/11/2024 7:53 AM [facility] CREATININE 0.45(L) 0.51 - 0.95 mg/dL 12/11/2024 7:53 AM T [facility] GLUCOSE 80 74 - 99 mg/dL 12/11/2024 7:53 AM T [facility] GFR >60 >=60 mL/min/1.7 3 sq meter 12/11/2024 7:53 AM T [facility] Comment:eGFR calculated with 2020 CKD-EPI equation. Vegetarian diet, extremely high or low muscle mass, and may affect results. Cystatin C with Glomerular Filtration Rate is a suitable alternative for these patients. 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 auris. High risk facility. Will need to remain on Enhanced isolation (while hospitalized). Patient is required to be tested at every ED visit/ admission for the following 6 months, and once thereafter ([id number], Rosi auris surveillance screening). If negative screen 6 months, R/O C. auris status can be removed. 12/30/2024 12/30/2024 01/13/2025 8:58 AM C DT Rosi auris Comment:01/09/2025 axilla/groin 01/09/2025 01/09/2025 documented as of this encounter Care Teams Public Transportation Inspector Relationship Specialty Start Date End Date Olman Schofield MD [address] [place] [phone] PCP - General Family Practice 04/09/24 documented as of this encounter
--- OUTSIDE RECORDS SUMMARY | 2025-03-24 15:44 | XMS_ITS | Encounter Summary ---
Author Organization [facility] Address [address] [place] [address] Care Team Providers Care Poker Room Manager Name Role Phone Olman Schfoield MD Primary Care Provider [phone] Encounter Details Date Type Department Care Team (Late Contact Info) Description 01/03/2025 Lab Requisition [facility] Laboratory Services [address] [place] [address] [place] [address] [address] Social History Tobacco Use Types Packs/Day Years Used Date Smoking Tobacco: Former Cigarettes 0.3 15 Q uit: 01/10/2021 Smokeless Tobacco: Never Alcohol Use Standard Drinks/Week Comments Never 0 (1 standard drink = 0.6 oz pur e alcohol) Comments Unknown Sex and Gender Information Value Date Recorded Sex Assigned at Not on file Legal Sex Female 11:34 AM ANIMAL ATTENDANT Gender Identity Not on file Sexual Orientation Not on file documented as of this encounter Plan of Treatment Upcoming Encounters Date Type Department Care Team (Late st Contact Info) Description 03/28/2025 2:00 PM ANIMAL ATTENDANT Telephone Check Up [facility] Oncology and Hematology - [place] [address] [facility] [address] [place] [address] Bhavik Rios MD [address] [facility] [address] [place] [address] documented as of this encounter Procedures Procedure Name Priority Date/Time Associated Diagnosis Comments HEPATIC FUNCTION PANEL Routine 01/03/2025 2:45 PM CDT documented in this encounter Results * (ABNORMAL) HEPATIC FUNCTION PANEL (01/03/2025 2:45 PM CDT) TOTAL PROTEIN 6.7 6.3 - 8.7 g/dL 01/03/2025 5:20 PM CDT [facility] ALBUMIN 3.1(L) 3.5 - 5.2 g/dL 01/03/2025 5:20 PM CDT [facility] BILIRUBIN TOTAL 0.2 0.0 - 1.2 mg/dL 01/03/2025 5:20 PM CDT [facility] BILIRUBIN DIRECT 0.1 0.0 - 0.3 mg/dL 01/03/2025 5:20 PM CDT [facility] ALKALINE PHOSPHATASE 140 40 - 150 U/L 01/03/2025 5:20 PM CDT [facility] AST 35(H) 0 - 33 U/L 01/03/2025 5:20 PM CDT [facility] ALT 31 0 - 33 U/L 01/03/2025 5:20 PM CDT [facility] Blood Collection / Unknown 01/03/2025 2:45 PM CDT 01/03/2025 4:43 PM CDT Lisa Johns DO CHEMISTRY ORDERABLES Final Resu lt [facility] CLIA# [id number] [address] [place] [address] documented in this encounter Visit Diagnoses Not on filedocumented in this encounter Additional Health Concerns Infection Onset Date Last Indicated Resolved Time 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 auris. High risk facility. Will need to remain on Enhanced isolation (while hospitalized). Patient is required to be tested at every ED visit/ admission for the following 6 months, and once thereafter ([id number], Rosi auris surveillance screening). If negative screen 6 months, R/O C. auris status can be removed. 12/30/2024 12/30/2024 01/13/2025 8:58 AM C DT Rosi auris Comment:01/09/2025 axilla/groin 01/09/2025 01/09/2025 documented as of this encounter Care Teams Poker Room Manager Relationship Specialty Start Date End Date Olman Schofield MD [address] [place] [phone] PCP - General Family Practice 04/09/24 documented as of this encounter
--- OUTSIDE RECORDS SUMMARY | 2025-03-24 15:44 | XMS_ITS | Data Portability ---
Author Organization [facility] Address [address] [place] [address] Care Team Providers Care Finance Attorney Name Role Phone FRANKLYN FARR Primary Care Provider ANUPAM OLSEN Primary Care Provider Assessment No assessment recorded. Plan of Treatment Reminders Order Date Submit Date Provider Last Modified By Organization Details Last Modified Time Details Appointments None recorded . Lab None recorded . Referral None recorded . Procedures None recorded . Surgeries None recorded . Imaging None recorded . Medication Orders Slynd 4 mg (28) tablet 024 02/19/20 24 [id number], [address] [place], [place], [phone], 4 16:21:34 Slynd 4 mg (28) tablet 023 09/29/19 23 [email or web address] [facility] #51604, [address] [place], [place], [id number], 4 15:50:52 Slynd 4 mg (28) tablet 023 07/07/19 23 [email or web address] [facility] #65958, [address] [place], [place], [phone], 4 15:50:52 Patient TargetsNo targets recorded. Patient InstructionsNo instructions recorded. Reason for Referral None Reported. Procedures Surgical History Date Name Laterality Status Provider Name and Address Organization Details Recorded Time 06/01/20 21 Date of Last Pap Smear completed [facility] 07/07/2022 11:27:48 05/22/19 18 completed [facility] 07/07/2022 11:27:07 05/22/19 18 Date of Last Colonoscopy completed [facility] 07/07/2022 11:27:07 05/22/19 18 Colonoscopy completed [facility] 07/07/2022 11:27:13 01/21/20 07 procedure on gallbladder completed [facility] 07/07/2022 11:31:42 Imaging Results None recorded. Procedure Notes None recorded. Medical Equipment None Reported. Allergies Allergen ID Allergen Name Allergen Category Reaction Reaction Severity Criticality Documentation Date Start Date Code Code System Note Provider Name and Address Organization Details Recorded Time amoxicill in medicatio n hives moderate Not available 07/07/2022 723 [facility]04 Medications Name Sig Start Date Stop Date Status Note LastModified by Organization Details LastModified Time methocarbam ol 500 mg tablet active Not Available Not Available Not Available carvedilol 6.25 mg tablet 02/17 completed Not Available Not Available Not Available prednisone 10 mg tablet 07/07 completed Not Available Not Available Not Available doxycycline hyclate 100 mg capsule TAKE 1 CAPSULE BY MOUTH TWICE DAILY FOR 7 DAYS 02/18 completed Not Available Not Available Not Available carvedilol 12.5 mg tablet 02/17 completed Not Available Not Available Not Available clindamycin HCl 300 mg capsule TAKE ONE CAPSULE BY MOUTH EVERY 6 HOURS UNTIL ALL TAKEN active Not Available Not Available No t Available hydrocodone 5 mg-acetamin ophen 325 mg tablet active Not Available Not Available No t Available vancomycin 125 mg capsule TAKE 1 CAPSULE BY MOUTH EVERY 6 HOURS active Not Available Not Available No t Available ondansetron 8 mg disintegrat ing tablet DISSOLVE 1 TABLET ON THE TONGUE EVERY 8 HOURS NEEDED FOR NAUSEA OR VOMITING active Not Available Not Available No t Available lisinopril 5 mg tablet TAKE 1 TABLET BY MOUTH EVERY MORNING active Not Available Not Available No t Available ergocalcife rol (vitamin D2) 1,250 mcg (50,000 unit) capsule TAKE ONE CAPSULE BY MOUTH ONCE A WEEK 02/17 completed Not Available Not Available Not Available ibuprofen 600 mg tablet TAKE 1 TABLET BY MOUTH EVERY 6 HOURS NEEDED FOR PAIN 07/07 completed Not Available Not Available Not Available albuterol sulfate HFA 90 mcg/actuati on aerosol inhaler INHALE 2 PUFFS BY MOUTH FOUR TIMES DAILY NEEDED FOR SHORTNESS OF BREATH OR WHEEZING 02/17 completed Not Available Not Available Not Available doxycycline hyclate 100 mg tablet TAKE 1 TABLET BY MOUTH TWICE DAILY 07/07 completed Not Available Not Available Not Available iron active Not Available Not Availa ble Not Available Vitamin D3 active Not Available Not Av ailable Not Available FeroSul 325 mg (65 mg iron) tablet TAKE 1 TABLET BY MOUTH TWICE DAILY 02/17 completed Not Available Not Available Not Available Slynd 4 mg (28) tablet Take 1 tablet every day by oral route for 30 days. 2023 active Not Available Not Available Not Avai lable Vitals Date Recorded Body height Body mass index (BMI) Body weight Systolic And Diastolic Provider Name and Address Organization Details Last Updated DateTime 07/07/2022 170.18 cm 62.3 kg/m2 768973.76 g 150/66 mm[Hg] Liberty Trujillo [facility] 07/07/2022 11:27:00 Date Recorded Body height Body mass index (BMI) Body weight Systolic And Diastolic Provider Name and Address Organization Details Last Updated DateTime 09/28/2022 170.18 cm 61.7 kg/m2 891655.39 g 148/85 mm[Hg] Margie Machado [facility] 09/28/2022 12:10:42 Date Recorded Body height Body mass index (BMI) Body weight Systolic And Diastolic Provider Name and Address Organization Details Last Updated DateTime 02/19/2024 170.18 cm 48.7 kg/m2 481558.23 g 153/85 mm[Hg] Emily Kendall [facility] 02/19/2024 15:49:43 Social History Question Answer Notes LastModified by Organizat ion Details LastModified Time Tobacco Smoking Status Current Every Day Smoker Liberty Trujillo [place], [facility] 07/07/2022 11:31:12 How Many Years Have You Consumed Alcohol? 10 [email or web address] Information not available 02/19/2024 Are You Blind Or Do You Have Difficulty Seeing? No Information not available 07/07/2022 What Is Your Level Of Caffeine Consumption? Occasional [email or web address] Information not available 02/19/2024 How Much Tobacco Do You Chew? None [email or web address] Information not available 02/19/2024 In The 14 Days Before Symptom Onset, Have You Had Close Contact With A Laboratory-confir med COVID-19 While That Case Was Ill? No [email or web address] Information not available 02/19/2024 In The 14 Days Before Symptom Onset, Have You Had Close Contact With A Person Who Is Under Investigation For COVID-19 While That Person Was Ill? No [email or web address] Information not available 02/19/2024 Have You Been To An Area Known To Be High Risk For COVID-19? No Information not available 02/19/2024 Are You Deaf Or Do You Have Serious Difficulty Hearing? No Information not available 07/07/2022 What Type Of Diet Are You Following? REGULAR Information not available 07/07/2022 What Is The Highest Grade Or Level Of School You Have Completed Or The Highest Degree You Have Received? [id number] [email or web address] Information not available 02/19/2024 Are There Any Guns Present In Your Home? No [email or web address] Information not available 02/19/2024 Do You Use Protection During Sex? Always Information not available 02/19/2024 Do You Use Your Seat Belt Or Car Seat Routinely? Yes [email or web address] Information not available 02/19/2024 Do You Have Smoke And Carbon Monoxide Detectors In Your Home? Yes [email or web address] Information not available 02/19/2024 At What Age Did You Start Smoking Tobacco? 24 [email or web address] Information not available 02/19/2024 How Much Tobacco Do You Smoke? No [email or web address] Information not available 02/19/2024 Do You Use Sunscreen Routinely? No [email or web address] Information not available 02/19/2024 How Many Years Have You Smoked Tobacco? 20 [email or web address] Information not available 02/19/2024 Have You Used IV Drugs? Yes [email or web address] Information not available 02/19/2024 Do You Have Difficulty Walking Or Climbing Stairs? No Information not available 07/07/2022 Sex: Unknown Functional Status Question Answer Note LastModified by Organizat ion Details LastModified Time Do you use any illicit or recreational drugs? No [email or web address] Information not available 02/19/2024 What is your level of alcohol consumption? None [email or web address] Information not available 02/19/2024 Are you able to walk independently without assistance or assistive devices? YESWOREST Information not available 07/07/2022 Are you able to care for yourself independently? 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 No Information not available 07/07/2022 What is your exercise level? Occasional [email or web address] Information not available 02/19/2024 Mental Status Question Answer Note LastModified by Organization D etails LastModified Time Do you feel stressed (tense, restless, nervous, or anxious, or unable to sleep at night)? [id number] [email or web address] Information not available 02/19/2024 Family History Relationship Description Onset Age of this Age Resolved Age Notes LastModified by Organization Details LastModified Time Mother Asthma [email or web address] Not availabl e 07/07/2022 11:29:52 Mother Essential hypertension [email or web address] Not available 15:09:51 Mother Hyperlipidem ia [email or web address] Not available 2023 15:09:51 Medical History Condition Response Allergies (Food, seasonal, environmental ) N Other N Breast Cancer N Drug/Latex Allergies/Reactions N Blood Transfusion N Dermatologic Disorders N Lung Disease N Defects or Inherited Disease N Breast Problem N Gestational Diabetes N Hematologic disorders N Anesthesia Complications N History of STI N Deep Vein Thrombosis N Polycystic ovary syndrome N Anxiety Disorder N Autoimmune disease N Arthritis N Infertility N Polyps N Acid Reflux (GERD) N History of abnormal pap N Cancer N Stroke N Varicosities N Neurologic/Epilepsy N Endometriosis N High Cholesterol N Headaches N Fibromyalgia N Kidney Disease N Heart Problems N Kidney or Bladder Problems N Thyroid Problems N GI Problems N Eating Disorder N Anemia Y Art (IVF or FET) N Psychiatric Illness N Ovarian Cancer N Diabetes N Pulmonary (TB, Asthma) N Hepatitis/Liver Disease N No Past Medical History N Eczema N Urinary Tract Infection N Abuse/Domestic Violence N Asthma N Trauma/Violence N Depression/ depression N Heart Disease N Pre-Eclampsia N Hypertension Y Osteoporosis N Thrombophilias N Gynecological History Statement/Question Response Flow Heavy Date of LMP 01/26/2024 N Was last menstrual period normal Y STIs/STDs Y Date of control 07/06/2006 Date of Last Colonoscopy 05/22/2017 Hysterectomy Desired Control Method Other Abnormal Pap N On BCP's at Conception? N HPV Vaccine N Duration of Flow (days) 7 Current Control Method None Age at First Child 25 Are cycles usually normal Y Sexually Active? N Menses Monthly N Age of first menstrual cycle 16 Date of Last Pap Smear 10/20/2020 Sexual Problems? N LMP Approximate 05/22/2017 N Obstetrics History GPAL:G 2 P 0 0 1 1 Type Value Spontaneous 1 Living 1 Total 2 Past Encounters Encounter ID Performer Location Encounter Start Date Encounter Closed Date Diagnosis/Indication Diagnosis SNOMED-CT Code Diagnosis ICD10 Code Diagnosis IMO Codes Diagnosis Note [id number] ELIJAH Stern [place] [address] [address] 07/07/2022 10:57:22 07/07/2022 15:28:33 Contraception care management 367279416 Z30.9 Discussed all BC methods in-depthDe sirshahab Davis ssed all control options in great detail. Pt would like to start POP. She is aware of the risks and benefits. She has contraindi cations to use of OCP or other estrogen containing hormonal therapy. Pt will start her pills on the first monday following the start of her period. She is aware it is not effective for control the first month. She is also aware of the importance of taking at the same time every day. Encouraged use of condoms as the pill does not protect against STD's. Will return in 3 months for med check. Consent was read and signed. Pt verbalized understand ing.Slynd samples givenRTC for 3 month med check She will update on us on repeat labs being done by PCP. If positive for Lupus will need to discuss BC r/b related to lupus. BP elevated. Recently restarted BP medication . No symptoms. Encouraged to recheck BP at home, f/u with PCP. ED precaution s discussed. Time spent in visit is a total of 30 mins with at least 50% of visit consisting of counseling and review of plan of care. [id number] ELIJAH Stern [place] [address] [address] 09/28/2022 11:40:49 09/28/2022 13:04:24 Contraception care management [id number] Z30.9 Patient is here today for a medicaton check of control. She voices goals of therapy have been met with use of this therapy. She denies neg side effects. She is eating, drinking, sleeping well; moods are stable & periods are well regulated. Wishes to continue this method of BC. Appropriat e to continue this medication . happy with slynd, no issuesrefi lls sent x 12 monthsBP precaution s discussed, continue to check at home and f/u with PCP Time spent in visit is a total of 18 mins with at least 50% of visit consisting of counseling and review of plan of care. [id number] KORY JARAMILLO MD [place] [address],[facility] [place] [address] 02/19/2024 15:09:20 02/19/2024 16:42:06 Menorrhagia [id number] N92.0 - patient reports long history of menorrhagi a, no new changes- starting chemothera py tomorrow for stage III colorectal cancerDisc ussed with patient risks, benefits, and alternativ es of contracept ion. Discussed all options, including natural family planning, condoms, combined oral contracept sarah, contracept pham patch, Nuva-ring, Depo-Prove ra, Nexplanon, intrauteri ne device. Patient has contraindi cations to estrogen containing methods due to hypertensi on. Patient reports that she has used Slynd successful ly in the past. After extensive counseling , patient at this time desires Slynd. Health Concerns Section Related Observation LastModified by Organization Detai ls LastModified Time None Recorded Concern Status LastModified by Organization Details LastModified Time None Recorded Advance Directives Directive None Recorded Payers Insurance Date Sequence Insurance Name Policy Number Policy Veliz Covered Member ID Veliz Member ID Guarantor Name 02/20/2024 1 [place]ICA[place]: [facility] Dilia Brodykatya [id number] Dilia Loomis 02/18/2024 1 [facility] - DOS ON OR AFTER 20 (MEDICAID REPLACEMENT - HMO) Dilia Brodykatya [id number] Dilia Loomis 02/18/2024 1 [facility] - DOS ON OR AFTER 20 (MEDICAID REPLACEMENT - HMO) Dilia Ellington [id number] Dilia Loomis Notes Date Note Type Note Provider Name and Address Organization Details Recorded Time 07/07/2022 text/html 41yo [id number] for BC consultNormal monthly periods, not currently SAHas tried nuvaring, pills, and Mirena IUD in the pastMedical hx : HTN, anemiaCurrent everyday smokerRecently had labs at PCP office. Possible Lupus, having repeat labs done to verify if false positive testing or not per patientLast pap 10/2020 - normal. No hx of abnormal paps ELIJAH Stern [address], [place], [address], [facility] 07/07/2022 14:31:01 09/28/2022 text/html 42yopresents for med checkstarted slynd at LOVdoing well, no issuesvery happy with light periodstest for lupus was negative at her PCP office per patientrecently restarted BP meds and keeping log at home ELIJAH Stern [address], [place], [address], [facility] 09/28/2022 12:28:47 02/19/2024 text/html Patient presents for discussion of contraception options. She is starting chemotherapy tomorrow for Stage III colorectal cancer. She is worried about heavy cycles during her chemotherapy. SHe has been on Slynd in the past with good results. KORY JARAMILLO MD [address], [place], [address], [facility] 02/19/2024 16:26:06 OBGyn Episode Ob Episode Information Episode Created Date Number of Fetuses Patient Bloodtype Patient rh Status Prepregnancy Weight lbs Domestic Partner Domestic Partner Phone Father Name Copyist Status 07/07/19 23 1 CLOSED Fetus Data First Name Last Name Admitted to NICU Weight (g) Sex Living Outcome Pediatric Complications Fetus ID Race Codes Race Delivery Type 2891.64 [id number] M [id number] Vaginal Delivery Gumaro Calculation Initial Gumaro Date Initial Exam Date Initial Exam Provider Initial Ultrasound Date Last Menstrual Period Date Ultra Sound Weeks Gestation 0 Eighteen To Twenty Week Gumaro Update Ultra Sound Date Fundal Height At Umbil Quickening Date Ultra Sound Latest Weeks Gestation Final Gumaro Confirmed By Final Gumaro Confirmed Date Final Gumaro Date Ultra Sound Latest Days Gestation 0 0 Menstrual History Last Menstrual Date Menses Monthly On Bcp Conception Prior Menses Frequency Hcg Plus Date Menarche Onset Age Delivery Information Delivery Date Delivery Type Labor Anesthesia Weeks Gestation Incision Type Labor Labor Length Hrs Delivered By Post Complications Tubal Sterilization Discharge Date Comments 7 Discharge Information Feeding Method Contraceptive Method Maternal HG B and HCT Levels
--- OUTSIDE RECORDS SUMMARY | 2025-03-24 15:44 | XMS_ITS | Encounter Summary ---
Author Organization [facility] Address [address] [place] [address] Care Team Providers Care Ship'S Officer Name Role Phone Olman Schofield MD Primary Care Provider [phone] Encounter Details Date Type Department Care Team (Late Contact Info) Description 01/12/2025 Lab Requisition [facility] Services [address] [place] [address] [place] [address] [address] Social History Tobacco Use Types Packs/Day Years Used Date Smoking Tobacco: Former Cigarettes 0.3 15 Q uit: 01/10/2021 Smokeless Tobacco: Never Alcohol Use Standard Drinks/Week Comments Never 0 (1 standard drink = 0.6 oz pur e alcohol) Comments Unknown Sex and Gender Information Value Date Recorded Sex Assigned at Not on file Legal Sex Female 11:34 AM POURER OFF Gender Identity Not on file Sexual Orientation Not on file documented as of this encounter Plan of Treatment Upcoming Encounters Date Type Department Care Team (Late st Contact Info) Description 03/28/2025 2:00 PM POURER OFF Telephone Check Up [facility] Oncology and Hematology - [place] [address] [facility] [address] [place] [address] Bhavik Rios MD [address] [facility] [address] [place] [address] documented as of this encounter Procedures Procedure Name Priority Date/Time Associated Diagnosis Comments CBC WITH DIFFERENTIAL Routine 01/12/2025 6:00 AM CDT BASIC METABOLIC PANEL Routine 01/12/2025 6:00 AM CDT documented in this encounter Results * (ABNORMAL) CBC WITH DIFFERENTIAL (01/12/2025 6:00 AM CDT) [facility] WBC 4.9 4.0 - 9.8 K/uL 01/12/2025 2:16 PM CDT [facility] RBC 3.92 3.90 - 4.90 M/uL 01/12/2025 2:16 PM CDT [facility] HEMOGLOBIN 10.6(L) 11.8 - 14.8 g/dL 01/12/2025 2:16 PM CDT [facility] HEMATOCRIT 34.2(L) 35.5 - 44.0 % 01/12/2025 2:16 PM CDT [facility] MCV 87.2 82.0 - 99.0 fL 01/12/2025 2:16 PM CDT [facility] MCH 27.0(L) 27.2 - 32.6 pg 01/12/2025 2:16 PM CDT [facility] MCHC 31.0(L) 31.5 - 35.5 g/dL 01/12/2025 2:16 PM CDT [facility] RDW 14.4 11.5 - 14.5 % 01/12/2025 2:16 PM CDT [facility] RDW-STDEV 46.2 37.1 - 48.7 fL 01/12/2025 2:16 PM CDT [facility] PLATELETS 269 140 - 350 K/uL 01/12/2025 2:16 PM CDT [facility] MPV 10.4 9.3 - 12.4 fL 01/12/2025 2:16 PM CDT [facility] NEUTROPHILS 67 % 01/12/2025 2:16 PM CDT [facility] LYMPHOCYTES 15 % 01/12/2025 2:16 PM CDT [facility] MONOCYTES 9 % 01/12/2025 2:16 PM CDT [facility] EOSINOPHILS 8 % 01/12/2025 2:16 PM CDT [facility] BASOPHILS 1 % 01/12/2025 2:16 PM CDT [facility] IMMATURE GRANULOCYTES 0 % 01/12/2025 2:16 PM CDT [facility] NEUTROPHIL ABSOLUTE 3.27 1.90 - 7.00 K/uL 01/12/2025 2:16 PM CDT [facility] LYMPHOCYTE ABSOLUTE 0.74 0.70 - 4.50 K/uL 01/12/2025 2:16 PM CDT [facility] MONOCYTE ABSOLUTE 0.46 0.10 - 1.30 K/uL 01/12/2025 2:16 PM CDT [facility] EOSINOPHIL ABSOLUTE 0.37 0.00 - 0.70 K/uL 01/12/2025 2:16 PM CDT [facility] BASOPHILS ABSOLUTE 0.03 0.00 - 0.20 K/uL 01/12/2025 2:16 PM CDT [facility] IMMATURE GRANULOCYTES ABSOLUTE 0.02 0.00 - 0.03 K/uL 01/12/2025 2:16 PM CDT [facility] Blood Collection / Unknown 01/12/2025 6:00 AM CDT 01/12/2025 2:03 PM CDT us Lisa Johns DO HEMATOLOGY ORDERABLES Final Res ult [facility] CLIA# [id number] [place] [address] * (ABNORMAL) BASIC METABOLIC PANEL (01/12/2025 6:00 AM CDT) SODIUM 141 136 - 145 mmol/L 01/12/2025 2:35 PM CDT [facility] POTASSIUM 3.5 3.4 - 5.1 mmol/L 01/12/2025 2:35 PM CDT [facility] CHLORIDE 100 98 - 107 mmol/L 01/12/2025 2:35 PM CDT [facility] CO2 26 22 - 29 mmol/L 01/12/2025 2:35 PM CDT [facility] CALCIUM 9.6 8.6 - 10.4 mg/dL 01/12/2025 2:35 PM CDT [facility] BUN 18 6 - 20 mg/dL 01/12/2025 2:35 PM CDT [facility] CREATININE 0.40(L) 0.51 - 0.95 mg/dL 01/12/2025 2:35 PM CDT [facility] GLUCOSE 60(L) 74 - 99 mg/dL 01/12/2025 2:35 PM T [facility] GFR >60 >=60 mL/min/1.7 3 sq meter 01/12/2025 2:35 PM T [facility] Comment:eGFR calculated with 2020 CKD-EPI equation. Vegetarian diet, extremely high or low muscle mass, and may affect results. Cystatin C with Glomerular Filtration Rate is a suitable alternative for these patients. 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 auris. High risk facility. Will need to remain on Enhanced isolation (while hospitalized). Patient is required to be tested at every ED visit/ admission for the following 6 months, and once thereafter ([id number], Rosi auris surveillance screening). If negative screen 6 months, R/O C. auris status can be removed. 12/30/2024 12/30/2024 01/13/2025 8:58 AM C DT Rosi auris Comment:01/09/2025 axilla/groin 01/09/2025 01/09/2025 documented as of this encounter Care Teams Ship'S Officer Relationship Specialty Start Date End Date Olman Schofield MD [address] [place] [id number] PCP - General Family Practice 04/09/24 documented as of this encounter
--- OUTSIDE RECORDS SUMMARY | 2025-03-24 15:44 | XMS_ITS | Encounter Summary ---
Author Organization [facility] Address [address] [place] [address] Care Team Providers Care Molder Trimmer Name Role Phone Olman Schofield MD Primary Care Provider [phone] Encounter Details Date Type Department Care Team (Late Contact Info) Description 12/14/2024 Lab Requisition [facility] Laboratory Services [address] [place] [address] [place] [address] [place] [address] Social History Tobacco Use Types Packs/Day Years Used Date Smoking Tobacco: Former Cigarettes 0.3 15 Q uit: 01/10/2021 Smokeless Tobacco: Never Alcohol Use Standard Drinks/Week Comments Never 0 (1 standard drink = 0.6 oz pur e alcohol) Comments Unknown Sex and Gender Information Value Date Recorded Sex Assigned at Not on file Legal Sex Female 11:34 AM SUPERINTENDENT PLANT Gender Identity Not on file Sexual Orientation Not on file documented as of this encounter Plan of Treatment Upcoming Encounters Date Type Department Care Team (Late Contact Info) Description 03/28/2025 2:00 PM SUPERINTENDENT PLANT Telephone Check Up [facility] Oncology and Hematology - [facility] [address] [facility] [address] [place] [address] Bhavik Rios MD [address] [facility] [address] [place] [address] documented as of this encounter Procedures Procedure Name Priority Date/Time Associated Diagnosis Comments CBC WITH DIFFERENTIAL Routine 12/14/2024 3:30 AM CDT BASIC METABOLIC PANEL Routine 12/14/2024 3:30 AM CDT documented in this encounter Results * (ABNORMAL) CBC WITH DIFFERENTIAL (12/14/2024 3:30 AM CDT) [facility] WBC 6.9 4.0 - 9.8 K/uL 12/14/2024 6:52 AM CDT [facility] RBC 3.71(L) 3.90 - 4.90 M/uL 12/14/2024 6:52 AM CDT [facility] HEMOGLOBIN 10.7(L) 11.8 - 14.8 g/dL 12/14/2024 6:52 AM CDT [facility] HEMATOCRIT 34.2(L) 35.5 - 44.0 % 12/14/2024 6:52 AM CDT [facility] MCV 92.2 82.0 - 99.0 fL 12/14/2024 6:52 AM CDT [facility] MCH 28.8 27.2 - 32.6 pg 12/14/2024 6:52 AM CDT [facility] MCHC 31.3(L) 31.5 - 35.5 g/dL 12/14/2024 6:52 AM CDT [facility] RDW 14.3 11.5 - 14.5 % 12/14/2024 6:52 AM CDT [facility] RDW-STDEV 48.5 37.1 - 48.7 fL 12/14/2024 6:52 AM CDT [facility] PLATELETS 329 140 - 350 K/uL 12/14/2024 6:52 AM CDT [facility] MPV 9.6 9.3 - 12.4 fL 12/14/2024 6:52 AM CDT [facility] NEUTROPHILS 74 % 12/14/2024 6:52 AM CDT [facility] LYMPHOCYTES 10 % 12/14/2024 6:52 AM CDT [facility] MONOCYTES 9 % 12/14/2024 6:52 AM CDT [facility] SERVICES [facility] EOSINOPHILS 5 % 12/14/2024 6:52 AM CDT [facility] SERVICES [facility] BASOPHILS 1 % 12/14/2024 6:52 AM CDT [facility] IMMATURE GRANULOCYTES 0 % 12/14/2024 6:52 AM CDT [facility] NEUTROPHIL ABSOLUTE 5.09 1.90 - 7.00 K/uL 12/14/2024 6:52 AM CDT [facility] LYMPHOCYTE ABSOLUTE 0.72 0.70 - 4.50 K/uL 12/14/2024 6:52 AM CDT [facility]OR[facility]ORY SERVICES [facility] MONOCYTE ABSOLUTE 0.64 0.10 - 1.30 K/uL 12/14/2024 6:52 AM CDT [facility] EOSINOPHIL ABSOLUTE 0.35 0.00 - 0.70 K/uL 12/14/2024 6:52 AM CDT [facility] BASOPHILS ABSOLUTE 0.07 0.00 - 0.20 K/uL 12/14/2024 6:52 AM CDT [facility]OR[facility]ORY SERVICES [facility] IMMATURE GRANULOCYTES ABSOLUTE 0.03 0.00 - 0.03 K/uL 12/14/2024 6:52 AM CDT [facility] Blood Venipuncture / Unknown 12/14/2024 3:30 AM CDT 12/14/2024 6:07 AM CDT us Valerie Mercedes MD HEMATOLOGY ORDERABLES Final Resu lt [facility] [employer] [facility] CLIA# [id number] [place] [address] * (ABNORMAL) BASIC METABOLIC PANEL (12/14/2024 3:30 AM CDT) SODIUM 139 136 - 145 mmol/L 12/14/2024 7:13 AM CDT [facility] POTASSIUM 3.6 3.4 - 5.1 mmol/L 12/14/2024 7:13 AM CDT [facility] CHLORIDE 101 98 - 107 mmol/L 12/14/2024 7:13 AM T [facility] CO2 25 22 - 29 mmol/L 12/14/2024 7:13 AM T [facility] CALCIUM 9.7 8.6 - 10.4 mg/dL 12/14/2024 7:13 AM T [facility] BUN 16 6 - 20 mg/dL 12/14/2024 7:13 AM T [facility] CREATININE 0.47(L) 0.51 - 0.95 mg/dL 12/14/2024 7:13 AM T [facility] GLUCOSE 79 74 - 99 mg/dL 12/14/2024 7:13 AM [facility] GFR >60 >=60 mL/min/1.7 3 sq meter 12/14/2024 7:13 AM [facility] Comment:eGFR calculated with 2020 CKD-EPI equation. Vegetarian diet, extremely high or low muscle mass, and may affect results. Cystatin C with Glomerular Filtration Rate is a suitable alternative for these patients. 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 auris. High risk facility. Will need to remain on Enhanced isolation (while hospitalized). Patient is required to be tested at every ED visit/ admission for the following 6 months, and once thereafter ([id number], Rosi auris surveillance screening). If negative screen 6 months, R/O C. auris status can be removed. 12/30/2024 12/30/2024 01/13/2025 8:58 AM C DT Rosi auris Comment:01/09/2025 axilla/groin 01/09/2025 01/09/2025 documented as of this encounter Care Teams Molder Trimmer Relationship Specialty Start Date End Date Olman Schofield MD [address] [place] [phone] PCP - General Family Practice 04/09/24 documented as of this encounter
--- OUTSIDE RECORDS SUMMARY | 2025-03-24 15:44 | XMS_ITS | Encounter Summary ---
Author Organization [facility] Address [address] [place] [address] Care Team Providers Care Credit Risk Modeler Name Role Phone Olman Schofield MD Primary Care Provider [phone] Encounter Details Date Type Department Care Team (Late Contact Info) Description 01/04/2025 Lab Requisition [facility] Laboratory Services [address] [place] [address] [place] [address] [place] [address] Social History Tobacco Use Types Packs/Day Years Used Date Smoking Tobacco: Former Cigarettes 0.3 15 Q uit: 01/10/2021 Smokeless Tobacco: Never Alcohol Use Standard Drinks/Week Comments Never 0 (1 standard drink = 0.6 oz pur e alcohol) Comments Unknown Sex and Gender Information Value Date Recorded Sex Assigned at Not on file Legal Sex Female 11:34 AM VETERINARY TECHNOLOGIST Gender Identity Not on file Sexual Orientation Not on file documented as of this encounter Plan of Treatment Upcoming Encounters Date Type Department Care Team (Late Contact Info) Description 03/28/2025 2:00 PM VETERINARY TECHNOLOGIST Telephone Check Up [facility] Oncology and Hematology - Manas [address] [facility] [address] [place] [address] Bhavik Rios MD [address] [facility] [address] [place] [address] documented as of this encounter Procedures Procedure Name Priority Date/Time Associated Diagnosis Comments EXTRA TUBE (URINE AKINS) Routine 01/04/2025 12:45 PM CDT EXTRA TUBE (URINE CONTAINER) Routine 01/04/2025 12:45 PM CDT MYOGLOBIN, URINE Routine 01/04/2025 12:4 5 PM CDT documented in this encounter Results * EXTRA TUBE (URINE AIKNS) (01/04/2025 12:45 PM CDT) Urine URINE SPECIMEN OBTAINED BY CLEAN CATCH PROCEDURE / Unknown Collection / Unknown 01/04/2025 12:45 PM CDT 01/04/2025 2:44 PM CDT us Valerie Mercedes MD URINE ORDERABLES Final Result Performing Organization Address [facility]/ZIP Co de Phone Number [facility]# [id number] [address] [place] [address] * EXTRA TUBE (URINE CONTAINER) (01/04/2025 12:45 PM CDT) Urine URINE SPECIMEN OBTAINED BY CLEAN CATCH PROCEDURE / Unknown Collection / Unknown 01/04/2025 12:45 PM CDT 01/04/2025 2:44 PM CDT us Valerie Mercedes MD URINE ORDERABLES Final Result Performing Organization Address [facility] de Phone Number [facility]# [id number] [place] [address] * MYOGLOBIN, URINE (01/04/2025 12:45 PM CDT) MYOGLOBIN, URINE <1 0 - 1 mg/L 01/07/2025 8:20 PM CDT [facility] Comment: INTERPRETIVE INFORMATION: Myoglobin, Urine Patients with urine myoglobin greater than 15 mg/L are at risk of acute renal failure. Usual results are less than 1 mg/L. Results between 1 and 15 mg/L are associated with vigorous exercise, myocardial infarction, mild muscle injury and other conditions. This test was developed and its performance characteristics determined by [employer]. It has not been cleared or approved by the US Food and Drug Administration. This test was performed in a CLIA certified laboratory and is intended for clinical purposes. Urine URINE SPECIMEN OBTAINED BY CLEAN CATCH PROCEDURE / Unknown Collection / Unknown 01/04/2025 12:45 PM CDT 01/04/2025 2:44 PM CDT Narrative [facility] - 01/07/2025 8:20 PM CDT Performing Organization Information: Site ID: [id number] Name: [employer] 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 auris. High risk facility. Will need to remain on Enhanced isolation (while hospitalized). Patient is required to be tested at every ED visit/ admission for the following 6 months, and once thereafter ([id number], Rosi auris surveillance screening). If negative screen 6 months, R/O C. auris status can be removed. 12/30/2024 12/30/2024 01/13/2025 8:58 AM C DT Rosi auris Comment:01/09/2025 axilla/groin 01/09/2025 01/09/2025 documented as of this encounter Care Teams Credit Risk Modeler Relationship Specialty Start Date End Date Olman Scohfield MD [address] [place] [phone] PCP - General Family Practice 04/09/24 documented as of this encounter
--- OUTSIDE RECORDS SUMMARY | 2025-03-24 15:44 | XMS_ITS | Encounter Summary ---
Author Organization [facility] Address [address] [place] [address] Care Team Providers Care Bend Sorter Name Role Phone Olman Schofield MD Primary Care Provider [phone] Encounter Details Date Type Department Care Team (Late Contact Info) Description 01/04/2025 Lab Requisition [facility] Laboratory Services [address] [place] [address] [place] [address] [place] [address] Social History Tobacco Use Types Packs/Day Years Used Date Smoking Tobacco: Former Cigarettes 0.3 15 Q uit: 01/10/2021 Smokeless Tobacco: Never Alcohol Use Standard Drinks/Week Comments Never 0 (1 standard drink = 0.6 oz pur e alcohol) Comments Unknown Sex and Gender Information Value Date Recorded Sex Assigned at Not on file Legal Sex Female 11:34 AM CIGAR BINDER Gender Identity Not on file Sexual Orientation Not on file documented as of this encounter Plan of Treatment Upcoming Encounters Date Type Department Care Team (Late Contact Info) Description 03/28/2025 2:00 PM CIGAR BINDER Telephone Check Up [facility] Oncology and Hematology - Manas [address] [place] [address] Bhavik Rios MD [address] [facility] [address] [place] [address] documented as of this encounter Procedures Procedure Name Priority Date/Time Associated Diagnosis Comments CK Routine 01/04/2025 12:45 PM CDT documented in this encounter Results * (ABNORMAL) CK (01/04/2025 12:45 PM CDT) CK 19(L) 20 - 180 U/L 01/04/2025 3:17 PM CDT [facility] Blood Collection / Unknown 01/04/2025 12:45 PM CDT 01/04/2025 2:41 PM CDT us Valerie Mercedes MD CHEMISTRY ORDERABLES Final Resul t [facility] CLIA# [id number] [address] [place] [address] documented in this encounter Visit Diagnoses Not on filedocumented in this encounter Additional Health Concerns Infection Onset Date Last Indicated Resolved Time 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 auris. High risk facility. Will need to remain on Enhanced isolation (while hospitalized). Patient is required to be tested at every ED visit/ admission for the following 6 months, and once thereafter ([id number], Rosi auris surveillance screening). If negative screen 6 months, R/O C. auris status can be removed. 12/30/2024 12/30/2024 01/13/2025 8:58 AM C DT Rosi auris Comment:01/09/2025 axilla/groin 01/09/2025 01/09/2025 documented as of this encounter Care Teams Bend Sorter Relationship Specialty Start Date End Date Olman Schofield MD [address] [place] [phone] PCP - General Family Practice 04/09/24 documented as of this encounter
--- OUTSIDE RECORDS SUMMARY | 2025-03-24 15:44 | XMS_ITS | Clinical Summary ---
Author Organization [facility] Address [address] [place] [address] Care Team Providers Care Framework Developer Name Role Phone Olman Schofield MD Primary Care Provider Allergies Active Allergy Reactions Criticality Noted Date Comments Amoxicillin Rash Medium 07/15/2022 Barley Grass Other (See comments) Medium 07/15/2022 Medications acetaminophen (TYLENOL) 500 mg tablet acetaminophen 500 mg tablet Active carvediloL (COREG) 12.5 mg tablet 3 Active ergocalciferol (VITAMIN D) 50,000 unit capsule Take 1 capsule (50,000 Units total) by mouth 3 Active ferrous sulfate 325 mg (65 mg of elemental iron) tablet Take 1 tablet (325 mg total) by mouth 2 (two) times a day 3 Active drospirenone, contraceptive, (Slynd) tablet tablet Slynd 4 mg (28) tablet TAKE 1 TABLET BY MOUTH EVERY DAY Active metroNIDAZOLE (FLAGYL) 500 mg tablet Take 1 tablet (500 mg total) by mouth 2 (two) times a day Active methocarbamoL (ROBAXIN) 500 mg tabletIndicati ons:Chronic bilateral low back pain without sciatica Take 1 tablet (500 mg total) by mouth nightly as needed for muscle spasms 90 tablet 4 Active Active Problems No known active problems Encounters Date Type Department Care Team Description 03/20/[address] [place] [address] Natalie Gayle RN 03/19/2025 Home Care Visit [facility] Home Health - [address] [place] [address] Jessica Santoro RN SN TRIAGE ENCOUNTER from Last 3 Months Surgical History Surgery Date Site/Laterality Comments CHOLECYSTECTOMY PORT PLACEMENT CHEST >5 YEARS 11/07/2024 N/A Medical History Medical History Date Comments Hypertension Anemia ADHD (attention deficit hyperactivity disorder) Lumbar facet arthropathy DDD (degenerative disc disease), lumbar Degenerative endplate changes of the lumbar vert ebrae BMI 60.0-69.9, adult (HCC) 07/26/2022 Family History Medical History Relation Name Comments Arthritis Mother Heart disease Mother Relation Name Status Comments Mother Social History Tobacco Use Types Packs/Day Years Used Date Smoking Tobacco: Former Cigarettes Q uit: 07/11/2022 Tobacco Cessation:Counseling Given: Not Answered AUDIT-C Answer Date Recorded Q1: How often do you have a drink containing alc ohol? Monthly or less 07/26/2022 Q2: How many drinks containi ng alcohol do you have on a typical day when you are drinking? 1 or 2 07/26/2022 Q3: How often do you have si x or more drinks on one occasion? 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 Not on file Not on file Not on file Last Filed Vital Signs Vital Sign Reading Time Taken Comments Blood Pressure - - Pulse - - Temperature - - Respiratory Rate - - Oxygen Saturation - - Inhaled Oxygen Concentration - - Weight 177.8 kg (392 lb) 04/28/2023 8:58 AM VAN HELPER Height 170.2 cm (5' 7) 04/28/2023 8:58 AM VAN HELPER Body Mass Index 61.4 04/28/2023 8:58 AM VAN HELPER Plan of Treatment Health Maintenance Due Date Last Done Comments Breast Cancer Screening-Mammogram 1982 Cervical Cancer Screening 1982 Depression Screening 1982 Hepatitis C Screening 1982 Varicella Vaccines (1 of 2 - 13+ 2-dose series) 1995 Hepatitis B Screening 2000 Regular Well Visit/Exam 18-64 2000 HPV Vaccines (1 - 3-dose SCD M series) 2009 Covid-19 Vaccine (3 - 2024-2 6 season) 2025 12/17/2020, 11/19/2020 Influenza Vaccine (#1) 2025 DTaP/Tdap/Td Vaccine (2 - Td or Tdap) 04/07/2033 04/07/2023 Pneumococcal vaccine <65 Aged Out No longer eligible based on patient[place] [id number] [facility] Care Teams Framework Developer Relationship Specialty Start Date End Date Olman Schofield MD [address] [address] PCP - General Emergency Medicine 03/19/25
--- OUTSIDE RECORDS SUMMARY | 2025-03-24 15:44 | XMS_ITS | Encounter Summary ---
Author Organization [facility] Address [address] [place] [address] Care Team Providers Care Physical Scientist Name Role Phone Olman Schofield MD Primary Care Provider [phone] Encounter Details Date Type Department Care Team (Late Contact Info) Description 01/05/2025 Lab Requisition [facility] Laboratory Services [address] [place] [address] [place] [address] [address] Social History Tobacco Use Types Packs/Day Years Used Date Smoking Tobacco: Former Cigarettes 0.3 15 Q uit: 01/10/2021 Smokeless Tobacco: Never Alcohol Use Standard Drinks/Week Comments Never 0 (1 standard drink = 0.6 oz pur e alcohol) Comments Unknown Sex and Gender Information Value Date Recorded Sex Assigned at Not on file Legal Sex Female 11:34 AM BODY COMPONENT ENGINEER Gender Identity Not on file Sexual Orientation Not on file documented as of this encounter Plan of Treatment Upcoming Encounters Date Type Department Care Team (Late st Contact Info) Description 03/28/2025 2:00 PM BODY COMPONENT ENGINEER Telephone Check Up [facility] Oncology and Hematology - Manas [address] [facility] [address] [place] [address] Bhavik Rios MD [address] [facility] [address] [place] [address] documented as of this encounter Procedures Procedure Name Priority Date/Time Associated Diagnosis Comments PORPHOBILINOGEN QUANTITATIVE, URINE Routine 01/05/2025 6:25 PM CDT documented in this encounter Results * (ABNORMAL) PORPHOBILINOGEN QUANTITATIVE, URINE (01/05/2025 6:25 PM CDT) PORPHOBILINOGEN, QUANT, RANDOM UR 0.374(H) <0.22 mg/g creat 01/10/2025 2:15 PM CDT [facility] INTERPRETATION URINE SEE NOTE 01/10/2025 2:15 PM CDT [facility] Comment: RANDOM URINE PORPHOBILINOGEN (PBG) IS MILDLY ELEVATED. THE CLINICAL SIGNIFICANCE OF A MILD ELEVATION OF PBG IS UNCERTAIN. HOWEVER, IT HAS BEEN FOUND IN QUIESCENT PHASES OF ACUTE INTERMITTENT PORPHYRIA (AIP), HEREDITARY COPROPORPHYRIA (HCP) OR VARIEGATE PORPHYRIA (EQUIPMENT OPERATOR WAREHOUSE). TO RULE OUT AN ACUTE PORPHYRIA, PLEASE CONSIDER EITHER A RANDOM OR 24 HOUR URINE SPECIMEN, COLLECTED DURING A SYMPTOMATIC PERIOD, FOR FRACTIONATED URINE PORPHYRINS AND PORPHOBILINOGEN ANALYSIS. FECAL FRACTIONATED PORPHYRINS AND ERYTHROCYTE PBG DEAMINASE ENZYME ANALYSES MAY BE INDICATED BASED ON FRACTIONATED URINE PORPHYRINS RESULTS. A portion of the testing was performed at [facility]. Interpretation reviewed by: Aaliyah Souza, Ph.D., [facility]. - IF THE ORDERING/TREATING PHYSICIAN HAS ANY QUESTIONS REGARDING THESE RESULTS, PLEASE CONTACT THE [facility] AT ext [phone] or ext [phone] AND ASK TO SPEAK WITH THE FISH FILLETER FIXING MACHINE OPERATOR. FOR GENERAL QUESTIONS ABOUT [employer] [facility], PLEASE CALL THE GENE INFO LINE AT [phone] PharmaceuticalsINFO. Whenever possible, specimens should be collected during symptomatic attacks of acute porphyrias, because porphobilinogen (PBG) may decrease rapidly upon remission. PBG may also degrade when samples are exposed to UV light for extended periods or are transported at refrigerated or ambient temperature. All results should be interpreted in the context of clinical findings, relevant history, and other laboratory data. For additional information, please refer to http://education.Beet[employer]er/faq/JNF065 (This link is being provided for informational/educational purposes only.) This test was developed and its analytical performance characteristics have been determined by [employer]. It has not been cleared or approved by the FDA. This assay has been validated pursuant to the CLIA regulations and is used for clinical purposes. Urine URINE SPECIMEN OBTAINED BY CLEAN CATCH PROCEDURE / Unknown Collection / Unknown 01/05/2025 6:25 PM CDT 01/05/2025 9:18 PM CDT Narrative [facility] - 01/10/2025 2:15 PM CDT Performing Organization Information: Site ID: [id number] Name: [employer], Address: [address] [place] [phone] Director: Denise Vasquez MD,PhD,[facility] Lisa Johns DO URINE ORDERABLES Final Result [facility] [phone] documented in this encounter Visit Diagnoses Not on filedocumented in this encounter Additional Health Concerns Infection Onset Date Last Indicated Resolved Time 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 auris. High risk facility. Will need to remain on Enhanced isolation (while hospitalized). Patient is required to be tested at every ED visit/ admission for the following 6 months, and once thereafter ([id number], Rosi auris surveillance screening). If negative screen 6 months, R/O C. auris status can be removed. 12/30/2024 12/30/2024 01/13/2025 8:58 AM C DT Rosi auris Comment:01/09/2025 axilla/groin 01/09/2025 01/09/2025 documented as of this encounter Care Teams Physical Scientist Relationship Specialty Start Date End Date Olman Schofield MD [address] [place] [phone] PCP - General Family Practice 04/09/24 documented as of this encounter
--- OUTSIDE RECORDS SUMMARY | 2025-03-24 15:44 | XMS_ITS | Clinical Summary ---
Author Organization [facility] Edwin sequeira [facility] Address [address] [place] [address] Care Team Providers Care Poly Packer And Heat Sealer Name Role Phone Olman Schofield MD Primary Care Provider [phone] Allergies Active Allergy Reactions Criticality Noted Date Comments Amoxicillin Rash Medium 07/15/2022 Medications acetaminophen (TYLENOL) 500 mg tablet acetaminophen 500 mg tablet Active ferrous sulfate 325 mg (65 mg iron) tablet Take 325 mg by mouth 2 times daily. 07/11/19 23 Active doxycycline hyclate (VIBRAMYCIN) 100 mg capsule Take 150 mg by mouth 2 times daily. Active ondansetron (ZOFRAN ODT) 8 mg Tablet, Rapid DissolveIndicat ions:Malignant neoplasm of colon, unspecified part of colon (CMS/HCC) Dissolve 1 tablet on top of tongue then swallow with saliva every 8 hours as needed for nausea or vomiting 30 Tablet 1 06/11/19 25 Active lidocaine-prilo mecca (EMLA) 2.5-2.5 % Cream Apply a quarter size amount to port site 30 minutes prior to access. 30 Gram 1 06/11/19 25 Active diphenoxylate-a tropine 2.5 mg-0.025 mg tablet TAKE 1 TABLET BY MOUTH FOUR TIMES DAILY NEEDED FOR DIARRHEA OR LOOSE STOOLS 30 Tablet 1 07/16/19 25 Active lisinopriL (PRINIVIL) 5 mg tablet Take 1 Tablet (5 mg) by mouth daily. 30 Tablet 07/23/19 25 Active apixaban (ELIQUIS) 5 mg tablet Take 5 mg by mouth 2 times daily. 12/05/19 25 Active traZODone (DESYREL) 50 mg tablet 02/19/20 25 Active HYDROcodone-bonnie taminophen (NORCO) 5-325 mg tabletIndicatio ns:Malignant neoplasm of colon, unspecified part of colon (CMS/HCC) Take 1 Tablet by mouth every 6 hours as needed for Pain, Moderate. Max Daily Amount: 4 Tablets 30 Tablet 03/24/20 25 Active HYDROcodone-bonnie taminophen (NORCO) 5-325 mg tabletIndicatio ns:Malignant neoplasm of colon, unspecified part of colon (CMS/HCC) Take 1 Tablet by mouth every 6 hours as needed for Pain, Moderate. Max Daily Amount: 4 Tablets 90 Tablet 10/29/19 25 025 Discontin ued(Reord er) Active Problems No known active problems Encounters Date Type Department Care Team Description 03/24/2025 2:15 PM E M ASSEMBLER Office Visit [facility] Oncology and Hematology - Horatio [address] [id number] Bhavik Rios MD Malignant neoplasm of colon, unspecified part of colon (CMS/HCC) 03/19/2025 External Device Data STL ABSTRACTION Provider, Abstract 03/18/2025 External Device Data STL ABSTRACTION Provider, Abstract 03/11/2025 External Device Data STL ABSTRACTION Provider, Abstract 03/10/2025 Orders Only [facility] Oncology and Hematology - Manas Marci [address] [phone] Bhavik Rios MD Malignant neoplasm of colon, unspecified part of colon (CMS/HCC) 02/24/2025 Orders Only [facility] Oncology and Hematology - Manas Arden [address] [place] [address] Bhavik Rios MD Malignant neoplasm of colon, unspecified part of colon (CMS/HCC) 02/10/2025 Orders Only [facility] Oncology and Hematology - Manas Arden [address] [place] [address] Bhavik Rios MD Malignant neoplasm of colon, unspecified part of colon (CMS/HCC) 01/27/2025 Orders Only [facility] Oncology and Hematology - Manas Arden [address] [phone] Bhavik Rios MD Malignant neoplasm of colon, unspecified part of colon ([facility]/HCC) 01/13/2025 Orders Only [facility] Oncology and Hematology [facility] [address] [place] [phone] Bhavik Rios MD Malignant neoplasm of colon, unspecified part of colon ([facility]/HCC) 01/12/2025 Lab Requisition [facility] [address] [place] [address] Lisa Johns, DO 01/10/2025 Lab Requisition [facility] [address] [place] [address] Valerie Mercedes MD 01/09/2025 Lab Requisition [facility] [address] [place] [address] Valerie Mercedes MD 01/06/2025 [facility] Requisition [facility] [address] [place] [address] Lisa Johns, DO 01/05/2025 [facility]quisition [facility] [address] [place] [address] Lisa Johns, DO 01/04/2025 [facility] Requisition [facility] [address] [place] [address] Valerie Mercedes MD 01/04/2025 [facility] Requisition [facility] [address] [place] [address] Valerie Mercedes MD 01/03/2025 [facility] Requisition [facility] [address] [place] [address] Lisa Johns, DO 01/03/2025 [facility] Requisition [facility] [address] [place] [address] Lisa Johns, DO 01/03/2025 Lab Requisition [facility] [address] [place] [phone] Valerie Mercedes MD 12/31/2024 9:15 AM CDT - 12/31/2024 11:59 PM CDT Hospital Encounter [facility] [address] [place] [address] Valerie Mercedes MD Discharge Disposition: Home or Self Care 12/31/2024 Lab Requisition [facility] [address] [address] Valerie Mercedes MD 12/30/2024 Orders Only [facility] Oncology and Hematology - Manas [address] [place] [address] Bhavik Rios MD Malignant neoplasm of colon, unspecified part of colon ([facility]/HCC) 12/24/2024 External Device Data STL ABSTRACTION Provider, Abstract from Last 3 Months Family History Medical History Relation Name Comments No Known Problems Brother No Known Problems Child No Known Problems Father Heart Disease Mother No Known Problems Sister Relation Name Status Comments Brother Alive Child Alive Father Mother Sister Social History Tobacco Use Types Packs/Day Years Used Date Smoking Tobacco: Former Cigarettes 0.3 15 Q uit: 01/10/2021 Smokeless Tobacco: Never Tobacco Cessation:Counseling Given: Not Answered Alcohol Use Standard Drinks/Week Comments Never 0 (1 standard drink = 0.6 oz pur e alcohol) Comments Unknown Sex and Gender Information Value Date Recorded Sex Assigned at Not on file Legal Sex Female 11:34 AM E M ASSEMBLER Gender Identity Not on file Sexual Orientation Not on file Last Filed Vital Signs Vital Sign Reading Time Taken Comments Blood Pressure 123/81 03/24/2025 2:04 PM E M ASSEMBLER Pulse 108 03/24/2025 2:04 PM E M ASSEMBLER Temperature 36.4 C (97.6 F) 03/24/2025 2:04 PM E M ASSEMBLER Respiratory Rate 16 03/24/2025 2:04 PM E M ASSEMBLER Oxygen Saturation 97% 03/24/2025 2:04 PM E M ASSEMBLER Inhaled Oxygen Concentration - - Weight 110.6 kg (243 lb 12.8 oz) 03/24/2025 2:04 PM E M ASSEMBLER Height 170.2 cm (5' 7) 01/11/2024 2:49 PM CDT Body Mass Index 38.18 01/11/2024 2:49 PM CDT Plan of Treatment Upcoming Encounters Date Type Department Care Team (Late st Contact Info) Description 03/28/2025 2:00 PM E M ASSEMBLER Telephone Check Up [facility] Oncology and Hematology - Manas [address] [facility] [address] [place] [address] Bhavik Rios MD [address] [facility] [address] [place] [address] Health Maintenance Due Date Last Done Comments Pre-Diabetes and Diabetes Screening 1982 HEPATITIS B VACCINES (1 of 3 - 19+ 3-dose series) 2001 Preventative Visit-Managed Medicaid 2001 HPV VACCINES (1 - 3-dose SCDM series) 2009 BREAST CANCER SCREENING 2022 INFLUENZA VACCINE (#1) 2024 COVID-19 Vaccine ( season) 2025 02/27/2025, 12/17/2020, 11/19/2020 DTAP/TDAP/TD VACCINES (2 - T d or Tdap) 04/07/2033 04/07/2023 Procedures Procedure Name Priority Date/Time Associated Diagnosis Comments CBC WITH DIFFERENTIAL Routine 01/12/2025 6:00 AM CDT BASIC METABOLIC PANEL Routine 01/12/2025 6:00 AM CDT ROSI AURIS SURVEILLANCE SCREEN Routine 01/09/2025 1:50 PM CDT CBC WITH DIFFERENTIAL Routine 01/09/2025 3:15 AM CDT BASIC METABOLIC PANEL Routine 01/09/2025 3:15 AM CDT CBC WITH DIFFERENTIAL Routine 01/06/2025 4:35 AM CDT BASIC METABOLIC PANEL Routine 01/06/2025 4:35 AM CDT PORPHOBILINOGEN QUANTITATIVE, URINE Routine 01/05/2025 6:25 PM CDT EXTRA TUBE (URINE AKINS) Routine 01/05/20 12:45 PM CDT EXTRA TUBE (URINE CONTAINER) Routine 01/04/2025 12:45 PM CDT MYOGLOBIN, URINE Routine 01/04/2025 12:4 5 PM CDT CK Routine 01/04/2025 12:45 PM CDT EXTRA TUBE (URINE AKINS) Routine 01/04/20 2:45 PM CDT URINALYSIS W/REFLEX MICROSCOPIC Routine 01/03/2025 2:45 PM CDT HEPATIC FUNCTION PANEL Routine 2:45 PM CDT URINE CULTURE Routine 01/03/2025 2:45 PM CDT BASIC METABOLIC PANEL Routine 01/03/2025 4:00 AM CDT CBC WITH DIFFERENTIAL Routine 01/03/2025 4:00 AM CDT PREALBUMIN Routine 12/31/2024 4:00 AM CDT PTT Routine 12/31/2024 4:00 AM CDT PROTIME-INR Routine 12/31/2024 4:00 AM CDT CBC WITH DIFFERENTIAL Routine 12/31/2024 4:00 AM CDT COMPREHENSIVE METABOLIC PANEL Routine 12/31/2024 4:00 AM CDT from Last 3 Months Results * (ABNORMAL) CBC WITH DIFFERENTIAL (01/12/2025 6:00 AM CDT) Only the most recent of5 resultswithin the time period is included. WBC 4.9 4.0 - 9.8 K/uL 01/12/2025 2:16 PM CDT [facility] RBC 3.92 3.90 - 4.90 M/uL 01/12/2025 2:16 PM CDT [facility] HEMOGLOBIN 10.6(L) 11.8 - 14.8 g/dL 01/12/2025 2:16 PM CDT [facility] HEMATOCRIT 34.2(L) 35.5 - 44.0 % 01/12/2025 2:16 PM CDT [facility] MCV 87.2 82.0 - 99.0 fL 01/12/2025 2:16 PM CDT [facility] MCH 27.0(L) 27.2 - 32.6 pg 01/12/2025 2:16 PM CDT [facility] MCHC 31.0(L) 31.5 - 35.5 g/dL 01/12/2025 2:16 PM CDT [facility] RDW 14.4 11.5 - 14.5 % 01/12/2025 2:16 PM CDT [facility] RDW-STDEV 46.2 37.1 - 48.7 fL 01/12/2025 2:16 PM CDT [facility] PLATELETS 269 140 - 350 K/uL 01/12/2025 2:16 PM CDT [facility] MPV 10.4 9.3 - 12.4 fL 01/12/2025 2:16 PM CDT [facility] NEUTROPHILS 67 % 01/12/2025 2:16 PM CDT [facility] LYMPHOCYTES 15 % 01/12/2025 2:16 PM CDT [facility] SERVICES [facility] MONOCYTES 9 % 01/12/2025 2:16 PM CDT [facility] SERVICES [facility] EOSINOPHILS 8 % 01/12/2025 2:16 PM CDT [facility] BASOPHILS 1 % 01/12/2025 2:16 PM CDT [facility] IMMATURE GRANULOCYTES 0 % 01/12/2025 2:16 PM CDT [facility] NEUTROPHIL ABSOLUTE 3.27 1.90 - 7.00 K/uL 01/12/2025 2:16 PM CDT [facility] LYMPHOCYTE ABSOLUTE 0.74 0.70 - 4.50 K/uL 01/12/2025 2:16 PM CDT [facility] MONOCYTE ABSOLUTE 0.46 0.10 - 1.30 K/uL 01/12/2025 2:16 PM CDT [facility] EOSINOPHIL ABSOLUTE 0.37 0.00 - 0.70 K/uL 01/12/2025 2:16 PM CDT [facility] BASOPHILS ABSOLUTE 0.03 0.00 - 0.20 K/uL 01/12/2025 2:16 PM CDT [facility] IMMATURE GRANULOCYTES ABSOLUTE 0.02 0.00 - 0.03 K/uL 01/12/2025 2:16 PM CDT [facility] Blood Collection / Unknown 01/12/2025 6:00 AM CDT 01/12/2025 2:03 PM CDT us Lisa Johns DO HEMATOLOGY ORDERABLES Final Res ult [facility] CLIA# [id number] [place] [address] * (ABNORMAL) BASIC METABOLIC PANEL (01/12/2025 6:00 AM CDT) Only the most recent of4 resultswithin the time period is included. SODIUM 141 136 - 145 mmol/L 01/12/2025 2:35 PM CDT [facility] POTASSIUM 3.5 3.4 - 5.1 mmol/L 01/12/2025 2:35 PM CDT [facility] CHLORIDE 100 98 - 107 mmol/L 01/12/2025 2:35 PM CDT [facility] CO2 26 22 - 29 mmol/L 01/12/2025 2:35 PM CDT [facility] CALCIUM 9.6 8.6 - 10.4 mg/dL 01/12/2025 2:35 PM CDT [facility] BUN 18 6 - 20 mg/dL 01/12/2025 2:35 PM CDT [facility] CREATININE 0.40(L) 0.51 - 0.95 mg/dL 01/12/2025 2:35 PM CDT [facility] GLUCOSE 60(L) 74 - 99 mg/dL 01/12/2025 2:35 PM CDT [facility] GFR >60 >=60 mL/min/1.7 3 sq meter 01/12/2025 2:35 PM CDT [facility] Comment:eGFR calculated with 2020 CKD-EPI equation. Vegetarian diet, extremely high or low muscle mass, and may affect results. Cystatin C with Glomerular Filtration Rate is a suitable alternative for these patients. ANION GAP 15 8 - 16 mmol/L 01/12/2025 2:35 PM CDT [facility] Blood Collection / Unknown 01/12/2025 6:00 AM CDT 01/12/2025 2:03 PM CDT Lisa Johns DO CHEMISTRY ORDERABLES Final Resu lt [facility] CLIA# [id number] [place] [address] * (ABNORMAL) ROSI AURIS SURVEILLANCE SCREEN (01/09/2025 1:50 PM CDT) Rosi auris by PCR Detected( A) Not Detected 01/11/2025 1:24 AM CDT [facility] Comment:Health Department no tified by laboratory per State regulations. Surveillance (Axilla/Groin) Collection / Unknown 01/09/2025 1:50 PM CDT 01/10/2025 8:24 AM CDT Narrative [facility] - 01/11/2025 1:24 AM CDT Results called to Annie Dhaliwal, Hospital Help Desk Rep @ [employer], on 01/11/2025 at 1:20 AM and read back verified. Valerie Mercedes MD MICROBIOLOGY - GENERAL ORDERABLE S Final Result [facility] [employer] [facility] CLIA# [id number] [address] [place] [address] * (ABNORMAL) PORPHOBILINOGEN QUANTITATIVE, URINE (01/05/2025 6:25 PM CDT) [facility] Signature PORPHOBILINOGEN, QUANT, RANDOM UR 0.374(H) <0.22 mg/g creat 01/10/2025 2:15 PM CDT [facility] INTERPRETATION URINE SEE NOTE 01/10/2025 2:15 PM CDT [facility] Comment: RANDOM URINE PORPHOBILINOGEN (PBG) IS MILDLY ELEVATED. THE CLINICAL SIGNIFICANCE OF A MILD ELEVATION OF PBG IS UNCERTAIN. HOWEVER, IT HAS BEEN FOUND IN QUIESCENT PHASES OF ACUTE INTERMITTENT PORPHYRIA (AIP), HEREDITARY COPROPORPHYRIA (HCP) OR VARIEGATE PORPHYRIA (DIE CASTING SUPERVISOR). TO RULE OUT AN ACUTE PORPHYRIA, PLEASE CONSIDER EITHER A RANDOM OR 24 HOUR URINE SPECIMEN, COLLECTED DURING A SYMPTOMATIC PERIOD, FOR FRACTIONATED URINE PORPHYRINS AND PORPHOBILINOGEN ANALYSIS. FECAL FRACTIONATED PORPHYRINS AND ERYTHROCYTE PBG DEAMINASE ENZYME ANALYSES MAY BE INDICATED BASED ON FRACTIONATED URINE PORPHYRINS RESULTS. A portion of the testing was performed at [facility]. Interpretation reviewed by: Aaliyah Souza, Ph.D., DABMGG. - IF THE ORDERING/TREATING PHYSICIAN HAS ANY QUESTIONS REGARDING THESE RESULTS, PLEASE CONTACT THE [facility] AT ext [phone] or ext [phone] AND ASK TO SPEAK WITH THE BLASTING COAL MINER MINERAL INDUSTRY TEACHER. FOR GENERAL QUESTIONS ABOUT [facility], PLEASE CALL THE GENE INFO LINE AT [phone]. Whenever possible, specimens should be collected during [...] data. For additional information, please refer to http://education.[employer]/faq/UJN064 (This link is being provided for informational/educational purposes only.) This test was developed and its analytical performance characteristics have been determined by [facility]. It has not been cleared or approved by the FDA. This assay has been validated pursuant to the CLIA regulations and is used for clinical purposes. Urine URINE SPECIMEN OBTAINED BY CLEAN CATCH PROCEDURE / Unknown Collection / Unknown 01/05/2025 6:25 PM CDT 01/05/2025 9:18 PM CDT Narrative [facility] - 01/10/2025 2:15 PM CDT Performing Organization Information: Site ID: [id number] Name: [facility], Address: [address] [place] [address] Director: Denise Vasquez MD,PhD,[facility] Lisa Johns DO URINE ORDERABLES Final Result Performing Organization Address [facility] Co de Phone Number [facility] [phone] * EXTRA TUBE (URINE AKINS) (01/04/2025 12:45 PM CDT) Only the most recent of2 resultswithin the time period is included. Urine URINE SPECIMEN OBTAINED BY CLEAN CATCH PROCEDURE / Unknown Collection / Unknown 01/04/2025 12:45 PM CDT 01/04/2025 2:44 PM CDT Valerie Mercedes MD URINE ORDERABLES Final Result Performing Organization Address City/[facility]/ZIP Co de Phone Number [facility]# [id number] [place] [address] * EXTRA TUBE (URINE CONTAINER) (01/04/2025 12:45 PM CDT) Urine URINE SPECIMEN OBTAINED BY CLEAN CATCH PROCEDURE / Unknown Collection / Unknown 01/04/2025 12:45 PM CDT 01/04/2025 2:44 PM CDT Valerie Mercedes MD URINE ORDERABLES Final Result Performing Organization Address [facility] Co de Phone Number [facility] CLIA# [id number] [place] [address] * MYOGLOBIN, URINE (01/04/2025 12:45 PM CDT) MYOGLOBIN, URINE <1 0 - 1 mg/L 01/07/2025 8:20 PM CDT [facility] Comment: INTERPRETIVE INFORMATION: Myoglobin, Urine Patients with urine myoglobin greater than 15 mg/L are at risk of acute renal failure. Usual results are less than 1 mg/L. Results between 1 and 15 mg/L are associated with vigorous exercise, myocardial infarction, mild muscle injury and other conditions. This test was developed and its performance characteristics determined by [employer]. It has not been cleared or approved by the US Food and Drug Administration. This test was performed in a CLIA certified laboratory and is intended for clinical purposes. Urine URINE SPECIMEN OBTAINED BY CLEAN CATCH PROCEDURE / Unknown Collection / Unknown 01/04/2025 12:45 PM CDT 01/04/2025 2:44 PM CDT Narrative [facility] - 01/07/2025 8:20 PM CDT Performing Organization Information: Site ID: AR Name: [facility] [facility] [employer] Address: [address] [place] [address] Director: Grabiel Alexandra MD, PhD Valerie Mercedes MD URINE ORDERABLES Final Result [facility] [phone] * (ABNORMAL) CK (01/04/2025 12:45 PM CDT) CK 19(L) 20 - 180 U/L 01/04/2025 3:17 PM CDT [facility] Blood Collection / Unknown 01/04/2025 12:45 PM CDT 01/04/2025 2:41 PM CDT Valerie Mercedes MD CHEMISTRY ORDERABLES Final Resul t [facility] CLIA# [id number] [place] [address] * (ABNORMAL) URINALYSIS WITH REFLEX MICROSCOPIC (01/03/2025 2:45 PM CDT) COLOR UA Yellow Pale to Dark Yellow 01/03/2025 5:00 PM CDT [facility] CLARITY UA Slightly Cloudy(A) Clear 01/03/2025 5:00 PM CDT [facility] SPECIFIC GRAVITY UA 1.024 1.003 - 1.035 01/03/2025 5:00 PM CDT [facility] PH UA 6.0 5.0 - 8.0 01/03/2025 5:00 PM CDT [facility] LEUKOCYTE ESTERASE UA 2+(A) Negative 01/03/2025 5:00 PM CDT [facility] NITRITE UA Negative Negative 01/03/2025 5:00 PM CDT [facility] PROTEIN UA 1+(A) Negative 01/03/2025 5:00 PM CDT [facility] GLUCOSE UA Negative Negative 01/03/2025 5:00 PM CDT [facility] KETONES UA 1+(A) Negative 01/03/2025 5:00 PM CDT [facility] UROBILINOGEN UA 2.0(A) <2.0 mg/dL 5:00 PM CDT [facility] BILIRUBIN UA Negative Negative 01/03/2025 5:00 PM CDT [facility] BLOOD UA Negative Negative 01/03/2025 5:00 PM CDT [facility] Comment:Ascorbic acid may ca use false negative results for blood. A microscopic review was reflexed to rule out this interference. WBC UA 51-100(A) 0 - 2 /hpf 01/03/2025 5:00 PM CDT [facility] RBC UA 3-5(A) 0 - 2 /hpf 01/03/2025 5:00 PM CDT [facility] BACTERIA UA Negative Negative /hpf 01/03/2025 5:00 PM CDT [facility] EPITHELIAL CELLS, URINE 0-5 0 - 5 /hpf 01/03/2025 5:00 PM CDT [facility] HYALINE CAST 0-2 None Seen, 0-2 /lpf 01/03/2025 5:00 PM CDT [facility] Ascorbic Acid UA Positive(A) Negative 025 5:00 PM CDT [facility] Urine URINE SPECIMEN OBTAINED BY CLEAN CATCH PROCEDURE / Unknown Collection / Unknown 01/03/2025 2:45 PM CDT 01/03/2025 4:48 PM CDT Lisa Johns DO URINE ORDERABLES Final Result [facility] CLIA# [id number] [address] * URINE CULTURE (01/03/2025 2:45 PM CDT) CULTURE No growth at 24 hours 01/05/2025 6:19 AM CDT [facility] Urine Collection / Unknown 01/03/2025 2:45 PM CDT 01/03/2025 4:48 PM CDT Lisa Johns DO MICROBIOLOGY - GENERAL ORDERABL ES Final Result [facility] CLIA# [id number] [address] [place] [address] * (ABNORMAL) HEPATIC FUNCTION PANEL (01/03/2025 2:45 PM CDT) TOTAL PROTEIN 6.7 6.3 - 8.7 g/dL 01/03/2025 5:20 PM CDT [facility] ALBUMIN 3.1(L) 3.5 - 5.2 g/dL 01/03/2025 5:20 PM CDT [facility] BILIRUBIN TOTAL 0.2 0.0 - 1.2 mg/dL 01/03/2025 5:20 PM CDT [facility] BILIRUBIN DIRECT 0.1 0.0 - 0.3 mg/dL 01/03/2025 5:20 PM CDT [facility] ALKALINE PHOSPHATASE 140 40 - 150 U/L 01/03/2025 5:20 PM CDT [facility] AST 35(H) 0 - 33 U/L 01/03/2025 5:20 PM CDT [facility] ALT 31 0 - 33 U/L 01/03/2025 5:20 PM CDT [facility] Blood Collection / Unknown 01/03/2025 2:45 PM CDT 01/03/2025 4:43 PM CDT us Lisa Johns DO CHEMISTRY ORDERABLES Final Resu lt Performing Organization Address City/[facility]/ZIP Co de Phone Number [facility] CLIA# [id number] [place] [address] * (ABNORMAL) PTT (12/31/2024 4:00 AM CDT) PTT 38.4(H) 23.1 - 37.1 seconds 12/31/2024 8:13 AM CDT [facility] Blood Collection / Unknown 12/31/2024 4:00 AM CDT 12/31/2024 7:45 AM CDT Valerie Mercedes MD HEMATOLOGY ORDERABLES Final Resu lt [facility] CLIA# [id number] [place] [address] * (ABNORMAL) PROTIME-INR (12/31/2024 4:00 AM CDT) PROTIME 15.2(H) 11.5 - 14.7 Seconds 12/31/2024 8:13 AM CDT [facility] [employer] [facility] INR 1.2(H) 0.9 - 1.1 12/31/2024 8:13 AM CDT [facility] Blood Collection / Unknown 12/31/2024 4:00 AM CDT 12/31/2024 7:45 AM CDT Valerie Mercedes MD HEMATOLOGY ORDERABLES Final Resu lt Performing Organization Address [facility]/ZIP Co de Phone Number [facility] CLIA# [id number] [place] [address] * (ABNORMAL) PREALBUMIN (12/31/2024 4:00 AM CDT) PREALBUMIN 17(L) 20 - 40 mg/dL 12/31/2024 11:06 AM CDT [facility] Blood Collection / Unknown 12/31/2024 4:00 AM CDT 12/31/2024 7:45 AM CDT Valerie Mercedes MD CHEMISTRY ORDERABLES Final Resul t Performing Organization Address [facility]/ZIP Co de Phone Number [facility] CLIA# [id number] [address] [place] [address] * (ABNORMAL) COMPREHENSIVE METABOLIC PANEL (12/31/2024 4:00 AM CDT) SODIUM 139 136 - 145 mmol/L 12/31/2024 8:42 AM CDT [facility] [employer] [facility] POTASSIUM 3.8 3.4 - 5.1 mmol/L 12/31/2024 8:42 AM [facility] CHLORIDE 102 98 - 107 mmol/L 12/31/2024 8:42 AM [facility] CO2 25 22 - 29 mmol/L 12/31/2024 8:42 AM [facility] CALCIUM 9.6 8.6 - 10.4 mg/dL 12/31/2024 8:42 AM [facility] BUN 11 6 - 20 mg/dL 12/31/2024 8:42 AM [facility] CREATININE 0.50(L) 0.51 - 0.95 mg/dL 12/31/2024 8:42 AM [facility] GLUCOSE 74 74 - 99 mg/dL 12/31/2024 8:42 AM [facility] TOTAL PROTEIN 6.6 6.3 - 8.7 g/dL 12/31/2024 8:42 AM [facility] ALBUMIN 3.2(L) 3.5 - 5.2 g/dL 12/31/2024 8:42 AM [facility] BILIRUBIN TOTAL 0.2 0.0 - 1.2 mg/dL 12/31/2024 8:42 AM [facility] ALKALINE PHOSPHATASE 155(H) 40 - 150 U/L 12/31/2024 8:42 AM [facility] AST 36(H) 0 - 33 U/L 12/31/2024 8:42 AM [facility] ALT 35(H) 0 - 33 U/L 12/31/2024 8:42 AM [facility] GFR >60 >=60 mL/min/1.7 3 sq meter 12/31/2024 8:42 AM [facility] Comment:eGFR calculated with 2020 CKD-EPI equation. Vegetarian diet, extremely high or low muscle mass, and may affect results. Cystatin C with Glomerular Filtration Rate is a suitable alternative for these patients. 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
--- OUTSIDE RECORDS SUMMARY | 2025-03-24 15:44 | XMS_ITS | Encounter Summary ---
Author Organization [facility] Address [address] [place] [address] Care Team Providers Care Major Account Representative Name Role Phone Olman Schofield MD Primary Care Provider Encounter Details Date Type Department Care Team (Late Contact Info) Description 01/10/2025 Lab Requisition [facility] Laboratory Services [address] [place] [address] [place] [address] [place] [address] Social History Tobacco Use Types Packs/Day Years Used Date Smoking Tobacco: Former Cigarettes 0.3 15 Q uit: 01/10/2021 Smokeless Tobacco: Never Alcohol Use Standard Drinks/Week Comments Never 0 (1 standard drink = 0.6 oz pur e alcohol) Comments Unknown Sex and Gender Information Value Date Recorded Sex Assigned at Not on file Legal Sex Female 11:34 AM GENETICIST Gender Identity Not on file Sexual Orientation Not on file documented as of this encounter Plan of Treatment Upcoming Encounters Date Type Department Care Team (Late Contact Info) Description 03/28/2025 2:00 PM GENETICIST Telephone Check Up [facility] Oncology and Hematology - [place] [address] [facility] [address] [place] [address] Bhavik Rios MD [address] [facility] [address] [place] [address] documented as of this encounter Procedures Procedure Name Priority Date/Time Associated Diagnosis Comments ROSI AURIS SURVEILLANCE SCREEN Routine 01/09/2025 1:50 PM CDT documented in this encounter Results * (ABNORMAL) ROSI AURIS SURVEILLANCE SCREEN (01/09/2025 1:50 PM CDT) Rosi auris by PCR Detected( A) Not Detected 01/11/2025 1:24 AM CDT [facility] [employer] [facility] Comment:Health Department no tified by laboratory per State regulations. Surveillance (Axilla/Groin) Collection / Unknown 01/09/2025 1:50 PM CDT 01/10/2025 8:24 AM CDT Narrative [facility] - 01/11/2025 1:24 AM CDT Results called to Annie Dhaliwal, Hospital Animal Husbandman @ [place], on 01/11/2025 at 1:20 AM and read back verified. 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 auris. High risk facility. Will need to remain on Enhanced isolation (while hospitalized). Patient is required to be tested at every ED visit/ admission for the following 6 months, and once thereafter ([id number], Rosi auris surveillance screening). If negative screen 6 months, R/O C. auris status can be removed. 12/30/2024 12/30/2024 01/13/2025 8:58 AM C DT Rosi auris Comment:01/09/2025 axilla/groin 01/09/2025 01/09/2025 documented as of this encounter Care Teams Major Account Representative Relationship Specialty Start Date End Date Olman Schofield MD [address] [place] [phone] PCP - General Family Practice 04/09/24 documented as of this encounter
--- OUTSIDE RECORDS SUMMARY | 2025-03-24 15:44 | XMS_ITS | Encounter Summary ---
Author Organization [facility] Address [address] [place] [address] Care Team Providers Care Line Staker Name Role Phone Olman Schofield MD Primary Care Provider [phone] Encounter Details Date Type Department Care Team (Late Contact Info) Description 01/03/2025 Lab Requisition [facility] Laboratory Services [address] [place] [address] [place] [address] [place] [address] Social History Tobacco Use Types Packs/Day Years Used Date Smoking Tobacco: Former Cigarettes 0.3 15 Q uit: 01/10/2021 Smokeless Tobacco: Never Alcohol Use Standard Drinks/Week Comments Never 0 (1 standard drink = 0.6 oz pur e alcohol) Comments Unknown Sex and Gender Information Value Date Recorded Sex Assigned at Not on file Legal Sex Female 11:34 AM WARP PREPARER Gender Identity Not on file Sexual Orientation Not on file documented as of this encounter Plan of Treatment Upcoming Encounters Date Type Department Care Team (Late Contact Info) Description 03/28/2025 2:00 PM WARP PREPARER Telephone Check Up [facility] Oncology and Hematology - [place] [address] [facility] [address] [place] [address] Bhavik Rios MD [address] [facility] [address] [place] [address] documented as of this encounter Procedures Procedure Name Priority Date/Time Associated Diagnosis Comments CBC WITH DIFFERENTIAL Routine 01/03/2025 4:00 AM CDT BASIC METABOLIC PANEL Routine 01/03/2025 4:00 AM CDT documented in this encounter Results * (ABNORMAL) BASIC METABOLIC PANEL (01/03/2025 4:00 AM CDT) SODIUM 140 136 - 145 mmol/L 01/03/2025 8:11 AM CDT [facility] POTASSIUM 3.6 3.4 - 5.1 mmol/L 01/03/2025 8:11 AM CDT [facility] CHLORIDE 103 98 - 107 mmol/L 01/03/2025 8:11 AM CDT [facility] CO2 26 22 - 29 mmol/L 01/03/2025 8:11 AM CDT [facility] CALCIUM 9.5 8.6 - 10.4 mg/dL 01/03/2025 8:11 AM CDT [facility] BUN 14 6 - 20 mg/dL 01/03/2025 8:11 AM CDT [facility] CREATININE 0.47(L) 0.51 - 0.95 mg/dL 01/03/2025 8:11 AM CDT [facility] GLUCOSE 75 74 - 99 mg/dL 01/03/2025 8:11 AM CDT [facility] GFR >60 >=60 mL/min/1.7 3 sq meter 01/03/2025 8:11 AM CDT [facility] Comment:eGFR calculated with 2020 CKD-EPI equation. Vegetarian diet, extremely high or low muscle mass, and may affect results. Cystatin C with Glomerular Filtration Rate is a suitable alternative for these patients. ANION GAP 11 8 - 16 mmol/L 01/03/2025 8:11 AM CDT [facility] Blood Collection / Unknown 01/03/2025 4:00 AM CDT 01/03/2025 7:15 AM CDT us Valerie Mercedes MD CHEMISTRY ORDERABLES Final Resul t [facility] CLIA# [id number] [place] [address] * (ABNORMAL) CBC WITH DIFFERENTIAL (01/03/2025 4:00 AM CDT) [facility] WBC 6.1 4.0 - 9.8 K/uL 01/03/2025 7:41 AM CDT [facility] RBC 3.81(L) 3.90 - 4.90 M/uL 01/03/2025 7:41 AM CDT [facility] HEMOGLOBIN 10.5(L) 11.8 - 14.8 g/dL 01/03/2025 7:41 AM CDT [facility] LABORATORY [facility] HEMATOCRIT 32.9(L) 35.5 - 44.0 % 01/03/2025 7:41 AM CDT [facility] MCV 86.4 82.0 - 99.0 fL 01/03/2025 7:41 AM CDT [facility] LABORATORY [facility] MCH 27.6 27.2 - 32.6 pg 01/03/2025 7:41 AM CDT [facility] MCHC 31.9 31.5 - 35.5 g/dL 01/03/2025 7:41 AM CDT [facility] LABORATORY [facility] RDW 14.0 11.5 - 14.5 % 01/03/2025 7:41 AM CDT [facility] LABORATORY [facility] RDW-STDEV 44.0 37.1 - 48.7 fL 01/03/2025 7:41 AM CDT [facility] LABORATORY [facility] PLATELETS 353(H) 140 - 350 K/uL 01/03/2025 7:41 AM CDT [facility] MPV 9.8 9.3 - 12.4 fL 01/03/2025 7:41 AM CDT [facility] LABORATORY [facility] NEUTROPHILS 75 % 01/03/2025 7:41 AM CDT [facility] LABORATORY [facility] LYMPHOCYTES 12 % 01/03/2025 7:41 AM CDT [facility] LABORATORY [facility] MONOCYTES 7 % 01/03/2025 7:41 AM CDT [facility] LABORATORY [facility] EOSINOPHILS 6 % 01/03/2025 7:41 AM CDT [facility] LABORATORY [facility] BASOPHILS 1 % 01/03/2025 7:41 AM CDT [facility] LABORATORY [facility] IMMATURE GRANULOCYTES 0 % 01/03/2025 7:41 AM CDT [facility] NEUTROPHIL ABSOLUTE 4.57 1.90 - 7.00 K/uL 01/03/2025 7:41 AM CDT [facility] LABORATORY [facility] LYMPHOCYTE ABSOLUTE 0.70 0.70 - 4.50 K/uL 01/03/2025 7:41 AM CDT [facility] LABORATORY [facility] MONOCYTE ABSOLUTE 0.44 0.10 - 1.30 K/uL 01/03/2025 7:41 AM CDT [facility] LABORATORY [facility] EOSINOPHIL ABSOLUTE 0.34 0.00 - 0.70 K/uL 01/03/2025 7:41 AM CDT [facility] BASOPHILS ABSOLUTE 0.03 0.00 - 0.20 K/uL 01/03/2025 7:41 AM CDT [facility] LABORATORY [facility] IMMATURE GRANULOCYTES ABSOLUTE 0.02 0.00 - 0.03 K/uL 01/03/2025 7:41 AM CDT [facility] Blood Collection / Unknown 01/03/2025 4:00 AM CDT 01/03/2025 7:15 AM CDT Valerie Mercedes MD HEMATOLOGY ORDERABLES Final Resu lt [facility] CLIA# [id number] [place] [address] documented in this encounter Visit Diagnoses Not on filedocumented in this encounter Additional Health Concerns Infection Onset Date Last Indicated Resolved Time 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 auris. High risk facility. Will need to remain on Enhanced isolation (while hospitalized). Patient is required to be tested at every ED visit/ admission for the following 6 months, and once thereafter ([id number], Rosi auris surveillance screening). If negative screen 6 months, R/O C. auris status can be removed. 12/30/2024 12/30/2024 01/13/2025 8:58 AM C DT Rosi auris Comment:01/09/2025 axilla/groin 01/09/2025 01/09/2025 documented as of this encounter Care Teams Line Staker Relationship Specialty Start Date End Date Olman Schofield MD [address] [place] [phone] PCP - General Family Practice 04/09/24 documented as of this encounter
[2025-03-24 16:04] LABS: Estimated Glomerular Filt Rate > 60
== END 2025-03-24 15:26 | disposition home or self-care (01) ==
PROVIDERS: PCP Nurse Practitioner Family; Visit Provider Internal Medicine Hematology & Oncology
DX: C18.9 Malignant neoplasm of colon, unspecified (principal)
CPT/HCPCS: 36415; 74177; 80053; 82378; 85025; Q9967